=== PATIENT | male | born 1945 | race Caucasian/White ===

== ENCOUNTER 2020-02-05 17:20 | Inpatient (IN) | payer MEDICARE, MEDICAID, SELFPAY ==
[~2020-02-05] VITALS: Ht 185.4 cm; Wt 81.6 kg
[2020-02-05 17:20] VITALS: BP 128/78
--- NOTE | 2020-02-05 17:20 | NUR ---
Patient BIBA BLS, transferred to bed 10. RN evaluating patient at bedside.
--- NOTE | 2020-02-05 17:25 | NUR ---
PT BIBA FROM HOME C/O PROGRESSIVELY GENERALIZED WEAKNESS, SUBJECTIVE FEVER, FATIGUE, AND DIFFICULTY OF AMBULATION FOR 4 DAYS. PT STATES HIS DAUGHTER TESTED TWO DAYS AGO WITH POSITIVE RESULT AND HE WAS TESTED YESTERDAY WITH PENDING RESULT. PT DENIES SOB, CP, COUGH, N/V/D, OR DIZZINESS. PT HAS LEFT SIDED EXTREMITIES WEAKNESS SINCE LAST STROKE IN 2010. PT DOES NOT PRESENT WITH RESPIRATORY DISTRESS OR ACCESSORY MUSCLE USE. 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
--- NOTE | 2020-02-05 17:50 | NUR ---
XRAY IS AT BEDSIDE.
--- NOTE | 2020-02-05 17:50 | NUR ---
REE SWAB COLLECTED AND SENT TO THE LAB.
[2020-02-05 17:52] LABS: BASOPHILS % (AUTO) 0.3 % (0.0-2.0); EOSINOPHILS % (AUTO) 0.1 % (0.0-4.0); HEMATOCRIT 39.4 % (36-52); HEMOGLOBIN 13.5 g/dL (12.0-18.0); LYMPHOCYTES # (AUTO) 1.2 K/uL (2.0-11.5); LYMPHOCYTES % (AUTO) 18.8 % (20.5-51.1); MEAN CORPUSCULAR HEMOGLOBIN 28 pg (27-31); MEAN CORPUSCULAR HGB CONC 34 g/dL (33-37); MEAN CORPUSCULAR VOLUME 82.5 fL (80-94); MONOCYTES # (AUTO) 0.6 K/uL (0.8-1.0); MONOCYTES % (AUTO) 9.3 % (1.7-9.3); NEUTROPHILS # (AUTO) 4.7 K/uL (1.8-7.7); NEUTROPHILS % (AUTO) 71.5 % (42.2-75.2); PLATELET COUNT (AUTO) 102 K/uL (140-450); RED BLOOD CELL COUNT(AUTO) 4.78 MIL/uL (4.20-6.10); RED CELL DISTRIBUTION WIDTH 14.2 % (11.6-13.7); WHITE BLOOD COUNT (AUTO) 6.5 K/uL (4.8-10.8)
[2020-02-05 18:06] LABS: ALBUMIN 3.5 g/dL (3.4-5.0); ANION GAP 15.2 (8-16); ASPARTATE AMINOTRANSFERASE 20 U/L (15-37); CHLORIDE 102 mmol/L (98-107); CREATININE 1.8 mg/dL (0.6-1.3); GLUCOSE 108 mg/dL (74-106); POTASSIUM 3.2 mmol/L (3.5-5.1); SODIUM SERUM 138 mmol/L (136-145); TOTAL BILIRUBIN 0.6 mg/dL (0.0-1.0); UREA NITROGEN, BLOOD 18 mg/dL (7-18)
[2020-02-05] MEDS ORDERED: ERGO500028 PO (18:07)
[2020-02-05] MEDS ORDERED: PROP20TA29 PO (18:09)
[2020-02-05] MEDS ORDERED: PRAV40TA4 PO (18:09)
[2020-02-05] MEDS ORDERED: BENA20TA PO (18:09)
[2020-02-05] MEDS ORDERED: SYN.05 PO (18:14)
[2020-02-05] MEDS ORDERED: FURO-572 PO (18:14)
[2020-02-05] MEDS ORDERED: GABA100C PO (18:14)
[2020-02-05] MEDS ORDERED: AMLO10TA PO (18:14)
[2020-02-05] MEDS ORDERED: POTA10CE85 PO (18:14)
[2020-02-05] MEDS ORDERED: KEP500 PO (18:14)
[2020-02-05] MEDS ORDERED: DUTA0.5S2 PO (18:14)
[2020-02-05] MEDS ORDERED: DEXAMETHASONE 4 MG/ML VIAL IVP ONE (18:25)
--- NOTE | 2020-02-05 18:25 | NUR ---
INVALID REE RESULT CALLED FROM LAB AND LAB STATES MOST LIKELY IT IS POSITIVE. RECOMMENDED TO ORDER PCR. DR. KAHN MADE AWARE.
--- NOTE | 2020-02-05 18:52 | NUR ---
NOVEL SWAB COLLECTED AND SENT TO THE LAB.
--- NOTE | 2020-02-05 19:25 | NUR ---
Pt report given to MINA. Transfer of care at this time.
--- NOTE | 2020-02-05 19:30 | NUR ---
RECEIVED REPORT FROM RAY SILVERMAN FOR CONTINUITY OF CARE. PT LAYING IN BED, IN NO ACUTE DISTRESS NOTED, O2 AT 2 L VIA NC. PT PLACED ON GL ACCOUNTANT AT THIS TIME. PENDING ADMIT AT THIS TIME.
--- NOTE | 2020-02-05 19:51 | NUR ---
PT TAKEN TO CT AT THIS TIME.
--- NOTE | 2020-02-05 20:00 | NUR ---
PT RETRUNED FROM [place] VIA [facility]. PT MASK BEING WORN.
--- NOTE | 2020-02-05 20:10 | NUR ---
PT STATES, "I STILL DONT FEEL LIKE GOING TO THE BATHROOM AT THIS TIME". REMINDED PT OF THE NEED OF URINE SAMPLE AND VERBALIZED UNDERSTANDING.
--- NOTE | 2020-02-05 20:25 | NUR ---
Khadra shelley in ED - 02/05/20 at 2038 by [email or web address] PICTURES OF WOUND TAKEN. PRIMARY NURSE AT BEDSIDE.
[2020-02-05] MEDS ORDERED: guaiFENesin DM 200/20 MG-10 ML 10 ML UDC PO PRN (21:50)
[2020-02-05] MEDS ORDERED: ONDANSETRON 4 MG/2 ML VIAL IM/IVP PRN (21:50)
[2020-02-05] MEDS ORDERED: DOCUSATE SODIUM 100 MG GELCAP PO PRN (21:50)
[2020-02-05] MEDS ORDERED: ZOLPIDEM 5 MG TAB PO PRN (21:50)
[2020-02-05 22:36] LABS: FREE T4 (FREE THYROXINE) 1.47 ng/dL (0.76-1.46); MAGNESIUM 1.8 mg/dL (1.8-2.4); PHOSPHORUS 2.6 mg/dL (2.5-4.9); THYROID STIMULATING HORMONE 0.84 uIU/mL (0.34-3.74)
--- NOTE | 2020-02-05 22:39 | NUR ---
Pt assisted to provide UA via urinal by Primary RN.
[2020-02-05 22:41] LABS: PROTHROMBIN TIME 10.9 secs (10.8-13.4)
[2020-02-05] MEDS: NACL 0.9% 1,000 ML IV SCH (22:44)
--- NOTE | 2020-02-05 22:54 | NUR ---
PT LAYING IN BED, IN NO ACUTE DISTRESS NOTED. BREATHING EVEN AND UNLABORED EVIDENCE BY RISE AND FALL OF CHEST O2 AT 2L VIA NC SATURATION OF 98%. PT STILL CONTINUES ON SHIPPING TECHNICIAN. BED LOCKED AND IN LOWEST POSITION. PROVIDED WARM BLANKET FOR COMFORT.
--- NOTE | 2020-02-05 23:13 | NUR ---
DAUGHTERS CALLED WANTING UPDATE ON PT'S STATUS. TEODORO - & GEMINI .
--- NOTE | 2020-02-05 23:23 | NUR ---
PT GAVE VERBAL CONSENT TO PROVIDE FULL UPDATE TO DAUGHTERS (TEODORO AND GEMINI).
--- NOTE | 2020-02-05 23:36 | NUR ---
Patient will be admitted to care of DR. CONDE. Admited to TELEMETRY. Will go to room 119B. Belongings list completed. Report to JACQUELINE SILVERMAN. PROVIDED ETA OF 15 MINUTES.
[2020-02-05 23:52] LABS: APPEARANCE,URINE CLEAR (CLEAR); BILIRUBIN,URINE NEGATIVE (NEGATIVE); BLOOD, URINE NEGATIVE (NEGATIVE); COLOR,URINE YELLOW (YELLOW); LEUKOCYTE ESTERASE ,URINE NEGATIVE (NEGATIVE); NITRITE, URINE NEGATIVE (NEGATIVE); UGLUCOSE NEGATIVE (NEGATIVE)
[2020-02-06 00:06] LABS: WBC,URINE 0-5 /HPF (0-5)
--- NOTE | 2020-02-06 00:15 | NUR ---
PT TAKEN TO BED 119B AT THIS TIME FOR CONTINUITY OF CARE.
--- NOTE | 2020-02-06 00:15 | NUR ---
ADMITTED PT TO TELE UNIT FROM ED VIA GURNEY. PT IS AAOX4, AMBULATORY WITH ASSIST, SPEAKS AND UNDERSTANDS MAURITANIAN ADEQUATELY. NO ACUTE DISTRESS, NO SOB NOTED. RESPIRATIONS EVEN AND UNLABORED. CHEST RISE AND FALL SYMMETRICAL. ON O2 3LPM VIA NASAL CANNULA. DENIES ANY PAIN OR DISCOMFORT AT THIS TIME. PT HAS ADMITTING DIAGNOSIS OF COVID 19 HYPOXIC RESPIRATORY FAILURE, WITH A CHIEF COMPLAINT OF GENERALIZED WEAKNESS, FATIGUE. NOTED IV LINE ON LAC 18G RUNNING IVF NS 100CC/HR, PATENT AND INTACT. PT ORIENTED TO ROOM AND CALL LIGHT. PLAN OF CARE DISCUSSED, VERBALIZED UNDERSTANDING. DROPLET PRECAUTION ISOLATION OBSERVED WITH PROPER PPE. SAFETY MEASURES IN PLACED. CALL LIGHT IN REACH. WILL CONTINUE TO MONITOR.
[2020-02-06 00:47] LABS: BARBITURATE, URINE NEGATIVE ng/ml (NEG <=200); BENZODIAZEPINE, URINE NEGATIVE ng/mL (NEG <=200); CANNABINOID, URINE POSITIVE ng/mL (NEG <=50); COCAINE, URINE NEGATIVE ng/mL (NEG <=300); OPIATE, URINE NEGATIVE ng/mL (NEG <=2000); PHENCYCLIDINE SCREEN,URINE NEGATIVE ng/mL (NEG <=25)
--- NOTE | 2020-02-06 02:15 | NUR ---
PT ON BED, SLEEPING COMFORTABLY WITH NO APPARENT DISTRESS. NO SOB, NO COUGH NOTED. SAFETY MEASURES IN PLACED. CALL LIGHT IN REACH. WILL CONTINUE TO MONITOR.
--- NOTE | 2020-02-06 03:00 | NUR ---
PT IV LINE GOT DISLODGED. ABLE TO INSERT NEW IV LINE ON RAC G24 X1 ATTEMPT. Addendum: 02/06/20 at 0434 by Bijan Jarrett RN WRONG CHART/PT
[2020-02-06 04:00] VITALS: BP 138/76
--- NOTE | 2020-02-06 04:15 | NUR ---
PT STILL ASLEEP ON BED WITHOUT ANY S/S OF DISTRESS OR PAIN. WILL CONTINUE TO MONITOR.
[2020-02-06] MEDS: LEVOTHYROXINE 0.05 MG TAB PO SCH (05:40)
[2020-02-06] MEDS: POTASSIUM CHLORIDE 10 MEQ TABER PO PRN (05:40)
--- NOTE | 2020-02-06 05:40 | NUR ---
PT POTASSIUM LEVEL ON 02/04 FROM ER IS 3.2, ADMINISTERED [id number] PRN ORDERED. DUE MEDS GIVEN. ABLE TO TOLERATE WELL. WILL CONTINUE TO MONITOR.
[2020-02-06 05:58] LABS: BASOPHILS % (AUTO) 0.1 % (0.0-2.0); EOSINOPHILS % (AUTO) 0.1 % (0.0-4.0); HEMATOCRIT 40.6 % (36-52); LYMPHOCYTES # (AUTO) 0.6 K/uL (2.0-11.5); LYMPHOCYTES % (AUTO) 16.1 % (20.5-51.1); MEAN CORPUSCULAR HEMOGLOBIN 29 pg (27-31); MEAN CORPUSCULAR HGB CONC 34 g/dL (33-37); MEAN CORPUSCULAR VOLUME 83.1 fL (80-94); MONOCYTES # (AUTO) 0.2 K/uL (0.8-1.0); MONOCYTES % (AUTO) 5.7 % (1.7-9.3); NEUTROPHILS # (AUTO) 2.9 K/uL (1.8-7.7); PLATELET COUNT (AUTO) 92 K/uL (140-450); RED BLOOD CELL COUNT(AUTO) 4.89 MIL/uL (4.20-6.10); RED CELL DISTRIBUTION WIDTH 13.9 % (11.6-13.7); WHITE BLOOD COUNT (AUTO) 3.7 K/uL (4.8-10.8)
[2020-02-06 06:18] LABS: ANION GAP 15.1 (8-16); CARBON DIOXIDE 26.5 mmol/L (21-32); CHLORIDE 104 mmol/L (98-107); CREATININE 1.6 mg/dL (0.6-1.3); GLUCOSE 133 mg/dL (74-106); POTASSIUM 3.6 mmol/L (3.5-5.1); SODIUM SERUM 142 mmol/L (136-145); UREA NITROGEN, BLOOD 21 mg/dL (7-18)
--- NOTE | 2020-02-06 07:18 | NUR ---
ENDORSED PT TO AM SHIFT NURSE IN STABLE CONDITION FOR CONTINUITY OF CARE.
--- NOTE | 2020-02-06 07:20 | NUR ---
RECEIVED PATIENT FROM NIGHT NURSE. PATIENT IN BED SLEEPING, CHEST NOTE RISING. RESP EVEN AND UNLABORED ON 3L NC. NO NOTED DISTRESS AT THIS TIME. SEIZURE PRECAUTION IN PLACE D/T HX. DROPLET PRECAUTION OBSERVED. SAFETY MEASURES IN PLACE. CALL LIGHT WITHIN REACH. WILL CONTINUE TO MONITOR.
[2020-02-06] MEDS: NACL 0.9% 1,000 ML IV SCH ×2 (07:50→17:24)
[2020-02-06 08:00] VITALS: BP 143/81
--- NOTE | 2020-02-06 08:48 | NUR ---
PATIENT HAS BEEN SCREENED AND CATEGORIZED MODERATE NUTRITION RISK. PATIENT WILL BE SEEN WITHIN 3-5 DAYS OF ADMISSION. 02/08/20 02/10/[address]
[2020-02-06] MEDS ORDERED: PRAVASTATIN SODIUM 40 MG PO SCH (09:00)
[2020-02-06] MEDS: PROPRANOLOL 20 MG TAB PO SCH ×3 (09:25→16:33)
[2020-02-06] MEDS: PANTOPRAZOLE 40 MG TABEC PO SCH (09:25)
[2020-02-06] MEDS: levETIRAcetam 500 MG TAB PO SCH ×2 (09:25→20:24)
[2020-02-06] MEDS: amLODIPine 5 MG TAB PO SCH (09:28)
[2020-02-06] MEDS: FUROSEMIDE 20 MG TAB PO SCH (09:28)
[2020-02-06] MEDS: BENAZEPRIL 20 MG TAB PO SCH (09:29)
--- NOTE | 2020-02-06 09:35 | NUR ---
MORNING ROUTINE MEDICATIONS GIVEN. PATIENT TOLERATED WELL. PATIENT AWAKE, ALERT AND ORIENTED X4. RESP EVEN AND UNLABORED ON ROOM AIR, O2SAT 97%. LUNGS CLEAR. SKIN IS WARM TO TOUCH AND INTACT. DENIED OF PAIN AT THIS TIME. PT C/O HX OF JOINT PAIN TO BILATERAL KNEES BUT TOLERATING WELL AT THIS TIME. LAC 18G INTACT AND PATENT INFUSING NS 100ML/HR. PATIENT ABLE TO FOLLOW COMMNANDS AND ABLE TO MAKE NEEDS KNOWN. CALL LIGHT WITHIN REACH. PLAN OF CARE DISCUSSED WITH PATIENT. PATIENT VERBALIZED UNDERSTANDING. WILL CONTINUE TO MONITOR.
--- NOTE | 2020-02-06 11:25 | NUR ---
PATIENT IN BED AWAKE AND ALERT WATCHING TV. RESP EVEN AND UNLABORED ON ROOM AIR, O2SAT 95%. DENIED OF PAIN AT THIS TIME. ACCORDING TO PATIENT, GEMINI HIS STEP DAUGHTER IS NOT TO HAVE ANY INFORMATION ABOUT HIM DURING HIS STAY HERE. PATIENT HAS HOME MEDICATIONS WITH HIM AND WILL CONTACT HIS SON SANDY, WHOM HE RESIDES WITH, TO BRING THEM HOME. CALL LIGHT WITHIN REACH. WILL CONTINUE TO MONITOR.
[2020-02-06 12:00] VITALS: BP 115/82
--- NOTE | 2020-02-06 12:27 | NUR ---
DC PLANNIN YRS OLD MALE PATIENT WAS ADMITTED FROM HOME WITH A DX OF COVID 19 HYPOXIC RESP FAILURE. PATIENT HAS A HISTORY OF STROKE, HYPOTHYROIDISM , BPH AND SEIZURE. CXR SHOWED NO ACUTE CARDIOPULMONARY DISEASE. CT HEAD SHOWED NO ACUTE INTRACRANIAL HEMORRHAGE. RAPID AND PCR COVID TEST PENDING. ADMINISTERED IVF, AND CONTINUED HOME MEDS. DC PLAN TO GO HOME WHEN STABLE CM TO FOLLOW. Addendum: 02/07/20 at 1239 by Britni Parra RN DC PLANNING: PCR COVID TEST POSITIVE. PULMO AND ID FOLLOWING STARTED COVID PROTOCOL AND TREATMENT CM TO FOLLOW Addendum: 02/07/20 at 1546 by Ambreen Elliott CM DC SENIOR TALENT MANAGEMENT CONSULTANT: FAXED PATIENT CLINICALS FOR HOME HEALTH TO [facility]. SPOKE TO MADELEINE THEY ARE NOT ABLE TO ACCEPT THIS PATIENT AT THIS TIME. Addendum: 02/07/20 at 1548 by Ambreen Elliott CM JOHN PAUL PAZNER: PATIENTS ORDER FOR FRONT WHEEL WALKER HAS BEEN FAXED TO [facility]. WALKER WILL BE DELIVERED TO BEDSIDE. Addendum: 02/20/20 at 1229 by Marina Rodriguez CM REMAINS INTUBATED TO VENT, FIO2 50%, PEEP 8, O2 SAT 94% AND SEDATED WITH FENTANYL AND PROPOFOL. ON SOLU MEDROL, KEPPRA, METOCLOPRAMIDE. ON HEPARIN DRIP - APTT 44.1. SEEN BY PULMO - STARTED PATIENT ON REGLAN DUE TO HIGH RESIDUAL. Addendum: 02/21/20 at 1344 by Marina Rodriguez ABLE TO HET A HOLD OF PATIENT'S DAUGHTER TEODORO AGUIAR AT [phone]. INFORMED HER THAT ATTENDING DOC IS TRYING TO CONTACT HER TO DISCUSS CODE STATUS. SHE STATED HAVE NOT SPOKEN TO THE ATTENDING YET, EXCEPT FOR THE NEPHRO DOC. SHE REQUESTED TO HAVE ATTENDING DOC CALL HER. DR CONDE MADE AWARE AND PROVIDED OF THE PATIENT'S DAUGHTER TEODORO AGUIAR'S PHONE NUMBER [phone]. PER DR. CONDE, HE WILL CONTACT PATIENT'S DAUGHTER. Addendum: 02/27/20 at 1439 by Marina Rodriguez CM LATE ENTRY; SPOKE TO RJ AND CONFIRMED WITH HIM THAT THEY ARE NOT ABLE TO ACCEPT HOSPITAL PE. PER JOSEFA PRATHER IS ABLE TO ACCEPT HOSPITAL PE NOW HOWEVER HE COULD NOT GUARANTEE THAT PATIENT WILL BE ACCEPTED. HE STATED THAT DEPENDING ON THE PATIENT'S INSURANCE, WITH HOSPITAL PE IT WILL BE IN THE BOTTOM OF THE REFERRAL. HE REQUESTED TO SEND THE REFERRAL FOR THEM TO REVIEW. INFORMED HIM TO CALL US BACK SOON POSSIBLE DUE TO PLAN OF TRACH AND PEG FOR THIS PATIENT. IN ALSO PROVIDED HIM OF THE VENT SETTINGS. WILL FOLLOW UP. DR. CONDE MADE AWARE. CONTACTED PATIENT'S DAUGHTER TEODORO AGUIAR AND IS IN AGREEMENT OF DC PLAN. REFERRAL SENT TO [facility]. WILL FOLLOW UP. Addendum: 02/28/20 at 1053 by Marina Rodriguez CM LATE ENTRY FOR YESTERDAY: SPOKE TO PATIENT'S DAUGHTER TEODORO AGUIAR STATING THAT THE PATIENT HAS AARP, REQUESTED HER TO SEND US A COPY OF THE INSURANCE CARD. MARVIN NICOLE I=MADE AWARE. HE STATED HE WILL CONTACT THE PATIENT'S DAUGHTER. 1739: RECEIVED A CALL FROM RJ, STATING THAT THEY ARE WORKING ON A BED RIGHT NOW. Addendum: 02/28/20 at 1055 by Marina Rodriguez [place] [address]/27/2020: RECEIVED A MESSAGE FROM MARVIN NICOLE WITH PATIENT'S MEDICARE CARD. INFORMED HIM THAT I WILL HAVE ROTARY SOIL STABILIZER VERIFY ELIGIBILITY IN THE MORNING. Addendum: 02/28/20 at 1105 by Marina Rodriguez 0840: [employer] MADE AWARE OF THE PATIENT'S MEDICARE CARD. PATIENT'S NAME ON THE INSURANCE CARD IS RAMILA AND NOT ARELLANOS. PER MARIO SHE WILL RUN THE NUMBER IF IT IS STILL ACTIVE AND WILL UPDATE ME. CONTACTED RJ TO FOLLOW UP. HE STATED THIS PATIENT HAS [employer] [facility]. INFORMED HIM THAT WE HAVE THE CARD AND WE ARE RUNNING ELIGIBILITY OF THE MOMENT. PER AucteliaROTARY SOIL STABILIZER, PATIENT HAS MTailor WITH [employer]. PER MARIO, SHE WILL PROVIDE ME WITH AN UPDATED FACE SHEET ONCE READY. CONTACTED LARS EATON OF [facility] AT [phone] AND INFORMED HIM OF THIS PATIENT. HE ASKED WHY NOW. INFORMED HIM THAT WE JUST GOT THE MEDICARE CARD FROM THE PATIENT'S DAUGHTER. AND THE NAME ON OUR SYSTEM IS DIFFERENT. HE STATED THAT THE ATTENDING NEEDS TO BE CHANGE TO [facility]. INFORMED HIM THAT THIS PATIENT HAVE BEEN HERE 23 DAYS AND IF WE CAN JUST CONTINUE WITH THE ATTENDING THAT CURRENTLY HAVE FOR CONTINUITY OF CARE. PER UMA HE WILL REACH OUT TO HIS SEAM STAY STITCHER REGARDING THIS. INFORMED HIM THAT WE WILL BE SENDING THEM CLINICALS ON THIS PATIENT AND I WILL HAVE TO FOLLOW UP WITH HIM AFTER BED HUDDLE. RECEIVED AN UPDATED FACE SHEET WITH NEW INSURANCE INFORMATION FROM [employer]. DR. CONDE MADE AWARE. Addendum: 02/28/20 at 1119 by Ambreen Elliott JOHN PAUL DELEON: FAXED UPDATED CLINICALS TO JOSE[facility] Addendum: 02/28/20 at 1131 by Marina Rodriguez CONTACTED LARS EATON OF [facility], TO FOLLOW UP IF THEY RECEIVED CLINICALS FOR THIS PATIENT. PER UMA HE ONLY GOT THE FACE SHEET AND NO CLINICALS YET. HE ALSO STATED THAT HE DISCUSSED THIS CASE WITH HIS SEAM STAY STITCHER AND IS REQUESTING TO TRANSFER SERVICES TO [facility]. HE ALSO STATED THAT THEY WILL APPROVE ADMISSION WHICH IS 02/05/2020, BUT UNFORTUNATELY WILL BE DENYING 02/06/2020-02/27/2020 FOR A LATE NOTIFICATION. DR. CONDE MADE AWARE. AucteliaROTARY SOIL STABILIZER MADE AWARE. Addendum: 02/28/20 at 1137 by Marina Rodriguez CM [address] ERICKSON MADE AWARE. HE STATED HE WILL BE HERE AROUND NOON TIME. Addendum: 02/29/20 at 0902 by Marina Rodriguez CM RECEIVED AN ORDER FOR OC TRANSFER STAT DUE TO INTRACRANIAL HEMORRHAGE. CONTACTED THE FOLLOWING HOSPITALS: [facility] TRANSFER CENTER - [phone] - ABLE TO SPEAK TO GERALDINE. PROVIDED HER OF ALL INFORMATION NEEDED. PER GERALDINE, THEY ARE NOT ACCEPTING ANY TRANSFER AT THIS TIME AND CURRENTLY ON INTERNAL DISASTER. SHE ALSO STATED THAT THEY ARE TRANSFERRING SOME OF THEIR PATIENT'S WELL. SHE STATED SHE CAN TAKE THE PATIENT'S INFORMATION HOWEVER, IT WILL NOT GUARANTEE THAT THEY CAN TAKE THE PATIENT. REFERRAL SENT TO [phone]. [facility] TRANSFER [facility] - [phone] - ABLE TO SPEAK TO EMBER. PER EMBER NO ICU BEDS AT THIS TIME HOWEVER REQUESTED TO FAX REFERRAL. REFERRAL SENT. [facility] BED [facility]OL [phone], PER FORREST, THEY ARE ON INTERNAL DISASTER AND NOT ACCEPTING TRANSFERS AT THIS TIME. [facility] TRANSF[facility] [phone], NO ANSWER. LEFT MESSAGE. [facility] - [phone]. PER MICHAEL NO ICU BEDS AT THIS TIME AND HAS 2 ICU PATIENT'S HOLDING IN THEIR ED. Addendum: 02/29/20 at 1152 by Marina Rodriguez CM LARS EATON OF [facility] MADE AWARE. HE STATED TO TRY TO REACH OUT TO [facility]. CONTACTED [facility] AT [phone], ABLE TO SPEAK TO VIANNEY. PROVIDED HER OF ALL THE INFORMATION NEEDED. SHE STATED THEY ARE ONLY ACCEPTING TRAUMA, STROKE AND STEMI PATIENTS AT THIS TIME, BUT WILL THEIR PHYSICIAN REACH OUT TO DR. ROGERS. SHE REQUESTED CLINICALS TO BE SENT TO [phone]. REFERRAL SENT TO PROVIDED NUMBER. PER JULIO C OF [facility] TRANSFER CENTER, THEY HAVE O DECLINE THE CASE DUE TO THEIR ICU IS AT CAPACITY. RECEIVED A CALL BACK FROM VIANNEY OF [facility], STATING THAT THEY ARE ABLE TO ACCEPT THE PATIENT PENDING ICU COVID BED. SHE ALSO PROVIDED ME THE NAME OF THE ACCEPTING DR. HARIKA BAEZ. PER VIANNEY SHE WILL BE FAXING ME TRANSFER BACK AGREEMENT FORM. RECEIVED TRANSFER BACK AGREEMENT SIGNED BY DR. GARRIDO. FAXED BACK TO [facility] AT [phone]. WILL FOLLOW UP. Addendum: 02/29/20 at 1413 by Kolby ANDREWS SHARON CONTACTED [facility] AND SPOKE TO WILMER . SHARON ARRANGED WILL CALL TRANSPORTATION WITH [facility] PENDING ROOM NUMBER TO [facility]. Addendum: 02/29/20 at 1413 by Kolby ANDREWS AUTH: [id number] Addendum: 02/29/20 at 1628 by Marina Rodriguez CM PER VIANNEY OF [facility] AT [phone], NO ICU BEDS AT THIS TIME. PROVIDED HER OF THE UNIT ART GILDER'S NUMBER IN CASE BED WILL BE AVAILABLE AFTER HOURS. LARS EATON OF [facility] MADE AWARE. Addendum: 03/01/20 at 0842 by Marina Rodriguez CM PER MARIALUISA OF [facility] TRANSFER CENTER, STILL NO ICU BEDS AT THIS TIME. HE STATED CHARGE NURSE WILL UPDATE THEM OF BED AVAILABILITY IN 20 MINS. PROVIDED HIM OF MY CONTACT INFO. Addendum: 03/01/20 at 0850 by Marina Rodriguez CM CONTACTED [facility] TO FOLLOW UP ON THE REFERRAL, NO ANSWER. LEFT MESSAGE. WILL FOLLOW UP. Addendum: 03/01/20 at 1129 by Marina Rodriguez CM REACHED OUT TO [facility] AGAIN, NO ANSWER. LEFT MESSAGE. PHONE CALL MADE TO [facility] TO FOLLOW UP BED AVAILABILITY, ANANT FAITH STILL NO ICU BEDS. SHE STATED PATIENT IS ON TOP OF THEIR LIST. WILL FOLLOW UP. Addendum: 03/01/20 at 1257 by Marina Rodriguez CM RECEIVED A CALL FROM GYPSY OF [facility] TO GATHER MORE INFORMATION REGARDING THIS PATIENT. SHE STATED THAT SHE WILL FORWARD THE REFERRAL HOWEVER SHE DOES NOT THINK THAT THEY WILL DO ANYTHING FOR THIS PATIENT DUE TO COVID. PER LEON, SHE WILL REACH OUT TO ME IF THEY NEED MORE INFORMATION. Addendum: 03/01/20 at 1655 by Marina Rodriguez PER VIANNEY [facility], NO ICU BEDS STILL. PER GYPSY OF [facility], DR. BROOKS IS DECLINING THE CASE. LARS EATON OF [facility] MADE AWARE. Addendum: 03/04/20 at 0907 by Marina Rodriguez CM PER GERALDINE [facility], NO ICU BEDS AVAILABLE AT THIS TIME. WILL FOLLOW UP. Addendum: 03/04/20 at 1133 by Marina Rodriguez CM 1045: PER JOHN OF [facility], NO BED AVAILABLE AT THIS TIME. WILL FOLLOW UP. Addendum: 03/05/20 at 0831 by Marina Rodriguez CM PHONE CALL MADE TO [facility] TO FOLLOW WITH THE REFERRAL. PER VIANNEY, ART GILDER MARLEN IS ACTIVELY LOOKING FOR BED AVAILABILITY WE SPEAK. SHE STATED SHE'S HOPING THAT BED WILL BE AVAILABLE TODAY. SHE REQUESTED TO FAX OVER UPDATED CLINICALS TO [phone]. CLINICALS SENT. WILL FOLLOW UP. Addendum: 03/05/20 at 1157 by Marina Rodriguez CM RECEIVED A CALL FROM [facility], INFORMING ME THAT THERE IS NO BED AVAILABLE AT THIS TIME AND THE NEXT UPDATE WILL BE AT 1860. Addendum: 03/05/20 at 1212 by Marina Rodriguez CM LATE ENTRY: PER MICHAEL ALTMAN [facility], THEY ARE ABLE TO TRANSPORT PATIENTS WITH HIGHER FIO2 DEPENDING ON THE DISTANCE. SHE ALSO STATED 70% IS FINE. Addendum: 03/05/20 at 1635 by Marina Rodriguez CM REACHED OUT TO [facility] AGAIN TO FOLLOW UP ON BED AVAILABILITY. PER VIANNEY, SHE WILL REACH OUT TO [facility] TO FIND OUT BED AVAILABILITY AND WILL CALL ME BACK FOR UPDATE. Addendum: 03/05/20 at 1642 by Marina Rodriguez CM RECEIVED A CALL BACK FROM VIANNEY Lake AT [facility] TRANSFER [facility]ENTER, STATING THAT THERE IS STILL NO BED AVAILABLE AT THIS TIME AND NOT ANTICIPATING ANY DC OVERNIGHT. PROVIDED HER WITH THE ART GILDER AND UNIT'S PHONE NUMBER IN CASE BED WILL BE AVAILABLE ANYTIME SOON. Addendum: 03/05/20 at 1643 by Ambreen Elliott CM DC ADRIENNE: SPOKE TO TUCKER AT [facility] [phone] TRANSPORTATION IS STILL ON WILL CALL Addendum: 03/06/20 at 1215 by Marina Rodriguez CM RECEIVED A MESSAGE FROM VIANNEY Connolly OF [facility], REQUESTING FOR A COPY OF THE COVID NEGATIVE RESULT. CONTACTED VIANNEY Connolly, SHE STATED THAT SHE RECEIVED THE COPY AND WHAT SHE NEEDED NOW IS A CLEARANCE FROM PATHOLOGY COLLECTOR OR ID STATING THAT PATIENT IS NEGATIVE AND OFF ISOLATION FOR COVID. PRIMARY HERRERA THOMPSON AWARE. WILL FOLLOW UP. Addendum: 03/06/20 at 1217 by Marina Rodriguez CM LARS VELASQUEZG MADE AWARE. Addendum: 03/06/20 at [address] CM [address] HAJI MADE AWARE OF [facility]'S REQUEST FOR CLEARANCE FOR COVID ISOLATION SINCE PATIENT IS COVID NEGATIVE NOW. PER DR. HAJI, HE IS ON IT RIGHT NOW. WILL FOLLOW UP. Addendum: 03/06/20 at [address] HAJI'S PROGRESS NOTES SENT TO [facility]. VIANNEY Connolly OF [facility] MADE AWARE THAT I FAXED THEM OVER PATHOLOGY COLLECTOR'S NOTES. WILL FOLLOW UP. Addendum: 03/06/20 at 1617 by Marina Rodriguez CM PER VIANNEY Connolly AT [facility], THEY ARE STILL LOOKING FOR A BED. WILL FOLLOW UP. Addendum: 03/06/20 at 1628 by Marina Rodriguez CM CONTACTED FABRIZIO, ABLE TO SPEAK TO AGA. PER AGA, WILL CALL TRANSPORT IS NOT ACTIVE ANYMORE. PROVIDED HER ALL THE INFORMATION NEEDED FOR A WILL CALL TRANSPORT. Addendum: 03/07/20 at 0856 by Marina Rodriguez RECEIVED A MESSAGE FROM VIANNEY Connolly OF [facility] REQUESTING FOR THE PATHOLOGY COLLECTOR PHONE NUMBER FOR A DOC TO DOC CALL. DR. HAJI MADE AWARE, OK TO PROVIDE [facility] OF HIS PHONE NUMBER. PROVIDED VIANNEY Connolly OF DR. HAJI'S CONTACT INFO. RECEIVED ANOTHER CALL FROM VIANNEY Connolly, INFORMING ME THAT THEY ARE UNABLE TO REACH DR. HAJI AND VOICEMAIL IS FULL AND UNABLE TO LEAVE VOICE MESSAGE. PROVIDED HER OF THE OFFICE NUMBER SO THEY CAN HAVE DR. HAJI PAGED. DR HAJI MADE AWARE. Addendum: 03/07/20 at 1345 by Marina Rodriguez CM PER DR. HAJI, HE WAS ABLE TO SPEAK TO DR. ARIAS AT [facility] AND UPON REVIEW, DR. ARIAS STATED THAT PATIENT UNLIKELY TO BE A CANDIDATE FOR SURGERY AT THIS TIME. DR. ARIAS RECOMMENDED TO REPEAT CTA AND AND CT BRAIN AND HE CAN REVIEW, BUT NOT ACCEPTING AT THIS TIME. ORDER IN PLACE. PER DR. HAJI, HE SPOKE WITH PATIENT'S DAUGHTER AND UPDATED HER AND SHE WILL GOALS OF CARE. FOR NOW, THEY WILL PLAN FOR TRACH AND PEG. HE STATED NO HLOC TRANSFER FOR NOW, WILL RE REQUEST IF THINGS CHANGE IN THE FUTURE. CONSIDERING [facility]. LARS EATON OF [facility] MADE AWARE. Addendum: 03/08/20 at 1539 by Marina Rodriguez CM LATE ENTRY: PRIMARY RN REQUESTED TO HAVE THE ORDER FOR HLOC TRANSFER CANCELLED. SHE STATED SHE WILL REACH OUT TO DR. HAJI. FOLLOWED UP WITH PRIMARY RN, SHE STATED SHE WAS ABLE TO SPEAK TO DR HAJI AND WILL CANCEL THE ORDER. VIANNEY Connolly AT [facility] MADE AWARE TO CANCEL REFERRAL. Addendum: 03/11/20 at 1142 by Marina Rodriguez CM REMAINS ORALLY INTUBATED TO VENT, FIO2 28%, PEEP 5, O2 SAT 94%. SURGERY PLANNED TO TRACH AND PEG THIS PM. LARS EATON OF [facility] UPDATED OF THE PATIENT'S CONDITION. Addendum: 03/12/20 at 1205 by Marina Rodriguez CM DC PLAN TO SUB ACUTE DISCUSSED WITH DR. BOOKER. PER DR. BOOKER OK TO PUT ORDER IN. ORDER TRANSCRIBED AD CARRIED OUT. CONTACTED PATIENT'S DAUGHTER TEODORO AGUIAR AT [phone] TO DISCUSS DC PLAN AND IS IN AGREEMENT. LARS EATON OF [facility] MADE AWARE. PER LARS EATON TO FAX REFERRAL TO : [facility] - P - [phone] - [phone] [facility] - [phone] [facility] [phone] [facility] - [phone] [facility] - [phone] [facility] [phone] [facility] - [phone], PER EDGARDO THURMAN DOES NOT HAVE A SUB ACUTE BUT THEIR SISTER FACILITY AT [facility] HAS ONE. MYRIAM CLEMENS - [phone] F [phone] CLINICALS SENT. WILL FOLLOW UP. Addendum: 03/12/20 at 1230 by Marina Rodriguez CM PER BENY ALTMAN [facility], THEY DON'T DO DIALYSIS FOR SUB ACUTE. PER SHERRY OF [facility], THEY DON'T DO DIALYSIS FOR SUB ACUTE. Addendum: 03/12/20 at 1331 by Marina Rodriguez CM PER DI ALVAREZ, THEY ARE NOT ABLE TO TAKE DIALYSIS SUBACUTE PATIENTS. Addendum: 03/12/20 at 1506 by Marina Rodriguez CM [facility] AT [phone], REQUESTED TO TRANSFER TO ADMISSIONS. NO ANSWER. LEFT MESSAGE. WILL FOLLOW UP. PER ASH ADMISSIONS AT [facility], THEY ARE NOT ABLE TO DO DIALYSIS FOR SUB ACUTE PATIENTS. LARS EATON OF [facility] MADE AWARE. HE STATED HE IS IN CONTACT WITH [facility]. INFORMED HIM THAT I LEFT MESSAGES AT [facility], HOWEVER NO ONE HAVE RETURNED MY CALLS YET. HE STATED HE WILL FOLLOW UP. Addendum: 03/12/20 at 1513 by Marina Rodriguez CM PER JOHN CLEMENS, THEY DO NOT HAVE ANY SUB ACUTE BEDS AVAILABLE AT THIS TIME. I ALSO INFORMED HER THAT THE PATIENT IS ON DIALYSIS. SHE STATED WITH SUB ACUTE DIALYSIS PATIENT IS COMPLEX DUE TO THE STATE REQUIREMENTS. INFORMED HER THAT I WILL FOLLOW AGAIN WITH HER FOR BED AVAILABILITY. Addendum: 03/12/20 at 1558 by Marina Rodriguez CM PER SERGEI APONTE [phone], THEY DON'T DO DIALYSIS FOR SUBACUTE PATIENTS PER PATRIZIA [facility] [phone], NO IN HOUSE DIALYSIS FOR SUBACUTE PER [facility]O [facility], NO IN HOUSE DIALYSIS FOR SUBACUTE PER ES [facility] [phone], NO IN HOUSE DIALYSIS PER VALENTIN [facility] [phone], NO IN HOUSE DIALYSIS PER AMARILIS AGAPITO [facility] [phone], NO IN HOUSE DIALYSIS PER ESME DE LA CRUZ [phone], NO IN HOUSE DIALYSIS. PER MARKUS ALTMAN [facility] [phone], THEY ARE NOT ACCEPTING PATIENTS ON VENT. PER AMRITA OF [facility] [phone], THEY ARE NOT OPEN FOR ADMISSIONS YET. HE PROVIDED ME WITH THEIR SISTER FACILITY ESTHER MATHUR (STATE INSPECTOR). CONTACTED THE PROVIDED NUMBER, NO ANSWER. LEFT MESSAGE. WILL FOLLOW UP. LARS EATON OF [facility] MADE AWARE. Addendum: 03/12/20 at 1632 by Marina Rodriguez CM PER LARS EATON OK TO SEND REFERRAL TO [facility]. REFERRAL SENT TO [facility]. WILL FOLLOW UP. Addendum: 03/13/20 at 1640 by Marina Rodriguez CM LATE ENTRY: ANANT PRATHER REQUESTED BED AT [place]. ANANT BRITT [facility] PROVIDED [facility] WITH TRANSPORT AUTH FOR [facility] CCT [id number]. Addendum: 03/13/20 at 1642 by Ambreen Elliott CM JOHN PAUL DELEON: SET UP WILL CALL TRANSPORTATION WITH [facility] [phone]. IF JOSEFA CALLS WITH A BED NUMBER WE WILL HAVE TO PROVIDE [facility] WITH THE BED NUMBER AND ACCEPTING DR. LUIS F RODRIGUEZ AT [facility] WITH AUTH # [id number] Addendum: 03/13/20 at 1713 by Marina Rodriguez CM ENDORSED TO ART GILDER Addendum: 03/14/20 at 1632 by Marina Rodriguez CM PER RJ, WE MIGHT GET A BED AT [facility]. RECEIVED A MESSAGE FROM RJ STATING THAT PATIENT WILL GO TO ROOM [address] CARTER. NUMBER TO CALL FOR REPORT [phone]. PRIMARY HERRERA LEUNG MADE AWARE Addendum: 03/14/20 at 1633 by Ambreen Elliott CM JOHN PAUL DELEON: ACTIVATED WILL CALL TRANSPORTATION WITH [facility] [phone]. 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 HERRERA LEUNG NOTIFIED.
--- NOTE | 2020-02-06 13:16 | NUR ---
PATIENT HOME MEDICATIONS WERE GIVEN TO SANDY TO TAKE HOME. PATIENT MADE AWARE.
--- NOTE | 2020-02-06 15:01 | NUR ---
SOCIAL WORK NOTE: PATIENT DID NOT HAVE PHONE NUMBER FOR EMERGENCY CONTACT SANKET PAIZ. SW CONTACTED ROOM PHONE AND CONTACTED NURSE TO SEE IF OTHER CONTACTS WERE AVAILABLE. RN STATED HE WOULD CONTACT SW IF FAMILY CALLS. SW WILL FOLLOW UP. Addendum: 02/07/20 at 1505 by Kolby Bailey SW TRIED TO FIND EMERGENCY CONTACT FOR PATIENT. SHARON CONTACTED RN. NO CONTACT INFORMATION WAS AVAILABLE. Addendum: 02/08/20 at 1520 by Kolby Bailey Patient's Orientation Unable To Assess Information Provided By GEMINI OCONNOR Comments SW WAS UNABLE TO MEET PATIENT AT BEDSIDE DUE TO MEDICAL CONDITION. SHARON CONTACTED RN WHO PROVIDED PHONE NUMBER [phone] TO WENDY. SINGLETARY STATED THAT PATIENT'S DAUGHTER TEODORO AGUIAR [phone] IS PATIENT'S HEALTHCARE DECISION MAKER. Senior Net C Developer, Realtionship and Phone Number TEODORO AGUIAR DAUGHTER [phone] GEMINI STEPDAUGHTER [phone] Healthcare Power of Translator And Interpreter No Does Patient Have a POLST No Identifying Problems No Social Work Triggers Is A Social Work Consult Needed No Mandate Report Filed No Explanation Of Identifying Problems PATIENT IS A 74-YEAR-OLD MALE ADMITTED FOR COVID 19 AND HYPOXIA. PATIENT HAS PMHX OF CEREBROVASCULAR ACCIDE, HYPERTENSION, AND SEIZURES. PER NADEEN JIMENEZ, PATIENT HAS NO MENTAL HEALTH HISTORY OR SUBSTANCE ABUSE HISTORY. Admitted From Home Pre-Admission Level Of Functioning Status Independent With DME Prior Resources/Services Used In Last 12 Months No Prior Resources Used Prior DME Cane Dialysis Comments N/A Living Situation Lives With Family House Other Living Situation/Comment PATIENT LIVES WITH EXTENDED FAMILY Patient Had Caregiver No Home Support No Caregiver Issues Financial Issues No Known Financial Issue Referral To The Financial Counselor Needed No Factors/Needs No D/C Needs Identified Explanation And Or Other Factors Affecting/Possible DC Needs PATIENT'S FAMILY STATED THEY WOULD ARRANGE FOR PATIENT TO BE PICKED UP [phone]. Pt/Rep Participated In Discharge Plan Yes Patient/Family Agress With Discharge Plan Yes Discharge Plan Comments TENTATIVE DISCHARGE PLAN IS FOR PATIENT TO RETURN HOME. DC Plan Status Initiated Addendum: 02/21/20 at 1349 by Kolby Bailey SHARON CONTACTED PATIENT'S DAUGHTER TEODORO TO FOLLOW UP REGARDING PATIENT. SHARON SPOKE WITH TEODORO AND ASKED IF SHE WAS IN NEED OF ANY RESOURCES OR COUNSELING SERVICES. TEODORO DECLINED AND REQUESTED SHARON'S CONTACT NUMBER IF SHE THINKS OF ANYTHING SHARON CAN ASSIST WITH.
--- NOTE | 2020-02-06 15:06 | NUR ---
PT IN BED RESTING WATCHING TV. NO NOTED ACUTE S/S DISTRESS AT THIS TIME. RESP EVEN AND UNLABORED ON ROOM AIR. CALL LIGHT WITHIN REACH. WILL CONTINUE TO MONITOR.
[2020-02-06 16:00] VITALS: BP 124/82
--- NOTE | 2020-02-06 17:25 | NUR ---
PATIENT IN BED AWAKE AND ALERT. IN GOOD SPIRIT. RESP EVEN AND UNLABORED ON ROOM AIR. DENIED OF PAIN AT THIS TIME. CALL LIGHT WITHIN REACH. CONTINUE TO USE BEDSIDE COMMODE WITHOUT DIFFICULTY OR ASSIST. WILL CONTINUE TO MONITOR.
--- NOTE | 2020-02-06 19:10 | NUR ---
RECEIVED BEDSIDE REPORT FROM DAY SHIFT NURSE FOR CONTINUITY OF CARE. PT IS AWAKE AND ALERT. A&OX4. ON RA WITH BREATHING UNLABORED. EATING AT THE BEDSIDE AND RESPONDING APPROPRIATELY. SR ON TELE MONITORING. SKIN IS WARM, DRY, AND INTACT. COMMODE IS AT THE BEDSIDE. PT IS ON FALL PRECAUTIONS AND IS TO AMBULATE WITH ASSISTANCE. IV IS IN THE LEFT AC 18 GAUGE RUNNING NS AT 100. PLAN OF CARE DISCUSSED. PT RECEIVED FLU SHOT ON THIS ADMISSION. GEMINI, DAUGHTER, IS TO NOT RECEIVE INFORMATION ABOUT PT STATED BY PT PER DAY SHIFT NURSE. BED IS IN THE LOWEST POSITION AND CALL LIGHT IS WITHIN REACH.
--- NOTE | 2020-02-06 19:10 | NUR ---
ENDORSED PATIENT TO NIGHT NURSE. PATIENT IN STABLE CONDITION
[2020-02-06 20:00] VITALS: BP 132/77
[2020-02-06] MEDS: GABAPENTIN 100 MG CAP PO SCH (20:24)
[2020-02-06] MEDS: SIMVASTATIN 20 MG TAB PO SCH (20:24)
--- NOTE | 2020-02-06 21:30 | NUR ---
PT IS AWAKE, SITTING IN HIGH MOYA POSITION IN BED. FALL PRECAUTIONS IN PLACE. A&OX3. ON RA WITH NO RESPIRATORY DISTRESS. PT IS TALKATIVE AND IN GOOD SPIRITS. WILL CONTINUE TO MONITOR.
--- NOTE | 2020-02-06 21:31 | NUR ---
RECEIVED REPORT FROM AM SHIFT. PT SEEN AND ASSESSED. PT IS NO ROOM AIR WITH SPO2 OF 95%. PT IS IN NO APPARENT RESPIRATORY DISTRESS AT THIS TIME. WILL CONTINUE TO MONITOR PT.
--- NOTE | 2020-02-06 23:30 | NUR ---
PT IS SLEEPING. CHEST RISE AND FALL IS SYMMETRICAL. NO RESPIRATORY DISTRESS NOTED. O2 SAT IS 95% ON RA. IV FLUIDS ARE INFUSING. PT IS STABLE.
[2020-02-07] VITALS: BP 141/75
--- NOTE | 2020-02-07 01:30 | NUR ---
ROUNDED ON PT. HE IS ASLEEP IN SUPINE POSITION. BREATHING IS UNLABORED. BEDSIDE TABLE WITHIN REACH. FLUIDS ARE INFUSING VIA IV. PT IS STABLE.
--- NOTE | 2020-02-07 03:30 | NUR ---
PT IS UP TO THE BEDSIDE COMMODE WITH ASSISTANCE. PT VOIDED IN THE COMMODE. YELLOW, CLEAR URINE. PT IS BACK IN BED WITH NO DISTRESS. IV FLUIDS ARE INFUSING AND PATENT. BED IS IN THE LOWEST POSITION.
[2020-02-07 04:00] VITALS: BP 144/89
--- NOTE | 2020-02-07 04:00 | NUR ---
PT'S TEMP WAS 99.8 DEGREES FAHRENHEIT. COOLING MEASURES WERE PLACED ON PT. ICE PACKS UNDERNEATH ARMPITS AND BEHIND NECK. BLANKETS WERE REMOVED. WILL RECHECK TEMP.
[2020-02-07] MEDS: NACL 0.9% 1,000 ML IV SCH ×2 (04:04→13:50)
--- NOTE | 2020-02-07 05:23 | NUR ---
CHECKED PT'S TEMP AGAIN AND IT WAS 100.5 DEGREES FAHRENHEIT. COOLING MEASURES ARE NOW IN PLACE. BLANKET WAS REMOVED AND SHEET ONLY WAS PLACED. PT WILL BE GIVEN TYLENOL PRN FOR FEVER. WILL CONTINUE TO MONITOR TYLENOL.
[2020-02-07] MEDS: ACETAMINOPHEN 325 MG TAB PO PRN (05:29)
[2020-02-07] MEDS: LEVOTHYROXINE 0.05 MG TAB PO SCH (05:30)
[2020-02-07 05:55] LABS: BASOPHILS % (AUTO) 0.1 % (0.0-2.0); HEMATOCRIT 40.3 % (36-52); HEMOGLOBIN 13.7 g/dL (12.0-18.0); LYMPHOCYTES # (AUTO) 0.9 K/uL (2.0-11.5); LYMPHOCYTES % (AUTO) 7.5 % (20.5-51.1); MEAN CORPUSCULAR HEMOGLOBIN 28 pg (27-31); MEAN CORPUSCULAR HGB CONC 34 g/dL (33-37); MEAN CORPUSCULAR VOLUME 83.1 fL (80-94); MONOCYTES # (AUTO) 0.6 K/uL (0.8-1.0); MONOCYTES % (AUTO) 5.4 % (1.7-9.3); NEUTROPHILS # (AUTO) 10.3 K/uL (1.8-7.7); PLATELET COUNT (AUTO) 117 K/uL (140-450); RED BLOOD CELL COUNT(AUTO) 4.84 MIL/uL (4.20-6.10); RED CELL DISTRIBUTION WIDTH 14.4 % (11.6-13.7); WHITE BLOOD COUNT (AUTO) 11.9 K/uL (4.8-10.8)
[2020-02-07 06:45] LABS: ANION GAP 12.1 (8-16); CHLORIDE 107 mmol/L (98-107); CREATININE 1.4 mg/dL (0.6-1.3); GLUCOSE 96 mg/dL (74-106); POTASSIUM 3.1 mmol/L (3.5-5.1); SODIUM SERUM 144 mmol/L (136-145); UREA NITROGEN, BLOOD 24 mg/dL (7-18)
--- NOTE | 2020-02-07 07:10 | NUR ---
ENDORSED PT TO DAY SHIFT NURSE FOR CONTINUITY OF CARE. PT IS ASLEEP AND CHEST RISE AND FALL IS SYMMETRICAL. BREATHING IS UNLABORED. PT IS STABLE AT THIS TIME. PLAN OF CARE DISCUSSED.
[2020-02-07 07:11] LABS: T4 (THYROXINE) 11.3 ug/dL (4.5-12.0)
--- NOTE | 2020-02-07 08:00 | NUR ---
PATIENT IS AOX3, TENDS TO GET CONFUSED AT TIMES. VS ARE STABLE; Addendum: 02/07/20 at 1638 by Agency 06 RN RN PAIN. PATIENT STATES HAVING NO DISCOMFORT JUST WAITING FOR BREAKFAST. NO COMPLAINTS AT THIS TIME. PATIENT WAS ASKED TO USE CALL LIGHT FOR ASSISTANCE AT ALL TIMES.
[2020-02-07] MEDS: levETIRAcetam 500 MG TAB PO SCH (11:08)
[2020-02-07] MEDS: PANTOPRAZOLE 40 MG TABEC PO SCH (11:08)
[2020-02-07] MEDS: FUROSEMIDE 20 MG TAB PO SCH (11:09)
[2020-02-07] MEDS: PROPRANOLOL 20 MG TAB PO SCH ×2 (11:09→14:28)
[2020-02-07] MEDS: amLODIPine 5 MG TAB PO SCH (11:09)
[2020-02-07] MEDS: BENAZEPRIL 20 MG TAB PO SCH (11:12)
[2020-02-07] MEDS ORDERED: POTASSIUM CHLORIDE 10 MEQ TABER PO SCH (12:10)
--- NOTE | 2020-02-07 12:30 | NUR ---
PATIENT IS RESTING IN BED. EYES CLOSED. CHEST RISE AND FALL IS SYMMETRICAL. BREATHING IS UNLABORED.VS FROM 1200 WERE STABLE. WILL CONTINUE TO MONITOR.
--- NOTE | 2020-02-07 13:15 | NUR ---
PATIENT CALLED TO INFORM OF ASSISTED FALL WHILE TRYING TO GET UP ON HIS OWN TO USE THE BEDSIDE COMMODE. INCIDENT REPORT WAS MADE. PATIENT WAS ASSESSED. STATED HAVING NO PAIN. NO BRUISES OR LACERATIONS WERE OBSERVED. VS WERE STABLE. MD WAS NOTIFIED, XRAY WAS ORDERED. WILL FOLLOW UP.
[2020-02-07] MEDS ORDERED: ALBUTEROL HFA MDI 90 MCG/ACTUATION 8 GM INH PRN (14:50)
[2020-02-07 17:45] VITALS: BP 131/86
--- NOTE | 2020-02-08 07:15 | NUR ---
RECEIVED PATIENT AT THIS TIME. PT IS STABLE IN NO DISTRESS. SAFETY MEASURES IN PLACE, NO ENVIRONMENTAL HAZARDS OBSERVED. WILL CONTINUE WITH POC.
[2020-02-08] MEDS: PROPRANOLOL 20 MG TAB PO SCH ×4 (07:54→17:15)
[2020-02-08] MEDS: levETIRAcetam 500 MG TAB PO SCH ×3 (07:54→20:06)
[2020-02-08] MEDS: GABAPENTIN 100 MG CAP PO SCH ×2 (07:54→20:07)
[2020-02-08] MEDS: NACL 0.9% 1,000 ML IV SCH ×3 (07:55→20:23)
[2020-02-08] MEDS: ZINC SULF 220 MG CAP PO SCH ×3 (07:55→20:07)
[2020-02-08] MEDS: SIMVASTATIN 20 MG TAB PO SCH ×2 (07:55→20:06)
[2020-02-08] MEDS: LEVOTHYROXINE 0.05 MG TAB PO SCH (07:55)
[2020-02-08 08:00] VITALS: BP 165/78
[2020-02-08 08:30] LABS: HEMATOCRIT 41.1 % (36-52); HEMOGLOBIN 14.1 g/dL (12.0-18.0); MEAN CORPUSCULAR HEMOGLOBIN 28 pg (27-31); MEAN CORPUSCULAR HGB CONC 34 g/dL (33-37); MEAN CORPUSCULAR VOLUME 82.7 fL (80-94); PLATELET COUNT (AUTO) 116 K/uL (140-450); RED BLOOD CELL COUNT(AUTO) 4.97 MIL/uL (4.20-6.10); RED CELL DISTRIBUTION WIDTH 14.3 % (11.6-13.7); WHITE BLOOD COUNT (AUTO) 9.2 K/uL (4.8-10.8)
[2020-02-08 08:31] LABS: BASOPHILS % (AUTO) 0.1 % (0.0-2.0); LYMPHOCYTES % (AUTO) 9.7 % (20.5-51.1); MONOCYTES % (AUTO) 6.5 % (1.7-9.3); NEUTROPHILS % (AUTO) 83.7 % (42.2-75.2)
[2020-02-08 08:32] LABS: LYMPHOCYTES # (AUTO) 0.9 K/uL (2.0-11.5); MONOCYTES # (AUTO) 0.6 K/uL (0.8-1.0); NEUTROPHILS # (AUTO) 7.7 K/uL (1.8-7.7)
--- NOTE | 2020-02-08 08:50 | NUR ---
PT IS AWAKE AND ALERT ORIENTED X 3/4 NOT SURE ON THE DATE. IN NO DISTRESS. COMMUNICATES APPROPRIATELY. LUNG SOUNDS DIMINISHED, ABD IS FLAT, SOFT AND NONTENDER WITH ACTIVE BS X 4. DENIED ANY DIFFICULTY WITH BM. PT TOLERATED PO MEDICATION WITH NO ISSUES. HAS IV ACCESS TO L AC THAT IS INTACT AND PATENT. V/S: STEP DAUGHTER GEMINI CALLED TO GET UPDATE ON HIM. PT STATED HE DID NOT WANT GEMINI TO GET ANY INFORMATION ABOUT HIS CONDITION. SAFETY MEASURES IN PLACE. WILL CONTINUE WITH POC.
[2020-02-08] MEDS: ENOXAPARIN 40 MG/0.4 ML SYR SUBQ SCH (09:00)
[2020-02-08] MEDS: PANTOPRAZOLE 40 MG TABEC PO SCH (09:10)
[2020-02-08] MEDS: ASCORBIC ACID 500 MG TAB PO SCH (09:10)
[2020-02-08] MEDS: VITAMIN D 400 IU TAB PO SCH (09:10)
[2020-02-08] MEDS: amLODIPine 5 MG TAB PO SCH (09:12)
[2020-02-08] MEDS: BENAZEPRIL 20 MG TAB PO SCH (09:15)
[2020-02-08] MEDS: FUROSEMIDE 20 MG TAB PO SCH (09:15)
[2020-02-08 10:29] LABS: ANION GAP 13.4 (8-16); CHLORIDE 107 mmol/L (98-107); CREATININE 1.4 mg/dL (0.6-1.3); GLUCOSE 113 mg/dL (74-106); POTASSIUM 3.4 mmol/L (3.5-5.1); SODIUM SERUM 143 mmol/L (136-145); UREA NITROGEN, BLOOD 20 mg/dL (7-18)
--- NOTE | 2020-02-08 10:32 | NUR ---
PT RESTING IN BED. GIVEN K DUR DUE TO K 3.4 FOR TODAY.TOLERATED PO MEDICATION WITH NO PROBLEMS.
[2020-02-08] MEDS: POTASSIUM CHLORIDE 10 MEQ TABER PO PRN (10:38)
[2020-02-08 12:00] VITALS: BP 150/78
--- NOTE | 2020-02-08 12:20 | NUR ---
V/S: 98.0, 90, 20, 150/78, 92% ON 2 L NC DENIES PAIN 0/10. TOLERATED PO MEDICATION NO ISSUES
--- NOTE | 2020-02-08 14:30 | NUR ---
PT RESTING IN BED ALL NEEDS MET CALL LIGHT WITHIN REACH. NO FALLS
[2020-02-08 16:00] VITALS: BP 122/63
--- NOTE | 2020-02-08 16:20 | NUR ---
V/S: 98.4, 79, 20, 122/63, 94% 2L NC PAIN 0/10. TOLERATED MEDICATION NEW IV ACCESS STARTED ON RIGHT HAND 22 G DUE TO OTHER SITE LEAKING. IV REMOVED WITH CATH INTACT.
[2020-02-08] MEDS ORDERED: remdesivir COMMUNICATION ORDER 1 EA MISC MC PRN (17:40)
--- NOTE | 2020-02-08 18:20 | NUR ---
PT RESTING ALL NEEDS MET. CALL LIGHT WITHIN REACH
--- NOTE | 2020-02-08 19:21 | NUR ---
PT ENDORSED TO PM RN FOR CONTINUITY OF CARE. PT IS STABLE.
[2020-02-08 20:00] VITALS: BP 134/90
--- NOTE | 2020-02-08 20:00 | NUR ---
RECEIVED PATIENT IN AWAKE AND ALERT IN BED. PT RECEIVING 2L O2 VIA NC. NO COUGH OR SOB AT THIS TIME. O2 SAT 92%. REINFORCED TEACHING ON USING THE CALL LIGHT WHEN IN NEED OF ASSISTANCE OR GETTING OUT OF BED. PT VERBALIZED UNDERSTANDING. PT ON TELE MONITORING. BED LOWERED WITH CALL LIGHT WITHIN REACH. WILL CONTINUE TO MONITOR
--- NOTE | 2020-02-08 20:10 | NUR ---
RECEIVED REPORT FROM AM SHIFT. PT SEEN AND ASSESSED. FOUND PATIENT NO 2L NASAL CANNULA. SPO2 OF 92%. PATIENT DID NOT COMPLAIN OF SOB. PATIENT IS IN NO APPARENT RESPIRATORY DISTRESS AT THIS TIME. PRN TREATMENT NOT INDICATED AT THIS TIME. PATIENT WAS INFORMED TO CALL RN OR TUYERE FITTER FOR PRN TX WHEN EXPERIENCING SHORTNESS OF BREATH. WILL CONTINUE TO MONITOR PT.
--- NOTE | 2020-02-08 20:23 | NUR ---
CONVALESCENT PLASMA ORDER DISCUSSED WITH THE PATIENT. PT INFORMED THAT HIS CONSENT IS REQUIRED TO INITIATE TX. PT STATES, " I DONT NEED IT." EXPLAINED RISKS AND BENEFITS. PATIENT STATES HE WILL THINK ABOUT IT
[2020-02-09] VITALS (7 sets, daily range): BP systolic 130–160; BP diastolic 82–103
--- NOTE | 2020-02-09 00:46 | NUR ---
PT AWAKE IN BED. NO S/S OF DISTRESS NOTED
--- NOTE | 2020-02-09 06:45 | NUR ---
PATIENT O2 SAT 85-86% ON 5L NC. PT SOB AND TACHYPNEIC. PATIENT PLACED ON 10L OXYMIZER, O2 SAT 90%. WILL CONTINUE TO MONITOR
[2020-02-09] MEDS: NACL 0.9% 1,000 ML IV SCH ×2 (06:54→15:29)
[2020-02-09] MEDS: LEVOTHYROXINE 0.05 MG TAB PO SCH (06:55)
--- NOTE | 2020-02-09 07:37 | NUR ---
PATIENT ENDORSED TO AM NURSE
[2020-02-09] MEDS ORDERED: CLINICAL MONITORING MC PRN (08:10)
[2020-02-09] MEDS: ASCORBIC ACID 500 MG TAB PO SCH (08:49)
[2020-02-09] MEDS: ZINC SULF 220 MG CAP PO SCH ×2 (08:50→20:20)
[2020-02-09] MEDS: amLODIPine 5 MG TAB PO SCH (08:50)
[2020-02-09] MEDS: levETIRAcetam 500 MG TAB PO SCH ×2 (08:50→20:20)
[2020-02-09] MEDS: BENAZEPRIL 20 MG TAB PO SCH (08:51)
[2020-02-09] MEDS: HYDROcodone/APAP 7.5/325 MG 1 TAB PO PRN ×2 (08:52→23:57)
[2020-02-09] MEDS: PANTOPRAZOLE 40 MG TABEC PO SCH (08:52)
[2020-02-09] MEDS: ENOXAPARIN 40 MG/0.4 ML SYR SUBQ SCH (08:54)
[2020-02-09] MEDS: FUROSEMIDE 20 MG TAB PO SCH (08:55)
[2020-02-09] MEDS: PROPRANOLOL 20 MG TAB PO SCH ×3 (08:56→17:22)
[2020-02-09] MEDS: VITAMIN D 400 IU TAB PO SCH (08:57)
--- NOTE | 2020-02-09 09:52 | NUR ---
REASSESSED PT AFTER NORCO ADMIN; PT STATES 0/10 PAIN NOW ON THE R MIDAXILLARY SIDE THAT WAS INTERMITTENT AND ACHING. PT IS SITTING COMFORTABLY ON BED.
[2020-02-09] MEDS ORDERED: REMDESIVIR (EUA) 200 MG in NACL 0.9% 100 ML IV SCH (10:00)
--- NOTE | 2020-02-09 10:21 | NUR ---
PT IS COOPERATIVE WITH PT AT BEDSIDE. PT STATES NO PAIN AT THIS TIME.
--- NOTE | 2020-02-09 13:00 | NUR ---
PT WOKE UP FOR MERINGUER AND WENT BACK TO SLEEP. PT C/O NO PAIN/ DISCOMFORT. TOLERATING OXIMIZER AT 10 LPM.
--- NOTE | 2020-02-09 14:58 | NUR ---
02/09/20 RD INITIAL ASSESSMENT COMPLETED PLEASE REFER TO NUTRITION ASSESSMENT UNDER CARE ACTIVITY FOR ESTIMATED NUTRITIONAL NEEDS. 1. CONTINUE CARDIAC MECHANICAL SOFT DIET TOLERATED 2. CONTINUE ENSURE BID STRAWBERRY FLAVOR 3. RD WILL PROVIDE NUTRITION EDUCATION ON COVID-19 4. FNS WILL FOLLOW FOOD PREFERENCES 5. RD TO FOLLOW-UP 3-5 DAYS, MODERATE RISK SYMONE HALL RD
--- NOTE | 2020-02-09 15:22 | NUR ---
PT AWAKE AND WAS ABLE TO HOLD CONVERSATION OF 2-3 SENTENCES WITHOUT SOB. PT STATES NO PAIN/DISCOMFORT AND TOLERATING OXIMIZER AT 10 LPM.
--- NOTE | 2020-02-09 17:38 | NUR ---
PT COMFORTABLE IN BED AND ENDORSES NO PAIN OR DISCOMFORT. PT ABLE TO HOLD CONVERSATION W/O SOB, AND TOLERATING OXIMIZER AT 10 LPM.
--- NOTE | 2020-02-09 18:54 | NUR ---
PT STATES NO PAIN OR DISCOMFORT. TOLERATING OXIMIZER AT 10 LPM, WILL ENDORSE CARE TO PRINT MACHINE OPERATOR RN.
--- NOTE | 2020-02-09 19:10 | NUR ---
RECEIVED BEDSIDE REPORT FROM DAY SHIFT NURSE FOR CONTINUITY OF CARE. PT IS ASLEEP. CHEST RISE AND FALL IS SYMMETRICAL. O2 SAT IS 90% ON 10 L O2 OXIMIZER. SR ON TELE MONITORING. COMMODE AT THE BEDSIDE TO BE USED WITH ASSISTANCE. FALL PRECAUTIONS IN PLACE. SKIN IS WARM, DRY, AND INTACT. IV IS IN THE RIGHT HAND 22 GAUGE RUNNING NS AT 100. PLAN OF CARE DISCUSSED. DROPLET PRECAUTIONS FOR COVID POSITIVE RESULT. SEIZURE PRECAUTIONS IN PLACE. PT IS STABLE.
[2020-02-09] MEDS: GABAPENTIN 100 MG CAP PO SCH (20:21)
[2020-02-09] MEDS: POTASSIUM CHLORIDE 10 MEQ TABER PO PRN (20:21)
[2020-02-09] MEDS: SIMVASTATIN 20 MG TAB PO SCH (20:21)
--- NOTE | 2020-02-09 20:21 | NUR ---
PT WAS GIVEN KDUR FOR POTASSIUM OF 3.4. POTASSIUM CHLORIDE 40 MEQ WAS GIVEN ORDERED PRN FOR LOW POTASSIUM. PT IS STABLE AT THIS TIME. O2 SAT IS 90% ON 10L OXIMIZER. BREATHING IS UNLABORED. NO SOB OR COUGHING.
--- NOTE | 2020-02-09 22:30 | NUR ---
PT WAS MOVED UP TO 15 L O2 OXIMIZER BECAUSE HIS OXYGEN SATURATION WAS 85%. PT IS STILL NOT TOLERATING IT WELL. OXYGEN SATURATION IS FLUCTUATING BETWEEN 82-88%. TENDS TO DESAT WHEN PT IS SLEEPING. WILL CONTINUE TO MONITOR.
--- NOTE | 2020-02-09 23:00 | NUR ---
PT STILL NOT TOLERATING MAX OXYGEN ON OXIMIZER, 15 L O2. RT WAS CALLED AND IS AT THE BEDSIDE. PT WAS CHANGED TO THE NONREBREATHER MASK WITH 15 L O2. PT IS AT 90% O2 SAT. WILL CONTINUE TO MONITOR. BREATHING IS NOW UNLABORED.
[2020-02-10] VITALS: BP 161/95
[2020-02-10] MEDS: NACL 0.9% 1,000 ML IV SCH ×3 (00:30→21:50)
--- NOTE | 2020-02-10 01:00 | NUR ---
PT REPOSITIONS SELF. PT HAD AN ACCIDENT IN THE BED, PT VOIDED IN HIS SLEEP. SUPERVISOR WELDING EQUIPMENT REPAIRER IS NOW AT THE BEDSIDE CHANGING THE LINENS. NO DISTRESS NOTED. O2 SAT IS 91% ON 15L O2 NONREBREATHER. COMMODE IS AT THE BEDSIDE. BED IS IN THE LOWEST POSITION AND BED ALARM IS ON.
--- NOTE | 2020-02-10 03:00 | NUR ---
PT IS ASLEEP. CHEST RISE AND FALL IS SYMMETRICAL. O2 SAT IS 94% ON 15L O2 NONREBREATHER. NO DISTRESS NOTED. BELONGINGS ARE WITHIN REACH. WALKER IS AT THE BEDSIDE ALONG WITH THE COMMODE. URINAL IS WITHIN REACH. PT IS STABLE.
[2020-02-10 04:00] VITALS: BP 148/90
--- NOTE | 2020-02-10 05:00 | NUR ---
ROUNDED ON PT. HE IS AWAKE AND ALERT, SPEAKING APPROPRIATELY. PT IS STABLE. O2 SAT IS 94%. PT IS TOLERATING NONREBREATHER WELL. IV FLUIDS ARE PATENT AND INFUSING. WILL CONTINUE TO MONITOR.
[2020-02-10] MEDS: LEVOTHYROXINE 0.05 MG TAB PO SCH (06:44)
--- NOTE | 2020-02-10 07:15 | NUR ---
ENDORSED PT TO DAY SHIFT NURSE FOR CONTINUITY OF CARE. PT IS AWAKE AND ALERT. O2 SAT IS 93%. NO RESPIRATORY DISTRESS NOTED. PLAN OF CARE DISCUSSED.
[2020-02-10 07:30] LABS: BASOPHILS % (AUTO) 0.1 % (0.0-2.0); HEMATOCRIT 42.1 % (36-52); HEMOGLOBIN 14.2 g/dL (12.0-18.0); LYMPHOCYTES # (AUTO) 0.8 K/uL (2.0-11.5); LYMPHOCYTES % (AUTO) 4.6 % (20.5-51.1); MEAN CORPUSCULAR HEMOGLOBIN 28 pg (27-31); MEAN CORPUSCULAR HGB CONC 34 g/dL (33-37); MEAN CORPUSCULAR VOLUME 82.4 fL (80-94); MONOCYTES # (AUTO) 0.9 K/uL (0.8-1.0); MONOCYTES % (AUTO) 5.2 % (1.7-9.3); NEUTROPHILS # (AUTO) 14.8 K/uL (1.8-7.7); PLATELET COUNT (AUTO) 188 K/uL (140-450); RED BLOOD CELL COUNT(AUTO) 5.11 MIL/uL (4.20-6.10); RED CELL DISTRIBUTION WIDTH 14.2 % (11.6-13.7); WHITE BLOOD COUNT (AUTO) 16.4 K/uL (4.8-10.8)
[2020-02-10 07:52] LABS: MAGNESIUM 2.2 mg/dL (1.8-2.4); PHOSPHORUS 2.6 mg/dL (2.5-4.9)
[2020-02-10 08:14] LABS: ALBUMIN 2.6 g/dL (3.4-5.0); ANION GAP 14.8 (8-16); ASPARTATE AMINOTRANSFERASE 32 U/L (15-37); CHLORIDE 110 mmol/L (98-107); CREATININE 1.2 mg/dL (0.6-1.3); GLUCOSE 120 mg/dL (74-106); POTASSIUM 3.8 mmol/L (3.5-5.1); SODIUM SERUM 143 mmol/L (136-145); TOTAL BILIRUBIN 0.6 mg/dL (0.0-1.0); UREA NITROGEN, BLOOD 27 mg/dL (7-18)
[2020-02-10 08:19] LABS: NEUTROPHILS % (AUTO) 90.1 % (42.2-75.2)
[2020-02-10] MEDS: amLODIPine 5 MG TAB PO SCH (09:57)
[2020-02-10] MEDS: levETIRAcetam 500 MG TAB PO SCH ×2 (09:57→20:55)
[2020-02-10] MEDS: FUROSEMIDE 20 MG TAB PO SCH (09:57)
[2020-02-10] MEDS: VITAMIN D 400 IU TAB PO SCH (09:57)
[2020-02-10] MEDS: ZINC SULF 220 MG CAP PO SCH ×2 (09:58→20:55)
[2020-02-10] MEDS: BENAZEPRIL 20 MG TAB PO SCH (09:58)
[2020-02-10] MEDS: ASCORBIC ACID 500 MG TAB PO SCH (09:58)
[2020-02-10] MEDS: ENOXAPARIN 40 MG/0.4 ML SYR SUBQ SCH (09:59)
[2020-02-10] MEDS: REMDESIVIR (EUA) 100 MG in NACL 0.9% 100 ML IV SCH (10:00)
[2020-02-10] MEDS: PANTOPRAZOLE 40 MG TABEC PO SCH (10:00)
[2020-02-10] MEDS: PROPRANOLOL 20 MG TAB PO SCH ×3 (10:00→18:47)
--- NOTE | 2020-02-10 10:00 | NUR ---
SCHEDULED MEDICATION GIVEN, EDUCATION PROVIDED, NO ACUTE DISTRESS NOTED. O2 SAT 92% WITH 15 L NRB. SAFETY MEASURES IN PLACE, WILL CONTINUE TO MONITOR.
[2020-02-10] MEDS ORDERED: POTASSIUM CHLORIDE 10 MEQ TABER PO SCH (12:30)
--- NOTE | 2020-02-10 14:25 | NUR ---
PATIENT RESTING IN BED WITH 15 L NRB. O2 SAT 93%, HR 71. SAFETY MEASURES IN PLACE, NO ACUTE DISTRESS NOTED, WILL CONTINUE TO MONITOR.
--- NOTE | 2020-02-10 15:55 | NUR ---
ASSISTED PATIENT TO USE THE BEDSIDE COMMODE. PATIENT'S O2 SAT DECREASE TO 86% WHEN HE TAKE OUT OF THE NRB. RECONNECT THE NON REBREATHER. O2 SAT INCREASED TO 91% WITH 15L NRB. WILL CONTINUE TO MONITOR.
[2020-02-10 16:00] VITALS: BP 125/86
--- NOTE | 2020-02-10 16:10 | NUR ---
PLASMA PICKED UP FROM THE LAB. WILL INFUSE SHORTLY.
--- NOTE | 2020-02-10 16:35 | NUR ---
STARTED PLASMA TRANSFUSION, EXPLAINED TO THE PATIENT THE PROCEDURE. VERBALIZED UNDERSTANDING. VITAL SIGNS CHECKED. WILL CONTINUE TO CLOSELY MONITOR.
--- NOTE | 2020-02-10 17:55 | NUR ---
PLASMA TRANSFUSION FINISHED AND PATIENT TOLERATED THE PROCEDURE WELL, WITH NO ADVERSE REACTION NOTED. FLUSHED THE IV LINE WITH 20ML OF NS. RECONNECT THE IVF LINE. SAFETY MEASURES IN PLACE, WILL CONTINUE TO MONITOR.
--- NOTE | 2020-02-10 18:54 | NUR ---
PATIENT USED URINAL, TOOK OF THE NRB. PATIENT'S O2 SAT 85% WITH 15L NRB. CALL RT. WILL COME TO CHECK THE PATIENT. KEEP PATIENT ON THE OXYGEN. ENCOURAGED PATIENT TO TAKE DEEP BREATH. WILL FOLLOW UP.
--- NOTE | 2020-02-10 19:20 | NUR ---
ENDORSED PATIENT TO GANDY DANCER RN FOR CONTINUITY OF CARE. PATIENT IN STABLE CONDITION.
--- NOTE | 2020-02-10 19:23 | NUR ---
RECEIVED PATIENT IN STABLE CONDITION FROM AM SHIFT NURSE FOR CONTINUITY OF CARE. AAOX2-3, ABLE TO MAKE NEEDS KNOWN. RESPIRATIONS EVEN, LABORED UPON EXERTION. CONTINUES ON O2 15L VIA NRB, O2SAT 95%. PATIENT NEEDS FREQUENT REMINDERS TO KEEP O2 MASK ON. RISKS AND BENEFITS EXPLAINED. PATIENT VERBALIZED UNDERSTANDING BUT NEEDS REINFORCEMENT. NO C/O PAIN. NO S/S ACUTE DISTRESS. SKIN WARM, DRY AND INTACT. IV SITE TO RIGHT FOREARM 22G PATENT/INTACT, INFUSING FLUIDS WELL. ABDOMEN SOFT, NONTENDER, NONDISTENDED. BOWEL SOUNDS ACTIVE X4 QUADRANTS. PATIENT IS CONTINENT OF B/B. PATIENT ORIENTED TO ROOM/STAFF AND CALL LIGHT. PLAN OF CARE DISCUSSED. CALL LIGHT WITHIN REACH AT ALL TIMES. SAFETY PRECAUTIONS IN PLACE. ISOLATION PRECAUTIONS OBSERVED BY ALL STAFF.
[2020-02-10] MEDS: GABAPENTIN 100 MG CAP PO SCH (20:55)
[2020-02-10] MEDS: SIMVASTATIN 20 MG TAB PO SCH (20:55)
--- NOTE | 2020-02-10 21:45 | NUR ---
DUE MEDS GIVEN. PATIENT REMINDED TO KEEP MASK ON AT ALL TIMES TO PROMOTE OXYGENATION. PATIENT VERBALIZED UNDERSTANDING BUT NEEDS REINFORCEMENT. CALL LIGHT WITHIN REACH. SAFETY PRECAUTIONS IN PLACE. ISOLATION PRECAUTIONS OBSERVED BY ALL STAFF.
[2020-02-10] MEDS: HYDROcodone/APAP 7.5/325 MG 1 TAB PO PRN (23:08)
--- NOTE | 2020-02-10 23:45 | NUR ---
PATIENT RESTING COMFORTABLY IN BED. NO S/S ACUTE DISTRESS. CALL LIGHT WITHIN REACH.
[2020-02-11] VITALS: BP 141/86
--- NOTE | 2020-02-11 01:10 | NUR ---
MADE ROUNDS. PATIENT IS ASLEEP. NO S/S ACUTE DISTRESS. CALL LIGHT WITHIN REACH.
--- NOTE | 2020-02-11 03:00 | NUR ---
PATIENT CONTINUES TO REMOVE NRB MASK. PROVIDED EDUCATION REGARDING KEEPING MASK ON. RISKS AND BENEFITS EXPLAINED. PATIENT VERBALIZED UNDERSTANDING BUT NEEDS REINFORCEMENT. CALL LIGHT WITHIN REACH. SAFETY PRECAUTIONS IN PLACE. ISOLATION PRECAUTIONS OBSERVED BY ALL STAFF.
[2020-02-11 04:00] VITALS: BP 159/86
--- NOTE | 2020-02-11 05:49 | NUR ---
PATIENT AWAKE IN BED. READJUSTED NRB. CALL LIGHT WITHIN REACH. SAFETY PRECAUTIONS IN PLACE. ISOLATION PRECAUTIONS OBSERVED BY ALL STAFF.
[2020-02-11] MEDS: LEVOTHYROXINE 0.05 MG TAB PO SCH (06:30)
[2020-02-11 07:13] LABS: ALBUMIN 2.7 g/dL (3.4-5.0); ANION GAP 15.1 (8-16); ASPARTATE AMINOTRANSFERASE 27 U/L (15-37); CARBON DIOXIDE 21.8 mmol/L (21-32); CHLORIDE 112 mmol/L (98-107); CREATININE 1.2 mg/dL (0.6-1.3); GLUCOSE 118 mg/dL (74-106); POTASSIUM 3.9 mmol/L (3.5-5.1); SODIUM SERUM 145 mmol/L (136-145); TOTAL BILIRUBIN 0.6 mg/dL (0.0-1.0); UREA NITROGEN, BLOOD 32 mg/dL (7-18)
--- NOTE | 2020-02-11 07:35 | NUR ---
RECEIVED REPORT FROM NIGHT RN. POC REVIEWED. NOTED. TACHYPNEA. 26 B/M. NO SIGNS OF CYANOSIS . PRODUCTIVE COUGH NOTED. O2 SAT 90%. PT IS RESPONSIVE TO VERBAL/TACTILE STIMULI. HOB KEPT ELEVATED. WILL CONTINUE TO MONITOR.
[2020-02-11 08:00] VITALS: BP 136/78
[2020-02-11] MEDS: ASCORBIC ACID 500 MG TAB PO SCH (10:00)
[2020-02-11] MEDS: NACL 0.9% 1,000 ML IV SCH ×2 (10:00→20:13)
[2020-02-11] MEDS: FUROSEMIDE 20 MG TAB PO SCH (10:00)
[2020-02-11] MEDS: ENOXAPARIN 40 MG/0.4 ML SYR SUBQ SCH (10:00)
[2020-02-11] MEDS: VITAMIN D 400 IU TAB PO SCH (10:00)
[2020-02-11] MEDS: PROPRANOLOL 20 MG TAB PO SCH ×3 (10:00→17:42)
[2020-02-11] MEDS: amLODIPine 5 MG TAB PO SCH (10:00)
[2020-02-11] MEDS: ZINC SULF 220 MG CAP PO SCH ×2 (10:00→20:14)
[2020-02-11] MEDS: BENAZEPRIL 20 MG TAB PO SCH (10:00)
[2020-02-11] MEDS: levETIRAcetam 500 MG TAB PO SCH ×2 (10:00→20:14)
[2020-02-11] MEDS: PANTOPRAZOLE 40 MG TABEC PO SCH (10:00)
[2020-02-11] MEDS: REMDESIVIR (EUA) 100 MG in NACL 0.9% 100 ML IV SCH (11:00)
[2020-02-11 12:00] VITALS: BP 151/96
--- NOTE | 2020-02-11 14:28 | NUR ---
NOTIFIED DR SANCHEZ PT'S SATURATION ( 88 - 90% %). pt on 15L NRB . RR 28. AWAITING TO CALL BACK. RT JEWELS NOTIFIED PT'S CONDITION. WILL CONTINUE TO MONITOR.
--- NOTE | 2020-02-11 15:53 | NUR ---
ABG RESULTS READ BACK TO WITH NO CHANGES MADE
[2020-02-11 16:00] VITALS: BP 142/86
[2020-02-11] MEDS: HYDROcodone/APAP 7.5/325 MG 1 TAB PO PRN ×2 (16:20→22:30)
--- NOTE | 2020-02-11 17:43 | NUR ---
PATIENT STATED " NO INFORMATION WILL BE GIVEN TO GEMINI (DAUGHTER). NOTED. NO RESPI DISTRESS AT THIS TIME. O2 SAT 92%.
--- NOTE | 2020-02-11 18:07 | NUR ---
REINFORCED PT NOT TO REMOVE NRB O2 MASK TO AVOID DESATURATION. WILL CONTINUE TO MONITOR. PT DEMONSTRATED UNDERSTANDING.
--- NOTE | 2020-02-11 19:10 | NUR ---
ENDORSED TO NIGHT RN. POS DISCUSSED. PT HAS NO S/S OF DISTRESS. NO CHANGE OF CONDITION.
--- NOTE | 2020-02-11 19:10 | NUR ---
RECEIVED PATIENT FROM AM SHIFT NURSE FOR CONTINUITY OF CARE. PATIENT IS ALERT WITH CONFUSION. PATIENT IS TACHYPNEIC AND SOB. CONTINUES ON O2 15L VIA NRB. SKIN WARM, DRY AND INTACT. IV SITE NOTED TO LEFT FOREARM 22G PATENT/INTACT, INFUSING FLUIDS WELL. ABDOMEN LARGE, ROUND AND SOFT. BOWEL SOUNDS ACTIVE X4 QUADRANTS. PATIENT IS CONTINENT OF B/B. PLAN OF CARE DISCUSSED. CALL LIGHT WITHIN REACH. SAFETY PRECAUTIONS IN PLACE. ISOLATION PRECAUTIONS OBSERVED BY ALL STAFF.
[2020-02-11] MEDS: GABAPENTIN 100 MG CAP PO SCH (20:14)
[2020-02-11] MEDS: SIMVASTATIN 20 MG TAB PO SCH (20:14)
[2020-02-11 21:02] LABS: BASOPHILS % (AUTO) 0.1 % (0.0-2.0); HEMATOCRIT 42.4 % (36-52); HEMOGLOBIN 14.6 g/dL (12.0-18.0); LYMPHOCYTES # (AUTO) 0.6 K/uL (2.0-11.5); LYMPHOCYTES % (AUTO) 4.6 % (20.5-51.1); MEAN CORPUSCULAR HEMOGLOBIN 28 pg (27-31); MEAN CORPUSCULAR HGB CONC 34 g/dL (33-37); MEAN CORPUSCULAR VOLUME 82.6 fL (80-94); MONOCYTES # (AUTO) 0.8 K/uL (0.8-1.0); NEUTROPHILS # (AUTO) 11.7 K/uL (1.8-7.7); NEUTROPHILS % (AUTO) 89.3 % (42.2-75.2); PLATELET COUNT (AUTO) 218 K/uL (140-450); RED BLOOD CELL COUNT(AUTO) 5.13 MIL/uL (4.20-6.10); WHITE BLOOD COUNT (AUTO) 13.2 K/uL (4.8-10.8)
[2020-02-11 21:04] LABS: ANION GAP 16.3 (8-16); CARBON DIOXIDE 22.7 mmol/L (21-32); CHLORIDE 111 mmol/L (98-107); CREATININE 1.3 mg/dL (0.6-1.3); GLUCOSE 133 mg/dL (74-106); SODIUM SERUM 146 mmol/L (136-145); UREA NITROGEN, BLOOD 34 mg/dL (7-18)
--- NOTE | 2020-02-11 21:30 | NUR ---
DUE MEDS GIVEN. PATIENT CONTINUES TO REMOVE NRB. RISKS AND BENEFITS EXPLAINED. PATIENT IS CONFUSED AND CANNOT COMPREHEND. REPLACED NRB, PATIENT'S O2SAT IS 90%. CALL LIGHT WITHIN REACH. SAFETY PRECAUTIONS IN PLACE. ISOLATION PRECAUTIONS OBSERVED BY ALL STAFF.
[2020-02-11 21:34] VITALS: BP 152/59
--- NOTE | 2020-02-11 21:45 | NUR ---
PATIENT CONTINUES TO REMOVE NRB. PATIENT IS TACHYPENIC AND SOB. REORIENTED PATIENT REGARDING OXYGEN THERAPY. PATIENT IS CONFUSED. O2SAT 90%. REPLACED NRB. FREQUENT ROUNDS MADE BY ALL STAFF.
--- NOTE | 2020-02-11 22:30 | NUR ---
PATIENT PULLED OUT IV WITH CANNULA INTACT. MINIMAL BLEEDING NOTED. NEW SITE CHANGED TO RIGHT AC 20G. GOOD BLOOD RETURN NOTED. FREQUENT REORIENTATION GIVEN TO PATIENT. CALL LIGHT WITHIN REACH. FREQUENT ROUNDS MADE BY ALL STAFF.
--- NOTE | 2020-02-11 23:50 | NUR ---
PATIENT IS COMBATIVE AND CONFUSED. RESTRAINT ORDER OBTAINED. BILATERAL SOFT WRIST RESTRAINTS IN PLACE. ADEQUATE CIRCULATION TO BOTH EXTREMITIES. NO INJURY TO PATIENT. FREQUENT ROUNDS BY ALL STAFF.
[2020-02-12] VITALS (28 sets, daily range): BP systolic 96–168; BP diastolic 44–125
[2020-02-12] MEDS ORDERED: ETOMIDATE 20 MG/10 ML VIAL IVP ONE (01:00)
[2020-02-12] MEDS ORDERED: ROCURONIUM 50 MG/5 ML VIAL IV ONE (01:00)
--- NOTE | 2020-02-12 01:00 | NUR ---
PATIENT IS DUSKY. PATIENT CONTINUES TO REMOVE NRB.
[2020-02-12] MEDS ORDERED: LORazepam 2 MG/ML VIAL ONE (01:02)
--- NOTE | 2020-02-12 02:57 | NUR ---
PATIENT TRANSFERRED TO ICU. EMERGENCY CONTACT, TE[place]ORO, MADE AWARE.
--- NOTE | 2020-02-12 03:00 | NUR ---
RECEIVED REPORT FROM PIPE COVERER HELPER, PT ALTERED AND CONFUSED ONLY ALERT TO NAME, PT ABLE TO FOLLOW COMMANDS, BUT REQUIRES CONSTANT REORIENTATION, PT ON RESTRAINTS PUT FIGHTING PULLING AT RESTRAINTS AND WIRES, PULSES PALPABLE, SAFETY PROTOCOLS IN PLACE WILL CONTINUE TO MONITOR PT
--- NOTE | 2020-02-12 03:00 | NUR ---
CRITICAL ABG RESULT REPORTED TO DR SANCHEZ. PER DR SANCHEZ INTUBATE PT DUE TO ABG RESULT.
--- NOTE | 2020-02-12 03:13 | NUR ---
I REPORT TO THE ER DR KEYES ABOUT TELEPHONE ORDER GIVEN BY DR SANCHEZ TO INTUBATE PT. DR KEYES DID NOT AGREE ON THE INTUBATION.
--- NOTE | 2020-02-12 03:20 | NUR ---
DR. KEYES AWARE OF PT CONDITION, PER RT DOES NOT WANT TO INTUBATE AT THIS TIME, WILL CONTINUE TO MONITOR PT
[2020-02-12] MEDS: NACL 0.9% 1,000 ML IV SCH ×2 (03:50→14:36)
--- NOTE | 2020-02-12 05:51 | NUR ---
PT REQUIRES CONTINUOS REORIENTATION, PULLING OUT MEDICAL LINES AND SLIPPING OUT OF RESTRAINTS, PT PULLED OUT IV WILL TRY TO REINSERT A NEW ONE
[2020-02-12] MEDS: LEVOTHYROXINE 0.05 MG TAB PO SCH (06:30)
[2020-02-12 06:45] LABS: ALBUMIN 2.9 g/dL (3.4-5.0); ANION GAP 16.3 (8-16); ASPARTATE AMINOTRANSFERASE 28 U/L (15-37); CARBON DIOXIDE 22.2 mmol/L (21-32); CHLORIDE 112 mmol/L (98-107); CREATININE 1.5 mg/dL (0.6-1.3); GLUCOSE 95 mg/dL (74-106); POTASSIUM 3.5 mmol/L (3.5-5.1); SODIUM SERUM 147 mmol/L (136-145); TOTAL BILIRUBIN 0.9 mg/dL (0.0-1.0); UREA NITROGEN, BLOOD 36 mg/dL (7-18)
[2020-02-12] MEDS: LORazepam 2 MG/ML VIAL IM/IVP PRN ×3 (06:57→16:13)
--- NOTE | 2020-02-12 06:57 | NUR ---
PT BED CLEANED, LEADS REPLACED, NO O2 SENSOR PUT ON, PT IS RESTLESS AND REQUIRES REORIENTATION, , PT HAS USE OF ACCESSORY MUSCLES FOR BREATHING, WILL CONTINUE TO MONITOR PT
--- NOTE | 2020-02-12 07:20 | NUR ---
RECEIVED REPORT COOK ITALIAN STYLE FOOD NURSE. PT IN BED HOB ELEVATED, AOX1, CONFUSED. NO S/S OF PAIN, RESPIRATIONS ARE FAST, DEEP AND, LABORED. ON O2 NRM 15L AND NC 4L O2SAT 86%. WITH IV SITE ON LFA 20G. SKIN IS INTACT. INCONTINENT B/B. ISOLATION PRECAUTION OBSERVED. SAFETY PRECAUTIONS IN PLACE. WILL CONTINUE TO MONITOR
--- NOTE | 2020-02-12 08:45 | NUR ---
PT RESTLESS, CONFUSED, KEEPS TAKING OFF O2 MASK, TOOK OUT IV PER BACKWINDER, RESP VERY LABORED, O2SAT 72%, RT AT BEDSIDE, REQUESTED ED MD DR ZAVALA TO INTUBATE, DR ZAVALA SUGGESTS TRYING HIGH FLOW O2 OR BIPAP FIRST, PT PLACED ON BIPAP, HALDOL ORDERED AND GIVEN FOR AGITATION PER DR SANCHEZ, O2 SAT IMPROVED TO 94%. PT POSITIONED FOR COMFORT, EDUCATED TO KEEP MASK ON.
[2020-02-12] MEDS ORDERED: HALOPERIDOL IM 5 MG/ML VIAL ONE (08:49)
[2020-02-12] MEDS: ASCORBIC ACID 500 MG TAB PO SCH (09:00)
[2020-02-12] MEDS: PANTOPRAZOLE 40 MG TABEC PO SCH (09:00)
[2020-02-12] MEDS: amLODIPine 5 MG TAB PO SCH ×2 (09:00→16:19)
[2020-02-12] MEDS: PROPRANOLOL 20 MG TAB PO SCH ×3 (09:00→16:19)
[2020-02-12] MEDS: BENAZEPRIL 20 MG TAB PO SCH ×2 (09:00→16:19)
[2020-02-12] MEDS: levETIRAcetam 500 MG TAB PO SCH (09:00)
[2020-02-12] MEDS: ENOXAPARIN 40 MG/0.4 ML SYR SUBQ SCH (09:00)
[2020-02-12] MEDS: ZINC SULF 220 MG CAP PO SCH ×2 (09:00→22:24)
[2020-02-12] MEDS: VITAMIN D 400 IU TAB PO SCH (09:00)
[2020-02-12] MEDS: FUROSEMIDE 20 MG TAB PO SCH (09:00)
--- NOTE | 2020-02-12 09:00 | NUR ---
PT PLACED ON BIPAP PER SALLY BALDWIN, WITH THE FOLLOWING SETTINGS IPAP 14 EPAP 6 BUR 12 100% FIO2. SATURATION INCREASED TO 98%, TOLERATING WELL.
--- NOTE | 2020-02-12 09:15 | NUR ---
UNABLE TO GIVE PO MEDS D/T PT'S PHYSICAL CONDITION, PT WITH DIFFICULTY SWALLOWING. DR. SANCHEZ AWARE
[2020-02-12] MEDS ORDERED: HALOPERIDOL IM 5 MG/ML VIAL IM ONE (09:30)
[2020-02-12] MEDS: REMDESIVIR (EUA) 100 MG in NACL 0.9% 100 ML IV SCH (10:00)
--- NOTE | 2020-02-12 10:20 | NUR ---
PT NOW SLEEPING QUIETLY, RESP EVEN UNLABORED, ON BIPAP,VITALS STABLE O2SAT 97%.
[2020-02-12] MEDS ORDERED: OLANZapine 10 MG VIAL IM SCH (12:07)
--- NOTE | 2020-02-12 12:11 | NUR ---
PT RESTLESS, TRYING TO TAKE OFF BIPAP, TRYING TO GET OUT OF BED, ATIVAN GIVEN 30 MIN AGO WITHOUT IMPROVEMTN, DR SANCHEZ NOTIFIED, ORDER FOR ZYPREXA RECEIVED.
--- NOTE | 2020-02-12 12:20 | NUR ---
ZYPREXA IM GIVEN ORDERED
--- NOTE | 2020-02-12 15:21 | NUR ---
PT ASLEEP AT THIS TIME. ON BIPAP 100% FIO2, FLACC 0, RESPIRATIONS ARE EVEN AND UNLABOED
--- NOTE | 2020-02-12 17:00 | NUR ---
RESPIRATIONS SHALLOW, RAPID AND LABORED, O2SAT 98%. MD YEPEZ ORDERED HALDOL PRN FOR RESTLESSNESS
[2020-02-12] MEDS ORDERED: HALOPERIDOL IM 5 MG/ML VIAL IM PRN (17:05)
--- NOTE | 2020-02-12 18:15 | NUR ---
DR AGUERO CAME AND SEEN PT. ORDERED FOR INTUBATION
[2020-02-12] MEDS ORDERED: PROPOFOL 1000 MG/100 ML PREMIX 100 ML IV ONE (18:39)
--- NOTE | 2020-02-12 18:45 | NUR ---
PT INTUBATED. ETT 7.5, 24 CM AT THE LIP, STARTED ON PROPOFOL DRIP ORDERED
--- NOTE | 2020-02-12 19:00 | NUR ---
NGT INSERTED TO LEFT NARES. AWAITING XRAY FOR CONFIRMATION
[2020-02-12] MEDS ORDERED: PROPOFOL 1000 MG/100 ML PREMIX 100 ML IV PRN (19:35)
--- NOTE | 2020-02-12 20:00 | NUR ---
RECEIVED REPORT FROM DAY SHIFT RN. DRY WEIGHT 99.337KG. ETT TO VENT. A/C VC. FIO2: 100%, TV: 500, RATE: 16, PEEP: 8. LUNG SOUNDS: DIMINISHED UPPER AND LOWER BILATERALLY. ST/SR, S1S2 NOTED. RT UA 20g PERIPHERAL IV:PATENT, NO INFILTRATION/PHLEBITIS NOTED, RUNNING: PROPOFOL 9.986 MCG/KG/MIN (5.77 ML/HR) AND NS @ 100 ML/HR. LT FA 20g PERIPHERAL IV: NO INFILTRATION/PHLEBITIS NOTED, SALINE LOCK. BOWEL SOUNDS ACTIVE IN ALL 4 QUADRANTS. NG-TUBE TO LEFT NARE, NO GURGLING UPON AUSCULTATION. LEFT SHOULDER BRUISED (YELLOW COLORED) SKIN OTHERWISE INTACT. SAFETY MEASURES IN PLACE, BED LOW AND LOCKED. SIDE RAILS UP. CALL LIGHT WITHIN REACH. WILL CONTINUE TO MONITOR.
--- NOTE | 2020-02-12 20:35 | NUR ---
NEW OG-TUBE PLACED. PLACEMENT VERIFIED WITH RADHA SILVERMAN. GURGLING SOUND HEARD UPON AUSCULTATION. NO RESIDUAL. AWAITING XRAY PLACEMENT.
[2020-02-12] MEDS: levETIRAcetam 500 MG in NACL 0.9% 100 ML IV SCH (21:11)
--- NOTE | 2020-02-12 21:15 | NUR ---
SPOKE WITH DR AGUERO REGARDING ABG RESULTS, SAID TO MAKE VENT CHANGES VT 550, RR 22, VENT CHANGES MADE WILL CONTINUE TO MONITOR THE PT. ABG AT 800 AM 02/13/2020
--- NOTE | 2020-02-12 21:45 | NUR ---
JOSEPH CATHETER PLACED, URINE FLASHBACK OBSERVED. DRAINING TO GRAVITY.
--- NOTE | 2020-02-12 22:00 | NUR ---
URINE SAMPLE OBTAINED AND SENT TO THE LAB.
[2020-02-12] MEDS: SIMVASTATIN 20 MG TAB PO SCH (22:23)
[2020-02-12] MEDS: GABAPENTIN 100 MG CAP PO SCH (22:24)
[2020-02-12 23:17] LABS: APPEARANCE,URINE CLEAR (CLEAR); BILIRUBIN,URINE NEGATIVE (NEGATIVE); BLOOD, URINE 2+ (NEGATIVE); COLOR,URINE YELLOW (YELLOW); LEUKOCYTE ESTERASE ,URINE NEGATIVE (NEGATIVE); NITRITE, URINE NEGATIVE (NEGATIVE); UGLUCOSE NEGATIVE (NEGATIVE)
[2020-02-13] VITALS (100 sets, daily range): BP systolic 89–140; BP diastolic 38–93
--- NOTE | 2020-02-13 | NUR ---
TURNED AND REPOSITIONED PT. PRESSURE AREAS OFF LOADED. ORAL CARE PROVIDED. WILL CONTINUE TO MONITOR PT.
[2020-02-13 00:01] LABS: WBC,URINE 0-5 /HPF (0-5)
[2020-02-13] MEDS: PROPOFOL 1000 MG/100 ML PREMIX 100 ML IV PRN ×4 (00:38→18:48)
[2020-02-13] MEDS: NACL 0.9% 1,000 ML IV SCH ×2 (00:39→07:44)
--- NOTE | 2020-02-13 02:00 | NUR ---
TURNED AND REPOSITIONED PT, PRESSURE AREAS OFF LOADED. NO DISTRESS NOTED, PT TOLERATED IT WILL. SAFETY MEASURES IN PLACE. WILL CONTINUE TO MONITOR.
--- NOTE | 2020-02-13 04:00 | NUR ---
MORNING CARE PROVIDED, VAP ORAL CARE GIVEN, JOSEPH CARE GIVEN, PERINEAL CARE. TURNED AND REPOSITIONED PATIENT. SAFETY MEASURES IN PLACE, WILL CONTINUE TO MONITOR.
[2020-02-13 06:23] LABS: ALBUMIN 2.3 g/dL (3.4-5.0); ANION GAP 16.2 (8-16); ASPARTATE AMINOTRANSFERASE 22 U/L (15-37); CARBON DIOXIDE 22.9 mmol/L (21-32); CHLORIDE 118 mmol/L (98-107); GLUCOSE 71 mg/dL (74-106); POTASSIUM 4.1 mmol/L (3.5-5.1); SODIUM SERUM 153 mmol/L (136-145); TOTAL BILIRUBIN 0.7 mg/dL (0.0-1.0); UREA NITROGEN, BLOOD 47 mg/dL (7-18)
[2020-02-13] MEDS: LEVOTHYROXINE 0.05 MG TAB PO SCH (06:30)
[2020-02-13] MEDS ORDERED: CRUSHER, PILL MC ONE (06:44)
--- NOTE | 2020-02-13 07:00 | NUR ---
LATEST TEMP 100.8, TYLENOL GIVEN PER MD ORDER. WILL CONTINUE TO MONITOR.
[2020-02-13] MEDS: ACETAMINOPHEN 325 MG TAB PO PRN (07:01)
--- NOTE | 2020-02-13 07:20 | NUR ---
RECEIVED WINDOW-SIDE REPORT FROM DEPUTY DIRECTOR OF PUBLIC WORKS NURSE ASTON FOR CONTINUITY OF CARE. PATIENT IS SEDATED TO RASS -3, DRY WEIGHT 99.3 KG. RESPIRATION EVEN AND UNLABORED ON ETT TO VENT, AC/VC FIO2 100%, RATE 22, PEEP 8, SPO2 AT 99%. FLACC 0. NO SIGNS OF ACUTE DISTRESS NOTED. IV ON JOSE 20G, AND LFA 18G, RUNNING PROPOFOL AT 25 MCG/KG/MIN AND IVF NS AT 100 ML/HR. SKIN CLEAN AND DRY. OGT IN PLACE, NOT RUNNING ON FEEDING AT THIS TIME. JOSEPH IN PLACE, RUNNING YELLOW URINE WITH GRAVITY. ENHANCED DROPLET PRECAUTION AND FALL RISK PROTOCOL IN PLACE. SAFETY MEASURES IN PLACE.
--- NOTE | 2020-02-13 08:10 | NUR ---
RECEIVED ON A [employer]lunSCAPE R860 VENTILATOR PLUGGED INTO RED OUTLET TOLERATING WELL WITHOUT ADVERSE REACTIONS NOTED TO N ENDOTRACHEAL TUBE #7.5 SECURED AT 24cm TEETH/GUM LINE WITH ANCHOR FAST CUFF PRESSURE CHECKED NOTED AMBU BAG AT BEDSIDE RESTING WELL NO DISTRESS NOTED EQUAL CHEST RISE AIRWAY PATENT
[2020-02-13 08:22] LABS: BASOPHILS # (AUTO) 0.1 K/uL (0.00-0.22); BASOPHILS % (AUTO) 0.4 % (0.0-2.0); HEMATOCRIT 39.2 % (36-52); HEMOGLOBIN 12.7 g/dL (12.0-18.0); LYMPHOCYTES # (AUTO) 0.4 K/uL (2.0-11.5); LYMPHOCYTES % (AUTO) 2.3 % (20.5-51.1); MEAN CORPUSCULAR HEMOGLOBIN 27 pg (27-31); MEAN CORPUSCULAR HGB CONC 32 g/dL (33-37); MEAN CORPUSCULAR VOLUME 84.6 fL (80-94); MONOCYTES # (AUTO) 0.6 K/uL (0.8-1.0); MONOCYTES % (AUTO) 2.9 % (1.7-9.3); NEUTROPHILS % (AUTO) 94.4 % (42.2-75.2); PLATELET COUNT (AUTO) 176 K/uL (140-450); RED BLOOD CELL COUNT(AUTO) 4.64 MIL/uL (4.20-6.10)
--- NOTE | 2020-02-13 08:37 | NUR ---
PAGED DR. FIGUEROA AGUERO [phone] TO REVIEW [facility] SAMPLE REPORT CALL BACK NUMBER [phone]
--- NOTE | 2020-02-13 08:38 | NUR ---
CALL BACK FROM DR. FIGUEROA AGUERO REVIEWED [facility] SAMPLE REPORT NEW ORDERS: INCREASE RATE TO 26 BPM [facility] IN AM 02/13 @ 8 AM
--- NOTE | 2020-02-13 08:53 | NUR ---
[facility] CONSULT RECEIVED FOR TUBE FEEDING. PATIENT WILL BE RE-ASSESSED 1-2 DAYS AFTER CONSULT RECEIVED TO [facility]. 02/13/20-02/14/[address]
[2020-02-13] MEDS: PANTOPRAZOLE 40 MG INJ VIAL IVP SCH (08:54)
[2020-02-13] MEDS: VITAMIN D 400 IU TAB PO SCH (08:55)
[2020-02-13] MEDS: FUROSEMIDE 20 MG/2 ML VIAL IVP SCH (08:56)
[2020-02-13] MEDS: ASCORBIC ACID 500 MG TAB PO SCH (08:56)
[2020-02-13] MEDS: ZINC SULF 220 MG CAP PO SCH ×2 (08:56→21:00)
[2020-02-13] MEDS: levETIRAcetam 500 MG in NACL 0.9% 100 ML IV SCH ×2 (08:57→21:00)
[2020-02-13] MEDS: ENOXAPARIN 40 MG/0.4 ML SYR SUBQ SCH (08:58)
[2020-02-13] MEDS: PROPRANOLOL 20 MG TAB PO SCH ×3 (09:00→16:54)
[2020-02-13] MEDS ORDERED: DEXAMETHASONE 10 MG/ML VIAL IVP SCH (09:00)
--- NOTE | 2020-02-13 09:33 | NUR ---
ADMINISTERED SCHEDULED MEDS PER MD ORDER, HOLD PROPRANOLOL DUE LOW BP, FLUSH BEFORE AND AFTER OGT TUBE ADMINISTERING, PROVIDED HYGIENE CARE, ORAL CARE, JOSEPH CARE, WITH ASSIST, CHANGED ALL LINENS, AND REPOSITIONED PATIENT, OFFLOADED PRESSURE WITH PILLOWS, BILATERAL PURPLE HEEL PROTECTOR IN PLACE, PATIENT TOLERATE FAIR, FLACC 0. RESPIRATION EVEN AND UNLABORED ON ETT TO VENT, FIO2 AT 100%, RATE 22, PEEP 8, SPO2 AT 99% AT THIS TIME. NO SIGNS OF ACUTE DISTRESS NOTED. MARINE UNDERWRITER IN PLACE. SAFETY MEASURES IN PLACE. HOB ELEVATED 35 DEGREE, BED IN LOW POSITION AND BED LOCKED.
--- NOTE | 2020-02-13 09:38 | NUR ---
PER [facility] SAMPLE REPORT AND SIA CHAN INCREASED MECHANICAL RATE TO 26 BPM CRISSY/HERRERA NOTIFIED Addendum: 02/13/20 at 0942 by Oracio Sandoval RT SIA CHAN = DR. MARTI
--- NOTE | 2020-02-13 10:00 | NUR ---
TOLERATING VENTILATOR SUPPORT WELL WITHOUT COMPLICATIONS NOTED EQUAL CHEST RISE AIRWAY PATENT
--- NOTE | 2020-02-13 10:00 | NUR ---
SATURATION 98% ON FIO2 OF 100% PEEP 8cmH2O TITRATED FIO2 TO 75% REVIEWED SYSTOLIC PRESSURE 132mmHg INCREASED PEEP TO [id number] (ARDS PROTOCOL) Addendum: 02/13/20 at 1147 by Oracio Sandoval RT CRISSY/HERRERA NOTIFIED AT 100
[2020-02-13] MEDS: REMDESIVIR (EUA) 100 MG in NACL 0.9% 100 ML IV SCH (10:10)
--- NOTE | 2020-02-13 10:10 | NUR ---
ADMINISTERED REMDESIVIR PER MD ORDER VIA IVPB.
--- NOTE | 2020-02-13 10:13 | NUR ---
DR CONDE IS ROUNDING ON PATIENT.
--- NOTE | 2020-02-13 10:28 | NUR ---
OBTAINED TELEPHONE CONSENT FROM PATIENT'S DAUGHTER TEODORO AGUIAR FOR PICC LINE PLACEMENT, TEODORO WAS AWARE AND AGREED FOR PROCEDURE. UPDATED TEODORO WITH PATIENT'S CURRENT CONDITION, AND TEODORO WAS AWARE.
--- NOTE | 2020-02-13 10:33 | NUR ---
DR ERICKSON IS ROUNDING ON PATIENT, ORDER TO CHANGE IVF TO 0.45NS AT 100 ML/HR DUE TO HIGH SODIUM FROM AM LAB. WILL INPUT ORDER ACCORDINGLY.
--- NOTE | 2020-02-13 10:34 | NUR ---
CALLED [facility]ENTER AND NOTIFIED ORDER FOR PICC LINE PLACEMENT, PER SENIOR CLERK, [facility] IS P[facility] RN FOR [facility]. AWAITING FOR [facility] TO CALL.
[2020-02-13 10:39] LABS: PROTHROMBIN TIME 12.9 secs (10.8-13.4)
[2020-02-13] MEDS: NACL 0.45% 1,000 ML IV SCH ×2 (10:45→20:50)
--- NOTE | 2020-02-13 11:29 | NUR ---
STARTED OGT FEEDING RD RECOMMENDED, NEPRO GOAL RATE 50 ML/HR, H2O FLUSH 120 ML/Q4H, STARTED AT 10 ML/HR AT THIS TIME. PROVIDED ORAL CARE, PATIENT TOLERATED FAIR. FLACC 0. NO SIGNS OF ACUTE DISTRESS NOTED. AQUATICS DIRECTOR IN PLACE. SAFETY MEASURES IN PLACE.
--- NOTE | 2020-02-13 12:10 | NUR ---
NO APPARENT DISTRESS NOTED GOOD CHEST RISE AIRWAY PATENT
[2020-02-13] MEDS: methylPREDNISolone SS 40 MG/ML VIAL IVP SCH ×2 (12:56→21:00)
--- NOTE | 2020-02-13 13:00 | NUR ---
ADMINISTERED SCHEDULED MEDS PER MD ORDER, HOLD PROPRANOLOL DUE TO BP 96/71 PULSE 92. CHECKED BLOOD GLUCOSE AND RECEIVED 92. CHECKED OGT RESIDUAL AND RECEIVED < 5 ML, INCREASED FEEDING TO 20 ML/HR. PROVIDED ORAL CARE, WITH ASSIST, REPOSITIONED PATIENT, OFFLOADED PRESSURE WITH PILLOWS, BILATERAL PURPLE HEEL PROTECTOR IN PLACE, PATIENT TOLERATE FAIR, FLACC 0. RESPIRATION EVEN AND UNLABORED ON ETT TO VENT, FIO2 AT 75%, RATE 26, PEEP 12, SPO2 AT 99% AT THIS TIME. NO SIGNS OF ACUTE DISTRESS NOTED. GENERAL LOT ATTENDANT IN PLACE. SAFETY MEASURES IN PLACE. HOB ELEVATED 35 DEGREE, BED IN LOW POSITION AND BED LOCKED.
--- NOTE | 2020-02-13 13:58 | NUR ---
NO DISTRESS NOTED EQUAL CHEST RISE AIRWAY PATENT
--- NOTE | 2020-02-13 14:09 | NUR ---
02/13/20 RD FOLLOW UP COMPLETED PLEASE REFER TO NUTRITION ASSESSMENT UNDER CARE ACTIVITY FOR ESTIMATED NUTRITIONAL NEEDS. 1. RECOMMEND NEPRO 1.8 @ 50 ML/HR X 24 HR -THIS PROVIDES 2160 KCAL AND 97 GM OF PROTEIN. MEETS 100% OF NUTRIENT NEEDS 2. RECOMMEND FREE WATER FLUSH OF 100 ML Q4H 3. IF PATIENT NEEDS PRONE POSITION, CONTACT FNS TO ADJUST TUBE FEEDING RATE 4. RD TO FOLLOW-UP 2-3 DAYS, HIGH RISK SYMONE HALL, BRANDI
--- NOTE | 2020-02-13 14:23 | NUR ---
PICC INSERTED, PER PICC LINE RN IT'S OK TO USE. STARTED A NEW BOTTLE OF PROPOFOL, CHANGED ALL TUBING. WITH ASSIST, REPOSITIONED PATIENT, AND OFFLOADED PRESSURE WITH PILLOWS. FILTER TANK TENDER HELPER IN PLACE. SAFETY MEASURES IN PLACE.
--- NOTE | 2020-02-13 15:55 | NUR ---
SATURATION 99% ON FIO2 OF 75% PEEP [id number] TITRATED FIO2 TO 70% AND PEEP TO [id number] (ARDS PROTOCOL)
--- NOTE | 2020-02-13 15:55 | NUR ---
SEDATED GOOD CHEST RISE ENDOTRACHEAL SUCTION FOR LARGE THICK YELLOW WITH BLOOD TINGE SECRETIONS AIRWAY PATENT
--- NOTE | 2020-02-13 16:06 | NUR ---
PROVIDED ORAL CARE, CHECKED OGT RESIDUAL AND RECEIVED ABOUT 10 ML. INCREASED FEEDING TO 30 ML/HR. WITH ASSIST, REPOSITIONED PATIENT, OFFLOADED PRESSURE WITH PILLOWS, HEEL PROTECTOR ON BILATERALLY. PATIENT TOLERATED FAIR, FLACC 0. RESPIRATION EVEN AND UNLABORED, SPO2 AT 100%. NO SIGNS OF ACUTE DISTRESS NOTED. STORE PROTECTION SPECIALIST IN PLACE. SAFETY MEASURES IN PLACE. HOB ELEVATED 35 DEGREE, BED LOCKED.
--- NOTE | 2020-02-13 16:54 | NUR ---
BP 121/77 PULSE 103, CHECKED OGT RESIDUAL AND RECEIVED ABOUT 15 ML, ADMINISTERED SCHEDULED MED, FLUSH BEFORE AND AFTER MED. FLACC 0, RESPIRATION EVEN AND UNLABORED ON FIO2 AT 70%, SPO2 AT 99%. NO SIGNS OF ACUTE DISTRESS NOTED. GENERATOR WORKER IN PLACE. SAFETY MEASURES IN PLACE
--- NOTE | 2020-02-13 17:54 | NUR ---
SEDATED STABLE GOOD CHEST RISE
[2020-02-13] MEDS ORDERED: HEPARIN PER PHARMACY MC PRN (18:00)
[2020-02-13] MEDS: hePARIN / DEXT 5% PREMIX 250 ML IV SCH (18:00)
--- NOTE | 2020-02-13 18:10 | NUR ---
STARTED HEPARIN DRIP RX PROTOCOL, 5,900 UNIT BOLUS AND RUNNING AT 1,500 UNIT/HR, PTT DRAW ORDERED FOR 02/13 AT 0010.
--- NOTE | 2020-02-13 18:31 | NUR ---
ADMINISTERED SCHEDULED ROCEPHIN.
--- NOTE | 2020-02-13 19:28 | NUR ---
RECEIVED PATIENT FROM AM SHIFT. PATIENT WAS SEEN AND ASSESSED. PATIENT IS INTUBATED WITH ETT SIZE 7.5 AND SECURED WITH ANCHOR-FAST AT 24cm. PATIENT IS ON VENT SETTINGS: AC/PC RR 26, VT 550, PEEP 10, FiO2 70% WITH SPO2 OF 97%. VENT IS PLUGGED IN RED OUTLET. ALARMS SET AND AUDIBLE TO ENVIRONMENT. SUCTIONED SMALL AMOUNT OF YELLOW THICK SECRETIONS FROM ETT. AIRWAY IS PATENT. AUSCULTATION REVEALS BILATERAL RALES BREATH SOUNDS. PATIENT IS IN NO APPARENT RESPIRATORY DISTRESS AT THIS TIME. PRN TX NOT INDICATED AT THIS TIME. WILL CONTINUE TO MONITOR PATIENT.
--- NOTE | 2020-02-13 20:00 | NUR ---
RECEIVED REPORT FROM DAY SHIFT RN. DRY WEIGHT 99.337KG. ETT TO VENT. A/C VC. FIO2: 70%, TV: 550, RATE: 26, PEEP: 10. LUNG SOUNDS: DIMINISHED UPPER AND LOWER BILATERALLY. SR, S1S2 NOTED. RT UA PICC LINE: PATENT, NO INFILTRATION/PHLEBITIS NOTED, RUNNING: PROPOFOL 26.98 MCG/KG/MIN (15.59 ML/HR) AND NS @ 200 ML/HR. RT UA 20g PERIPHERAL IV: PATENT, NO INFILTRATION/PHLEBITIS NOTED, SALINE LOCK. LT FA 20g PERIPHERAL IV: NO INFILTRATION/PHLEBITIS NOTED, RUNNING: HEPARIN 1500 UNITS/HR. BOWEL SOUNDS ACTIVE IN ALL 4 QUADRANTS. OG-TUBE TO FEED, CONFIRMED PLACEMENT WITH AUSCULTATION, RESIDUAL: 15 ML. FEED: NEPRO@50ML WITH FWF: 100 ML Q 4HR. JOSEPH IN PLACE, DRAINING TO GRAVITY. LEFT SHOULDER BRUISED (YELLOW COLORED) SKIN OTHERWISE INTACT. SAFETY MEASURES IN PLACE, BED LOW AND LOCKED. SIDE RAILS UP. CALL LIGHT WITHIN REACH. WILL CONTINUE TO MONITOR.
--- NOTE | 2020-02-13 20:00 | NUR ---
FROM DAY SHIFT RN, PER DR CONDE, HOLD CT SCAN AT THIS TIME.
[2020-02-13] MEDS: SIMVASTATIN 20 MG TAB PO SCH (21:00)
[2020-02-13] MEDS: GABAPENTIN 100 MG CAP PO SCH (21:00)
--- NOTE | 2020-02-13 22:00 | NUR ---
NO DISTRESS NOTED. TURNED AND REPOSITIONED PT, PRESSURE AREAS OFF LOADED. PT TOLERATED IT WILL. SAFETY MEASURES IN PLACE. WILL CONTINUE TO MONITOR.
[2020-02-14] VITALS (81 sets, daily range): BP systolic 83–143; BP diastolic 40–93
--- NOTE | 2020-02-14 | NUR ---
REPOSITIONED PT, PT TOLERATED IT WELL. WILL CONTINUE TO MONITOR
--- NOTE | 2020-02-14 04:00 | NUR ---
PROVIDED MORNING CARE, JOSEPH CARE, DAGO CARE. VAP ORAL CARE.
[2020-02-14] MEDS: methylPREDNISolone SS 40 MG/ML VIAL IVP SCH ×3 (05:33→20:54)
[2020-02-14] MEDS: LEVOTHYROXINE 0.05 MG TAB PO SCH (05:34)
[2020-02-14] MEDS: PROPOFOL 1000 MG/100 ML PREMIX 100 ML IV PRN ×3 (05:44→21:00)
[2020-02-14 06:37] LABS: ALBUMIN 1.9 g/dL (3.4-5.0); ANION GAP 16.9 (8-16); ASPARTATE AMINOTRANSFERASE 23 U/L (15-37); CARBON DIOXIDE 21.2 mmol/L (21-32); CHLORIDE 115 mmol/L (98-107); CREATININE 3.1 mg/dL (0.6-1.3); GLUCOSE 190 mg/dL (74-106); POTASSIUM 4.1 mmol/L (3.5-5.1); SODIUM SERUM 149 mmol/L (136-145); TOTAL BILIRUBIN 0.4 mg/dL (0.0-1.0)
[2020-02-14 06:40] LABS: UREA NITROGEN, BLOOD 75 mg/dL (7-18)
--- NOTE | 2020-02-14 08:00 | NUR ---
Night Nurse has given a report on this patient. Patient is on ventilator (ACVC MODE, FI02 =70% TV -4=550 , RATE =24 , PEEP=10) . pPatient VS are within normal limits. Skin intact and Nepro as a tube feeding at rate 50 ml/h. Neurologically , patient is sedated with propofol @ 20 mcg/kg/minute. He is lethargic and arousable. he is able to move his right hand toward his mouth. Patient is also on heparin sodium drip 44937 units @ 1300 units per hour. PTT LEVEL will be assessed at 12:55 and 18:55 for this shift. The continuity of care will be performed by the day RN.
[2020-02-14] MEDS: NACL 0.45% 1,000 ML IV SCH ×2 (09:03→17:20)
--- NOTE | 2020-02-14 09:29 | NUR ---
PT. CHANGE OF CONDITION WITH LOW BALDEMAR SCALE AT RISK, CONTINUE TO FOLLOW PRESSURE ULCER PREVENTION INTERVENTIONS. -TURN AND REPOSITION PATIENT Q 2H -ASSESS AND MONITOR SKIN CONDITION DURING POSITION CHANGE -OFFLOAD BILATERAL HEELS BY PLACING PILLOWS UNDER CALVES AT ALL TIMES, UNLESS OTHERWISE CONTRAINDICATED -PRESSURE REDISTRIBUTION BY PLACING PILLOWS AND OFFLOADING SACRALCOCCYX -KEEP SKIN CLEAN AND DRY AT ALL TIMES.
[2020-02-14] MEDS: FUROSEMIDE 20 MG/2 ML VIAL IVP SCH (09:34)
[2020-02-14] MEDS: PANTOPRAZOLE 40 MG INJ VIAL IVP SCH (09:35)
[2020-02-14] MEDS: amLODIPine 5 MG TAB PO SCH (09:36)
[2020-02-14] MEDS: ASCORBIC ACID 500 MG TAB PO SCH (09:36)
[2020-02-14] MEDS: BENAZEPRIL 20 MG TAB PO SCH (09:37)
[2020-02-14] MEDS: ZINC SULF 220 MG CAP PO SCH ×2 (09:37→20:53)
[2020-02-14] MEDS: PROPRANOLOL 20 MG TAB PO SCH ×3 (09:38→17:20)
[2020-02-14] MEDS: VITAMIN D 400 IU TAB PO SCH (09:38)
[2020-02-14] MEDS: levETIRAcetam 500 MG in NACL 0.9% 100 ML IV SCH ×2 (09:39→21:00)
[2020-02-14] MEDS: hePARIN / DEXT 5% PREMIX 250 ML IV SCH (12:21)
[2020-02-14] MEDS: ALBUMIN HUMAN 5 % 250 ML IV SCH ×2 (13:07→21:50)
--- NOTE | 2020-02-14 18:00 | NUR ---
THE X-RAY TECH CALL REGARDING CT OF ABDOMEN AND PELWIS THAT OEDERED BUT HAS NOT BEEN DONE, THE CONSENT WAS SIGN . DR. CONDE WAS CALLED HE WILL COME AND EVALUATE THIS MATTER IN THE MORNING AND REORDER IT IN AM.
--- NOTE | 2020-02-14 19:23 | NUR ---
Report was given to the Night Nurse Yola for the continuity of care . Pt is stable and VS are within normal limits under intubation and sedation wuith propofol @ 20 mcg/kg/minute.
--- NOTE | 2020-02-14 19:40 | NUR ---
RECEIVED PT FROM DAYSHIFT RN, PT DRY WEIGHT 96.3, RASS -3 ETT TO VENT AC/VC FIO2 55 VT 550 RR 26 PEEP 10, LUNG SOUNDS DIMINISHED, S1 AND S2 HEART SOUNDS HEARD, PULSES PALPABLE UPPER AND LOWER EXTREMITIES, ON PROPOFOL 10MCG/KG/MIN AT START OF SHIFT, HEPARIN 1300UNITS/HR, OGT TO FEEDING NEPRO 50ML/HR FWF 100ML Q4H, NO SIGNS OF DISTRESS NOTED SAFETY PROTOCOLS IN PLACE WILL CONTINUE TO MONITOR PT
--- NOTE | 2020-02-14 20:00 | NUR ---
PT TRANSFERRED TO [facility] Addendum: 02/14/20 at 6 by Manjeet Bravo RN WRONG PT
[2020-02-14] MEDS ORDERED: CRUSHER, PILL MC ONE (20:40)
[2020-02-14] MEDS: SIMVASTATIN 20 MG TAB PO SCH (20:53)
[2020-02-14] MEDS: GABAPENTIN 100 MG CAP PO SCH (20:54)
[2020-02-15] VITALS (84 sets, daily range): BP systolic 100–175; BP diastolic 58–95
--- NOTE | 2020-02-15 00:35 | NUR ---
ORAL CARE PROVIDED PT REPOSITIONED IN BED, NO SIGNS OF DISTRESS NOTED WILL CONTINUE TO MONITOR PT
[2020-02-15] MEDS: PROPOFOL 1000 MG/100 ML PREMIX 100 ML IV PRN ×3 (02:11→19:00)
[2020-02-15] MEDS: NACL 0.45% 1,000 ML IV SCH ×3 (03:33→22:40)
[2020-02-15] MEDS: ALBUMIN HUMAN 5 % 250 ML IV SCH ×2 (04:26→13:00)
[2020-02-15] MEDS: methylPREDNISolone SS 40 MG/ML VIAL IVP SCH ×3 (04:26→20:29)
--- NOTE | 2020-02-15 05:51 | NUR ---
ORAL CARE AND JOSEPH CARE PROVIDED, PT REPOSITIONED IN BED, NO SIGNS OF DISTRESS NOTED WILL CONTINUE TO MONITOR PT
[2020-02-15 06:27] LABS: BASOPHILS # (AUTO) 0.1 K/uL (0.00-0.22); BASOPHILS % (AUTO) 0.4 % (0.0-2.0); HEMATOCRIT 33.5 % (36-52); LYMPHOCYTES # (AUTO) 0.3 K/uL (2.0-11.5); LYMPHOCYTES % (AUTO) 2.3 % (20.5-51.1); MEAN CORPUSCULAR HEMOGLOBIN 28 pg (27-31); MEAN CORPUSCULAR HGB CONC 33 g/dL (33-37); MEAN CORPUSCULAR VOLUME 83.9 fL (80-94); MONOCYTES # (AUTO) 0.3 K/uL (0.8-1.0); MONOCYTES % (AUTO) 2.1 % (1.7-9.3); NEUTROPHILS # (AUTO) 14.1 K/uL (1.8-7.7); NEUTROPHILS % (AUTO) 95.2 % (42.2-75.2); PLATELET COUNT (AUTO) 181 K/uL (140-450); RED CELL DISTRIBUTION WIDTH 15.3 % (11.6-13.7); WHITE BLOOD COUNT (AUTO) 14.8 K/uL (4.8-10.8)
[2020-02-15] MEDS: LEVOTHYROXINE 0.05 MG TAB PO SCH (06:50)
[2020-02-15 07:04] LABS: ANION GAP 15.6 (8-16); CARBON DIOXIDE 21.3 mmol/L (21-32); CHLORIDE 112 mmol/L (98-107); CREATININE 3.4 mg/dL (0.6-1.3); GLUCOSE 195 mg/dL (74-106); POTASSIUM 3.9 mmol/L (3.5-5.1); SODIUM SERUM 145 mmol/L (136-145)
--- NOTE | 2020-02-15 07:23 | NUR ---
Report from night Nurse indicated that the pat has remained stable and unchanged condition. He still intubated and sedated with propofol @ 20mcg/kg/min and Heparin sodium @ 1300 units per hour with PTT =69.2. This 3r consecutive PTT value is therapeutic based on the heparin protocol. Vent Setting remains unchanged with FI02 = 55%, PEEP=10, TV =550. RATE =26. Pt remains lethargic under sedation. unable to open eyes and respond to command. Continuity of care will performed during our shift
[2020-02-15 07:44] LABS: UREA NITROGEN, BLOOD 92 mg/dL (7-18)
[2020-02-15] MEDS: ASCORBIC ACID 500 MG TAB PO SCH (08:54)
[2020-02-15] MEDS: ZINC SULF 220 MG CAP PO SCH ×2 (08:55→20:30)
[2020-02-15] MEDS: BENAZEPRIL 20 MG TAB PO SCH (08:56)
[2020-02-15] MEDS: PROPRANOLOL 20 MG TAB PO SCH (08:56)
[2020-02-15] MEDS: amLODIPine 5 MG TAB PO SCH (08:56)
[2020-02-15] MEDS: PANTOPRAZOLE 40 MG INJ VIAL IVP SCH (08:57)
[2020-02-15] MEDS: VITAMIN D 400 IU TAB PO SCH (08:57)
[2020-02-15] MEDS: FUROSEMIDE 20 MG/2 ML VIAL IVP SCH (08:57)
[2020-02-15] MEDS: levETIRAcetam 500 MG in NACL 0.9% 100 ML IV SCH ×2 (08:58→20:29)
[2020-02-15] MEDS: hePARIN / DEXT 5% PREMIX 250 ML IV SCH (09:26)
--- NOTE | 2020-02-15 09:28 | NUR ---
RECEIVED ON A XipinAPE R860 VENTILATOR PLUGGED INTO RED OUTLET TOLERATING WELL WITHOUT ADVERSE REACTIONS NOTED TO AN ENDOTRACHEAL TUBE #7.5 SECURED AT 24cm TEETH/GUM LINE WITH ANCHOR FAST CUFF PRESSURE CHECKED NOTED AMBU BAG AT BEDSIDE LOC SEDATED RESTING COMFORTABLY GOOD CHEST RISE AND AERATION THROUGHOUT BILATERAL LUNG ROJO AIRWAY PATENT SATURATION 100% ON FIO2 OF 55% AND A PEEP OF [id number] TITRATED FIO2 TO 50% RN NOTIFIED
--- NOTE | 2020-02-15 11:20 | NUR ---
Dr. Morejon, the field marketing manager visited the patient and recommended a sedation vacation tomorrow in order to evaluation his neurological system. Order will be transmitted to the night nurse and tomorrow morning nurse. Fi02 changed from 55% to 50 % but peep still constant. MD encouraged to continuously monitor the patient .
--- NOTE | 2020-02-15 11:58 | NUR ---
RESTING WELL NO DISTRESS NOTED GOOD CHEST RISE AIRWAY PATENT
--- NOTE | 2020-02-15 14:02 | NUR ---
STABLE GOOD CHEST RISE
--- NOTE | 2020-02-15 15:53 | NUR ---
NO DISTRESS NOTED GOOD CHEST RISE AIRWAY PATENT SATURATION 99% ON FIO2 OF 50% PEEP [id number] TITRATED FIO2 TO 45% Addendum: 02/15/20 at 1620 by Oracio Sandoval RT RN NOTIFIED OF FIO2 CHANGE
--- NOTE | 2020-02-15 16:20 | NUR ---
ALBUMIN (HUMAN ) GROUP HOME 5% ON 250 ML WAS DISCONTINUED AFTER CHARGE NURSE SPOKEN TO PHARMACIST AND DR. CONDE. THREE DOSES WALTERS SCHEDULED ACCORDING TO AMAYA CHAN ON THE SATEMENT OF THE CHARGE NURSE. THEREFORE THE "13:00" DOSE WAS NOT GIVEN.
--- NOTE | 2020-02-15 17:21 | NUR ---
SEDATED NO APPARENT DISTRESS NOTED GOOD CHEST RISE ENDOTRACHEAL SUCTION FOR SEMI THICK DARK BROWN SECRETIONS AIRWAY PATENT SATURATION 99% ON FIO2 OF 45% PEEP [id number] TITRATED FIO2 TO 40% REVIEWED SYSTOLIC PRESSURE 133mmHg DECREASED PEEP [id number] RN NOTIFIED
--- NOTE | 2020-02-15 19:17 | NUR ---
RECEIVED PATIENT FROM AM SHIFT. PATIENT WAS SEEN AND ASSESSED. PATIENT IS INTUBATED WITH ETT SIZE 7.5 AND SECURED WITH ANCHOR-FAST AT 24cm. PATIENT IS ON VENT SETTINGS: AC/PC RR 26, VT 550, PEEP 8, FiO2 40% WITH SPO2 OF 94%. VENT IS PLUGGED IN RED OUTLET. ALARMS SET AND AUDIBLE TO ENVIRONMENT. SUCTIONED SMALL AMOUNT OF YELLOW THICK SECRETIONS FROM ETT. AIRWAY IS PATENT. AUSCULTATION REVEALS BILATERAL RALES BREATH SOUNDS. PATIENT IS IN NO APPARENT RESPIRATORY DISTRESS AT THIS TIME. PRN TX NOT INDICATED AT THIS TIME. WILL CONTINUE TO MONITOR PATIENT.
--- NOTE | 2020-02-15 19:30 | NUR ---
RECEIVED PT FROM BRYANT RN DRY WEIGHT 96.3KG, ON PROPOFOL, ETT TO VENT AC/VC FIO2 40% VT 550 RR 26 PEEP 8, PULSES PALPABLE BOWEL SOUNDS ACTIVE OGT TO FEEDING NEPRO, SAFETY PROTOCOLS IN PLACE NO SIGNS OF DISTRESS NOTED WILL CONTINUE TO MONITOR PT
[2020-02-15] MEDS: SIMVASTATIN 20 MG TAB PO SCH (20:30)
[2020-02-15] MEDS: GABAPENTIN 100 MG CAP PO SCH (20:30)
--- NOTE | 2020-02-15 20:30 | NUR ---
ALL PT MEDS GIVEN, PT REPOSITIONED, ORAL CARE PROVIDED NO SIGNS OF DISTRESS NOTED WILL CONTINUE TO MONITOR PT
[2020-02-15 23:19] LABS: APPEARANCE,URINE CLEAR (CLEAR); BILIRUBIN,URINE NEGATIVE (NEGATIVE); BLOOD, URINE NEGATIVE (NEGATIVE); COLOR,URINE YELLOW (YELLOW); LEUKOCYTE ESTERASE ,URINE NEGATIVE (NEGATIVE); NITRITE, URINE NEGATIVE (NEGATIVE); PH,URINE 5.5 (5.0-9.0); UGLUCOSE NEGATIVE (NEGATIVE)
[2020-02-15] MEDS: ACETAMINOPHEN 325 MG TAB PO PRN (23:30)
--- NOTE | 2020-02-15 23:50 | NUR ---
PT SUCTIONED ORALLY AND ORAL CARE PROVIDED, PT HAS A MODERATE AMOUNT OF SECRETIONS, P REPOSITIONED IN BED NO SIGNS OF DISTRESS NOTED WILL CONTINUE TO MONITOR PT
[2020-02-16] VITALS (104 sets, daily range): BP systolic 109–183; BP diastolic 49–108
[2020-02-16] MEDS: PROPOFOL 1000 MG/100 ML PREMIX 100 ML IV PRN ×4 (01:21→23:07)
--- NOTE | 2020-02-16 04:50 | NUR ---
PT CLEANED, JOSEPH CARE PROVIDED, ORAL CARE PROVIDED, NO SIGNS OF DISTRESS NOTED AT THIS TIME, WILL CONTINUE TO MONITOR PT
[2020-02-16] MEDS: methylPREDNISolone SS 40 MG/ML VIAL IVP SCH ×3 (05:51→20:17)
[2020-02-16] MEDS: LEVOTHYROXINE 0.05 MG TAB PO SCH (05:52)
[2020-02-16 06:17] LABS: BASOPHILS % (AUTO) 0.4 % (0.0-2.0); HEMATOCRIT 32.9 % (36-52); HEMOGLOBIN 11.1 g/dL (12.0-18.0); LYMPHOCYTES # (AUTO) 0.3 K/uL (2.0-11.5); LYMPHOCYTES % (AUTO) 2.4 % (20.5-51.1); MEAN CORPUSCULAR HEMOGLOBIN 28 pg (27-31); MEAN CORPUSCULAR HGB CONC 34 g/dL (33-37); MONOCYTES # (AUTO) 0.4 K/uL (0.8-1.0); MONOCYTES % (AUTO) 3.2 % (1.7-9.3); NEUTROPHILS # (AUTO) 11.3 K/uL (1.8-7.7); PLATELET COUNT (AUTO) 173 K/uL (140-450); RED BLOOD CELL COUNT(AUTO) 3.96 MIL/uL (4.20-6.10); RED CELL DISTRIBUTION WIDTH 15.3 % (11.6-13.7)
--- NOTE | 2020-02-16 06:35 | NUR ---
TUBE FEEDING STARTED AT 10ML/HR NO SIGNS OF DISTRESS NOTED AT THIS TIME WILL CONTINUE TO MONITOR PT Addendum: 02/16/20 at 0700 by Manjeet Bravo RN WRONG PT
[2020-02-16 06:59] LABS: ANION GAP 15.5 (8-16); CARBON DIOXIDE 21.3 mmol/L (21-32); CHLORIDE 113 mmol/L (98-107); CREATININE 2.7 mg/dL (0.6-1.3); GLUCOSE 181 mg/dL (74-106); POTASSIUM 3.8 mmol/L (3.5-5.1); SODIUM SERUM 146 mmol/L (136-145)
[2020-02-16] MEDS: hePARIN / DEXT 5% PREMIX 250 ML IV SCH (07:04)
[2020-02-16 07:18] LABS: UREA NITROGEN, BLOOD 93 mg/dL (7-18)
--- NOTE | 2020-02-16 07:53 | NUR ---
Report from the night nurse indicated that there was not a major change in patient condition. He is more awake when sedation is on vacation for 10 minutes. He alsa attempted to touch his ETT, therefore restraints was initiated to prevent self-extubation. Night nurse also observed a small bleeding from the LFA line and he reported to the MD. MD ordered to continuously assessing it. His sedation was increased from 15 mcg/kg /minute to 25 mcg/kg/minute. Patient's vital sign is stable during thr exchanged shift
--- NOTE | 2020-02-16 08:09 | NUR ---
RT HAS CHANGED THE VENT SETTING, SPECIALLY F102 FROM 40% TO 35%. PEEP=8 REMAINS UNCHANGED
--- NOTE | 2020-02-16 09:04 | NUR ---
02/16/20 RD FOLLOW UP COMPLETED PLEASE REFER TO NUTRITION ASSESSMENT UNDER CARE ACTIVITY FOR ESTIMATED NUTRITIONAL NEEDS. 1.CONTINUE NEPRO 1.8 @ 50 ML/HR X 24 HR -THIS PROVIDES 2160 KCAL AND 97 GM OF PROTEIN. MEETS 100% OF NUTRIENT NEEDS 2. CONTINUE FREE WATER FLUSH OF 100 ML Q4H 3. IF PATIENT NEEDS PRONE POSITION, CONTACT FNS TO ADJUST TUBE FEEDING RATE 4. RD TO FOLLOW-UP 2-3 DAYS, HIGH RISK FERNANDO MULLIGAN RD
[2020-02-16] MEDS: amLODIPine 5 MG TAB PO SCH (09:26)
[2020-02-16] MEDS: ASCORBIC ACID 500 MG TAB PO SCH (09:27)
[2020-02-16] MEDS: PANTOPRAZOLE 40 MG INJ VIAL IVP SCH (09:27)
[2020-02-16] MEDS: FUROSEMIDE 20 MG/2 ML VIAL IVP SCH (09:27)
[2020-02-16] MEDS: ZINC SULF 220 MG CAP PO SCH ×2 (09:27→20:17)
[2020-02-16] MEDS: VITAMIN D 400 IU TAB PO SCH (09:28)
[2020-02-16] MEDS: BENAZEPRIL 20 MG TAB PO SCH (09:28)
[2020-02-16] MEDS: levETIRAcetam 500 MG in NACL 0.9% 100 ML IV SCH ×2 (09:28→20:00)
[2020-02-16 11:12] LABS: CREATININE,URINE RANDOM 46 mg/dL (30-125)
[2020-02-16 11:13] LABS: URINE SODIUM, RANDOM 15 mmol/l (40-220)
[2020-02-16] MEDS: NACL 0.45% 1,000 ML IV SCH (13:24)
--- NOTE | 2020-02-16 17:35 | NUR ---
FIO2 TITRATED TO 28% CHARGE NURSE AWARE. ETT IS SECURE WITH A PATENT AIRWAY. PT NOT IN ANY DISTRESS AT THIS TIME. VENT ALARMS ON AND FUNCTIONING.
--- NOTE | 2020-02-16 19:30 | NUR ---
RECEIVED ENDORSEMENT FROM BRYANT RN, PT RESTING AND SEDATED RASS -3, ETT TO VENT AC/VC FIO2 28% RATE 26 PEEP 8, PULSES PALPABLE BOWEL SOUNDS ACTIVE OGT TO FEEDING NEPRO, FC IN PLACE DRAINING BY GRAVITY, LFA 20 G RUNNING HEPARIN @ 1300 UNITS/HR, JOSE PICC RUNNING PROPOFOL FP07GHP/KG/MIN AND NS @ 100MLS/HR, PT AFEBRILE, PT SHOWING NO SIGNS OF ACUTE DISTRESS, SAFETY PROTOCOLS IN PLACE, WILL CONTINUE TO MONITOR PT
--- NOTE | 2020-02-16 19:53 | NUR ---
RECEIVED PATIENT FROM DAY SHIFT ON AC 26,550, PEEP 8,28% FIO2. VENT PLUGGED INTO RED OUTLET. BMV AT BEDSIDE. ETT SECURED. ALARMS SET. NO RESPIRATORY DISTRESS NOTED. WILL CONTINUE TO MONITOR FOR CHANGED IN RESPIRATORY STATUS
[2020-02-16] MEDS: SIMVASTATIN 20 MG TAB PO SCH (20:17)
[2020-02-16] MEDS: GABAPENTIN 100 MG CAP PO SCH (20:17)
--- NOTE | 2020-02-16 21:45 | NUR ---
ADMINISTERED 2100H MEDICATIONS PER ORDERED, ORAL CARE AND SUCTIONING PERFORMED
--- NOTE | 2020-02-16 23:10 | NUR ---
HUNG NEW BOTTLE OF PROPOFOL AT 25MCG/KG/MIN
[2020-02-17] VITALS (105 sets, daily range): BP systolic 115–178; BP diastolic 69–100
[2020-02-17] MEDS: NACL 0.45% 1,000 ML IV SCH ×4 (00:03→22:17)
--- NOTE | 2020-02-17 02:15 | NUR ---
REPOSITIONED PT, ORAL CARE AND SUCTIONING PERFORMED, PT SHOWING NO SIGNS OF ACUTE DISTRESS, SAFETY MEASURES IN PLACE, WILL CONTINUE TO MONITOR
[2020-02-17] MEDS: hePARIN / DEXT 5% PREMIX 250 ML IV SCH ×2 (02:57→22:26)
[2020-02-17] MEDS: methylPREDNISolone SS 40 MG/ML VIAL IVP SCH ×3 (04:38→20:03)
[2020-02-17 05:08] LABS: HEMATOCRIT 38.9 % (36-52); HEMOGLOBIN 12.6 g/dL (12.0-18.0); MEAN CORPUSCULAR HEMOGLOBIN 27 pg (27-31); MEAN CORPUSCULAR HGB CONC 32 g/dL (33-37); MEAN CORPUSCULAR VOLUME 84.6 fL (80-94); PLATELET COUNT (AUTO) 204 K/uL (140-450); RED BLOOD CELL COUNT(AUTO) 4.59 MIL/uL (4.20-6.10); RED CELL DISTRIBUTION WIDTH 15.5 % (11.6-13.7); WHITE BLOOD COUNT (AUTO) 21.6 K/uL (4.8-10.8)
[2020-02-17] MEDS: LEVOTHYROXINE 0.05 MG TAB PO SCH (05:33)
--- NOTE | 2020-02-17 05:50 | NUR ---
REPOSITIONED PT, ORAL CARE AND SUCTIONING PERFORMED, MORNING CARE PERFORMED, PT SHOWING NO SIGNS OF ACUTE DISTRESS, SAFETY MEASURES IN PLACE
[2020-02-17 06:05] LABS: ANION GAP 17.2 (8-16); CARBON DIOXIDE 21.7 mmol/L (21-32); CHLORIDE 113 mmol/L (98-107); CREATININE 2.4 mg/dL (0.6-1.3); GLUCOSE 170 mg/dL (74-106); POTASSIUM 3.9 mmol/L (3.5-5.1); SODIUM SERUM 148 mmol/L (136-145)
[2020-02-17 06:20] LABS: UREA NITROGEN, BLOOD 91 mg/dL (7-18)
--- NOTE | 2020-02-17 07:16 | NUR ---
ENDORSED TO DAY SHIFT RN FOR CONTINUITY OF CARE, PT IN STABLE CONDITION
[2020-02-17 07:48] LABS: LYMPHOCYTES % (MANUAL) 2 % (20-46); MONOCYTES % (MANUAL) 3 % (5-12)
--- NOTE | 2020-02-17 07:50 | NUR ---
Patient was stable in terms of vital signs except the ELEVATED BLOOD PRESSURE. MD has to be paged about this elevated BP. Vent setting remains unchanged (FI02=28%, PEEP =8, DV=690 AND RATE +26). Continuity of care will be performed during the day shift.
[2020-02-17] MEDS: ASCORBIC ACID 500 MG TAB PO SCH (08:36)
[2020-02-17] MEDS: ZINC SULF 220 MG CAP PO SCH ×2 (08:36→20:03)
[2020-02-17] MEDS: amLODIPine 5 MG TAB PO SCH (08:36)
[2020-02-17] MEDS: FUROSEMIDE 20 MG/2 ML VIAL IVP SCH (08:37)
[2020-02-17] MEDS: BENAZEPRIL 20 MG TAB PO SCH (08:37)
[2020-02-17] MEDS: VITAMIN D 400 IU TAB PO SCH (08:37)
[2020-02-17] MEDS: PANTOPRAZOLE 40 MG INJ VIAL IVP SCH (08:37)
[2020-02-17] MEDS: levETIRAcetam 500 MG in NACL 0.9% 100 ML IV SCH ×2 (08:38→20:04)
[2020-02-17] MEDS: PROPOFOL 1000 MG/100 ML PREMIX 100 ML IV PRN ×2 (10:33→17:36)
[2020-02-17] MEDS ORDERED: LABETALOL 100 MG TAB PO SCH (11:30)
[2020-02-17] MEDS: LABETALOL 100 MG TAB PO SCH (12:06)
--- NOTE | 2020-02-17 15:37 | NUR ---
DR DAN AT BEDSIDE, NOTIFIED OF INCREASED WBC, DOCTOR WILL REVIEW MEDICATIONS.
[2020-02-17] MEDS ORDERED: fentaNYL citrate 1 MG in NACL 0.9% 80 ML IV PRN (16:35)
[2020-02-17] MEDS ORDERED: fentaNYL citrate 0.05 MG/ML VIAL ONE (17:37)
--- NOTE | 2020-02-17 18:13 | NUR ---
PTT 55.9, NO CHANGES TO HEPARIN DRIP.
--- NOTE | 2020-02-17 19:30 | NUR ---
RECEIVED ENDORSEMENT FROM BRYANT RN, PT RESTING AND SEDATED RASS -3, ETT TO VENT AC/VC FIO2 40% RATE 20 PEEP 8, PULSES PALPABLE BILATERAL, BOWEL SOUNDS ACTIVE, OGT TO FEEDING NEPRO, FC IN PLACE DRAINING BY GRAVITY, LFA 20 G RUNNING HEPARIN AT 1500 UNITS/HR, JOSE PICC RUNNING PROPOFOL AT 25MCG/KG/MIN, FENTANYL AT 0.5MCG/KG/MIN AND NS AT 100MLS/HR, DRY WEIGHT 96.3KG, PT AFEBRILE, PT SHOWING NO SIGNS OF ACUTE DISTRESS, SAFETY PROTOCOLS IN PLACE, WILL CONTINUE TO MONITOR PT
--- NOTE | 2020-02-17 19:58 | NUR ---
RECEIVED PATIENT FROM DAY SHIFT ON AC 26,550, PEEP 8,40% FIO2. VENT PLUGGED INTO RED OUTLET. BMV AT BEDSIDE. ETT SECURED. ALARMS SET. SX SMALL AMOUNT THICK YELLOW SECRETION.NO RESPIRATORY DISTRESS NOTED. WILL CONTINUE TO MONITOR FOR CHANGED IN RESPIRATORY STATUS
[2020-02-17] MEDS: SIMVASTATIN 20 MG TAB PO SCH (20:03)
[2020-02-17] MEDS: GABAPENTIN 100 MG CAP PO SCH (20:04)
--- NOTE | 2020-02-17 21:59 | NUR ---
ADMINISTERD 2100H MEDICATIONS PER ORDERED
--- NOTE | 2020-02-17 22:40 | NUR ---
HUNG NEW BAG OF HEPARIN
[2020-02-18] VITALS (82 sets, daily range): BP systolic 94–144; BP diastolic 51–89
[2020-02-18] MEDS: PROPOFOL 1000 MG/100 ML PREMIX 100 ML IV PRN ×2 (00:28→21:16)
--- NOTE | 2020-02-18 00:28 | NUR ---
HUNG NEW BOTTLE OF PROPOFOL, PT SHOWING NO SIGNS OF ACUTE DISTRESS, SAFETY MEASURES IN PLACE
--- NOTE | 2020-02-18 02:45 | NUR ---
REPOSITIONED PT, ORAL CARE AND SUCTIONING PERFORMED, PT SHOWING NO SIGNS OF ACUTE DISTRESS, SAFETY MEASURES IN PLACE, WILL CONTINUE TO MONITOR
[2020-02-18] MEDS: methylPREDNISolone SS 40 MG/ML VIAL IVP SCH ×3 (04:03→21:04)
--- NOTE | 2020-02-18 04:45 | NUR ---
ADMINISTERED 0500H MEDICATIONS PER ORDERED
[2020-02-18] MEDS: LEVOTHYROXINE 0.05 MG TAB PO SCH (05:34)
[2020-02-18 06:14] LABS: BASOPHILS % (AUTO) 0.1 % (0.0-2.0); HEMATOCRIT 35.4 % (36-52); HEMOGLOBIN 11.5 g/dL (12.0-18.0); LYMPHOCYTES # (AUTO) 0.3 K/uL (2.0-11.5); MEAN CORPUSCULAR HEMOGLOBIN 28 pg (27-31); MEAN CORPUSCULAR HGB CONC 33 g/dL (33-37); MEAN CORPUSCULAR VOLUME 85.5 fL (80-94); MONOCYTES # (AUTO) 0.5 K/uL (0.8-1.0); MONOCYTES % (AUTO) 3.1 % (1.7-9.3); NEUTROPHILS # (AUTO) 14.5 K/uL (1.8-7.7); NEUTROPHILS % (AUTO) 94.8 % (42.2-75.2); PLATELET COUNT (AUTO) 125 K/uL (140-450); RED BLOOD CELL COUNT(AUTO) 4.14 MIL/uL (4.20-6.10); RED CELL DISTRIBUTION WIDTH 15.7 % (11.6-13.7); WHITE BLOOD COUNT (AUTO) 15.3 K/uL (4.8-10.8)
[2020-02-18 06:27] LABS: ANION GAP 14.1 (8-16); CARBON DIOXIDE 25.4 mmol/L (21-32); CHLORIDE 114 mmol/L (98-107); CREATININE 2.1 mg/dL (0.6-1.3); GLUCOSE 166 mg/dL (74-106); POTASSIUM 4.5 mmol/L (3.5-5.1); SODIUM SERUM 149 mmol/L (136-145)
[2020-02-18 06:32] LABS: UREA NITROGEN, BLOOD 90 mg/dL (7-18)
--- NOTE | 2020-02-18 06:53 | NUR ---
REPOSITIONED PT, ORAL CARE AND SUCTIONING PERFORMED, MORNING CARE GIVEN, PT SHOWING NO SIGNS OF ACUTE DISTRESS, SAFETY MEASURES IN PLACE, WILL CONTINUE TO MONITOR
[2020-02-18 07:00] LABS: MAGNESIUM 2.9 mg/dL (1.8-2.4); PHOSPHORUS 6.2 mg/dL (2.5-4.9)
--- NOTE | 2020-02-18 07:15 | NUR ---
ENDORSED TO DAY SHIFT RN FOR CONTINUITY OF CARE, PT IN STABLE CONDITION
[2020-02-18] MEDS: NACL 0.45% 1,000 ML IV SCH ×2 (07:49→18:22)
--- NOTE | 2020-02-18 07:53 | NUR ---
Patient remains intubated and sedated with Propofol @ 25 mcg/kk/minute and fentanyl @0.5 mcg/kg/h. Vent setting also remains unchanged @ fi02=40% and peep =8 . wc=213 and rate =24. . Pt vital signs are fluctuating. urine output was 1350 ml for the night 12 hours shift. labs results showed WBC=15.3 (H) ; CRE=2.1 , PHOSPHORUS 6.2 (H) & MAGNESIUM=2.9 (H). WE CONTINUE the care for the day shift.
[2020-02-18] MEDS: fentaNYL citrate - 50mL vial 2.5 MG in NACL 0.9% 200 ML IV PRN (09:05)
[2020-02-18] MEDS: PANTOPRAZOLE 40 MG INJ VIAL IVP SCH (09:20)
[2020-02-18] MEDS: DOCUSATE 100 MG/10 ML UDC GT SCH (09:20)
[2020-02-18] MEDS: BENAZEPRIL 20 MG TAB PO SCH (09:21)
[2020-02-18] MEDS: ZINC SULF 220 MG CAP PO SCH ×2 (09:21→21:05)
[2020-02-18] MEDS: LABETALOL 100 MG TAB PO SCH ×2 (09:21→21:05)
[2020-02-18] MEDS: FUROSEMIDE 20 MG/2 ML VIAL IVP SCH (09:21)
[2020-02-18] MEDS: ASCORBIC ACID 500 MG TAB PO SCH (09:22)
[2020-02-18] MEDS: amLODIPine 5 MG TAB PO SCH (09:24)
[2020-02-18] MEDS: VITAMIN D 400 IU TAB PO SCH (09:26)
[2020-02-18] MEDS: levETIRAcetam 500 MG in NACL 0.9% 100 ML IV SCH ×2 (09:27→21:04)
--- NOTE | 2020-02-18 09:31 | NUR ---
FIO2 INCREASED DUE TO SPO2 86%. FIO2 NOW 45% NURSE MADE AWARE OF CHANGE. WILL CONTINUE TO MONITOR.
[2020-02-18] MEDS: SENNA 8.6 MG TAB PO SCH (09:44)
--- NOTE | 2020-02-18 11:25 | NUR ---
(02/18/20) RD FOLLOW UP COMPLETED PLEASE REFER TO NUTRITION PROGRESS NOTE UNDER CARE ACTIVITY FOR ESTIMATED NUTRITION NEEDS. RD RECOMMENDATIONS: 1.CONTINUE NEPRO 1.8 @ 50 ML/HR X 24 HR -THIS PROVIDES 2160 KCAL AND 97 GM OF PROTEIN. MEETS 100% OF NUTRIENT NEEDS 2. CONTINUE FREE WATER FLUSH OF 100 ML Q4H 3. IF PATIENT NEEDS PRONE POSITION, CONTACT FNS TO ADJUST TUBE FEEDING RATE 4. RD TO FOLLOW-UP 2-3 DAYS, HIGH RISK PRAFUL EDDY MS, RDN
[2020-02-18] MEDS: hePARIN / DEXT 5% PREMIX 250 ML IV SCH (15:17)
--- NOTE | 2020-02-18 16:19 | NUR ---
BEDSIDE AND MADE VENT CHANGES NEW SETTINGS A/C VC 14, VT550, PEEP 8 AND FIO2 50%. WILL CONTINUE TO MONITOR.
--- NOTE | 2020-02-18 17:41 | NUR ---
PT REMAINS ON DOCUMENTED VENT SETTINGS NO CHANGES AT THIS TIME. PT SEDATED NOT IN ANY DISTRESS. ETT IS SECURE WITH A PATENT AIRWAY. VENT ALARMS ON AND FUNCTIONING.
--- NOTE | 2020-02-18 20:00 | NUR ---
RECEIVED REPORT FROM DAY SHIFT RN. DRY WEIGHT 99.337KG. ETT TO VENT. A/C VC. FIO2: 50%, TV: 550, RATE: 14, PEEP: 8. LUNG SOUNDS: DIMINISHED UPPER AND LOWER BILATERALLY. SR, S1S2 NOTED. RT UA PICC LINE PATENT, NO INFILTRATION/PHLEBITIS NOTED, RUNNING: PROPOFOL 24.99 MCG/KG/MIN (14.44 ML/HR) AND FENTANYL 0.499 MCG/KG/MIN (4.81 ML/HR). RT UA 20g PERIPHERAL IV:PATENT, NO INFILTRATION/PHLEBITIS NOTED, RUNNING: NS @ 100 ML/HR. LT FA 20g PERIPHERAL IV: NO INFILTRATION/PHLEBITIS NOTED, RUNNING: HEPARIN 1500 UNIT/HR (15ML/HR). BOWEL SOUNDS ACTIVE IN ALL 4 QUADRANTS. OG-TUBE TO FEED. RESIDUAL: 180ML AND BROWN. FEEDING: NEPRO @ 50ML/HR, FWF: 200ML Q 4HR. JOSEPH IN PLACE, DRAINING TO GRAVITY. SKIN INTACT. NON-PITTING EDEMA TO HANDS AND FEET. HEEL PROTECTORS IN PLACE. SAFETY MEASURES IN PLACE, BED LOW AND LOCKED. SIDE RAILS UP. CALL LIGHT WITHIN REACH. WILL CONTINUE TO MONITOR.
[2020-02-18] MEDS: SIMVASTATIN 20 MG TAB PO SCH (21:05)
[2020-02-18] MEDS: GABAPENTIN 100 MG CAP PO SCH (21:05)
--- NOTE | 2020-02-18 22:00 | NUR ---
RASS -3. NO APPARENT S/S OF DISTRESS NOTED. TURNED AND REPOSITIONED PT, OFF LOADED PRESSURE AREAS, HEEL PROTECTORS ON. SAFETY MEASURES IN PLACE, WILL CONTINUE TO MONITOR.
[2020-02-19] VITALS (103 sets, daily range): BP systolic 89–163; BP diastolic 47–93
--- NOTE | 2020-02-19 | NUR ---
VAP ORAL CARE GIVEN, PT TOLERATED WELL. TURNED AND REPOSITIONED PT, SAFETY PRECAUTIONS IN PLACE, BED LOW AND LOCKED, SIDE RAILS UP, PILLOWS AND HEEL PROTECTORS FOR OFF LOADING PRESSURE. WILL CONTINUE TO MONITOR.
--- NOTE | 2020-02-19 02:00 | NUR ---
TURNED AND REPOSITIONED PT, OFF LOADED PRESSURE AREAS, HEEL PROTECTORS ON. SUCTIONED PATIENT. NO APPARENT S/S OF DISTRESS NOTED. SAFETY MEASURES IN PLACE, BED LOW LOCKED, SIDE RAILS UP, CALL LIGHT WITHIN REACH. WILL CONTINUE TO MONITOR.
--- NOTE | 2020-02-19 04:00 | NUR ---
MORNING CARE PROVIDED. VAP ORAL CARE, JOSEPH CARE, TURNED AND REPOSITIONED. SAFETY MEASURES IN PLACE, WILL CONT. TO MONITOR.
[2020-02-19 04:45] LABS: BASOPHILS % (AUTO) 0.2 % (0.0-2.0); HEMATOCRIT 32.2 % (36-52); HEMOGLOBIN 10.4 g/dL (12.0-18.0); LYMPHOCYTES # (AUTO) 0.2 K/uL (2.0-11.5); LYMPHOCYTES % (AUTO) 2.1 % (20.5-51.1); MEAN CORPUSCULAR HEMOGLOBIN 28 pg (27-31); MEAN CORPUSCULAR HGB CONC 32 g/dL (33-37); MEAN CORPUSCULAR VOLUME 85.6 fL (80-94); MONOCYTES # (AUTO) 0.3 K/uL (0.8-1.0); MONOCYTES % (AUTO) 3.5 % (1.7-9.3); NEUTROPHILS # (AUTO) 9.3 K/uL (1.8-7.7); NEUTROPHILS % (AUTO) 94.2 % (42.2-75.2); PLATELET COUNT (AUTO) 115 K/uL (140-450); RED BLOOD CELL COUNT(AUTO) 3.76 MIL/uL (4.20-6.10); RED CELL DISTRIBUTION WIDTH 15.7 % (11.6-13.7); WHITE BLOOD COUNT (AUTO) 9.8 K/uL (4.8-10.8)
[2020-02-19] MEDS: NACL 0.45% 1,000 ML IV SCH ×2 (05:00→17:01)
[2020-02-19] MEDS: methylPREDNISolone SS 40 MG/ML VIAL IVP SCH ×3 (05:10→20:22)
[2020-02-19 05:26] LABS: ANION GAP 17.3 (8-16); CARBON DIOXIDE 22.3 mmol/L (21-32); CHLORIDE 113 mmol/L (98-107); CREATININE 2.4 mg/dL (0.6-1.3); GLUCOSE 180 mg/dL (74-106); POTASSIUM 4.6 mmol/L (3.5-5.1); SODIUM SERUM 148 mmol/L (136-145)
[2020-02-19 05:35] LABS: UREA NITROGEN, BLOOD 105 mg/dL (7-18)
[2020-02-19 05:38] LABS: MAGNESIUM 2.9 mg/dL (1.8-2.4); PHOSPHORUS 5.9 mg/dL (2.5-4.9)
[2020-02-19] MEDS: PROPOFOL 1000 MG/100 ML PREMIX 100 ML IV PRN ×3 (06:00→18:15)
[2020-02-19] MEDS: LEVOTHYROXINE 0.05 MG TAB PO SCH (06:30)
--- NOTE | 2020-02-19 07:10 | NUR ---
RECEIVED REPORT FORM [employer] PROFESSIONAL NURSE FOR CONTINUITY OF CARE. PT IN BED. RASS-3, FLACC 0, NO SOB, NO APPARENT DISTRESS. ETT TO VENT: AC/VC FIO2 50% TV 550 R 14 PEEP 8. ABD SOFT, NON-DISTENDED, NON-TENDER. OGT INTACT AND PATENT RUNNING TUBE FEEDING NEPRO 50CC/HR WITH FWF 200CC Q4H. WITH IV SITE ON LAC AND LEFT FA, RUNNING FENTANYL AT 0.5MCG, PROPOFOL 25MCG, AND 1/2NS AT 100CC/HR. JOSEPH INTACT AND PATENT DRAINING CLEAR YELLOW URINE. SAFETY PRECAUTIONS IN PLACE. ISOLATION PRECAUTION OBSERVED. WILL CONT TO MONITOR.
[2020-02-19] MEDS ORDERED: HEPARIN PER PHARMACY MC PRN (08:05)
--- NOTE | 2020-02-19 08:50 | NUR ---
GT INTACT, NO RESIDUALS NOTED. DUE MORNING MEDS GIVEN. ORAL CARE, JOSEPH CARE DONE. REPOSITIONED PT
[2020-02-19] MEDS: LABETALOL 100 MG TAB PO SCH ×2 (09:00→20:23)
[2020-02-19] MEDS: BENAZEPRIL 20 MG TAB PO SCH (09:00)
[2020-02-19] MEDS: amLODIPine 5 MG TAB PO SCH (09:00)
[2020-02-19] MEDS: hePARIN / DEXT 5% PREMIX 250 ML IV SCH (09:00)
[2020-02-19] MEDS: SENNA 8.6 MG TAB PO SCH (09:09)
[2020-02-19] MEDS: levETIRAcetam 500 MG in NACL 0.9% 100 ML IV SCH ×2 (09:09→20:22)
[2020-02-19] MEDS: VITAMIN D 400 IU TAB PO SCH (09:09)
[2020-02-19] MEDS: DOCUSATE 100 MG/10 ML UDC GT SCH (09:09)
[2020-02-19] MEDS: PANTOPRAZOLE 40 MG INJ VIAL IVP SCH (09:09)
[2020-02-19] MEDS: FUROSEMIDE 20 MG/2 ML VIAL IVP SCH (09:09)
[2020-02-19] MEDS: ASCORBIC ACID 500 MG TAB PO SCH (09:29)
[2020-02-19] MEDS: ZINC SULF 220 MG CAP PO SCH ×2 (09:29→20:23)
--- NOTE | 2020-02-19 11:30 | NUR ---
RASS-3, FLACC 0, NO APPARENT DISTRESS
--- NOTE | 2020-02-19 13:50 | NUR ---
NO S/S OF DISTRESS, NO SOB ,FLACC 0, REPOSITIONED PT, ORAL AND ETT SUCTION DONE
--- NOTE | 2020-02-19 17:00 | NUR ---
REPOSITIONED PT, PERICARE AND ORAL CARE DONE. NO APPARENT DISTRESS
--- NOTE | 2020-02-19 19:30 | NUR ---
RECEIVED REPORT FROM DAY SHIFT RN, PT SEDATED RASS-3, PROPOFOL DRIP RUNNING @ 25 MCG/KG/MIN WT: 96.3 KG. FENTANYL @ 0.5 MCG/KG/HR ETT TO VENT VC, ON 50% FIO2 R 14, DIMINISHED BREATH SOUNDS. SR ON MONITOR 70-80S, +1-2 GENERALIZED EDEMA, PALPABLE PULSES. ABD SOFT NON DISTENDED, OGT IN PLACE, + PLACEMENT, LBM: 02/18. JOSEPH CATH IN PLACE DRAINING, CLEAR YELLOW URINE.JOSE PICC LINE PATENT INTACT. FLACC0. HOB> 30 DEGREES, BED LOCKED IN LOWEST POSITION. SAFETY PRECAUTIONS IN PLACE.
[2020-02-19] MEDS: GABAPENTIN 100 MG CAP PO SCH (20:22)
[2020-02-19] MEDS: SIMVASTATIN 20 MG TAB PO SCH (20:23)
[2020-02-20] VITALS (107 sets, daily range): BP systolic 102–145; BP diastolic 63–89
--- NOTE | 2020-02-20 00:30 | NUR ---
VAP ORAL CARE DONE, PT TURNED REPOSITIONED, FLACC 0
[2020-02-20] MEDS: hePARIN / DEXT 5% PREMIX 250 ML IV SCH ×3 (02:58→19:33)
--- NOTE | 2020-02-20 04:30 | NUR ---
PT VOMIT SMALL AMOUNT LIGHT SCHREIBER FEEDING, PT BATHED, LINEN CHANGED. FLACC 0. WILL CONTINUE TO OBSERVE.
[2020-02-20] MEDS: NACL 0.45% 1,000 ML IV SCH ×2 (05:30→18:29)
[2020-02-20] MEDS: methylPREDNISolone SS 40 MG/ML VIAL IVP SCH ×3 (05:53→21:02)
[2020-02-20] MEDS: LEVOTHYROXINE 0.05 MG TAB PO SCH (05:56)
[2020-02-20 06:01] LABS: BASOPHILS % (AUTO) 0.3 % (0.0-2.0); HEMATOCRIT 31.7 % (36-52); HEMOGLOBIN 10.3 g/dL (12.0-18.0); LYMPHOCYTES # (AUTO) 0.3 K/uL (2.0-11.5); LYMPHOCYTES % (AUTO) 2.4 % (20.5-51.1); MEAN CORPUSCULAR HEMOGLOBIN 28 pg (27-31); MEAN CORPUSCULAR HGB CONC 33 g/dL (33-37); MEAN CORPUSCULAR VOLUME 85.2 fL (80-94); MONOCYTES # (AUTO) 0.4 K/uL (0.8-1.0); MONOCYTES % (AUTO) 3.6 % (1.7-9.3); NEUTROPHILS # (AUTO) 10.5 K/uL (1.8-7.7); NEUTROPHILS % (AUTO) 93.7 % (42.2-75.2); PLATELET COUNT (AUTO) 129 K/uL (140-450); RED BLOOD CELL COUNT(AUTO) 3.72 MIL/uL (4.20-6.10); RED CELL DISTRIBUTION WIDTH 15.6 % (11.6-13.7); WHITE BLOOD COUNT (AUTO) 11.2 K/uL (4.8-10.8)
[2020-02-20 06:17] LABS: MAGNESIUM 2.8 mg/dL (1.8-2.4); PHOSPHORUS 5.8 mg/dL (2.5-4.9)
[2020-02-20 06:38] LABS: ALBUMIN 1.4 g/dL (3.4-5.0); ANION GAP 14.4 (8-16); ASPARTATE AMINOTRANSFERASE 27 U/L (15-37); CARBON DIOXIDE 21.2 mmol/L (21-32); CHLORIDE 109 mmol/L (98-107); CREATININE 2.4 mg/dL (0.6-1.3); GLUCOSE 155 mg/dL (74-106); POTASSIUM 4.6 mmol/L (3.5-5.1); SODIUM SERUM 140 mmol/L (136-145); TOTAL BILIRUBIN 0.4 mg/dL (0.0-1.0)
[2020-02-20 06:49] LABS: UREA NITROGEN, BLOOD 117 mg/dL (7-18)
--- NOTE | 2020-02-20 07:05 | NUR ---
REPORT GIVEN TO DAY SHIFT FOR CONTINUITY OF CARE.
--- NOTE | 2020-02-20 07:10 | NUR ---
RECEIVED REPORT FORM FINAL BLOCK PRESS OPERATOR NURSE FOR CONTINUITY OF CARE. PT IN BED. RASS-3, FLACC 0, NO SOB, NO APPARENT DISTRESS. ETT TO VENT: AC/VC FIO2 50% TV 550 R 14 PEEP 8. ABD SOFT, NON-DISTENDED, NON-TENDER. OGT INTACT AND PATENT RUNNING TUBE FEEDING NEPRO 50CC/HR WITH FWF 200CC Q4H. WITH IV SITE ON LAC AND LEFT FA, RUNNING FENTANYL AT 0.5MCG, PROPOFOL 25MCG, HEPARIN 1500U/HR AND 1/2NS AT 100CC/HR. JOSEPH INTACT AND PATENT DRAINING CLEAR YELLOW URINE. SAFETY PRECAUTIONS IN PLACE. ISOLATION PRECAUTION OBSERVED. WILL CONT TO MONITOR.
[2020-02-20] MEDS: PROPOFOL 1000 MG/100 ML PREMIX 100 ML IV PRN ×2 (08:59→19:38)
[2020-02-20] MEDS: DOCUSATE 100 MG/10 ML UDC GT SCH (08:59)
[2020-02-20] MEDS: SENNA 8.6 MG TAB PO SCH (09:00)
[2020-02-20] MEDS: VITAMIN D 400 IU TAB PO SCH (09:00)
[2020-02-20] MEDS: PANTOPRAZOLE 40 MG INJ VIAL IVP SCH (09:00)
[2020-02-20] MEDS: FUROSEMIDE 20 MG/2 ML VIAL IVP SCH (09:00)
[2020-02-20] MEDS: levETIRAcetam 500 MG in NACL 0.9% 100 ML IV SCH ×2 (09:00→21:09)
[2020-02-20] MEDS: amLODIPine 5 MG TAB PO SCH (09:00)
[2020-02-20] MEDS: LABETALOL 100 MG TAB PO SCH ×2 (09:00→21:02)
[2020-02-20] MEDS: ASCORBIC ACID 500 MG TAB PO SCH (09:01)
[2020-02-20] MEDS: ZINC SULF 220 MG CAP PO SCH ×2 (09:02→21:03)
--- NOTE | 2020-02-20 09:15 | NUR ---
DUE MORNING MEDS GIVEN. 400CC RESIDUALS NOTED, HELD FEEDING. WILL NOTIFY
--- NOTE | 2020-02-20 10:00 | NUR ---
DR AGRAWAL CAME AND SEEN PT. ORDERED TO DECREASE IVF TO 1/2NS TO 50CC/HR, DECREASE TUBE FEEDING TO NEPRO 10CC/HR, AND START REGLAN 10MG IVP Q8H
--- NOTE | 2020-02-20 10:05 | NUR ---
GAVE VERBAL READ BACK OF ABG RESULTS TO DR. AGRAWAL. STATES TO INCREASE RATE TO 22 AND REPEAT ABG IN THE MORNING.
--- NOTE | 2020-02-20 12:30 | NUR ---
GAVE REPORT TO MICA SILVERMAN AND CRISSY RN FOR CONTINUITY OF CARE
--- NOTE | 2020-02-20 13:02 | NUR ---
BESIDE REPORT RECEIVED FROM HERRERA STEWART. PT IN BED, AROUSABLE TO LIGHT PAIN, RASS -3. ETT TO VENT: ACVC 50% FIO2, 22RR, 8 PEEP. BREATHING EVEN AND UNLABORED, FLACC 0, NO SIGNS OF ACUTE DISTRESS NOTED. OG TUBE IN PLACE, FEEDING NEPRO, ON HOLD DUE TO RESIDUAL, 400ML. JOSEPH CATHETER DRAINING TO GRAVITY, CLEAR YELLOW URINE. GENERALIZED EDEMA. LFA 20 G, RFA 18G, CLEAN DRY INTACT. JOSE PICC LINE INFUSING PROPOFOL 25 MCG/KG/MIN, FENTANYL 0.5 MCG/KG//HR, 0.45% NS 50 ML/HR, HEPARIN 1700 UNIT/HR. MARGARITA HEEL PROTECTORS IN PLACE. SAFETY MEASURES IN PLACE. ONLINE PUBLISHER IN PLACE.
[2020-02-20] MEDS: METOCLOPRAMIDE 10 MG/2 ML INJ VIAL IVP SCH ×2 (13:29→21:02)
--- NOTE | 2020-02-20 13:30 | NUR ---
ADMINISTERED MEDS PER MD ORDER. MED EDUCATION PROVIDED TO PT, REINFORCEMENT NEEDED. NO SIGNS OF ACUTE DISTRESS NOTED, HOB 30, BED IN LOW POSITION. CARDICA MONITOR IN PLACE. SAFETY MEASURES IN PLACE.
--- NOTE | 2020-02-20 15:10 | NUR ---
HYGIENE PROVIDED, AND CHANGED ALL DIRTY LINEN. ORAL HYGIENE, HCG BATH, CATHETER CARE PROVIDED. PT REPOSITIONED AND OFFLOADED PRESSURE WITH PILLOWS. OG TUBE, 200 ML RESIDUAL, WILL CONTINUE FEEDING HOLD. NO SIGNS OF ACUTE DISTRESS NOTED. BED IN LOW POSITION, HOB 30 DEGREES. MARGARITA HEEL PROTECTORS IN PLACE. KILNMAN IN PLACE. SAFETY MEASURES IN PLACE.
[2020-02-20] MEDS: fentaNYL citrate - 50mL vial 2.5 MG in NACL 0.9% 200 ML IV PRN (15:30)
--- NOTE | 2020-02-20 16:52 | NUR ---
PTT 44.7, PER RX PROTOCOL, BOLUS 3400 UNITS AND INCREASE DRIP WITH 200 UNIT/HR. ORDER PTT DRAW AT 2255.
--- NOTE | 2020-02-20 19:19 | NUR ---
PT ENDORSED TO PULLER MACHINE NURSE FOR CONTINUITY OF CARE. PT IN STABLE CONDITION AT THIS TIME
--- NOTE | 2020-02-20 19:42 | NUR ---
RECEIVED PATIENT FROM AM SHIFT. PATIENT WAS SEEN AND ASSESSED. PATIENT IS INTUBATED WITH ETT SIZE 7.5 AND SECURED WITH ANCHOR-FAST AT 24cm. PATIENT IS ON VENT SETTINGS: AC/VC RR 22, VT 550, PEEP 8, FiO2 50% WITH SPO2 OF 98%. VENT IS PLUGGED IN RED OUTLET. ALARMS SET AND AUDIBLE TO ENVIRONMENT. SUCTIONED SMALL AMOUNT OF YELLOW THICK SECRETIONS FROM ETT. AIRWAY IS PATENT. AUSCULTATION REVEALS BILATERAL RALES BREATH SOUNDS. PATIENT IS IN NO APPARENT RESPIRATORY DISTRESS AT THIS TIME. PRN TX NOT INDICATED AT THIS TIME. WILL CONTINUE TO MONITOR PATIENT.
--- NOTE | 2020-02-20 19:43 | NUR ---
RECEIVED REPORT FROM DAY NURSE, PT SEDATED RASS-3 96.3 KG. PROPOFOL DRIP @ 25 MCG/KG/MIN, FENTANYL @ 0.5 MCG/KG/HR. ETT TO VENT 50% FIO2 TV 550 R 22 PEEP 8. THICK SCHREIBER SECRETIONS NOTED. LUNGS DIMINISHED, OGT IN PLACE. FEEDING ON HOLD DUE TO > RESIDUALS. ACTIVE BOWEL SOUNDS, JOSEPH CATH IN PLACE, YELLOW URINE NOTED. SKIN INTACT, BLANCHABLE REDNESS TO BUTTOCKS AREA. SAFETY PRECAUTIONS IN PLACE, BED LOCKED IN LOWEST POSITION. HOB < 30 DEGREES. WILL CONTINUE TO OBSERVE.
[2020-02-20] MEDS: GABAPENTIN 100 MG CAP PO SCH (21:02)
[2020-02-20] MEDS: SIMVASTATIN 20 MG TAB PO SCH (21:03)
[2020-02-21] VITALS (104 sets, daily range): BP systolic 100–140; BP diastolic 46–85
--- NOTE | 2020-02-21 00:08 | NUR ---
PT TURNED AND REPOSITIONED; FLACC 0. RASS -3. VAP ORAL CARE DONE. WILL CONTINUE TO OBSERVE
--- NOTE | 2020-02-21 04:15 | NUR ---
AM CARE DONE, LINEN CHANGED. DARK BROWN DRAINAGE COMING OUT OF OGT. 400 ML DARK FLUID SUCTIONED OUT.FEEDING ON HOLD.
[2020-02-21] MEDS: PROPOFOL 1000 MG/100 ML PREMIX 100 ML IV PRN ×3 (04:28→21:01)
[2020-02-21] MEDS: METOCLOPRAMIDE 10 MG/2 ML INJ VIAL IVP SCH ×3 (05:21→20:42)
[2020-02-21] MEDS: LEVOTHYROXINE 0.05 MG TAB PO SCH (05:22)
[2020-02-21] MEDS: methylPREDNISolone SS 40 MG/ML VIAL IVP SCH ×3 (05:22→20:42)
[2020-02-21 06:20] LABS: HEMATOCRIT 28.7 % (36-52); HEMOGLOBIN 9.5 g/dL (12.0-18.0); MEAN CORPUSCULAR HEMOGLOBIN 28 pg (27-31); MEAN CORPUSCULAR HGB CONC 33 g/dL (33-37); MEAN CORPUSCULAR VOLUME 84.7 fL (80-94); PLATELET COUNT (AUTO) 146 K/uL (140-450); RED BLOOD CELL COUNT(AUTO) 3.39 MIL/uL (4.20-6.10); RED CELL DISTRIBUTION WIDTH 15.3 % (11.6-13.7); WHITE BLOOD COUNT (AUTO) 13.9 K/uL (4.8-10.8)
[2020-02-21 06:43] LABS: ALBUMIN 1.4 g/dL (3.4-5.0); ANION GAP 17.6 (8-16); ASPARTATE AMINOTRANSFERASE 36 U/L (15-37); CARBON DIOXIDE 21.6 mmol/L (21-32); CHLORIDE 109 mmol/L (98-107); CREATININE 2.5 mg/dL (0.6-1.3); GLUCOSE 146 mg/dL (74-106); LACTATE DEHYDROGENASE 189 U/L (85-227); PHOSPHORUS 6.1 mg/dL (2.5-4.9); POTASSIUM 5.2 mmol/L (3.5-5.1); SODIUM SERUM 143 mmol/L (136-145); TOTAL BILIRUBIN 0.5 mg/dL (0.0-1.0)
--- NOTE | 2020-02-21 07:15 | NUR ---
RECEIVED REPORT FORM [employer] SALES REPRESENTATIVE NURSE FOR CONTINUITY OF CARE. PT IN BED. RASS-3, FLACC 0, NO SOB, NO APPARENT DISTRESS. ETT TO VENT: AC/VC FIO2 45%% TV 550 R 14 PEEP 8. ABD SOFT, NON-DISTENDED, NON-TENDER. OGT INTACT AND PATENT RUNNING TUBE FEEDING NEPRO 10CC/HR WITH FWF 200CC Q4H. WITH IV SITE ON LAC AND LEFT FA, RUNNING FENTANYL AT 0.5MCG, PROPOFOL 25MCG, HEPARIN 1650U/HR AND 1/2NS AT 50CC/HR. JOSEPH INTACT AND PATENT DRAINING CLEAR YELLOW URINE. SAFETY PRECAUTIONS IN PLACE. ISOLATION PRECAUTION OBSERVED. WILL CONT TO MONITOR.
[2020-02-21 07:21] LABS: LYMPHOCYTES % (MANUAL) 3 % (20-46); MONOCYTES % (MANUAL) 3 % (5-12)
--- NOTE | 2020-02-21 07:30 | NUR ---
REPORT GIVEN TO DAY SHIFT FOR CONTINUITY OF CARE
[2020-02-21 08:07] LABS: UREA NITROGEN, BLOOD 141 mg/dL (7-18)
[2020-02-21] MEDS: NACL 0.45% 1,000 ML IV SCH (08:54)
[2020-02-21] MEDS: PANTOPRAZOLE 40 MG INJ VIAL IVP SCH (09:00)
[2020-02-21] MEDS: LABETALOL 100 MG TAB PO SCH ×2 (09:00→20:42)
[2020-02-21] MEDS: FUROSEMIDE 20 MG/2 ML VIAL IVP SCH (09:00)
[2020-02-21] MEDS: ASCORBIC ACID 500 MG TAB PO SCH (09:00)
[2020-02-21] MEDS: amLODIPine 5 MG TAB PO SCH (09:00)
[2020-02-21] MEDS: levETIRAcetam 500 MG in NACL 0.9% 100 ML IV SCH ×2 (09:00→20:42)
[2020-02-21] MEDS: SENNA 8.6 MG TAB PO SCH (09:00)
[2020-02-21] MEDS: DOCUSATE 100 MG/10 ML UDC GT SCH (09:00)
[2020-02-21] MEDS: ZINC SULF 220 MG CAP PO SCH ×2 (09:00→20:42)
[2020-02-21] MEDS: VITAMIN D 400 IU TAB PO SCH (09:00)
--- NOTE | 2020-02-21 10:00 | NUR ---
REPOSITIONED PT, PERICARE AND ORAL CARE DONE. NO APPARENT DISTRESS
--- NOTE | 2020-02-21 12:30 | NUR ---
SEEN BY DR. AGRAWAL, ORDERED TO TITRATE PEEP TO 5. RT INFORMED
[2020-02-21] MEDS: hePARIN / DEXT 5% PREMIX 250 ML IV SCH (14:04)
--- NOTE | 2020-02-21 15:01 | NUR ---
02/21/20 RD FOLLOW UP COMPLETED PLEASE REFER TO NUTRITION ASSESSMENT UNDER CARE ACTIVITY FOR ESTIMATED NUTRITIONAL NEEDS. 1. IF/WHEN GI SYMPTOMS IMPROVE, RECOMMEND NEPRO 1.8 @ 50 ML/HR X 24 HR -THIS PROVIDES 2160 KCAL AND 97 GM OF PROTEIN. MEETS 100% OF NUTRIENT NEEDS 2. RECOMMEND FREE WATER FLUSH OF 100 ML Q4H 3. IF PATIENT NEEDS PRONE POSITION, CONTACT FNS TO ADJUST TUBE FEEDING RATE 4. RD TO FOLLOW-UP 2-3 DAYS, HIGH RISK SYMONE HALL RD
--- NOTE | 2020-02-21 16:08 | NUR ---
REC'D PT IN PRONE POSITION WITH ETT SECURE AND INTACT, PT ON CURRENT VENT SEETING, ALARMS AUDIBLE, VENT PLUGGED INTO RED OUTLET, PT CURRENT SUPINE WITH ETT SECURE AND INTACT, TITRATING FIO2 INDICATED,WILL CONTINUE TO MONITOR. Addendum: 02/21/20 at 1613 by Becca Billings RT REC'D PT WITH ETT SECURE AND INTACT, PT ON CURRENT VENT SETTING, ALARMS AUDIBLE, VENT PLUGGED INTO RED OUTLET, TITRATING FIO2 INDICATED,WILL CONTINUE TO MONITOR.
--- NOTE | 2020-02-21 16:09 | NUR ---
DUE MORNING MEDS GIVEN. 180CC RESIDUALS NOTED Addendum: 02/21/20 at 1615 by Beau Lundy RN CHANGE TIME: 919
--- NOTE | 2020-02-21 16:15 | NUR ---
RASS-3. NO APPARENT DISTRESS, FLACC 0
--- NOTE | 2020-02-21 18:00 | NUR ---
REPOSITIONED PT, PERICARE AND ORAL CARE DONE. NO APPARENT DISTRESS
--- NOTE | 2020-02-21 19:20 | NUR ---
ENDORSED TO DAY NIGHT RN FOR CONTINUITY OF CARE
--- NOTE | 2020-02-21 19:34 | NUR ---
RECEIVED REPORT FROM DAY NURSE, PT SEDATED RASS-3 96.3 KG. PROPOFOL DRIP @ 15 MCG/KG/MIN, FENTANYL @ 0.5 MCG/KG/HR. ETT TO VENT 50% FIO2 TV 550 R 22 PEEP 8. THICK SCHREIBER SECRETIONS NOTED. LUNGS DIMINISHED, OGT IN PLACE. FEEDINGS NEPRO @ 10 ML/HR. ACTIVE BOWEL SOUNDS, JOSEPH CATH IN PLACE, YELLOW URINE NOTED. SKIN INTACT, BLANCHABLE REDNESS TO BUTTOCKS AREA. JOSE PICC LINE HEPARIN DRIP RUNNING @ 1850 UNITS/HR. SAFETY PRECAUTIONS IN PLACE, BED LOCKED IN LOWEST POSITION. HOB < 30 DEGREES. WILL CONTINUE TO OBSERVE.
--- NOTE | 2020-02-21 20:05 | NUR ---
RECEIVED PATIENT FROM AM SHIFT. PATIENT WAS SEEN AND ASSESSED. PATIENT IS INTUBATED WITH ETT SIZE 7.5 AND SECURED WITH ANCHOR-FAST AT 24cm. PATIENT IS ON VENT SETTINGS: AC/VC RR 22, VT 550, PEEP 8, FiO2 45% WITH SPO2 OF 98%. TITRATED FiO2 TO 40%. VENT IS PLUGGED IN RED OUTLET. ALARMS SET AND AUDIBLE TO ENVIRONMENT. SUCTIONED SMALL AMOUNT OF SCHREIBER THICK SECRETIONS FROM ETT. AIRWAY IS PATENT. AUSCULTATION REVEALS BILATERAL RALES BREATH SOUNDS. PATIENT IS IN NO APPARENT RESPIRATORY DISTRESS AT THIS TIME. PRN TX NOT INDICATED AT THIS TIME. WILL CONTINUE TO MONITOR PATIENT.
[2020-02-21] MEDS: SIMVASTATIN 20 MG TAB PO SCH (20:42)
[2020-02-21] MEDS: GABAPENTIN 100 MG CAP PO SCH (20:42)
[2020-02-21 22:28] LABS: ALBUMIN 1.4 g/dL (3.4-5.0); BILIRUBIN,DIRECT 0.3 mg/dL (0.0-0.3); TOTAL BILIRUBIN 0.5 mg/dL (0.0-1.0)
--- NOTE | 2020-02-21 23:30 | NUR ---
HD NURSE @ BEDSIDE SETTING UP FOR TREATMENT
[2020-02-22] VITALS (101 sets, daily range): BP systolic 92–147; BP diastolic 48–85
--- NOTE | 2020-02-22 01:27 | NUR ---
VAP ORAL CARE DONE, PT TURNED AND REPOSITIONED
[2020-02-22] MEDS: hePARIN / DEXT 5% PREMIX 250 ML IV SCH (03:15)
[2020-02-22] MEDS: methylPREDNISolone SS 40 MG/ML VIAL IVP SCH ×3 (04:29→21:00)
[2020-02-22] MEDS: METOCLOPRAMIDE 10 MG/2 ML INJ VIAL IVP SCH ×3 (04:29→21:00)
[2020-02-22] MEDS: LEVOTHYROXINE 0.05 MG TAB PO SCH (04:29)
[2020-02-22] MEDS: NACL 0.45% 1,000 ML IV SCH (04:36)
[2020-02-22 04:59] LABS: BASOPHILS % (AUTO) 0.1 % (0.0-2.0); HEMATOCRIT 27.6 % (36-52); HEMOGLOBIN 9.1 g/dL (12.0-18.0); LYMPHOCYTES # (AUTO) 0.5 K/uL (2.0-11.5); LYMPHOCYTES % (AUTO) 3.1 % (20.5-51.1); MEAN CORPUSCULAR HEMOGLOBIN 28 pg (27-31); MEAN CORPUSCULAR HGB CONC 33 g/dL (33-37); MEAN CORPUSCULAR VOLUME 84.2 fL (80-94); MONOCYTES # (AUTO) 0.5 K/uL (0.8-1.0); MONOCYTES % (AUTO) 3.2 % (1.7-9.3); NEUTROPHILS # (AUTO) 13.7 K/uL (1.8-7.7); NEUTROPHILS % (AUTO) 93.6 % (42.2-75.2); PLATELET COUNT (AUTO) 142 K/uL (140-450); RED BLOOD CELL COUNT(AUTO) 3.28 MIL/uL (4.20-6.10); RED CELL DISTRIBUTION WIDTH 15.3 % (11.6-13.7); WHITE BLOOD COUNT (AUTO) 14.7 K/uL (4.8-10.8)
--- NOTE | 2020-02-22 05:07 | NUR ---
TITRATED PEEP FROM 8 cmH20 TO 6 cmH20. SPO2 95%. PT IS IN NO RESPIRATORY DISTRESS. RN WAS NOTIFIED. WILL CONTINUE TO MONITOR PT.
[2020-02-22 06:08] LABS: ALBUMIN 1.5 g/dL (3.4-5.0); ANION GAP 12.8 (8-16); ASPARTATE AMINOTRANSFERASE 27 U/L (15-37); CARBON DIOXIDE 24.8 mmol/L (21-32); CHLORIDE 108 mmol/L (98-107); CREATININE 1.8 mg/dL (0.6-1.3); GLUCOSE 149 mg/dL (74-106); MAGNESIUM 2.5 mg/dL (1.8-2.4); PHOSPHORUS 6.5 mg/dL (2.5-4.9); POTASSIUM 4.6 mmol/L (3.5-5.1); SODIUM SERUM 141 mmol/L (136-145); TOTAL BILIRUBIN 0.5 mg/dL (0.0-1.0)
[2020-02-22 06:27] LABS: LACTATE DEHYDROGENASE 220 U/L (85-227)
[2020-02-22 06:31] LABS: UREA NITROGEN, BLOOD 107 mg/dL (7-18)
--- NOTE | 2020-02-22 07:15 | NUR ---
RECEIVED REPORT FROM NIGHT RN. POC DISCUSSED. PT IS SEDATED RASS 3. ON PROPOFOL DRIP @15 MCH/KG/MIN. ON FENTANYL DRIP @ 0.5 MCG/KG/HR. PT ON ETT TO VENT 40% FIO2, TGV 550, R 22, PEEP 5. JOSE PICC WITH HEP DRIP HELD TO RESUME @ 1400 UNITS/HR. @ 0820. OGT IN PLACE NEPRO @ 10 MLS/HR GOAL IS 50. PT TOLERATED WELL WITH NO RESIDUAL. BLANCHABLE REDNESS NOTED TO BUTTOCKS. PT TURNED TO SIDE. PLUS 3 PITTING EDEMA ON UPPER EXTREMITIES, KEPT ELEVATED WITH PILLOW. FC IN PLACE DRAINING CLEAR YELLOW URINE IN BAG.WILL CONTINUE TO MONITOR.
--- NOTE | 2020-02-22 07:45 | NUR ---
SEEN BY RT. VENT SETTING CHANGED. PLACED FIO2 @ 35% AND PEEP OF 5. OBTAINED 96% O2 SAT. RIGHT IJ DANIA CATH IN PLACE. SITE IS CLEAN AND DRY.
--- NOTE | 2020-02-22 08:20 | NUR ---
HEPARIN DRIP RESUMED @ 0820 @ 1400 UNITS /HR.
[2020-02-22] MEDS: levETIRAcetam 500 MG in NACL 0.9% 100 ML IV SCH ×2 (08:42→21:00)
[2020-02-22] MEDS: DOCUSATE 100 MG/10 ML UDC GT SCH (08:42)
[2020-02-22] MEDS: VITAMIN D 400 IU TAB PO SCH (08:43)
[2020-02-22] MEDS: FUROSEMIDE 20 MG/2 ML VIAL IVP SCH (08:43)
[2020-02-22] MEDS: PANTOPRAZOLE 40 MG INJ VIAL IVP SCH (08:43)
[2020-02-22] MEDS: amLODIPine 5 MG TAB PO SCH (08:44)
[2020-02-22] MEDS: SENNA 8.6 MG TAB PO SCH (08:44)
[2020-02-22] MEDS: LABETALOL 100 MG TAB PO SCH ×2 (08:45→21:00)
[2020-02-22] MEDS: ASCORBIC ACID 500 MG TAB PO SCH (08:45)
[2020-02-22] MEDS: ZINC SULF 220 MG CAP PO SCH ×2 (08:47→21:00)
--- NOTE | 2020-02-22 12:04 | NUR ---
SEEN AND EXAMINED BY DR. AGRAWAL. PT'S O2 SAT 85%. ORDERED TO INCREASE FIO2 TO 45%. ADVISED TO HAVE PT SED VAC AND PLACED TO CPAP ASTOL AFTER HD. RT NOTIFIED. MD ORDERED TO DC IV FLUIDS AND KEEP TUBE FEEDING INCREASE 10 MLS Q4H NEEDED IF NO RESIDUAL NOTED TO REACH THE GOAL RATE OF 50 ML/HR.
--- NOTE | 2020-02-22 13:25 | NUR ---
HD DONE. O OUTPUT. REPORT RECEIVED FROM HD NURSE. NO CHANGE OF CONDITION.
--- NOTE | 2020-02-22 14:10 | NUR ---
PROPOFOL TITRATED FOR SED VAC. WILL CONTINUE TO MONITOR. PROVIDED ETT AND ORAL SUCTIONING, OBTAINED THICK MONTES SECRETION. NO S/S OF RESPI DISTRESS AFTER PROCEDURE.
--- NOTE | 2020-02-22 15:43 | NUR ---
DUE TO PT SATURATION. CPAP TRIAL NOT DONE POST HD. INCREASED FI02 TO 100% PEEP +8. SAT STABLE. DR. AGRAWAL NOTIFIED. WILL CONTINUE TO MONITOR.
[2020-02-22] MEDS: fentaNYL citrate - 50mL vial 2.5 MG in NACL 0.9% 200 ML IV PRN (16:03)
--- NOTE | 2020-02-22 19:15 | NUR ---
PT ENDORSED TO NIGHT RN. POC REVIEWED AND DISCUSSED. NO CHANGE OF CONDITION.
--- NOTE | 2020-02-22 19:32 | NUR ---
RECEIVED PATIENT FROM AM SHIFT. PATIENT WAS SEEN AND ASSESSED. PATIENT IS INTUBATED WITH ETT SIZE 7.5 AND SECURED WITH ANCHOR-FAST AT 24cm. PATIENT IS ON VENT SETTINGS: AC/VC RR 22, VT 550, PEEP 8, FiO2 100% WITH SPO2 OF 98%. VENT IS PLUGGED IN RED OUTLET. ALARMS SET AND AUDIBLE TO ENVIRONMENT. SUCTIONED SMALL AMOUNT OF SCHREIBER THICK SECRETIONS FROM ETT. AIRWAY IS PATENT. AUSCULTATION REVEALS BILATERAL RALES BREATH SOUNDS. PATIENT IS IN NO APPARENT RESPIRATORY DISTRESS AT THIS TIME. PRN TX NOT INDICATED AT THIS TIME. WILL CONTINUE TO MONITOR PATIENT.
--- NOTE | 2020-02-22 20:00 | NUR ---
RECEIVED REPORT FROM DAY SHIFT RN. DRY WEIGHT 84KG. RASS -3. ETT TO VENT. A/C VC. FIO2: 100%, TV: 550, RATE: 22, PEEP: 8. LUNG SOUNDS: CLEAR/DIMINISHED UPPER AND LOWER BILATERALLY. SR, S1S2 NOTED. RT IJ DANIA CATH IN PLACE. RT PICC LINE: PATENT, NO INFILTRATION/PHLEBITIS NOTED, RUNNING: PROPOFOL 7.061 MCG/KG/MIN (4.08 ML/HR) AND FENTANYL 0.4999 MCG/KG/HR (4.81ML/HR). RT UA 20g PERIPHERAL IV:PATENT, NO INFILTRATION/PHLEBITIS NOTED, RUNNING: HEPARIN 1150 UNIT/HR (11.5ML/HR). LT FA 20g PERIPHERAL IV: NO INFILTRATION/PHLEBITIS NOTED, SALINE LOCK. BOWEL SOUNDS ACTIVE IN ALL 4 QUADRANTS. OG-TUBE TO FEED. RESIDUAL: 0. FEEDING: NEPRO. FWF: 200ML Q 4HR. JOSEPH IN PLACE, DRAINING TO GRAVITY. SCATTERED BRUISING ON BILATERAL ARMS. NON PITTING EDEMA TO BILATERAL HANDS AND FEET. SKIN OTHERWISE INTACT. SAFETY MEASURES IN PLACE, BED LOW AND LOCKED. SIDE RAILS UP. CALL LIGHT WITHIN REACH. WILL CONTINUE TO MONITOR. Addendum: 02/23/20 at 0208 by Nessa Garcia RN RN NON-PITTING EDEMA TO HANDS AND +1 PITTING EDEMA TO BILATERAL FEET
[2020-02-22] MEDS: SIMVASTATIN 20 MG TAB PO SCH (21:00)
[2020-02-22] MEDS: GABAPENTIN 100 MG CAP PO SCH (21:00)
--- NOTE | 2020-02-22 21:00 | NUR ---
LABETALOL NOT GIVEN DUE TO LOW BLOOD PRESSURE. B/P 92/58
--- NOTE | 2020-02-22 22:00 | NUR ---
PT IS SLEEPING, NO S/S OF DISTRESS NOTED. SAFETY MEASURES IN PLACE. WILL CONTINUE TO MONITOR
--- NOTE | 2020-02-22 22:45 | NUR ---
TITRATED FiO2 FROM 80% TO 75% WITH SPO2 OF 95%. SUCTIONED YELLOW THICK SECRETIONS FROM ETT. AIRWAY IS PATENT. PT IS IN NO RESPIRATORY DISTRESS AT THIS TIME. RN NOTIFIED ABOUT CHANGES. WILL CONTINUE TO MONITOR PT.
[2020-02-23] VITALS (99 sets, daily range): BP systolic 86–151; BP diastolic 49–97
--- NOTE | 2020-02-23 | NUR ---
VAP ORAL CARE GIVEN, REPOSITIONED PATIENT. PT TOLERATED IT WELL. NO S/S OF DISTRESS NOTED. WILL CONTINUE TO MONITOR.
[2020-02-23] MEDS: hePARIN / DEXT 5% PREMIX 250 ML IV SCH (01:02)
[2020-02-23] MEDS: PROPOFOL 1000 MG/100 ML PREMIX 100 ML IV PRN ×2 (01:05→15:40)
--- NOTE | 2020-02-23 02:00 | NUR ---
TURNED AND REPOSITIONED PATIENT. NO S/S OF DISTRESS NOTED. WILL CONTINUE TO MONITOR.
--- NOTE | 2020-02-23 02:00 | NUR ---
REINSERTED OG-TUBE. AWAITING XRAY Addendum: 02/24/20 at 0633 by Nessa Garcia RN RN WRONG DATE AND TIME.
--- NOTE | 2020-02-23 04:00 | NUR ---
MORNING ROUTINE, SUCTIONED AND VAP ORAL CARE, JOSEPH CARE, CHG BATH. CLEAN LINENS. NO S/S OF DISTRESS NOTED. SAFETY MEASURES IN PLACE. WILL CONT. TO MONITOR.
[2020-02-23] MEDS: METOCLOPRAMIDE 10 MG/2 ML INJ VIAL IVP SCH ×3 (05:00→21:00)
[2020-02-23] MEDS: methylPREDNISolone SS 40 MG/ML VIAL IVP SCH ×3 (05:00→21:00)
[2020-02-23 05:27] LABS: BASOPHILS # (AUTO) 0.1 K/uL (0.00-0.22); BASOPHILS % (AUTO) 0.5 % (0.0-2.0); HEMATOCRIT 29.8 % (36-52); HEMOGLOBIN 10.1 g/dL (12.0-18.0); LYMPHOCYTES # (AUTO) 0.6 K/uL (2.0-11.5); LYMPHOCYTES % (AUTO) 2.5 % (20.5-51.1); MEAN CORPUSCULAR HEMOGLOBIN 28 pg (27-31); MEAN CORPUSCULAR HGB CONC 34 g/dL (33-37); MEAN CORPUSCULAR VOLUME 84.1 fL (80-94); MONOCYTES # (AUTO) 0.3 K/uL (0.8-1.0); MONOCYTES % (AUTO) 1.4 % (1.7-9.3); NEUTROPHILS # (AUTO) 21.3 K/uL (1.8-7.7); NEUTROPHILS % (AUTO) 95.6 % (42.2-75.2); PLATELET COUNT (AUTO) 151 K/uL (140-450); RED BLOOD CELL COUNT(AUTO) 3.54 MIL/uL (4.20-6.10); RED CELL DISTRIBUTION WIDTH 15.1 % (11.6-13.7); WHITE BLOOD COUNT (AUTO) 22.3 K/uL (4.8-10.8)
[2020-02-23] MEDS: ACETAMINOPHEN 325 MG TAB PO PRN (05:32)
--- NOTE | 2020-02-23 05:32 | NUR ---
PTS TEMP WAS 101.0 F. REMOVED BLANKETS AND TYLENOL GIVEN. WILL CONTINUE TO MONITOR.
--- NOTE | 2020-02-23 06:15 | NUR ---
PATIENT'S TEMP WAS 98.8F. NO S/S OF DISTRESS NOTED. WILL CONTINUE TO MONITOR
[2020-02-23 06:18] LABS: ANION GAP 11.6 (8-16); ASPARTATE AMINOTRANSFERASE 52 U/L (15-37); CARBON DIOXIDE 27.3 mmol/L (21-32); CHLORIDE 105 mmol/L (98-107); CREATININE 1.9 mg/dL (0.6-1.3); GLUCOSE 117 mg/dL (74-106); MAGNESIUM 2.5 mg/dL (1.8-2.4); PHOSPHORUS 6.7 mg/dL (2.5-4.9); POTASSIUM 4.9 mmol/L (3.5-5.1); SODIUM SERUM 139 mmol/L (136-145); TOTAL BILIRUBIN 0.8 mg/dL (0.0-1.0)
[2020-02-23] MEDS: LEVOTHYROXINE 0.05 MG TAB PO SCH (06:47)
--- NOTE | 2020-02-23 07:00 | NUR ---
RECEIVED HANDOFF FROM MOBILE SALES ASSISTANT RN. PT IS SEDATED RASS -3. PT IS ON ETT TO VENT, ACVC WITH FIO2 90%, PEEP 8, R 22, VT 550. PT IS SR ON THE MONITOR. FOR ACCESS, PT HAS R IJ DANIA CATH WITH PIGTAIL, JOSE 20 G, LFA 20 G, AND JOSE PICC. PROPOFOL IS RUNNING AT 15 MCG/KG/HR, HEPARIN AT 1150 UN/HR, AND FENTANYL AT 0.5 MCG/KG/HR. DOSING WEIGHT IS 96.3 KG. PT HAS OG TUBE WITH NEPRO RUNNING AT 10 ML/HR WITH FWF 200 ML Q4HR. JOSEPH CATHETER IS IN PLACE. WILL CONTINUE TO MONITOR.
[2020-02-23 07:08] LABS: ALBUMIN 1.4 g/dL (3.4-5.0); LACTATE DEHYDROGENASE 241 U/L (85-227)
--- NOTE | 2020-02-23 07:45 | NUR ---
RECEIVED ON A [employer] groupAPE R860 VENTILATOR PLUGGED INTO RED OUTLET TOLERATING WELL WITHOUT ADVERSE REACTIONS NOTED TO AN ENDOTRACHEAL TUBE #7.5 SECURED AT 24cm TEETH/GUM LINE WITH AN ANCHOR FAST CUFF PRESSURE CHECKED NOTED AMBU BAG AT BEDSIDE RESTING WELL GOOD CHEST RISE AND AERATION THROUGHOUT BILATERAL LUNG ROJO AIRWAY PATENT SATURATION 93%-94% TITRATED FIO2 TO 85% COURTNEY/RN NOTIFIED
[2020-02-23 08:09] LABS: HEPATITIS A ANTIBODY IGM Negative (Negative); HEPATITIS B CORE AB TOTAL Negative (Negative); HEPATITIS B SURFACE ANTIBODY Reactive (.); HEPATITIS B SURFACE ANTIGEN Negative (Negative)
[2020-02-23 08:43] LABS: UREA NITROGEN, BLOOD 92 mg/dL (7-18)
[2020-02-23] MEDS: LABETALOL 100 MG TAB PO SCH ×2 (08:57→21:50)
[2020-02-23] MEDS: amLODIPine 5 MG TAB PO SCH (08:58)
--- NOTE | 2020-02-23 09:13 | NUR ---
SEDATED RESTING WELL EQUAL CHEST RISE AND AERATION THROUGHOUT BILATERAL LUNG ROJO AIRWAY PATENT
[2020-02-23] MEDS: ZINC SULF 220 MG CAP PO SCH ×2 (09:18→21:50)
[2020-02-23] MEDS: DOCUSATE 100 MG/10 ML UDC GT SCH (09:18)
[2020-02-23] MEDS: PANTOPRAZOLE 40 MG INJ VIAL IVP SCH (09:18)
[2020-02-23] MEDS: SENNA 8.6 MG TAB PO SCH (09:19)
[2020-02-23] MEDS: FUROSEMIDE 20 MG/2 ML VIAL IVP SCH (09:19)
[2020-02-23] MEDS: ASCORBIC ACID 500 MG TAB PO SCH (09:20)
[2020-02-23] MEDS: levETIRAcetam 500 MG in NACL 0.9% 100 ML IV SCH ×2 (09:20→21:00)
[2020-02-23] MEDS: VITAMIN D 400 IU TAB PO SCH (09:21)
--- NOTE | 2020-02-23 10:00 | NUR ---
MEDICATIONS ADMINISTERED PER ORDER. VAP ORAL CARE, CHG BATH, JOSEPH CARE PROVIDED. HEPARIN BOLUS OF 3400 UNITS ADMINISTERED AND DRIP INCREASED TO 1350 UN/HR PER PROTOCOL. TEMPERATURE 97.6. WILL CONTINUE TO MONITOR.
--- NOTE | 2020-02-23 11:28 | NUR ---
STABLE NO DISTRESS NOTED GOOD CHEST RISE
--- NOTE | 2020-02-23 11:30 | NUR ---
DINING SERVICES DIRECTOR AT BEDSIDE.
--- NOTE | 2020-02-23 14:00 | NUR ---
MEDICATIONS ADMINISTERED PER ORDER. PT TOLERATED WELL. VAP ORAL CARE PROVIDED. PT REPOSITIONED. TEMPERATURE 98.4 AXILLARY. WILL CONTINUE TO MONITOR.
--- NOTE | 2020-02-23 15:20 | NUR ---
(LATE ENTRY) STABLE GOOD CHEST RISE ENDOTRACHEAL SUCTION FOR LARGE SEMI THICK YELLOW SECRETONS AIRWAY PATENT
--- NOTE | 2020-02-23 16:00 | NUR ---
VAP ORAL CARE PROVIDED. PT REPOSITIONED.
--- NOTE | 2020-02-23 16:37 | NUR ---
VENT CHECK COMPLETED.PT REMAINS ON DOCUMENTED VENT SETTINGS. PT SUCTIONED OBTAINED MODERATE AMOUNT OF PALE YELLOW SECRETIONS, AIRWAY IS PATENT AND ETT IS SECURE. PT NOT IN ANY DISTRESS AT THIS TIME. VENT ALARMS ON AND FUNCTIONING.
--- NOTE | 2020-02-23 18:00 | NUR ---
PT RESTING COMFORTABLY. NO SIGNS OF RESPIRATORY DISTRESS AT THIS TIME. VSS. 550 ML URINE EMPTIED FROM JOSEPH.
--- NOTE | 2020-02-23 19:00 | NUR ---
HANDOFF GIVEN TO CORPORATE COMPLIANCE OFFICER RN FOR CONTINUITY OF CARE
--- NOTE | 2020-02-23 19:54 | NUR ---
RECEIVED PATIENT FROM AM SHIFT. PATIENT WAS SEEN AND ASSESSED. PATIENT IS INTUBATED WITH ETT SIZE 7.5 AND SECURED WITH ANCHOR-FAST AT 24cm. PATIENT IS ON VENT SETTINGS: AC/VC RR 22, VT 550, PEEP 8, FiO2 80% WITH SPO2 OF 96%. VENT IS PLUGGED IN RED OUTLET. ALARMS SET AND AUDIBLE TO ENVIRONMENT. SUCTIONED SMALL AMOUNT OF YELLOW THICK SECRETIONS FROM ETT. AIRWAY IS PATENT. AUSCULTATION REVEALS BILATERAL RALES BREATH SOUNDS. PATIENT IS IN NO APPARENT RESPIRATORY DISTRESS AT THIS TIME. PRN TX NOT INDICATED AT THIS TIME. WILL CONTINUE TO MONITOR PATIENT.
--- NOTE | 2020-02-23 20:00 | NUR ---
RECEIVED REPORT FROM DAY SHIFT RN. DRY WEIGHT 84KG. RASS -3. ETT TO VENT. A/C VC. FIO2: 80%, TV: 550, RATE: 22, PEEP: 8. LUNG SOUNDS: COARSE/DIMINISHED UPPER AND LOWER BILATERALLY. SR, S1S2 NOTED. RT IJ DANIA CATH IN PLACE. RT PICC LINE: PATENT, NO INFILTRATION/PHLEBITIS NOTED, RUNNING: PROPOFOL 14.98 MCG/KG/MIN (8.66 ML/HR) AND FENTANYL 0.4999 MCG/KG/HR (4.81ML/HR). RT UA 20g PERIPHERAL IV:PATENT, NO INFILTRATION/PHLEBITIS NOTED, RUNNING: HEPARIN 1100 UNIT/HR (11ML/HR). BOWEL SOUNDS ACTIVE IN ALL 4 QUADRANTS. OG-TUBE, NO GURGLING NOTED UPON AUSCULTATION. JOSEPH IN PLACE, DRAINING TO GRAVITY. SCATTERED BRUISING ON BILATERAL ARMS. SACRAL WOUND WITH OPTIFOAM DRESSING IN PLACE. DRY AND INTACT. +1 PITTING EDEMA TO BILATERAL HANDS AND FEET. SKIN OTHERWISE INTACT. SAFETY MEASURES IN PLACE, BED LOW AND LOCKED. SIDE RAILS UP. CALL LIGHT WITHIN REACH. WILL CONTINUE TO MONITOR.
--- NOTE | 2020-02-23 20:20 | NUR ---
DR DAN ON THE UNIT. UPDATED ABOUT PATIENT'S CONDITION. PER MD ORDER: ZOSYN Q12H.
[2020-02-23] MEDS: SIMVASTATIN 20 MG TAB PO SCH (21:50)
[2020-02-23] MEDS: POLYETHYLENE GLYCOL 17 GM/PKT PO SCH (21:50)
[2020-02-23] MEDS: GABAPENTIN 100 MG CAP PO SCH (21:50)
--- NOTE | 2020-02-23 22:00 | NUR ---
SUCTIONED AND REPOSITIONED PATIENT. NO S/S OF DISTRESS NOTED. WILL CONT. TO MONITOR.
--- NOTE | 2020-02-23 22:46 | NUR ---
TITRATED FiO2 FROM 80% TO 75% WITH SPO2 OF 96%. SUCTIONED YELLOW THICK SECRETIONS FROM ETT. AIRWAY IS PATENT. PT IS IN NO RESPIRATORY DISTRESS AT THIS TIME. RN NOTIFIED ABOUT CHANGES. WILL CONTINUE TO MONITOR PT.
[2020-02-23] MEDS ORDERED: PIPERACILLIN/TAZOBACTAM 3.375 GM VIAL IV ONE (23:14)
[2020-02-23] MEDS ORDERED: PIPERACILLIN/TAZOBACTAM 3.375 GM in DEXTROSE 5% 50 ML IV SCH (23:30)
[2020-02-24] VITALS (106 sets, daily range): BP systolic 91–190; BP diastolic 44–91
--- NOTE | 2020-02-24 | NUR ---
VAP ORAL CARE GIVEN, REPOSITIONED PATIENT. PT TOLERATED IT WELL. NO S/S OF DISTRESS NOTED. SAFETY MEASURES IN PLACE. WILL CONTINUE TO MONITOR.
[2020-02-24] MEDS: hePARIN / DEXT 5% PREMIX 250 ML IV SCH (01:03)
--- NOTE | 2020-02-24 02:00 | NUR ---
REINSERTED NEW OG-TUBE, AWAITNG XRAY.
--- NOTE | 2020-02-24 03:35 | NUR ---
TITRATED FiO2 FROM 75% TO 65% WITH SPO2 OF 97%. SUCTIONED YELLOW THICK SECRETIONS FROM ETT. AIRWAY IS PATENT. PT IS IN NO RESPIRATORY DISTRESS AT THIS TIME. RN NOTIFIED ABOUT CHANGES. WILL CONTINUE TO MONITOR PT.
--- NOTE | 2020-02-24 04:00 | NUR ---
MORNING ROUTINE, SUCTIONED AND VAP ORAL CARE, JOSEPH CARE, CHG BATH. CLEAN LINENS. NO S/S OF DISTRESS NOTED. SAFETY MEASURES IN PLACE. WILL CONT. TO MONITOR.
[2020-02-24] MEDS: methylPREDNISolone SS 40 MG/ML VIAL IVP SCH ×3 (05:00→20:25)
[2020-02-24] MEDS: METOCLOPRAMIDE 10 MG/2 ML INJ VIAL IVP SCH ×3 (05:00→20:25)
--- NOTE | 2020-02-24 06:00 | NUR ---
NO S/S OF DISTRESS NOTED. SAFETY MEASURES IN PLACE. BED LOW AND LOCKED, SIDE RAILS UP, HOB AT 30 DEGREES. CALL LIGHT WITHIN REACH. WILL CONTINUE TO MONITOR
[2020-02-24 06:09] LABS: BASOPHILS % (AUTO) 0.3 % (0.0-2.0); HEMOGLOBIN 8.2 g/dL (12.0-18.0); LYMPHOCYTES # (AUTO) 0.3 K/uL (2.0-11.5); LYMPHOCYTES % (AUTO) 2.6 % (20.5-51.1); MEAN CORPUSCULAR HEMOGLOBIN 28 pg (27-31); MEAN CORPUSCULAR HGB CONC 33 g/dL (33-37); MEAN CORPUSCULAR VOLUME 84.9 fL (80-94); MONOCYTES # (AUTO) 0.2 K/uL (0.8-1.0); MONOCYTES % (AUTO) 1.5 % (1.7-9.3); NEUTROPHILS # (AUTO) 9.8 K/uL (1.8-7.7); NEUTROPHILS % (AUTO) 95.6 % (42.2-75.2); PLATELET COUNT (AUTO) 96 K/uL (140-450); RED BLOOD CELL COUNT(AUTO) 2.94 MIL/uL (4.20-6.10); RED CELL DISTRIBUTION WIDTH 15.2 % (11.6-13.7); WHITE BLOOD COUNT (AUTO) 10.2 K/uL (4.8-10.8)
[2020-02-24] MEDS: PROPOFOL 1000 MG/100 ML PREMIX 100 ML IV PRN ×2 (06:25→19:00)
[2020-02-24] MEDS: LEVOTHYROXINE 0.05 MG TAB PO SCH (06:29)
[2020-02-24 06:52] LABS: ALBUMIN 1.3 g/dL (3.4-5.0); ANION GAP 9.6 (8-16); ASPARTATE AMINOTRANSFERASE 41 U/L (15-37); CARBON DIOXIDE 28.2 mmol/L (21-32); CHLORIDE 104 mmol/L (98-107); GLUCOSE 130 mg/dL (74-106); LACTATE DEHYDROGENASE 204 U/L (85-227); MAGNESIUM 2.3 mg/dL (1.8-2.4); PHOSPHORUS 7.5 mg/dL (2.5-4.9); POTASSIUM 4.8 mmol/L (3.5-5.1); SODIUM SERUM 137 mmol/L (136-145); TOTAL BILIRUBIN 0.7 mg/dL (0.0-1.0)
[2020-02-24 06:57] LABS: UREA NITROGEN, BLOOD 81 mg/dL (7-18)
--- NOTE | 2020-02-24 07:20 | NUR ---
RECEIVED PT FROM NIGHTSHIFT RN. CONTINUES ON SEDATION TO RASS -3. RT IJ DANIA FOR HD IN PLACE. RT UA PICC PATENT. JOSE SALINE LOCKED PERIPHERAL PATENT. CONTINUES ON HEPARIN DRIP, NO SIGNS OF ACTIVE BLEEDING. SAFETY PRECAUTIONS IN PLACE WITH BED LOW AND LOCKED. HOB >30 DEGREES.
--- NOTE | 2020-02-24 07:32 | NUR ---
RECEIVED ON A [employer] CCCAPE R860 VENTILATOR PLUGGED INTO RED OUTLET TOLERATING WELL WITHOUT ADVERSE REACTIONS NOTED TO AN ENDOTRACHEAL TUBE #7.5 SECURED AT 24cm TEETH/GUM LINE WITH AN ANCHOR FAST CUFF PRESSURE CHECKED NOTED AMBU BAG AT BEDSIDE SUPINE POSITION LOC SEDATED RESTING WELL EQUAL CHEST RISE GOOD AERATION THROUGHOUT BILATERAL LUNG ROJO AIRWAY PATENT SATURATION 97% ON FIO2 OF 65% PEEP 8cmH2O TITRATED FIO2 TO 60% MIST7Y/RN NOTIFIED
--- NOTE | 2020-02-24 07:50 | NUR ---
DR FLORY SHAFFER IN TO SEE PT. UPDATED ON PT STATUS.
[2020-02-24] MEDS: VITAMIN D 400 IU TAB PO SCH (09:00)
[2020-02-24] MEDS: LABETALOL 100 MG TAB PO SCH ×2 (09:00→20:32)
[2020-02-24] MEDS: ZINC SULF 220 MG CAP PO SCH ×2 (09:00→20:32)
[2020-02-24] MEDS: DOCUSATE 100 MG/10 ML UDC GT SCH (09:00)
[2020-02-24] MEDS: POLYETHYLENE GLYCOL 17 GM/PKT PO SCH ×2 (09:00→20:31)
[2020-02-24] MEDS: SENNA 8.6 MG TAB PO SCH (09:00)
[2020-02-24] MEDS: FUROSEMIDE 20 MG/2 ML VIAL IVP SCH (09:00)
[2020-02-24] MEDS: PIPERACILLIN/TAZOBACTAM 3.375 GM in DEXTROSE 5% 50 ML IV SCH ×2 (09:00→20:25)
[2020-02-24] MEDS: levETIRAcetam 500 MG in NACL 0.9% 100 ML IV SCH ×2 (09:00→21:00)
[2020-02-24] MEDS: ASCORBIC ACID 500 MG TAB PO SCH (09:00)
[2020-02-24] MEDS: PANTOPRAZOLE 40 MG INJ VIAL IVP SCH (09:00)
--- NOTE | 2020-02-24 09:45 | NUR ---
SPOKE WITH DR CONDE R/T PLATELETS 96. INSTRUCTED TO HOLD HEPARIN DRIP AND HE WILL BE IN TO SEE PT TODAY. ORDERS IMPLEMENTED AT THIS TIME. NO S/S OF ACTIVE BLEEDING NOTED. WILL CONT TO MONITOR.
--- NOTE | 2020-02-24 09:59 | NUR ---
XRAY AT BEDSIDE
--- NOTE | 2020-02-24 10:03 | NUR ---
NO DISTRESS NOTED GOOD CHEST RISE ENDOTRACHEAL SUCTION FOR MODERATE THIN YELLOW SECRETIONS SATURATION 98% ON FIO2 OF 60% PEEP 8cmH2O TITRATED FIO2 TO 50% DECREASED PEEP TO 6cmH2O TEODORO/RN NOTIFIED
--- NOTE | 2020-02-24 11:35 | NUR ---
DR AGRAWAL AT BEDSIDE. UPDATED ON PT STATUS.
--- NOTE | 2020-02-24 11:36 | NUR ---
multiple attempts to place ogt unsuccessful. dr saenz and dr kirby aware. blood noted to post throat. heparin drip currently on hold. medications will be changed to iv, per letty and we will follow up tomorrow.
--- NOTE | 2020-02-24 12:14 | NUR ---
OFF SEDATION AT THIS TIME STABLE NO DISTRESS NOTED EQUAL CHEST RISE ENDOTRACHEAL SUCTION FOR LARGE THIN YELLOW WITH BLOOD TINGE SECRETIONS AIRWAY PATENT ENGINEER REMOTE CONTROL DIESEL TO ATTEMPT CPAP/SBT TRIALS AT A LATER TIME DEPENDENT ON PATIENT LOC Addendum: 02/24/20 at 1253 by Oracio Sandoval RT SATURATION 95%-96% ON FIO2 OF 50% PEEP 6cmH2O TITRATED FIO2 TO 45% TEODORO/HERRERA NOTIFIED
--- NOTE | 2020-02-24 12:20 | NUR ---
PLACED PT ON SEDATION VACATION TO ATTEMPT CPAP TRIALS
--- NOTE | 2020-02-24 12:25 | NUR ---
UNRESPONSIVE TO EGG PRODUCER VERBAL COMMANDS SLIGHTLY RESPONSIVE TO STERNAL RUB EQUAL CHEST RISE GOOD AERATION THROUGHOUT BILATERAL LUNG ROJO AIRWAY PATENT PLACED ON CPAP/SBT TRIALS PEEP 5cmH2O PRESSURE SUPPORT [id number] SpVt +800ml SATURATION 95%-96%PATIENT UNABLE TO MAINTAIN Sp respirations EQUAL/GREATER THAN 10 BPM EGG PRODUCER TO ATTEMPT AT A LATER TIME
--- NOTE | 2020-02-24 15:42 | NUR ---
SEDATION OFF EQUAL CHEST RISE ENDOTRACHEAL SUCTION FOR LARGE THIN YELLOW WITH BLOOD TINGE SECRETIONS AIRWAY PATENT
--- NOTE | 2020-02-24 15:50 | NUR ---
REMAINS OFF SEDATION RESTING WELL NON RESPONSIVE TO FOOD PROCESSING PLANT MANAGER VERBAL COMMANDS SLIGHT RESPONSIVENESS TO STERNAL RUB PLACED ON CPAP/SBT TRIALS X 2 HOURS PEEP 6cmH2O PRESSURE SUPPORT [id number] ALARMS AND BACK-UP SETTINGS REVIEWED GOOD CHEST RISE AND AERATION THROUGHOUT BILATERAL LUNG ROJO AIRWAY PATENT TEODORO/RN NOTIFIED
--- NOTE | 2020-02-24 17:44 | NUR ---
OFF SEDATION STABLE NO SOB NOTED TOLERATING CPAP/SBT TRIAL WELL WITHOUT INCIDENT EQUAL CHEST RISE GOOD AERATION THROUGHOUT BILATERAL LUNG ROJO AIRWAY PATENT
[2020-02-24] MEDS ORDERED: Z-GUARD PASTE TP ONE (18:22)
--- NOTE | 2020-02-24 19:25 | NUR ---
RECEIVED PATIENT FROM DAY SHIFT ETT TO VENT ON AC 550,RR22, PEEP 6, 45% FIO2. VENTILATOR PLUGGED INTO RED OUTLET. BMV AT BEDSIDE. ETT SECURED AT DOCUMENTED SETTINGS. ALARMS SET AND FUNCTIONAL. SX MODERATE AMOUNT OF THICK CREAMY YELLOW SECRETION. WILL CONTINUE TO MONITOR.
--- NOTE | 2020-02-24 20:00 | NUR ---
RECEIVED REPORT FROM DAY SHIFT RN. PT ETT TO VENT FIO2-45%, TV-550, RATE-22, PEEP-6. RESPIRATION EVEN AND UNLABORED. SYMMETRICAL CHEST EXPANSION. ORAL MUCOSA PINK AND MOIST. SKIN WARM AND DRY. RT IJ DANIA CATH WITH PIGTAIL, RIGHT UPPER ARM PICC LINE, RIGHT UPPER ARM 20g. ASYMPTOMATIC, PATENT AND INTACT. PT ON PROPOFOL 14.98 MCG/KG/MIN (8.66 ML/HR). HEPARIN HELD D/T TO BLEEDING. NO OGT IN PLACE/TUBE FEEDING AND MD AWARE. JOSEPH CATHETER IN PLACE, DRAINING TO GRAVITY. SKIN WARM AND DRY. SEE WOUND DOCUMENTATION FOR SKIN TEAR/BLISTER ON THE BUTTOCK. SAFETY MEASURES IN PLACE, BED LOW AND LOCKED. SIDE RAILS UP. CALL LIGHT WITHIN REACH. WILL CONTINUE TO MONITOR.
[2020-02-24] MEDS: SIMVASTATIN 20 MG TAB PO SCH (20:32)
[2020-02-24] MEDS: GABAPENTIN 100 MG CAP PO SCH (20:32)
[2020-02-24] MEDS: LABETALOL 100 MG/20 ML VIAL IV SCH (21:00)
--- NOTE | 2020-02-24 21:00 | NUR ---
NO OGT IN PLACE. MEDICATIONS VIA OGT NOT GIVEN.
[2020-02-25] VITALS (104 sets, daily range): BP systolic 80–216; BP diastolic 43–107
--- NOTE | 2020-02-25 | NUR ---
PRESSURE AREAS OFF LOADED. ORAL CARE PROVIDED. TURNED AND REPOSITIONED. WILL MONITOR PT.
[2020-02-25] MEDS: fentaNYL citrate 1 MG in NACL 0.9% 80 ML IV PRN ×2 (01:35→17:59)
[2020-02-25] MEDS: PROPOFOL 1000 MG/100 ML PREMIX 100 ML IV PRN ×2 (03:26→15:00)
[2020-02-25] MEDS: methylPREDNISolone SS 40 MG/ML VIAL IVP SCH ×4 (05:00→20:59)
[2020-02-25] MEDS: METOCLOPRAMIDE 10 MG/2 ML INJ VIAL IVP SCH ×3 (05:00→21:01)
--- NOTE | 2020-02-25 06:00 | NUR ---
MORNING CARE PROVIDED. JOSEPH CARE, DAGO CARE, ORAL CARE DONE. TURNED AND REPOSITIONED PT. NO DISTRESS OBSERVED.
[2020-02-25 06:14] LABS: BASOPHILS # (AUTO) 0.1 K/uL (0.00-0.22); EOSINOPHILS % (AUTO) 0.1 % (0.0-4.0); HEMATOCRIT 31.4 % (36-52); HEMOGLOBIN 10.2 g/dL (12.0-18.0); LYMPHOCYTES # (AUTO) 0.3 K/uL (2.0-11.5); MEAN CORPUSCULAR HEMOGLOBIN 28 pg (27-31); MEAN CORPUSCULAR HGB CONC 33 g/dL (33-37); MEAN CORPUSCULAR VOLUME 84.9 fL (80-94); MONOCYTES # (AUTO) 0.2 K/uL (0.8-1.0); NEUTROPHILS # (AUTO) 11.6 K/uL (1.8-7.7); PLATELET COUNT (AUTO) 108 K/uL (140-450); WHITE BLOOD COUNT (AUTO) 12.2 K/uL (4.8-10.8)
[2020-02-25] MEDS: LEVOTHYROXINE 0.05 MG TAB PO SCH (06:30)
[2020-02-25 07:09] LABS: MAGNESIUM 2.7 mg/dL (1.8-2.4); PHOSPHORUS 8.6 mg/dL (2.5-4.9)
--- NOTE | 2020-02-25 07:10 | NUR ---
RECEIVED REPORT FORM BUILDING SUPERINTENDENT NURSE FOR CONTINUITY OF CARE. PT IN BED. RASS-3, FLACC 0, NO SOB, NO APPARENT DISTRESS. ETT TO VENT: AC/VC FIO2 45%% TV 550 R 14 PEEP 6. ABD SOFT, NON-DISTENDED, NON-TENDER. WITH JOSE PICC, RUNNING FENTANYL AT 0.5MCG, PROPOFOL 15MCG. JOSEPH INTACT AND PATENT DRAINING CLEAR YELLOW URINE. SAFETY PRECAUTIONS IN PLACE. ISOLATION PRECAUTION OBSERVED. WILL CONT TO MONITOR.
[2020-02-25 07:14] LABS: ALBUMIN 1.4 g/dL (3.4-5.0); ANION GAP 15.1 (8-16); ASPARTATE AMINOTRANSFERASE 42 U/L (15-37); CARBON DIOXIDE 24.9 mmol/L (21-32); CHLORIDE 104 mmol/L (98-107); CREATININE 2.4 mg/dL (0.6-1.3); GLUCOSE 127 mg/dL (74-106); SODIUM SERUM 139 mmol/L (136-145); TOTAL BILIRUBIN 0.8 mg/dL (0.0-1.0)
[2020-02-25 07:20] LABS: LYMPHOCYTES % (AUTO) 2.4 % (20.5-51.1); MONOCYTES % (AUTO) 1.3 % (1.7-9.3); NEUTROPHILS % (AUTO) 95.2 % (42.2-75.2)
[2020-02-25 07:25] LABS: UREA NITROGEN, BLOOD 112 mg/dL (7-18)
--- NOTE | 2020-02-25 08:45 | NUR ---
SEVERAL ATTEMPTS TO INSERT OGT/NGT UNSUCCESSFUL. DR AGRAWAL AT BEDSIDE ALSO ATTEMPTED BUT WAS UNSUCCESSFUL. DR. NI NOTIFIED
[2020-02-25] MEDS: SENNA 8.6 MG TAB PO SCH (09:00)
[2020-02-25] MEDS: ASCORBIC ACID 500 MG TAB PO SCH (09:00)
[2020-02-25] MEDS: POLYETHYLENE GLYCOL 17 GM/PKT PO SCH ×2 (09:00→21:00)
[2020-02-25] MEDS: ZINC SULF 220 MG CAP PO SCH ×2 (09:00→21:00)
[2020-02-25] MEDS: VITAMIN D 400 IU TAB PO SCH (09:00)
[2020-02-25] MEDS: DOCUSATE 100 MG/10 ML UDC GT SCH (09:00)
[2020-02-25] MEDS: LABETALOL 100 MG TAB PO SCH (09:00)
--- NOTE | 2020-02-25 09:00 | NUR ---
IV MEDS GIVEN. NO OGT IN PLACE. MEDICATIONS VIA OGT NOT GIVEN.
[2020-02-25] MEDS: levETIRAcetam 500 MG in NACL 0.9% 100 ML IV SCH ×2 (09:29→20:57)
[2020-02-25] MEDS: LABETALOL 100 MG/20 ML VIAL IV SCH ×2 (09:29→20:58)
[2020-02-25] MEDS: PIPERACILLIN/TAZOBACTAM 3.375 GM in DEXTROSE 5% 50 ML IV SCH ×2 (09:29→20:38)
[2020-02-25] MEDS: FUROSEMIDE 20 MG/2 ML VIAL IVP SCH (09:30)
[2020-02-25] MEDS: PANTOPRAZOLE 40 MG INJ VIAL IVP SCH (09:30)
--- NOTE | 2020-02-25 10:12 | NUR ---
PT VENT ALARMING. HITTING PEAK PRESSURES GREATER THAN 45. CHANGED MODES TO PRVC 550, RATE 22, +6, 60%. PEAK PRESSURE IMPROVED. DR. AGRAWAL NOTIFIED. WILL CONTINUE TO MONITOR.
--- NOTE | 2020-02-25 14:47 | NUR ---
HEMODIALYSIS DONE. NO ADVERSE REACTIONS NOTED. VSS
--- NOTE | 2020-02-25 17:15 | NUR ---
RASS -3, FLACC 0, NO APPARENT DISTRESS, RESPIRATIONS ARE EVEN AND UNLABORED. PERICARE DONE. REPOSITIONED PT
--- NOTE | 2020-02-25 19:30 | NUR ---
RECEIVED BEDSIDE REPORT FROM HERRERA STEWART, PT SEDATED RASS -3. ON ETT TO VENT ACPVRC FIO2 50%, PEEP 6, RATE 22 SATURATION 89%, NO SOB NOTED. PICC LINE TO R UPPER ARM, PATENT INTACT, INFUSING PROPOFOL @ 10MCG/KG/HR, AND FENTANYL @ 0.5MCG/KG/HR, INFUSING WELL. IV TO R UA 20G PATENT INTACT, SL. PER DAY SHIFT NURSE UNABLE TO INSERT NGT/OGT. JOSEPH CATH IN PLACE, DRAINING TO GRAVITY, INITIAL ASSESSMENT DONE, ALL SAFETY PRECAUTION MET, CALL LIGHT WITHIN REACH, WILL CONTINUE TO MONITOR. Addendum: 02/25/20 at 2201 by Conchis Garza RN DRY WEIGHT 99.34KG Addendum: 02/25/20 at 2202 by Conchis Garza RN HEMODILYSIS CATH TO RIJ, DRESSING CLEAN DRY AND INTACT.
[2020-02-25] MEDS: GABAPENTIN 100 MG CAP PO SCH (21:00)
[2020-02-25] MEDS: SIMVASTATIN 20 MG TAB PO SCH (21:00)
--- NOTE | 2020-02-25 21:00 | NUR ---
NOTIFIED RT PT HAS BEEN SATURATING LOW, RT AT BEDSIDE, WILL CONTINUE TO MONITOR.
--- NOTE | 2020-02-25 21:03 | NUR ---
DUE MEDICATIONS ADMINISTERED, PT TOLERATED WELL, PO MEDICATION UNABLE TO GIVE DUE TO PT BEING INTUBATED AND UNABLE TO INSERT NGT/OGT. MD AWARE. WILL CONTINUE TO MONITOR.
--- NOTE | 2020-02-25 23:10 | NUR ---
ENDORSED PT TO HERRERA RAMSEY FOR CONTINUOUS OF CARE
--- NOTE | 2020-02-25 23:27 | NUR ---
received bedside endorsement from Mabel SILVERMAN, assumed pt care at this time. pt is sedated RASS -3 on Propofol 10mcg and Fentanyl 0.5mcg/kg/hr. ETT to vent set to AC PVRC mode 50% FI02, 6 PEEP, 21 Rate. Report of no LBM in day shift. patient is Sinus Rhythm, Sinus Reginaldo. access of Right Upper arm 20g. R PICC 2 lumen, and R IJ for HD. Indwelling urinary catheter noted with output of 100cc since 190.
[2020-02-26] VITALS (52 sets, daily range): BP systolic 121–188; BP diastolic 60–105
--- NOTE | 2020-02-26 02:06 | NUR ---
attempted placement of OG tube. successful placement on auscultation. waiting on XR for confirmation.
[2020-02-26] MEDS: PROPOFOL 1000 MG/100 ML PREMIX 100 ML IV PRN (04:09)
[2020-02-26 06:08] LABS: BASOPHILS # (AUTO) 0.1 K/uL (0.00-0.22); BASOPHILS % (AUTO) 0.3 % (0.0-2.0); HEMATOCRIT 27.6 % (36-52); HEMOGLOBIN 9.1 g/dL (12.0-18.0); LYMPHOCYTES # (AUTO) 0.3 K/uL (2.0-11.5); LYMPHOCYTES % (AUTO) 1.7 % (20.5-51.1); MEAN CORPUSCULAR HEMOGLOBIN 28 pg (27-31); MEAN CORPUSCULAR HGB CONC 33 g/dL (33-37); MEAN CORPUSCULAR VOLUME 84.3 fL (80-94); MONOCYTES # (AUTO) 0.3 K/uL (0.8-1.0); MONOCYTES % (AUTO) 1.7 % (1.7-9.3); NEUTROPHILS # (AUTO) 16.9 K/uL (1.8-7.7); NEUTROPHILS % (AUTO) 96.3 % (42.2-75.2); PLATELET COUNT (AUTO) 139 K/uL (140-450); RED BLOOD CELL COUNT(AUTO) 3.28 MIL/uL (4.20-6.10); WHITE BLOOD COUNT (AUTO) 17.6 K/uL (4.8-10.8)
[2020-02-26 06:28] LABS: MAGNESIUM 2.6 mg/dL (1.8-2.4); PHOSPHORUS 7.7 mg/dL (2.5-4.9)
[2020-02-26] MEDS: LEVOTHYROXINE 0.05 MG TAB PO SCH (06:30)
[2020-02-26 06:36] LABS: ANION GAP 10.7 (8-16); CARBON DIOXIDE 25.2 mmol/L (21-32); CHLORIDE 108 mmol/L (98-107); CREATININE 2.2 mg/dL (0.6-1.3); GLUCOSE 114 mg/dL (74-106); POTASSIUM 4.9 mmol/L (3.5-5.1); SODIUM SERUM 139 mmol/L (136-145)
[2020-02-26 06:55] LABS: UREA NITROGEN, BLOOD 100 mg/dL (7-18)
[2020-02-26] MEDS: METOCLOPRAMIDE 10 MG/2 ML INJ VIAL IVP SCH ×3 (07:00→20:40)
--- NOTE | 2020-02-26 07:15 | NUR ---
RECEIVED REPORT FORM RD SCIENTIST NURSE FOR CONTINUITY OF CARE. PT IN BED. RASS-3, FLACC 0, NO SOB, NO APPARENT DISTRESS. ETT TO VENT: AC/VC FIO2 50%% TV 550 R 14 PEEP 6. ABD SOFT, NON-DISTENDED, NON-TENDER. WITH JOSE PICC, RUNNING FENTANYL AT 0.5MCG, PROPOFOL 10MCG. JOSEPH INTACT AND PATENT DRAINING CLEAR YELLOW URINE. SAFETY PRECAUTIONS IN PLACE. ISOLATION PRECAUTION OBSERVED. WILL CONT TO MONITOR.
--- NOTE | 2020-02-26 08:45 | NUR ---
RECEIVED ON A [employer]APE R860 VENTILATOR PLUGGED INTO RED OUTLET TOLERATING WELL WITHOUT ADVERSE REACTIONS NOTED TO AN ENDOTRACHEAL TUBE #7.5 SECURED AT 24cm TEETH/GUM LINE WITH AN ANCHOR FAST CUFF PRESSURE CHECKED NOTED LOC SEDATED RESTING COMFORTABLY NO DISTRESS NOTED ENDOTRACHEAL SUCTION FOR LARGE THIN PALE YELLOW TO HAZY SECRETIONS AIRWAY PATENT
[2020-02-26] MEDS: levETIRAcetam 500 MG in NACL 0.9% 100 ML IV SCH ×2 (09:00→20:45)
[2020-02-26] MEDS: SENNA 8.6 MG TAB PO SCH (09:00)
[2020-02-26] MEDS: methylPREDNISolone SS 40 MG/ML VIAL IVP SCH ×2 (09:00→20:40)
[2020-02-26] MEDS: DOCUSATE 100 MG/10 ML UDC GT SCH (09:00)
[2020-02-26] MEDS: FUROSEMIDE 20 MG/2 ML VIAL IVP SCH (09:00)
[2020-02-26] MEDS: PIPERACILLIN/TAZOBACTAM 3.375 GM in DEXTROSE 5% 50 ML IV SCH ×2 (09:00→20:49)
[2020-02-26] MEDS: LABETALOL 100 MG/20 ML VIAL IV SCH ×2 (09:00→20:39)
[2020-02-26] MEDS: PANTOPRAZOLE 40 MG INJ VIAL IVP SCH (09:00)
[2020-02-26] MEDS: POLYETHYLENE GLYCOL 17 GM/PKT PO SCH ×2 (09:00→21:00)
[2020-02-26] MEDS: ASCORBIC ACID 500 MG TAB PO SCH (09:00)
[2020-02-26] MEDS: VITAMIN D 400 IU TAB PO SCH (09:00)
[2020-02-26] MEDS: ZINC SULF 220 MG CAP PO SCH ×2 (09:00→21:00)
--- NOTE | 2020-02-26 11:38 | NUR ---
SEDATION/VACATION PROPOFOL AND FENTANYL SEDATION OFF AT THIS TIME BY TERRY/RN STABLE NO DISTRESS NOTED GOOD CHEST RISE ENDOTRACHEAL SUCTION FOR COPIOUS THIN YELLOW TO HAZY SECRETIONS AIRWAY PATENT IF APPROPRIATE MOSAICIST TO ATTEMPT CPAP/SBT WEANING TRIALS AT A LATER TIME
--- NOTE | 2020-02-26 12:00 | NUR ---
SEEN BY DR MULTANI AND ATTEMPTED TO INSERT DOBHOFF FR 12. PER XRAY, TUBE WAS IN THE RIGHT BRONCHUS. REMOVED NGT AND NOTIFIED
[2020-02-26] MEDS ORDERED: DEXMEDETOMIDINE HCL 200 MCG in NACL 0.9% 48 ML IV PRN (12:55)
--- NOTE | 2020-02-26 14:07 | NUR ---
02/26/20 RD FOLLOW UP COMPLETED PLEASE REFER TO NUTRITION ASSESSMENT UNDER CARE ACTIVITY FOR ESTIMATED NUTRITIONAL NEEDS. 1. WHEN FEEDING ROUTE IS ESTABLISHED CONSIDER NEPRO 1.8 @ 50 ML/HR X 24 HR. START AT 10 ML/HR AND INCREASE BY 10 ML/HR Q6H -THIS PROVIDES 2160 KCAL AND 97 GM OF PROTEIN. MEETS 100% OF NUTRIENT NEEDS 2. RECOMMEND FREE WATER FLUSH OF 100 ML Q4H 3. IF UNABLE TO INSERT FEEDING ROUTE, CONSIDER PARENTERAL NUTRITION 4. RD TO FOLLOW-UP 2-3 DAYS, HIGH RISK SYMONE HALL, BRANDI
--- NOTE | 2020-02-26 14:27 | NUR ---
STABLE SEDATED EQUAL CHEST RISE ENDOTRACHEAL SUCTION FOR LARGE THIN SCHREIBER SECRETIONS AIRWAY PATENT
--- NOTE | 2020-02-26 15:20 | NUR ---
WOUND CARE EVALUATION NOTE: PT. CHANGE OF SKIN CONDITION, PT. WITH GENERAL EDEMA TO ARMS AND LEGS,FINGERS AND DORSAL FOOT ARE COLD TO TOUCH. 1. LEFT ANTECUBITAL OPEN BLISTERING SKIN TEARS 1X1 CM SUPERFICIAL DEPTH, MOIST, DAGO WOUND SKIN ECCHYMOSIS, WEEPING SKIN 2. RIGHT WRIST 0.5X0.5 BLISTERING, SKIN INTACT, DAGO WOUND SKIN DRY 3. LEFT AND RIGHT INNER BUTTOCKS BLISTERING WITH ONE OPEN BLISTERING SKIN TEARS 2X1 CM SUPERFICIAL DEPTH, AREA IS DRY, DAGO WOUND SKIN RED AND PURPLE DISCOLORATION 7X4 CM MOIST SKIN POSSIBLE COVID RELATED SKIN FAILURE HYPOXIA OR/AND MICRO VASCULAR CLOTTING 4. RIGHT AND LEFT HEELS MUSHY, SKIN INTACT, AREAS OFFLOADING RECOMMENDATIONS: -APPLY VERSATEL DRESSING TO LEFT ANTECUBITAL AND RIGHT WRIST CHANGE DRESSING Q5 DAYS AND PRN IF SOILING -CLEANSE BUTTOCKS WOUND WITH NS, PAT DRY APPLY FOAM DRESSING QD AND PRN IF SOILING -HEEL RAISERS TO BOTH HEELS AND OFFLOADING -TURN AND REPOSITION PATIENT Q 2H -ASSESS AND MONITOR SKIN CONDITION DURING POSITION CHANGE -OFFLOAD BILATERAL HEELS BY PLACING PILLOWS UNDER CALVES AT ALL TIMES, UNLESS OTHERWISE CONTRAINDICATED -PRESSURE REDISTRIBUTION BY PLACING PILLOWS AND OFFLOADING SACRALCOCCYX -KEEP SKIN CLEAN AND DRY AT ALL TIMES.
[2020-02-26] MEDS ORDERED: DEXMEDETOMIDINE HCL 400 MCG in NACL 0.9% 96 ML IV PRN (16:55)
--- NOTE | 2020-02-26 18:30 | NUR ---
RASS -3, FLACC 0, NO APPARENT DISTRESS, RESPIRATIONS ARE EVEN AND UNLABORED. PERICARE DONE. REPOSITIONED PT
--- NOTE | 2020-02-26 19:00 | NUR ---
received report from TERRY SILVERMAN. assumed pt care at this time. pt sedated RASS -3. ETT to vent on AC PRVC 50 FIO2, 550 VT, 22 R , 6 PEEP.
[2020-02-26] MEDS: SIMVASTATIN 20 MG TAB PO SCH (21:00)
[2020-02-26] MEDS: GABAPENTIN 100 MG CAP PO SCH (21:00)
[2020-02-26] MEDS ORDERED: CRUSHER, PILL MC ONE (21:21)
[2020-02-26] MEDS: DEXMEDETOMIDINE HCL 400 MCG in NACL 0.9% 96 ML IV PRN (23:08)
[2020-02-27] VITALS (62 sets, daily range): BP systolic 88–188; BP diastolic 50–104
[2020-02-27] MEDS: METOCLOPRAMIDE 10 MG/2 ML INJ VIAL IVP SCH ×3 (05:00→19:44)
[2020-02-27 06:46] LABS: BASOPHILS # (AUTO) 0.1 K/uL (0.00-0.22); BASOPHILS % (AUTO) 0.9 % (0.0-2.0); EOSINOPHILS % (AUTO) 0.1 % (0.0-4.0); HEMATOCRIT 30.1 % (36-52); HEMOGLOBIN 9.8 g/dL (12.0-18.0); LYMPHOCYTES # (AUTO) 0.4 K/uL (2.0-11.5); LYMPHOCYTES % (AUTO) 2.5 % (20.5-51.1); MEAN CORPUSCULAR HEMOGLOBIN 28 pg (27-31); MEAN CORPUSCULAR HGB CONC 33 g/dL (33-37); MEAN CORPUSCULAR VOLUME 84.5 fL (80-94); MONOCYTES # (AUTO) 0.2 K/uL (0.8-1.0); MONOCYTES % (AUTO) 1.4 % (1.7-9.3); NEUTROPHILS # (AUTO) 15.1 K/uL (1.8-7.7); NEUTROPHILS % (AUTO) 95.1 % (42.2-75.2); PLATELET COUNT (AUTO) 129 K/uL (140-450); RED BLOOD CELL COUNT(AUTO) 3.56 MIL/uL (4.20-6.10); RED CELL DISTRIBUTION WIDTH 15.5 % (11.6-13.7); WHITE BLOOD COUNT (AUTO) 15.9 K/uL (4.8-10.8)
[2020-02-27 07:39] LABS: ANION GAP 15.7 (8-16); CARBON DIOXIDE 23.4 mmol/L (21-32); CHLORIDE 110 mmol/L (98-107); CREATININE 2.1 mg/dL (0.6-1.3); GLUCOSE 104 mg/dL (74-106); POTASSIUM 5.1 mmol/L (3.5-5.1); SODIUM SERUM 144 mmol/L (136-145)
--- NOTE | 2020-02-27 07:41 | NUR ---
Report from the Night Nurse indicated that patient was admitted with acute resp failure , COVID-19 PNA. under history of HTN, CVA, Left sided weakness. he is intubated with ETT;7.5 AND ll=23 . Vent setting: ACPRVC; 50% FI02; QQ=780. RATE=22AND PEEP=6. Pt heparin drip was held and PTT==19. pROPOFOL WAS HELD & Precedex drip @ 0.3 mcg/kg/h.
--- NOTE | 2020-02-27 07:58 | NUR ---
RECEIVED ON A [employer] R860 VENTILATOR PLUGGED INTO RED OUTLET TOLERATING WELL WITHOUT ADVERSE REACTIONS NOTED TO AN ENDOTRACHEAL TUBE #7.5 SECURED AT 24cm TEETH/GUM LINE WITH AN ANCHOR FAST CUFF PRESSURE CHECKED NOTED AMBU BAG AT BEDSIDE LOC OFF SEDATION STABLE GOOD CHEST RISE ENDOTRACHEAL TUBE SUCTION FOR LARGE THICK YELLOW/GREEN SECRETIONS AIRWAY PATENT
[2020-02-27] MEDS: ASCORBIC ACID 500 MG TAB PO SCH (08:12)
[2020-02-27] MEDS: PANTOPRAZOLE 40 MG INJ VIAL IVP SCH (08:12)
[2020-02-27] MEDS: LABETALOL 100 MG/20 ML VIAL IV SCH ×2 (08:14→19:42)
[2020-02-27] MEDS: DOCUSATE 100 MG/10 ML UDC GT SCH (08:15)
[2020-02-27] MEDS: methylPREDNISolone SS 40 MG/ML VIAL IVP SCH ×2 (08:16→19:44)
[2020-02-27] MEDS: ZINC SULF 220 MG CAP PO SCH ×2 (08:16→19:46)
[2020-02-27] MEDS: VITAMIN D 400 IU TAB PO SCH (08:16)
[2020-02-27] MEDS: POLYETHYLENE GLYCOL 17 GM/PKT PO SCH ×2 (08:17→19:44)
[2020-02-27] MEDS: SENNA 8.6 MG TAB PO SCH (08:17)
[2020-02-27] MEDS: LEVOTHYROXINE 0.05 MG TAB PO SCH (08:21)
[2020-02-27 09:13] LABS: UREA NITROGEN, BLOOD 109 mg/dL (7-18)
[2020-02-27] MEDS: PIPERACILLIN/TAZOBACTAM 3.375 GM in DEXTROSE 5% 50 ML IV SCH ×2 (09:37→20:05)
[2020-02-27] MEDS: levETIRAcetam 500 MG in NACL 0.9% 100 ML IV SCH ×2 (09:38→19:38)
--- NOTE | 2020-02-27 10:05 | NUR ---
STABLE EQUAL CHEST RISE AIRWAY PATENT
--- NOTE | 2020-02-27 13:47 | NUR ---
STABLE RESTING COMFORTABLY GOOD CHEST RISE ENDOTRACHEAL SUCTION FOR MODERATE THIN PALE YELLOW SECRETIONS AIRWAY PATENT SATURATION 95% ON FIO2 OF 50% PEEP 6cmH2O TITRATED FIO2 TO 45% REVIEWED SYSTOLIC PRESSURE 163mmHg INCREASED PEEP TO 8cmH2O (ARDS PROTOCOL)
--- NOTE | 2020-02-27 15:43 | NUR ---
HEMODIALYSIS IN PROGRESS GOOD CHEST RISE
--- NOTE | 2020-02-27 16:16 | NUR ---
Patient;s hemodialysis output is 2 liters today. VS were within normal limits except the saturation which fluctuating at 77% to 89%
[2020-02-27] MEDS: DEXMEDETOMIDINE HCL 400 MCG in NACL 0.9% 96 ML IV PRN (17:49)
--- NOTE | 2020-02-27 19:18 | NUR ---
received pt endorsement from Miki SILVERMAN, assumed pt care at this time. pt sedated to RASS -2. pt ETT to vent with AC PRVC mode. 45 FI02, 550 VT, 22 rate, 8 PEEP. pt has 3 access. Right IJ for HD, R PICC 2 lumen, R AC 20g. VS holding. sedation meds running same rate.
--- NOTE | 2020-02-27 19:33 | NUR ---
RECEIVED PATIENT FROM AM SHIFT. PATIENT WAS SEEN AND ASSESSED. PATIENT IS INTUBATED WITH ETT SIZE 7.5 AND SECURED WITH ANCHOR-FAST AT 24cm. PATIENT IS ON VENT SETTINGS: AC/PRVC RR 22, VT 550, PEEP 8, FiO2 45% WITH SPO2 OF 93%. VENT IS PLUGGED IN RED OUTLET. ALARMS SET AND AUDIBLE TO ENVIRONMENT. SUCTIONED SMALL AMOUNT OF YELLOW THICK SECRETIONS FROM ETT. AIRWAY IS PATENT. AUSCULTATION REVEALS BILATERAL COARSE BREATH SOUNDS. PATIENT IS IN NO APPARENT RESPIRATORY DISTRESS AT THIS TIME. PRN TX NOT INDICATED AT THIS TIME. WILL CONTINUE TO MONITOR PATIENT.
[2020-02-27] MEDS: GABAPENTIN 100 MG CAP PO SCH (19:45)
[2020-02-27] MEDS: SIMVASTATIN 20 MG TAB PO SCH (19:46)
[2020-02-28] VITALS (70 sets, daily range): BP systolic 111–163; BP diastolic 54–93
[2020-02-28] MEDS: METOCLOPRAMIDE 10 MG/2 ML INJ VIAL IVP SCH ×3 (05:00→21:46)
[2020-02-28 06:06] LABS: BASOPHILS # (AUTO) 0.1 K/uL (0.00-0.22); BASOPHILS % (AUTO) 0.3 % (0.0-2.0); HEMATOCRIT 29.8 % (36-52); HEMOGLOBIN 9.8 g/dL (12.0-18.0); LYMPHOCYTES # (AUTO) 0.4 K/uL (2.0-11.5); LYMPHOCYTES % (AUTO) 2.2 % (20.5-51.1); MEAN CORPUSCULAR HEMOGLOBIN 28 pg (27-31); MEAN CORPUSCULAR HGB CONC 33 g/dL (33-37); MONOCYTES # (AUTO) 0.4 K/uL (0.8-1.0); NEUTROPHILS # (AUTO) 17.3 K/uL (1.8-7.7); NEUTROPHILS % (AUTO) 95.5 % (42.2-75.2); PLATELET COUNT (AUTO) 118 K/uL (140-450); RED BLOOD CELL COUNT(AUTO) 3.51 MIL/uL (4.20-6.10); RED CELL DISTRIBUTION WIDTH 15.8 % (11.6-13.7); WHITE BLOOD COUNT (AUTO) 18.1 K/uL (4.8-10.8)
[2020-02-28 06:28] LABS: CARBON DIOXIDE 23.4 mmol/L (21-32); CHLORIDE 107 mmol/L (98-107); CREATININE 2.2 mg/dL (0.6-1.3); GLUCOSE 97 mg/dL (74-106); POTASSIUM 5.4 mmol/L (3.5-5.1); SODIUM SERUM 142 mmol/L (136-145)
[2020-02-28] MEDS: LEVOTHYROXINE 0.05 MG TAB PO SCH (06:30)
[2020-02-28 06:59] LABS: UREA NITROGEN, BLOOD 101 mg/dL (7-18)
[2020-02-28] MEDS: DEXMEDETOMIDINE HCL 400 MCG in NACL 0.9% 96 ML IV PRN (07:37)
--- NOTE | 2020-02-28 08:11 | NUR ---
Report from the night Nurse indicated that patient's condition did not change, neither improved. PEG tube and tracheostomy still on planning. Pt is on NPO. Vent setting remains unchanged. we will continue to provide care.
[2020-02-28] MEDS: PANTOPRAZOLE 40 MG INJ VIAL IVP SCH (08:40)
[2020-02-28] MEDS: methylPREDNISolone SS 40 MG/ML VIAL IVP SCH ×2 (08:41→21:46)
[2020-02-28] MEDS: LABETALOL 100 MG/20 ML VIAL IV SCH ×2 (08:44→21:00)
[2020-02-28] MEDS: DOCUSATE 100 MG/10 ML UDC GT SCH (08:44)
[2020-02-28] MEDS: VITAMIN D 400 IU TAB PO SCH (08:46)
[2020-02-28] MEDS: SENNA 8.6 MG TAB PO SCH (08:46)
[2020-02-28] MEDS: POLYETHYLENE GLYCOL 17 GM/PKT PO SCH ×2 (08:46→21:46)
[2020-02-28] MEDS: ZINC SULF 220 MG CAP PO SCH ×3 (08:47→21:46)
[2020-02-28] MEDS: ASCORBIC ACID 500 MG TAB PO SCH (08:47)
[2020-02-28] MEDS: levETIRAcetam 500 MG in NACL 0.9% 100 ML IV SCH ×2 (08:49→21:45)
[2020-02-28] MEDS: PIPERACILLIN/TAZOBACTAM 3.375 GM in DEXTROSE 5% 50 ML IV SCH ×2 (08:50→21:45)
[2020-02-28] MEDS ORDERED: diphenhydrAMINE 50 MG/ML VIAL ONE (12:16)
[2020-02-28] MEDS ORDERED: MIDAZOLAM 5 MG/5 ML VIAL ONE (12:16)
[2020-02-28] MEDS ORDERED: fentaNYL citrate 0.05 MG/ML VIAL ONE (12:16)
--- NOTE | 2020-02-28 12:51 | NUR ---
Dr. Patel has scheduled the PEG tube with EGD including Tracheostomy for tomorrow.
--- NOTE | 2020-02-28 14:03 | NUR ---
02/28/20 RD FOLLOW UP COMPLETED PLEASE REFER TO NUTRITION ASSESSMENT UNDER CARE ACTIVITY FOR ESTIMATED NUTRITIONAL NEEDS. 1. IF/WHEN GI SYMPTOMS IMPROVE, RECOMMEND NEPRO 1.8 @ 50 ML/HR X 24 HR -THIS PROVIDES 2160 KCAL AND 97 GM OF PROTEIN. MEETS 100% OF NUTRIENT NEEDS 2. RECOMMEND FREE WATER FLUSH OF 100 ML Q4H 3. IF UNABLE TO INSERT FEEDING ROUTE, CONSIDER PARENTERAL NUTRITION 4. RD TO FOLLOW-UP 2-3 DAYS, HIGH RISK SYMONE HALL RD
--- NOTE | 2020-02-28 18:48 | NUR ---
Patient was brought for CT of head. Results showed hemorrhages of the right temporal area. Dr ROGERS has immediately paged and he was to contact the other team for the immediate transfer of the patient to the high level of care. He also contacted the family to inform them about the situation. supervisor delivery department has called the nurse to inform him about the transfer. Case management will be in charge of the management to the higher level. we will continue to provide.
--- NOTE | 2020-02-28 19:00 | NUR ---
Dr. Kofi Hayes called for the procedures of tracheostomy. but there is a change of condition of the patient. CT of head showed a temporal bleeding which immediate requires a transfer to the higher level of care. Dr. Kirby canceled the procedure for tomorrow.
--- NOTE | 2020-02-28 20:02 | NUR ---
RECEIVED PATIENT FROM AM SHIFT. PATIENT WAS SEEN AND ASSESSED. PATIENT IS INTUBATED WITH ETT SIZE 7.5 AND SECURED WITH ANCHOR-FAST AT 24cm. PATIENT IS ON VENT SETTINGS: AC/PRVC RR 22, VT 550, PEEP 8, FiO2 45% WITH SPO2 OF 96%. VENT IS PLUGGED IN RED OUTLET. ALARMS SET AND AUDIBLE TO ENVIRONMENT. SUCTIONED SMALL AMOUNT OF YELLOW THICK SECRETIONS FROM ETT. AIRWAY IS PATENT. AUSCULTATION REVEALS BILATERAL COARSE BREATH SOUNDS. PATIENT IS IN NO APPARENT RESPIRATORY DISTRESS AT THIS TIME. PRN TX NOT INDICATED AT THIS TIME. WILL CONTINUE TO MONITOR PATIENT.
--- NOTE | 2020-02-28 20:46 | NUR ---
PHONE CALLED MADE TO PATIENTS RELATIVE, NO ANSWER, UNABLE TO LEAVE VOICE MESSAGE, MAIL BOX TOO FULL. CALLED PATIENTS HOUSE PHONE WITH SEVERAL ATTEMPTS, NO ANSWER, UNABLE TO LEAVE VOICEMAIL. WILL ENDORSE TO FAMILY ABOUT PT's ORDER FOR TRANSFER TO HIGHER LEVEL OF CARE.
[2020-02-28] MEDS: SIMVASTATIN 20 MG TAB PO SCH (21:47)
--- NOTE | 2020-02-28 22:39 | NUR ---
CALLED TO BEDSIDE DUE TO P DESATURATING. AT BEDSIDE PT IS RECEIVING DIALYSIS. SPO2 HIGH 70s. FiO2 TITRATED FROM 45% TO 80% WITH SPO2 OF 93%. RN NOTIFIED. WILL CONTINUE TO MONITOR.
--- NOTE | 2020-02-28 23:40 | NUR ---
DIALYSIS COMPLETE, 2L OUT, PER DIALYSIS NURSE, CATHETER IS NOT PROPERLY FUNCTIONING, ABLE TO REMOVE FLUIDS BUT NO "CLEARANCE". PER DIALYSIS NURSE RUSSO, DR. DAS ALREADY AWARE.
[2020-02-29] VITALS (68 sets, daily range): BP systolic 74–167; BP diastolic 43–89
[2020-02-29] MEDS: DEXMEDETOMIDINE HCL 400 MCG in NACL 0.9% 96 ML IV PRN ×2 (00:51→16:49)
--- NOTE | 2020-02-29 02:10 | NUR ---
WOUND CARE PERFORMED, PT TOLERATED FAIRLY. SKIN TEAR AT SACRUM/BUTTOCK IS OPEN AND BLEEDING A SMALL AMOUNT. OPTIFOAM DRESSING IN PLACE, TURNED AND REPOSITIONED, DRESSINGS AT ARMS ARE DRY AND INTACT. FLACC 0. SAFETY MEASURES IN PLACE.
--- NOTE | 2020-02-29 03:50 | NUR ---
PER EDUCATION PROGRAM ASSOCIATE, 7 HOSPITALS WERE CALLED FOR HIGHER LEVEL OF CARE, 6 HOSPITALS DENIED PATIENT, NO ROOM AVAILABLE ALL HOSPITALS ARE AT MAX CAPACITY. PER EDUCATION PROGRAM ASSOCIATE, MADY FERNANDEZ CONFIRMS OK TO FAX OVER PATIENT CHART AND WILL REVIEW IT BUT MOST LIKELY WILL NOT BE ABLE TO ACCEPT. WILL ENDORSE TO DAYSHIFT NURSE.
[2020-02-29] MEDS: METOCLOPRAMIDE 10 MG/2 ML INJ VIAL IVP SCH ×3 (05:39→21:00)
--- NOTE | 2020-02-29 05:45 | NUR ---
RECEIVED CD FROM RADIOLOGY, IN CHART.
--- NOTE | 2020-02-29 06:16 | NUR ---
SPONGE BATH, JOSEPH CARE, AND ORAL CARE PERFORMED. PT TOLERATED FAIRLY NO BOWEL MOVEMENT NOTED. FLACC 0.HOB 30 DEGREES, PT RASS -3. RIJ INTACT, JOSE PICC INFUSING PRECEDEX 0.2MCG/KG/HR AND IVF, TKO. RIGHT FA SALINE LOCKED. JOSEPH EMPTIED, DRAINING BY GRAVITY. ALL VITALS WITHIN RANGE, WILL ENDORSE TO DAYSHIFT NURSE.
[2020-02-29] MEDS: LEVOTHYROXINE 0.05 MG TAB PO SCH (06:30)
[2020-02-29 07:13] LABS: BASOPHILS # (AUTO) 0.1 K/uL (0.00-0.22); BASOPHILS % (AUTO) 0.4 % (0.0-2.0); EOSINOPHILS % (AUTO) 0.1 % (0.0-4.0); HEMATOCRIT 30.8 % (36-52); HEMOGLOBIN 9.9 g/dL (12.0-18.0); LYMPHOCYTES # (AUTO) 0.4 K/uL (2.0-11.5); LYMPHOCYTES % (AUTO) 2.3 % (20.5-51.1); MEAN CORPUSCULAR HEMOGLOBIN 28 pg (27-31); MEAN CORPUSCULAR HGB CONC 32 g/dL (33-37); MEAN CORPUSCULAR VOLUME 85.6 fL (80-94); MONOCYTES # (AUTO) 0.3 K/uL (0.8-1.0); MONOCYTES % (AUTO) 1.4 % (1.7-9.3); NEUTROPHILS # (AUTO) 17.7 K/uL (1.8-7.7); NEUTROPHILS % (AUTO) 95.8 % (42.2-75.2); PLATELET COUNT (AUTO) 131 K/uL (140-450); RED CELL DISTRIBUTION WIDTH 15.3 % (11.6-13.7); WHITE BLOOD COUNT (AUTO) 18.5 K/uL (4.8-10.8)
[2020-02-29 08:04] LABS: MAGNESIUM 2.6 mg/dL (1.8-2.4)
[2020-02-29 08:14] LABS: ANION GAP 13.7 (8-16); CARBON DIOXIDE 24.2 mmol/L (21-32); CHLORIDE 105 mmol/L (98-107); CREATININE 2.2 mg/dL (0.6-1.3); GLUCOSE 87 mg/dL (74-106); POTASSIUM 4.9 mmol/L (3.5-5.1); SODIUM SERUM 138 mmol/L (136-145)
[2020-02-29 09:19] LABS: UREA NITROGEN, BLOOD 86 mg/dL (7-18)
[2020-02-29] MEDS: methylPREDNISolone SS 40 MG/ML VIAL IVP SCH ×2 (09:48→21:00)
[2020-02-29] MEDS: PANTOPRAZOLE 40 MG INJ VIAL IVP SCH (09:48)
[2020-02-29] MEDS: PIPERACILLIN/TAZOBACTAM 3.375 GM in DEXTROSE 5% 50 ML IV SCH ×2 (09:49→21:30)
[2020-02-29] MEDS: levETIRAcetam 500 MG in NACL 0.9% 100 ML IV SCH ×2 (09:50→21:05)
[2020-02-29] MEDS: DOCUSATE 100 MG/10 ML UDC GT SCH (09:50)
[2020-02-29] MEDS: LABETALOL 100 MG/20 ML VIAL IV SCH (09:52)
[2020-02-29] MEDS: VITAMIN D 400 IU TAB PO SCH (09:53)
[2020-02-29] MEDS: POLYETHYLENE GLYCOL 17 GM/PKT PO SCH (09:53)
[2020-02-29] MEDS: SENNA 8.6 MG TAB PO SCH (09:54)
[2020-02-29] MEDS: ASCORBIC ACID 500 MG TAB PO SCH (09:54)
[2020-02-29] MEDS: ZINC SULF 220 MG CAP PO SCH (09:54)
[2020-02-29] MEDS ORDERED: LABETALOL 100 MG/20 ML VIAL IVP PRN (11:20)
[2020-02-29] MEDS ORDERED: PROPOFOL 1000 MG/100 ML PREMIX 100 ML IV PRN (11:20)
[2020-02-29] MEDS ORDERED: DEXTROSE 10% 500 ML IV SCH (11:30)
[2020-02-29] MEDS: PROPOFOL 1000 MG/100 ML PREMIX 100 ML IV PRN ×2 (11:40→21:00)
[2020-02-29] MEDS: DEXTROSE 10% 1,000 ML IV SCH (11:53)
[2020-02-29] MEDS: LEVOTHYROXINE SODIUM 100 MCG VIAL IV SCH (12:08)
--- NOTE | 2020-02-29 19:46 | NUR ---
RECEIVED PATIENT FROM AM SHIFT. PATIENT WAS SEEN AND ASSESSED. PATIENT IS INTUBATED WITH ETT SIZE 7.5 AND SECURED WITH ANCHOR-FAST AT 24cm. PATIENT IS ON VENT SETTINGS: AC/PRVC RR 22, VT 550, PEEP 8, FiO2 60% WITH SPO2 OF 97%. VENT IS PLUGGED IN RED OUTLET. ALARMS SET AND AUDIBLE TO ENVIRONMENT. SUCTIONED SMALL AMOUNT OF YELLOW THICK SECRETIONS FROM ETT. AIRWAY IS PATENT. AUSCULTATION REVEALS BILATERAL COARSE BREATH SOUNDS. PATIENT IS IN NO APPARENT RESPIRATORY DISTRESS AT THIS TIME. PRN TX NOT INDICATED AT THIS TIME. WILL CONTINUE TO MONITOR PATIENT.
--- NOTE | 2020-02-29 20:00 | NUR ---
RECEIVED REPORT FROM DAY SHIFT RN. DRY WEIGHT 111.13 KG. RASS -3. ETT TO VENT. A/C PRVC. FIO2: 60%, TV: 550, RATE: 22, PEEP: 8. LUNG SOUNDS: COARSE UPPER AND LOWER BILATERALLY. SR, S1S2 NOTED. RT IJ DANIA CATH IN PLACE. RT PICC LINE: PATENT, NO INFILTRATION/PHLEBITIS NOTED, RUNNING: PROPOFOL 10 MCG/KG/MIN (6.6 ML/HR) AND PRECEDEX 0.2 MCG/KG/HR. RT UA 20g PERIPHERAL IV:PATENT, NO INFILTRATION/PHLEBITIS NOTED, RUNNING: D 10% @ 20ML/HR. BOWEL SOUNDS ACTIVE IN ALL [address] JOSEPH [address] PL[address], DRAINING TO GRAVITY. SCATTERED BRUISING ON BILATERAL ARMS. NON-PITTING EDEMA TO HANDS AND +1 PITTING EDEMA TO BILATERAL FEET. SKIN TEAR TO RT BUTTOCKS WITH FOAM DRESSING IN PLACE. SAFETY MEASURES IN PLACE, BED LOW AND LOCKED. SIDE RAILS UP. CALL LIGHT WITHIN REACH. WILL CONTINUE TO MONITOR.
--- NOTE | 2020-02-29 20:26 | NUR ---
JOHNATHON THE INSTRUMENT AND CONTROL SERVICE PERSON FROM [facility] AFTER HOURS CALLED AND EXPLAINED THAT THE TRANSFER CENTER SAID THERE IS NO BED AVAILABLE YET AT [facility]. [facility] ON ROLL CALL.
[2020-02-29] MEDS: fentaNYL citrate 1 MG in NACL 0.9% 80 ML IV PRN (21:00)
[2020-02-29] MEDS: NOREPINEPHRINE 4 MG in DEXTROSE 5% 250 ML IV PRN (21:45)
[2020-02-29] MEDS ORDERED: NOREPINEPHRINE 4 MG/4 ML VIAL IV ONE (21:46)
--- NOTE | 2020-02-29 22:00 | NUR ---
SUCTIONED AND REPOSITIONED PATIENT. NO S/S OF DISTRESS NOTED. WILL CONTINUE TO MONITOR.
[2020-03-01] VITALS (61 sets, daily range): BP systolic 97–148; BP diastolic 45–82
--- NOTE | 2020-03-01 | NUR ---
VAP ORAL CARE GIVEN, REPOSITIONED PATIENT. PT TOLERATED IT WELL. NO S/S OF DISTRESS NOTED. SAFETY MEASURES IN PLACE. WILL CONTINUE TO MONITOR.
--- NOTE | 2020-03-01 02:00 | NUR ---
PATIENT REMAINS UNCHANGED. NO S/S OF DISTRESS NOTED
--- NOTE | 2020-03-01 04:00 | NUR ---
MORNING ROUTINE, SUCTIONED AND VAP ORAL CARE, JOSEPH CARE, CHG BATH. NO S/S OF DISTRESS NOTED. SAFETY MEASURES IN PLACE. WILL CONT. TO MONITOR.
[2020-03-01] MEDS: METOCLOPRAMIDE 10 MG/2 ML INJ VIAL IVP SCH ×3 (05:00→21:00)
--- NOTE | 2020-03-01 05:12 | NUR ---
SPO2 100%. TITRATED FiO2 TO 50% WITH SPO2 97%. PT IS TOLERATING WELL. RN NOTIFIED. WILL CONTINUE TO MONITOR PT.
--- NOTE | 2020-03-01 05:45 | NUR ---
PT IS STILL ON VENTILATOR SUPPORT. VENT PLUGGED IN RED OUTLET AND ALARMS SET AND FUNCTIONING. AIRWAY IS PATENT AND ETT IS SECURED WITH ANCHOR-FAST. PT IS IN NO RESPIRATORY DISTRESS AT THIS TIME. WILL CONTINUE TO MONITOR PT.
--- NOTE | 2020-03-01 06:00 | NUR ---
SUCTIONED PATIENT, VAP ORAL CARE GIVEN. REPOSITIONED PATIENT. SAFETY MEASURES IN PLACE: BED LOW AND LOCKED, SIDE RAILS UP. CALL LIGHT WITHIN REACH, WILL CONTINUE TO MONITOR.
[2020-03-01 06:44] LABS: MAGNESIUM 2.4 mg/dL (1.8-2.4)
[2020-03-01 06:45] LABS: BASOPHILS % (AUTO) 0.2 % (0.0-2.0); EOSINOPHILS % (AUTO) 0.1 % (0.0-4.0); HEMATOCRIT 31.2 % (36-52); LYMPHOCYTES # (AUTO) 0.5 K/uL (2.0-11.5); LYMPHOCYTES % (AUTO) 2.7 % (20.5-51.1); MEAN CORPUSCULAR HEMOGLOBIN 27 pg (27-31); MEAN CORPUSCULAR HGB CONC 32 g/dL (33-37); MEAN CORPUSCULAR VOLUME 85.6 fL (80-94); MONOCYTES # (AUTO) 0.5 K/uL (0.8-1.0); MONOCYTES % (AUTO) 2.4 % (1.7-9.3); NEUTROPHILS # (AUTO) 18.7 K/uL (1.8-7.7); NEUTROPHILS % (AUTO) 94.6 % (42.2-75.2); PLATELET COUNT (AUTO) 172 K/uL (140-450); RED BLOOD CELL COUNT(AUTO) 3.64 MIL/uL (4.20-6.10); RED CELL DISTRIBUTION WIDTH 15.9 % (11.6-13.7); WHITE BLOOD COUNT (AUTO) 19.8 K/uL (4.8-10.8)
[2020-03-01 06:49] LABS: ANION GAP 16.8 (8-16); CARBON DIOXIDE 23.8 mmol/L (21-32); CHLORIDE 103 mmol/L (98-107); CREATININE 2.7 mg/dL (0.6-1.3); GLUCOSE 116 mg/dL (74-106); POTASSIUM 5.6 mmol/L (3.5-5.1); SODIUM SERUM 138 mmol/L (136-145)
--- NOTE | 2020-03-01 08:23 | NUR ---
Report from the night nurse indicated that the patient condition did not changed, the skin on sacral area remains a medium pressure and was dressed with foam. RN nichole noted that the BP was dropping all night. Levophed was initiated at 4 mcg/kg/minutye to sustain the SBP above 90 mmHg. Patient's transfer to [facility] still pending at this time due the lack of bed. Missy Case Management follows up the transfer process. In the other hand, we will continue to perform the care.
[2020-03-01] MEDS: methylPREDNISolone SS 40 MG/ML VIAL IVP SCH ×2 (08:38→21:00)
[2020-03-01] MEDS: LEVOTHYROXINE SODIUM 100 MCG VIAL IV SCH (08:38)
[2020-03-01] MEDS: PANTOPRAZOLE 40 MG INJ VIAL IVP SCH (08:38)
[2020-03-01] MEDS: PIPERACILLIN/TAZOBACTAM 3.375 GM in DEXTROSE 5% 50 ML IV SCH ×2 (08:39→21:00)
[2020-03-01] MEDS: levETIRAcetam 500 MG in NACL 0.9% 100 ML IV SCH ×2 (08:39→21:30)
[2020-03-01] MEDS: ASCORBIC ACID 500 MG TAB PO SCH (09:02)
[2020-03-01] MEDS: DOCUSATE 100 MG/10 ML UDC GT SCH (09:02)
[2020-03-01 09:30] LABS: UREA NITROGEN, BLOOD 85 mg/dL (7-18)
[2020-03-01] MEDS: PROPOFOL 1000 MG/100 ML PREMIX 100 ML IV PRN (13:06)
[2020-03-01] MEDS: DEXTROSE 10% 1,000 ML IV SCH (13:08)
--- NOTE | 2020-03-01 16:02 | NUR ---
03/01/20 RD FOLLOW UP COMPLETED PLEASE REFER TO NUTRITION ASSESSMENT UNDER CARE ACTIVITY FOR ESTIMATED NUTRITIONAL NEEDS. 1. CONSIDER TPN/PPN D/T NO ENTERAL NUTRITION FEEDING ROUTE ESTABLISHED 2. IF/WHEN PT RECEIVES NGT/OGT/PEG PLACEMENT CONTINUE ENTERAL NUTRITION WITH NEPRO 1.8 @ 50 ML/HR.START AT 10 ML/HR AND INCREASE BY 10 ML/HR Q4H 3. CONTACT RD PRN FOR CHANGES 4. RD TO FOLLOW-UP 2-3 DAYS, HIGH RISK SYMONE HALL RD
[2020-03-01] MEDS: NOREPINEPHRINE 4 MG in DEXTROSE 5% 250 ML IV PRN (17:54)
[2020-03-01] MEDS ORDERED: PIPERACILLIN/TAZOBACTAM 3.375 GM VIAL IV ONE (19:59)
[2020-03-01] MEDS ORDERED: levETIRAcetam 100 MG/ML VIAL IV ONE (19:59)
--- NOTE | 2020-03-01 20:00 | NUR ---
RECEIVED REPORT FROM DAY SHIFT RN. DRY WEIGHT 111.13 KG. RASS -3. ETT TO VENT. A/C PRVC. FIO2: 35%, TV: 550, RATE: 22, PEEP: 5. LUNG SOUNDS: COARSE UPPER AND LOWER BILATERALLY. SR, S1S2 NOTED. RT IJ DANIA CATH IN PLACE. RT PICC LINE: PATENT, NO INFILTRATION/PHLEBITIS NOTED, RUNNING: PROPOFOL 10 MCG/KG/MIN (6.6 ML/HR) AND FENTANYL 0.5 MCG/KG/HR (13.75 ML/HR) AND LEVOPHED 2MCG/MIN (7.5ML/HR). RT UA 20g PERIPHERAL IV:PATENT, NO INFILTRATION/PHLEBITIS NOTED, RUNNING: D 10% @ 20ML/HR. BOWEL SOUNDS HYPOACTIVE IN ALL [address], DRAINING TO GRAVITY. SCATTERED BRUISING ON BILATERAL ARMS. NON-PITTING EDEMA TO HANDS AND +1 PITTING EDEMA TO BILATERAL FEET. SKIN TEAR TO RT BUTTOCKS WITH FOAM DRESSING IN PLACE. SAFETY MEASURES IN PLACE, BED LOW AND LOCKED. SIDE RAILS UP. CALL LIGHT WITHIN REACH. WILL CONTINUE TO MONITOR.
[2020-03-01] MEDS: fentaNYL citrate 1 MG in NACL 0.9% 80 ML IV PRN (21:51)
--- NOTE | 2020-03-01 22:00 | NUR ---
SUCTIONED AND REPOSITIONED PATIENT. NO S/S OF DISTRESS NOTED. SAFETY MEASURES IN PLACE. WILL CONTINUE TO MONITOR.
[2020-03-02] VITALS (59 sets, daily range): BP systolic 102–143; BP diastolic 59–87
--- NOTE | 2020-03-02 | NUR ---
REPOSITIONED PATIENT. VAP ORAL CARE GIVEN. PT TOLERATED IT WELL. NO S/S OF DISTRESS NOTED. SAFETY MEASURES IN PLACE. WILL CONTINUE TO MONITOR.
[2020-03-02] MEDS: PROPOFOL 1000 MG/100 ML PREMIX 100 ML IV PRN ×2 (04:00→13:54)
--- NOTE | 2020-03-02 04:00 | NUR ---
PATIENT REMAINS UNCHANGED. AFEBRILE, NO S/S OF DISTRESS NOTED. SAFETY PRECAUTIONS IN PLACE. BED LOW AND LOCKED, ROOM IS FREE OF CLUTTER. WILL CONTINUE TO MONITOR.
[2020-03-02] MEDS: METOCLOPRAMIDE 10 MG/2 ML INJ VIAL IVP SCH ×3 (05:00→21:00)
[2020-03-02] MEDS: fentaNYL citrate 1 MG in NACL 0.9% 80 ML IV PRN ×2 (05:00→12:30)
[2020-03-02 07:05] LABS: BASOPHILS % (AUTO) 0.2 % (0.0-2.0); CARBON DIOXIDE 23.7 mmol/L (21-32); CHLORIDE 99 mmol/L (98-107); CREATININE 3.1 mg/dL (0.6-1.3); EOSINOPHILS % (AUTO) 0.1 % (0.0-4.0); GLUCOSE 131 mg/dL (74-106); HEMATOCRIT 28.9 % (36-52); HEMOGLOBIN 9.5 g/dL (12.0-18.0); LYMPHOCYTES # (AUTO) 0.4 K/uL (2.0-11.5); LYMPHOCYTES % (AUTO) 2.6 % (20.5-51.1); MEAN CORPUSCULAR HEMOGLOBIN 28 pg (27-31); MEAN CORPUSCULAR HGB CONC 33 g/dL (33-37); MEAN CORPUSCULAR VOLUME 84.9 fL (80-94); MONOCYTES # (AUTO) 0.4 K/uL (0.8-1.0); MONOCYTES % (AUTO) 2.7 % (1.7-9.3); NEUTROPHILS # (AUTO) 13.8 K/uL (1.8-7.7); NEUTROPHILS % (AUTO) 94.4 % (42.2-75.2); PLATELET COUNT (AUTO) 115 K/uL (140-450); POTASSIUM 4.7 mmol/L (3.5-5.1); RED CELL DISTRIBUTION WIDTH 15.9 % (11.6-13.7); SODIUM SERUM 135 mmol/L (136-145); WHITE BLOOD COUNT (AUTO) 14.6 K/uL (4.8-10.8)
[2020-03-02 07:26] LABS: UREA NITROGEN, BLOOD 81 mg/dL (7-18)
--- NOTE | 2020-03-02 07:35 | NUR ---
Night nurse report indicated patient's vital signs were stable except the fluctuation of Blood pressure went up to above 140 mmHg. Nurse have to adjust the Levophed dose in order to keep SBP less than 140 mmHg. If the patient is going to be transferred today. we suggest that TPN feeding to maintin him hemodynamically stable. since he is not able to be fed by ogtube or ngtube. We will continue to follow up the transfer process.
[2020-03-02] MEDS: PIPERACILLIN/TAZOBACTAM 3.375 GM in DEXTROSE 5% 50 ML IV SCH ×2 (09:19→21:30)
[2020-03-02] MEDS: PANTOPRAZOLE 40 MG INJ VIAL IVP SCH (09:19)
[2020-03-02] MEDS: levETIRAcetam 500 MG in NACL 0.9% 100 ML IV SCH ×2 (09:20→21:00)
[2020-03-02] MEDS: LEVOTHYROXINE SODIUM 100 MCG VIAL IV SCH (09:36)
[2020-03-02] MEDS: DOCUSATE 100 MG/10 ML UDC GT SCH (09:37)
[2020-03-02] MEDS: ASCORBIC ACID 500 MG TAB PO SCH (09:37)
[2020-03-02] MEDS: methylPREDNISolone SS 40 MG/ML VIAL IVP SCH ×2 (09:39→21:00)
[2020-03-02 11:50] LABS: MAGNESIUM 2.3 mg/dL (1.8-2.4); PHOSPHORUS 7.1 mg/dL (2.5-4.9)
[2020-03-02] MEDS: DEXTROSE 10% 1,000 ML IV SCH (12:24)
[2020-03-02] MEDS ORDERED: TPN PER PHARMACY MC PRN (13:45)
--- NOTE | 2020-03-02 16:16 | NUR ---
Pharmacy has noted charge nurse that the TPN will not be available this evening. The probability to have it is tomorrow. There is no other alternative solution right now.
--- NOTE | 2020-03-02 19:00 | NUR ---
PATIENT IS CURRENTLY RECEIVING DIALYSIS
--- NOTE | 2020-03-02 19:45 | NUR ---
PATIENT COMPLETED DIALYSIS, OUTPUT: 2L. NO S/S OF DISTRESS NOTED, CONTINUE TO MONITOR CLOSELY.
--- NOTE | 2020-03-02 20:00 | NUR ---
RECEIVED REPORT FROM DAY SHIFT RN. DRY WEIGHT 111.13 KG. RASS -3. ETT TO VENT. A/C PRVC. FIO2: 35%, TV: 550, RATE: 22, PEEP: 5. LUNG SOUNDS: COARSE UPPER AND LOWER BILATERALLY. SR, S1S2 NOTED. RT IJ DANIA CATH IN PLACE. RT PICC LINE: PATENT, NO INFILTRATION/PHLEBITIS NOTED, RUNNING: PROPOFOL 10 MCG/KG/MIN (6.6 ML/HR) AND FENTANYL 0.5 MCG/KG/HR (13.75). RT UA 20g PERIPHERAL IV:PATENT, NO INFILTRATION/PHLEBITIS NOTED, RUNNING: D 10% @ 20ML/HR AND LEVOPHED 2 MCG/MIN (7.5 ML/HR). BOWEL SOUNDS HYPOACTIVE IN ALL [address], DRAINING TO GRAVITY. SCATTERED BRUISING ON BILATERAL ARMS. +1 PITTING EDEMA TO BILATERAL HANDS. SKIN TEAR TO RT BUTTOCKS WITH FOAM DRESSING IN PLACE. SAFETY MEASURES IN PLACE, BED LOW AND LOCKED. SIDE RAILS UP. CALL LIGHT WITHIN REACH. WILL CONTINUE TO MONITOR.
[2020-03-02] MEDS ORDERED: levETIRAcetam 100 MG/ML VIAL IV ONE (20:36)
[2020-03-02] MEDS ORDERED: PIPERACILLIN/TAZOBACTAM 3.375 GM VIAL IV ONE (20:37)
--- NOTE | 2020-03-02 22:00 | NUR ---
NO S/S OF DISTRESS NOTED. SUCTIONED AND REPOSITIONED PATIENT. PT IS AFEBRILE. SAFETY MEASURES IN PLACE. WILL CONTINUE TO MONITOR.
[2020-03-03] VITALS (80 sets, daily range): BP systolic 100–164; BP diastolic 55–94
--- NOTE | 2020-03-03 | NUR ---
VAP ORAL CARE GIVEN. REPOSITIONED PATIENT. PT TOLERATED IT WELL. SAFETY MEASURES IN PLACE. WILL CONTINUE TO MONITOR.
--- NOTE | 2020-03-03 02:00 | NUR ---
PATIENT REMAINS UNCHANGED. AFEBRILE, NO S/S OF DISTRESS NOTED. SAFETY PRECAUTIONS IN PLACE. BED LOW AND LOCKED, ROOM IS FREE OF CLUTTER. WILL CONTINUE TO MONITOR.
--- NOTE | 2020-03-03 04:00 | NUR ---
MORNING ROUTINE, SUCTIONED AND VAP ORAL CARE, JOSEPH CARE, CHG BATH. NO S/S OF DISTRESS NOTED. SAFETY MEASURES IN PLACE. WILL CONT. TO MONITOR.
[2020-03-03] MEDS: METOCLOPRAMIDE 10 MG/2 ML INJ VIAL IVP SCH ×3 (05:00→21:00)
--- NOTE | 2020-03-03 06:00 | NUR ---
AFEBRILE, NO S/S OF DISTRESS NOTED. SAFETY PRECAUTIONS IN PLACE. BED LOW AND LOCKED, ROOM IS FREE OF CLUTTER. WILL CONTINUE TO MONITOR.
[2020-03-03 06:17] LABS: BASOPHILS # (AUTO) 0.1 K/uL (0.00-0.22); BASOPHILS % (AUTO) 0.5 % (0.0-2.0); HEMATOCRIT 27.1 % (36-52); HEMOGLOBIN 8.9 g/dL (12.0-18.0); LYMPHOCYTES # (AUTO) 0.4 K/uL (2.0-11.5); LYMPHOCYTES % (AUTO) 2.7 % (20.5-51.1); MEAN CORPUSCULAR HEMOGLOBIN 28 pg (27-31); MEAN CORPUSCULAR HGB CONC 33 g/dL (33-37); MEAN CORPUSCULAR VOLUME 85.2 fL (80-94); MONOCYTES # (AUTO) 0.4 K/uL (0.8-1.0); MONOCYTES % (AUTO) 2.6 % (1.7-9.3); NEUTROPHILS # (AUTO) 15.9 K/uL (1.8-7.7); NEUTROPHILS % (AUTO) 94.2 % (42.2-75.2); PLATELET COUNT (AUTO) 125 K/uL (140-450); RED BLOOD CELL COUNT(AUTO) 3.18 MIL/uL (4.20-6.10); RED CELL DISTRIBUTION WIDTH 15.8 % (11.6-13.7); WHITE BLOOD COUNT (AUTO) 16.8 K/uL (4.8-10.8)
[2020-03-03 06:32] LABS: MAGNESIUM 2.1 mg/dL (1.8-2.4); PHOSPHORUS 6.3 mg/dL (2.5-4.9)
[2020-03-03 06:34] LABS: ALBUMIN 1.8 g/dL (3.4-5.0); ANION GAP 12.6 (8-16); ASPARTATE AMINOTRANSFERASE 51 U/L (15-37); CARBON DIOXIDE 26.7 mmol/L (21-32); CHLORIDE 99 mmol/L (98-107); GLUCOSE 123 mg/dL (74-106); POTASSIUM 4.3 mmol/L (3.5-5.1); SODIUM SERUM 134 mmol/L (136-145); TOTAL BILIRUBIN 1.8 mg/dL (0.0-1.0)
[2020-03-03 06:59] LABS: CHOL/HDL RATIO 7.2 (1-4.5)
[2020-03-03 07:08] LABS: UREA NITROGEN, BLOOD 62 mg/dL (7-18)
[2020-03-03] MEDS: PROPOFOL 1000 MG/100 ML PREMIX 100 ML IV PRN (07:19)
--- NOTE | 2020-03-03 07:30 | NUR ---
Received patient on bed. Ett to vent with fio2=35 percent.Pt with right upper Picc line with fentanyl drip .Per dr Villagran wanted Rass-3 not -1.Propofol drip at -3 Rass.Fong to gravity.Changed the fentanyl drip weight to 97.5 kg as recorded in his chart.Programmed in the machine with charge nurse Soni.propofol drip with weight used in the machine as 97.5.Fong to gravity.nsr in the monitor.All extremities flaccid.Pt with bilateral heel protectors.
[2020-03-03] MEDS: fentaNYL citrate 1 MG in NACL 0.9% 80 ML IV PRN (08:07)
[2020-03-03] MEDS: LEVOTHYROXINE SODIUM 100 MCG VIAL IV SCH (08:28)
[2020-03-03] MEDS: methylPREDNISolone SS 40 MG/ML VIAL IVP SCH ×2 (08:29→21:00)
[2020-03-03] MEDS: ASCORBIC ACID 500 MG TAB PO SCH (08:29)
[2020-03-03] MEDS: PANTOPRAZOLE 40 MG INJ VIAL IVP SCH (08:29)
[2020-03-03] MEDS: DOCUSATE 100 MG/10 ML UDC GT SCH (08:30)
--- NOTE | 2020-03-03 09:43 | NUR ---
CALLED TO PT ROOM DUE TO PT 02 DESAT AROUND 0800. SXN MODERATE AMOUNT OF THICK/YELLOW SECRETIONS. INCREASED FIO2 TO 100% AND PEEP TO +10. SAT INCREASED TO 94%. NOTIFIED RN AND DR. HAJI. DR. HAJI GAVE ORDERS FOR CHEST XRAY AND ABG. READ BACK ABG RESULTS TO DR. HAJI. NO FURTHER CHANGES TO THE VENT MADE AT THIS TIME.
[2020-03-03] MEDS: PIPERACILLIN/TAZOBACTAM 3.375 GM in DEXTROSE 5% 50 ML IV SCH ×2 (09:50→21:30)
[2020-03-03] MEDS: levETIRAcetam 500 MG in NACL 0.9% 100 ML IV SCH ×2 (09:50→21:00)
--- NOTE | 2020-03-03 10:56 | NUR ---
DR HAJI MADE AWARE PT IS DESATURATING TO 83 PERCENT.[facility] THE RESPIRATORY THERAPIST IS AWARE.DR HAJI UPDATED ABOUT PTS CONDITION ESPECIALLY PT DESATURATING.
--- NOTE | 2020-03-03 11:00 | NUR ---
PER JOHN FORM ARROW[facility].BED IS NOT AVAILABLE.
--- NOTE | 2020-03-03 11:02 | NUR ---
PT IS 92 PERCENT SATURATION. Radha rt IS AT THE BEDSIDE
[2020-03-03] MEDS: DEXTROSE 10% 1,000 ML IV SCH (11:09)
--- NOTE | 2020-03-03 11:10 | NUR ---
STILL WAITING FOR BED AVAILABILITY FOR HIGHER LEVEL OF CARE.
[2020-03-03] MEDS: LABETALOL 100 MG/20 ML VIAL IVP PRN (13:02)
--- NOTE | 2020-03-03 14:15 | NUR ---
DR Morrison UPDATED ABOUT PTS CONDITION ESPECIALLY bun =62,cA=7.1,cREATININE=3
[2020-03-03] MEDS: BLOOD GLUCOSE MONITORING 1 DEV DEV MC SCH (18:04)
--- NOTE | 2020-03-03 19:30 | NUR ---
REPORT GIVEN TO Jimmie FOR CONTINUTY OF CARE.hD NURSE-RUSSO AWARE PT WILL HAVE hd TOMORROW.
--- NOTE | 2020-03-03 19:55 | NUR ---
RECEIVED PATIENT FROM AM SHIFT. PATIENT WAS SEEN AND ASSESSED. PATIENT IS INTUBATED WITH ETT SIZE 7.5 AND SECURED WITH ANCHOR-FAST AT 24cm. PATIENT IS ON VENT SETTINGS: AC/PRVC RR 22, VT 550, PEEP 10, FiO2 100% WITH SPO2 OF 93%. VENT IS PLUGGED IN RED OUTLET. ALARMS SET AND AUDIBLE TO ENVIRONMENT. SUCTIONED SMALL AMOUNT OF YELLOW THICK SECRETIONS FROM ETT. AIRWAY IS PATENT. AUSCULTATION REVEALS BILATERAL COARSE BREATH SOUNDS. PATIENT IS IN NO APPARENT RESPIRATORY DISTRESS AT THIS TIME. PRN TX NOT INDICATED AT THIS TIME. WILL CONTINUE TO MONITOR PATIENT.
--- NOTE | 2020-03-03 20:00 | NUR ---
RECEIVED REPORT FROM DAY SHIFT RN. DRY WEIGHT 111.13 KG. RASS -3. ETT TO VENT. A/C PRVC. FIO2: 100%, TV: 550, RATE: 22, PEEP: 10. LUNG SOUNDS: COARSE UPPER AND LOWER BILATERALLY. SR, S1S2 NOTED. RT IJ DANIA CATH IN PLACE. RT PICC LINE: PATENT, NO INFILTRATION/PHLEBITIS NOTED, RUNNING: PROPOFOL 10 MCG/KG/MIN (6.6 ML/HR) AND FENTANYL 0.5 MCG/KG/HR (13.75). RT UA 20g PERIPHERAL IV:PATENT, NO INFILTRATION/PHLEBITIS NOTED, RUNNING: D 10% @ 20ML/HR. BOWEL SOUNDS HYPOACTIVE IN ALL [address] PL[address], DRAINING TO GRAVITY. SCATTERED BRUISING ON BILATERAL ARMS. NON-PITTING EDEMA TO BILATERAL HANDS. OPEN WOUND TO RT BUTTOCKS WITH FOAM DRESSING IN PLACE. SAFETY MEASURES IN PLACE, BED LOW AND LOCKED. SIDE RAILS UP. CALL LIGHT WITHIN REACH. WILL CONTINUE TO MONITOR.
--- NOTE | 2020-03-03 20:05 | NUR ---
STARTED PT ON TPN. ESPERANZA CONT. TO ASSESS.
[2020-03-03] MEDS: DEXTROSE IV SCH ×4 (20:41)
[2020-03-03] MEDS: MULTIVITAMIN IV SCH ×4 (20:41)
[2020-03-03] MEDS: AMINO ACIDS IV SCH ×4 (20:41)
[2020-03-03] MEDS: [UNRECOGNIZED DRUG - OTHER] IV SCH ×4 (20:41)
--- NOTE | 2020-03-03 22:00 | NUR ---
NO S/S OF DISTRESS NOTED. SUCTIONED AND REPOSITIONED PATIENT. SAFETY MEASURES IN PLACE. WILL CONTINUE TO MONITOR.
[2020-03-04] VITALS (50 sets, daily range): BP systolic 84–144; BP diastolic 55–78
--- NOTE | 2020-03-04 | NUR ---
VAP ORAL CARE GIVEN. REPOSITIONED PATIENT. PT TOLERATED IT WELL. SAFETY MEASURES IN PLACE. WILL CONTINUE TO MONITOR.
[2020-03-04] MEDS: PROPOFOL 1000 MG/100 ML PREMIX 100 ML IV PRN ×2 (01:00→19:05)
--- NOTE | 2020-03-04 02:00 | NUR ---
PATIENT REMAINS UNCHANGED. AFEBRILE, SATURATION IS 100%. NO S/S OF DISTRESS NOTED. SAFETY PRECAUTIONS IN PLACE. BED LOW AND LOCKED, ROOM IS FREE OF CLUTTER. WILL CONTINUE TO MONITOR.
[2020-03-04] MEDS: METOCLOPRAMIDE 10 MG/2 ML INJ VIAL IVP SCH ×3 (05:00→21:43)
--- NOTE | 2020-03-04 06:00 | NUR ---
PATIENT REMAINS UNCHANGED. AFEBRILE, NO S/S OF DISTRESS NOTED. SAFETY PRECAUTIONS IN PLACE. BED LOW AND LOCKED, ROOM IS FREE OF CLUTTER. WILL CONTINUE TO MONITOR.
[2020-03-04] MEDS: BLOOD GLUCOSE MONITORING 1 DEV DEV MC SCH ×4 (06:53→18:36)
[2020-03-04 06:57] LABS: BASOPHILS # (AUTO) 0.1 K/uL (0.00-0.22); BASOPHILS % (AUTO) 0.4 % (0.0-2.0); EOSINOPHILS % (AUTO) 0.1 % (0.0-4.0); HEMATOCRIT 30.3 % (36-52); HEMOGLOBIN 9.9 g/dL (12.0-18.0); LYMPHOCYTES # (AUTO) 0.3 K/uL (2.0-11.5); MEAN CORPUSCULAR HEMOGLOBIN 28 pg (27-31); MEAN CORPUSCULAR HGB CONC 33 g/dL (33-37); MONOCYTES # (AUTO) 0.3 K/uL (0.8-1.0); NEUTROPHILS % (AUTO) 95.5 % (42.2-75.2); PLATELET COUNT (AUTO) 87 K/uL (140-450); RED BLOOD CELL COUNT(AUTO) 3.52 MIL/uL (4.20-6.10); RED CELL DISTRIBUTION WIDTH 16.4 % (11.6-13.7); WHITE BLOOD COUNT (AUTO) 14.7 K/uL (4.8-10.8)
--- NOTE | 2020-03-04 07:00 | NUR ---
HANDOFF RECEIVED FROM ELECTRICAL DEVELOPMENT ENGINEER RN. PT IS SEDATED RASS -3. PT IS ETT TO VENT, ACPRVC FIO2 100%, R 22, PEEP 10. PT HAS RIJ DANIA CATH FOR DIALYSIS, RAC 20 G, AND JOSE PICC. PROPOFOL IS RUNNING AT 10 MCG/KG/MIN, FENTANYL IS RUNNING AT 0.5 MCG/KG/HR. PT TPN RUNNING AT 50 ML/HR. PT IS SR ON THE MONITOR. JOSEPH CATHETER IS IN PLACE. WILL CONTINUE TO MONITOR. HOB 30 DEG, BED IN LOW LOCKED POSITION.
[2020-03-04 07:20] LABS: ALBUMIN 1.8 g/dL (3.4-5.0); ANION GAP 18.3 (8-16); ASPARTATE AMINOTRANSFERASE 40 U/L (15-37); CARBON DIOXIDE 22.5 mmol/L (21-32); CHLORIDE 97 mmol/L (98-107); GLUCOSE 149 mg/dL (74-106); MAGNESIUM 2.3 mg/dL (1.8-2.4); PHOSPHORUS 8.9 mg/dL (2.5-4.9); POTASSIUM 4.8 mmol/L (3.5-5.1); SODIUM SERUM 133 mmol/L (136-145); TOTAL BILIRUBIN 1.5 mg/dL (0.0-1.0)
[2020-03-04 07:32] LABS: CREATININE 4.2 mg/dL (0.6-1.3); UREA NITROGEN, BLOOD 81 mg/dL (7-18)
[2020-03-04] MEDS: PANTOPRAZOLE 40 MG INJ VIAL IVP SCH (08:33)
[2020-03-04] MEDS: methylPREDNISolone SS 40 MG/ML VIAL IVP SCH ×2 (08:33→21:44)
[2020-03-04] MEDS: DOCUSATE 100 MG/10 ML UDC GT SCH ×2 (08:33→09:00)
[2020-03-04] MEDS: ASCORBIC ACID 500 MG TAB PO SCH ×2 (08:33→09:00)
[2020-03-04] MEDS: LEVOTHYROXINE SODIUM 100 MCG VIAL IV SCH (08:34)
--- NOTE | 2020-03-04 09:15 | NUR ---
MEDICATIONS ADMINISTERED PER ORDER. PT TOLERATED WELL. VAP ORAL CARE, CHG BATH, AND JOSEPH CARE PROVIDED. TEMPERATURE 96.0 AXILLARY.
[2020-03-04] MEDS: levETIRAcetam 500 MG in NACL 0.9% 100 ML IV SCH ×2 (09:27→21:44)
[2020-03-04] MEDS: PIPERACILLIN/TAZOBACTAM 3.375 GM in DEXTROSE 5% 50 ML IV SCH ×2 (09:59→21:43)
--- NOTE | 2020-03-04 12:00 | NUR ---
MEDICATION ADMINISTERED PER ORDER. BS 121, NO INSULIN NEEDED. TEMP 96.1 AXILLARY
--- NOTE | 2020-03-04 16:00 | NUR ---
VAP ORAL CARE PROVIDED. VSS. NO SIGNS OF RESPIRATORY DISTRESS
--- NOTE | 2020-03-04 16:32 | NUR ---
03/04/20 RD FOLLOW UP COMPLETED PLEASE REFER TO NUTRITION ASSESSMENT UNDER CARE ACTIVITY FOR ESTIMATED NUTRITIONAL NEEDS. 1. CONTINUE TPN AND CONSIDER INCREASING KCAL AND PROTEIN PROVIDED TO MEET 75% OF ESTIMATED NEEDS CALCULATED. -CURRENT TPN D15%, AA 3.25%, LIPIDS 10% 160 ML @ 50 ML/HR. THIS PROVIDES 928 KCAL AND 39 GM OF PROTEIN. 2. IF/WHEN PT RECEIVES NG/OG/PEG PLACEMENT CONTINUE ENTERAL NUTRITION WITH NEPRO 1.8 @ 50 ML/HR.START AT 10 ML/HR AND INCREASE BY 10 ML/HR Q4H 3. CONTACT RD PRN FOR CHANGES 4. RD TO FOLLOW-UP 2-3 DAYS, HIGH RISK SYMONE HALL RD
--- NOTE | 2020-03-04 18:00 | NUR ---
BS 160, 2 UNITS INSULIN ADMINISTERED. 0 ML OUTPUT FROM JOSEPH. 300 ML OUTPUT FROM DIALYSIS.
[2020-03-04] MEDS: INSULIN LISPRO SLIDING SCALE 100 UNITS/ML VIAL SUBQ PRN (18:48)
[2020-03-04] MEDS ORDERED: fentaNYL citrate - 50mL vial 2.5 MG in NACL 0.9% 200 ML IV PRN (18:50)
--- NOTE | 2020-03-04 19:15 | NUR ---
HANDOFF GIVEN TO STAFF NURSE ICU RESOURCE TEAM RN FOR CONTINUITY OF CARE
[2020-03-04] MEDS ORDERED: DEXTROSE 50% IV SCH ×3 (20:00)
[2020-03-04] MEDS ORDERED: FAT EMULSION 20% IV SCH ×3 (20:00)
[2020-03-04] MEDS: DEXTROSE 50% IV SCH ×3 (20:00)
[2020-03-04] MEDS: MULTIVITAMIN IV SCH ×4 (20:00)
[2020-03-04] MEDS ORDERED: AMINO ACIDS 8.5% IV SCH ×3 (20:00)
[2020-03-04] MEDS: FAT EMULSION 20% IV SCH ×3 (20:00)
[2020-03-04] MEDS: AMINO ACIDS 8.5% IV SCH ×3 (20:00)
[2020-03-04] MEDS: [UNRECOGNIZED DRUG - OTHER] IV SCH ×4 (20:00)
[2020-03-04] MEDS: AMINO ACIDS IV SCH ×4 (20:00)
[2020-03-04] MEDS: DEXTROSE IV SCH ×4 (20:00)
--- NOTE | 2020-03-04 20:10 | NUR ---
RECEIVED REPORT FROM [facility] NURSE. PT ETT TO VENT, AC PRVC FI02 90%, TV 550 RATE 22 PEEP 10. RI DANIA CATH FOR DIALYSIS IN PLACE, DRY AND INTACT. PT JUST COMPLETED DIALYSIS, ONLY ABLE TO DRAW 300ML OUTPUT. JOSE PICC IN PLACE, INTACT, INFUSING PROPOFOL 10MCG/KG/MIN, AND FENTANYL 0.5MCG/KG/HR RASS -3, DRY WEIGHT 97 KG. RAC 20G, DRY AND INTACT, ASYMPTOMATIC. JOSEPH IN PLACE. FLACC 0. HOB 30 DEGREES, SIDE RAILS UP, BED LOCKED AND IN LOWEST POSITION. DROPLET PRECAUTIONS IN PLACE, WILL CONTINUE TO MONITOR.
[2020-03-04] MEDS ORDERED: levETIRAcetam 100 MG/ML VIAL IV ONE (21:42)
--- NOTE | 2020-03-04 22:50 | NUR ---
RT DECREASED FI02 TO 80%. PT TOLERATING WELL. SP02 97%. WILL CONTINUE TO MONITOR.
[2020-03-05] VITALS (76 sets, daily range): BP systolic 84–161; BP diastolic 44–96
--- NOTE | 2020-03-05 00:10 | NUR ---
TURNED AND REPOSITIONED PT. PROVIDED ORAL CARE, PT WITH SLIGHT MOVEMENT WITH DEEP SUCTIONING AND CLEANING. PT SEDATED RASS -3. OFFLOADED PRESSURE AREAS. WILL CONTINUE TO MONITOR.
[2020-03-05] MEDS: BLOOD GLUCOSE MONITORING 1 DEV DEV MC SCH ×4 (00:50→18:34)
--- NOTE | 2020-03-05 02:40 | NUR ---
NO SIGNS OF DISTRESS. ALL VITALS WITHIN RANGE. HOB 30 DEGREES, SIDE RAILS UP, BED LOCKED AND IN LOWEST POSITION. FLACC 0. WILL CONTINUE TO MONITOR.
[2020-03-05] MEDS: METOCLOPRAMIDE 10 MG/2 ML INJ VIAL IVP SCH ×3 (04:55→20:32)
[2020-03-05 05:49] LABS: BASOPHILS % (AUTO) 0.1 % (0.0-2.0); EOSINOPHILS % (AUTO) 0.1 % (0.0-4.0); HEMATOCRIT 29.9 % (36-52); HEMOGLOBIN 9.6 g/dL (12.0-18.0); LYMPHOCYTES # (AUTO) 0.2 K/uL (2.0-11.5); LYMPHOCYTES % (AUTO) 1.7 % (20.5-51.1); MEAN CORPUSCULAR HEMOGLOBIN 28 pg (27-31); MEAN CORPUSCULAR HGB CONC 32 g/dL (33-37); MEAN CORPUSCULAR VOLUME 86.7 fL (80-94); MONOCYTES # (AUTO) 0.3 K/uL (0.8-1.0); MONOCYTES % (AUTO) 1.8 % (1.7-9.3); NEUTROPHILS # (AUTO) 13.3 K/uL (1.8-7.7); NEUTROPHILS % (AUTO) 96.3 % (42.2-75.2); PLATELET COUNT (AUTO) 80 K/uL (140-450); RED BLOOD CELL COUNT(AUTO) 3.45 MIL/uL (4.20-6.10); RED CELL DISTRIBUTION WIDTH 16.8 % (11.6-13.7); WHITE BLOOD COUNT (AUTO) 13.8 K/uL (4.8-10.8)
[2020-03-05 06:16] LABS: ALBUMIN 1.7 g/dL (3.4-5.0); ANION GAP 16.2 (8-16); ASPARTATE AMINOTRANSFERASE 34 U/L (15-37); CARBON DIOXIDE 24.4 mmol/L (21-32); CHLORIDE 97 mmol/L (98-107); CREATININE 3.6 mg/dL (0.6-1.3); GLUCOSE 127 mg/dL (74-106); POTASSIUM 4.6 mmol/L (3.5-5.1); SODIUM SERUM 133 mmol/L (136-145); TOTAL BILIRUBIN 1.4 mg/dL (0.0-1.0)
[2020-03-05 06:17] LABS: PHOSPHORUS 6.4 mg/dL (2.5-4.9)
[2020-03-05 06:53] LABS: UREA NITROGEN, BLOOD 66 mg/dL (7-18)
--- NOTE | 2020-03-05 07:15 | NUR ---
HANDOFF GIVEN TO COMPUTER OPERATIONS ANALYST RN FOR CONTINUITY OF CARE Addendum: 03/05/20 at 1930 by Doretha Mckeon RN RN SUPPOSED TO BE 1914
--- NOTE | 2020-03-05 08:01 | NUR ---
HANDOFF RECEIVED FROM HEALTH UNIT CLERK RN. PT IS SEDATED RASS -3. PT IS ETT TO VENT, ACPRVC FIO2 70%, VT, 550, R 22, PEEP 10. PT HAS RI DANIA CATH FOR DIALYSIS, RAC 20 G, AND JOSE PICC. PROPOFOL IS RUNNING AT 10 MCG/KG/MIN, FENTANYL IS RUNNING AT 0.5 MCG/KG/HR. PT TPN RUNNING AT 50 ML/HR. PT IS SR ON THE MONITOR. JOSEPH CATHETER IS IN PLACE. WILL CONTINUE TO MONITOR. HOB 30 DEG, BED IN LOW LOCKED POSITION.
[2020-03-05] MEDS: PROPOFOL 1000 MG/100 ML PREMIX 100 ML IV PRN ×2 (08:11→23:54)
--- NOTE | 2020-03-05 08:35 | NUR ---
SATURATION 97% ON FIO2 OF 70% PEEP [id number] TITRATED FIO2 TO 65% COURTNEY/RN NOTIFIED
--- NOTE | 2020-03-05 08:35 | NUR ---
RECEIVED ON A [employer] R860 VENTILATOR PLUGGED INTO RED OUTLET TOLERATING WELL WITHOUT ADVERSE REACTIONS NOTED TO AN ENDOTRACHEAL TUBE #7.5 SECURED AT 24cm TEETH/GUM LINE WITH AN ANCHOR FAST CUFF PRESSURE CHECKED NOTED AMBU BAG AT BEDSIDE RESTING COMFORTABLY EQUAL CHEST RISE ENDOTRACHEAL SUCTION FOR LARGE THICK YELLOW WITH BLOOD TINGE SECRETONS AIRWAY PATENT
[2020-03-05] MEDS: DOCUSATE 100 MG/10 ML UDC GT SCH (09:00)
[2020-03-05] MEDS: ASCORBIC ACID 500 MG TAB PO SCH (09:00)
[2020-03-05] MEDS: LEVOTHYROXINE SODIUM 100 MCG VIAL IV SCH (09:41)
[2020-03-05] MEDS: PANTOPRAZOLE 40 MG INJ VIAL IVP SCH (09:41)
[2020-03-05] MEDS: methylPREDNISolone SS 40 MG/ML VIAL IVP SCH ×2 (09:41→20:33)
[2020-03-05] MEDS: PIPERACILLIN/TAZOBACTAM 3.375 GM in DEXTROSE 5% 50 ML IV SCH ×2 (09:42→20:31)
[2020-03-05] MEDS: levETIRAcetam 500 MG in NACL 0.9% 100 ML IV SCH ×2 (09:42→20:30)
--- NOTE | 2020-03-05 10:15 | NUR ---
MEDICATIONS ADMINISTERED PER ORDER. PT TOLERATED WELL. VAP ORAL CARE, CHG BATH, AND JOSEPH CARE PROVIDED. TEMPERATURE 96.6 AXILLARY.
--- NOTE | 2020-03-05 10:37 | NUR ---
DR. MCKEON AT BEDSIDE TO SEE PT
--- NOTE | 2020-03-05 11:27 | NUR ---
DR. HAJI AT BEDSIDE TO SEE PT
--- NOTE | 2020-03-05 12:05 | NUR ---
MEDICATIONS ADMINISTERED PER ORDER. PT TOLERATED WELL. TEMPERATURE 96.8 AXILLARY. BS 126, NO INSULIN COVERAGE NEEDED.
--- NOTE | 2020-03-05 13:13 | NUR ---
RESTING WELL NO EVIDENCE OF SOB NOTED GOOD CHEST RISE AND AERATION THROUGHOUT BILATERAL LUNGS AIRWAY PATENT
--- NOTE | 2020-03-05 13:13 | NUR ---
SATURATION 99% ON FIO2 OF 65% PEEP [id number] TITRATED FIO2 TO 55% COURTNEY/RN NOTIFIED
--- NOTE | 2020-03-05 13:16 | NUR ---
PER RT ROSALIND, FIO2 NOW AT 55%. PT SAT IS 99% AT THIS TIME
--- NOTE | 2020-03-05 17:00 | NUR ---
SEDATED RESTING WELL EQUAL CHEST RISE ENDOTRACHEAL SUCTION FOR LARGE SEMI THICK YELLOW SECRETINS AIRWAY PATENT SATURATION 99% ON FIO2 OF 55% PEEP [id number] TITRATED FIO2 TO 50% DECREASED PEEP TO 8cmH2O SANA/RN NOTIFIED
--- NOTE | 2020-03-05 18:30 | NUR ---
BG 125, NO INSULIN COVERAGE NEEDED. TEMPERATURE 97.4 AXILLARY. PT REPOSITIONED. BROADBAND ENGINEER AT BEDSIDE AT THIS TIME.
--- NOTE | 2020-03-05 19:15 | NUR ---
HANDOFF GIVEN TO TOBACCO CURER RN FOR CONTINUITY OF CARE
--- NOTE | 2020-03-05 19:45 | NUR ---
DIALYSIS NURSE MADE AWARE PT HAS A BRAIN BLEED. PER DIALYSIS NURSE, HEPARIN IS ONLY FLUSHED IN THE CATHETER AND WILL NOT AFFECT ANY BLEEDING ISSUES. PT NOT IN DISTRESS, DIALYSIS COMPLETE 2L OUT.
--- NOTE | 2020-03-05 20:10 | NUR ---
REPORT RECEIVED FROM DAYSTNFT NURSE, PT ETT TO VENT, AC PRVC FI02 50%, TV 550 RATE 22 PEEP 8. RIJ DANIA CATH IN PLACE, DRESSING DRY AND INTACT. JOSE PICC INFUSING PROPOFOL 10MCG/KG/MIN AND FENTANYL 0.5MCG/KG/HR, RASS -3, DRY WEIGHT 97 KG. RIGHT AC 20G, SALINE LOCKED. JOSEPH CATHETER IN PLACE, DRAINING BY GRAVITY. FLACC 0. J
[2020-03-05] MEDS: DEXTROSE 50% IV SCH ×3 (20:28)
[2020-03-05] MEDS: AMINO ACIDS 8.5% IV SCH ×3 (20:28)
[2020-03-05] MEDS: FAT EMULSION 20% IV SCH ×3 (20:28)
--- NOTE | 2020-03-05 20:30 | NUR ---
RECEIVED PT SUPINE ON PRVC 550 +8, f22, 50% C/ 7.5 ETT SECURED AT 24CM AMBU AT BEDSIDE & VENT PLUGGED INTO RED OUTLET
--- NOTE | 2020-03-05 22:00 | NUR ---
PATIENT CONTINUOUSLY MONITORED, AIRWAY MAINTAINED, ORAL AND ET TUBE SUCTIONED, ORAL CARE PROVIDED. JOSEPH CATH PATENT AND IN PLACE. PICC LINE RIGHT UPPER ARM INTACT, PATENT AND DRY. IV DRIPS RUNNING INCLUDE PROPOFOL, FENTANYL, TPN. PATIENT TURNED Q2. FREQUENT ROUNDING PROVIDED.
[2020-03-06] VITALS (66 sets, daily range): BP systolic 80–141; BP diastolic 46–92
--- NOTE | 2020-03-06 | NUR ---
ORAL CARE AND AIRWAY MAINTAINED AND SUCTIONED, PATIENT TOLERATING ET TUBE WELL. TURNED Q2, OFFLOADING PRESSURE. JOSEPH CATH PATENT. PICC LINE INTACT AND DRY. IV DRIPS RUNNING PROPOFOL, FENTANYL, TPN. TEMPERATURE TAKEN, AFEBRILE WNL. .
[2020-03-06] MEDS: BLOOD GLUCOSE MONITORING 1 DEV DEV MC SCH ×5 (00:31→23:30)
--- NOTE | 2020-03-06 04:00 | NUR ---
ORAL CARE PROVIDED, AIRWAY MAINTAINED AND PATENT WITH SUCTION. TURNED Q2, OFFLOADING PRESSURE POINTS, JOSEPH CATH PATENT. PICC LINE PATENT AND DRY.
[2020-03-06] MEDS: METOCLOPRAMIDE 10 MG/2 ML INJ VIAL IVP SCH ×3 (04:50→20:36)
[2020-03-06 05:59] LABS: BASOPHILS % (AUTO) 0.1 % (0.0-2.0); EOSINOPHILS % (AUTO) 0.2 % (0.0-4.0); HEMATOCRIT 28.3 % (36-52); HEMOGLOBIN 9.4 g/dL (12.0-18.0); LYMPHOCYTES # (AUTO) 0.2 K/uL (2.0-11.5); LYMPHOCYTES % (AUTO) 2.3 % (20.5-51.1); MEAN CORPUSCULAR HEMOGLOBIN 29 pg (27-31); MEAN CORPUSCULAR HGB CONC 33 g/dL (33-37); MONOCYTES # (AUTO) 0.3 K/uL (0.8-1.0); MONOCYTES % (AUTO) 2.6 % (1.7-9.3); NEUTROPHILS # (AUTO) 9.7 K/uL (1.8-7.7); NEUTROPHILS % (AUTO) 94.8 % (42.2-75.2); PLATELET COUNT (AUTO) 67 K/uL (140-450); RED BLOOD CELL COUNT(AUTO) 3.29 MIL/uL (4.20-6.10); RED CELL DISTRIBUTION WIDTH 16.7 % (11.6-13.7); WHITE BLOOD COUNT (AUTO) 10.2 K/uL (4.8-10.8)
--- NOTE | 2020-03-06 06:00 | NUR ---
WOUND CARE GIVEN. RIGHT BUTTOCKS OBSERVED BEEFY RED, APPLIED Z GUARD PASTE TO AFFECTED AREA. APPLIED PROTECTIVE BARRIER, OPTI FOAM. PATIENT TURNED Q2, OFFLOADED FROM PRESSURE POINTS. AIRWAY MAINTAINED, ORAL AND ET TUBE SUCTIONED, PATENT. LINENS AND GOWN CHANGED, PICC LINE DRESSING DRY AND INTACT. JOSEPH CATH IN PLACE AND PATENT. PATIENT HEAD OF BED AT 30 DEGREES, BED LOCKED AND LOWERED. FREQUENT ROUNDING AND CONSTANT MONITORING.
[2020-03-06 06:42] LABS: ALBUMIN 1.6 g/dL (3.4-5.0); ANION GAP 18.6 (8-16); ASPARTATE AMINOTRANSFERASE 29 U/L (15-37); CARBON DIOXIDE 21.4 mmol/L (21-32); CHLORIDE 96 mmol/L (98-107); GLUCOSE 137 mg/dL (74-106); SODIUM SERUM 131 mmol/L (136-145); TOTAL BILIRUBIN 1.3 mg/dL (0.0-1.0)
[2020-03-06 06:45] LABS: MAGNESIUM 2.1 mg/dL (1.8-2.4); PHOSPHORUS 6.8 mg/dL (2.5-4.9)
--- NOTE | 2020-03-06 06:48 | NUR ---
CRITICAL LAB VALUE REPORTED FROM LAB VIA PHONE AT 0648, BUN 83 AND CREATININE 4.5. PROTOCOL IN PLACE, PATIENT TO RECEIVE DIALYSIS.
[2020-03-06 06:50] LABS: UREA NITROGEN, BLOOD 83 mg/dL (7-18)
[2020-03-06 06:51] LABS: CREATININE 4.5 mg/dL (0.6-1.3)
--- NOTE | 2020-03-06 07:15 | NUR ---
SBAR HANDOFF REPORT GIVEN TO ONCOMING DAYSHIFT NURSE.
--- NOTE | 2020-03-06 07:30 | NUR ---
RECEIVED REPORT FORM NETWORK CONTROLLER NURSE FOR CONTINUITY OF CARE. PT IN BED. RASS-3, FLACC 0, NO SOB, NO APPARENT DISTRESS. ETT TO VENT: AC/VC FIO2 40%% TV 550 R 14 PEEP 8. ABD SOFT, NON-DISTENDED, NON-TENDER. WITH JOSE PICC, RUNNING FENTANYL AT 1MCG, PROPOFOL 15MCG, TPN 50CC/HR. JOSEPH INTACT AND PATENT DRAINING CLEAR YELLOW URINE. SAFETY PRECAUTIONS IN PLACE. ISOLATION PRECAUTION OBSERVED. WILL CONT TO MONITOR.
--- NOTE | 2020-03-06 08:13 | NUR ---
RECEIVED ON A [employer]a21APE R860 VENTILATOR PLUGGED INTO RED OUTLET TOLERATING WELL WITHOUT ADVERSE REACTIONS NOTED TO SOUMYA ENDOTRACHEAL TUBE #7.5 SECURED AT 24cm TEETH/GUM LINE WITH ANCHOR FAST CUFF PRESSURE CHECKED NOTED ABU AT BEDSIDE SEDATION/VACATION AT THIS TIME STABLE RESTING WELL WITHOUT EVIDENCE OF RESPIRATORY DISTRESS NOTED EQUAL CHEST RISE ENDOTRACHEAL SUCTION FOR LARGE THICK YELLOW WITH BLOOD TINGE SECRETIONS AIRWAY PATENT DECREASED I/TIME TO 0.80 TO MAINTAIN EXPIRATORY RATIO GREATER THAN 2.0 SATURATION 98% ON FIO2 OF 40% PEEP 8cmH2O TITRATED FIO2 TO 35% DECREASED PEEP TO 5cmH2O TERRY/RN NOTIFIED OF CHANGE
[2020-03-06] MEDS: DOCUSATE 100 MG/10 ML UDC GT SCH (09:00)
[2020-03-06] MEDS: ASCORBIC ACID 500 MG TAB PO SCH (09:00)
[2020-03-06] MEDS: PANTOPRAZOLE 40 MG INJ VIAL IVP SCH (09:00)
[2020-03-06] MEDS: methylPREDNISolone SS 40 MG/ML VIAL IVP SCH ×2 (09:00→20:36)
[2020-03-06] MEDS: LEVOTHYROXINE SODIUM 100 MCG VIAL IV SCH (09:00)
[2020-03-06] MEDS: PIPERACILLIN/TAZOBACTAM 3.375 GM in DEXTROSE 5% 50 ML IV SCH ×2 (09:00→20:33)
[2020-03-06] MEDS: levETIRAcetam 500 MG in NACL 0.9% 100 ML IV SCH ×2 (09:00→20:34)
--- NOTE | 2020-03-06 09:30 | NUR ---
DUE MORNING MEDS GIVEN ORDERED. ORAL CARE, JOSEPH CARE DONE. REPOSITIONED PT
--- NOTE | 2020-03-06 11:00 | NUR ---
WITH EPISODES OF DESATURATION AND HYPOTENSION. SEDATION AND O2 TITRATED NEEDED
--- NOTE | 2020-03-06 11:13 | NUR ---
HEMODIALYSIS IN PROGRESS DECLINING SATURATION TO 85% INCREASED FIO2 TO 100% DURING PROCEDURE SEDATION PLACED BACK ON BY TERRY /RN STABLE GOOD CHEST RISE
[2020-03-06] MEDS: INSULIN LISPRO SLIDING SCALE 100 UNITS/ML VIAL SUBQ PRN (11:59)
[2020-03-06] MEDS ORDERED: SODIUM PHOSPHATE 118 ML ENEM RC PRN (12:20)
--- NOTE | 2020-03-06 12:30 | NUR ---
HEMODIALYSIS DONE. NO ADVERSE REACTIONS NOTED, VSS
[2020-03-06] MEDS: PROPOFOL 1000 MG/100 ML PREMIX 100 ML IV PRN (13:30)
--- NOTE | 2020-03-06 13:57 | NUR ---
WOUND CARE EVALUATION NOTE: CHANGE OF CONDITION TO RIGHT INNER BUTTOCKS PREVIOUSLY ASSESSED OPEN BLISTERING SKIN TEARS SUPERFICIAL DEPTH, AREA IS DRY, 7X6.5CM MOIST SKIN . WILL CHANGE TREATMENT TO CLEANSE AREA WITH NS, PAT DRY APPLY HYDROGEL AND COVER WITH DRY DRESSING QD AND PRN IF SOILING. POC DISCUSSED WITH PRIMARY RN
--- NOTE | 2020-03-06 14:50 | NUR ---
DIALYSIS COMPLETED SEDATION OFF AT THIS TIME GOOD CHEST RISE ENDOTRACHEAL SUCTION FOR COPIOUS THIN YELLOW WITH BLOOD TINGE SECRETIONS AIRWAY PATENT SATURATION 98% ON FIO2 OF 100% PEEP 5cmH2O TITRATED FIO2 TO 75% Addendum: 03/06/20 at 1529 by Oracio Sandoval RT JASON NOTIFIED OF OXYGEN TITRATION
--- NOTE | 2020-03-06 15:00 | NUR ---
FLEET ENEMA GIVEN FOR CONSTIPATION ORDERED
--- NOTE | 2020-03-06 16:02 | NUR ---
03/06/20 RD FOLLOW UP COMPLETED PLEASE REFER TO NUTRITION ASSESSMENT UNDER CARE ACTIVITY FOR ESTIMATED NUTRITIONAL NEEDS. 1. CONTINUE TPN AND CONSIDER INCREASING KCAL AND PROTEIN PROVIDED TO MEET 75% OF ESTIMATED NEEDS CALCULATED. -CURRENT TPN D18%, AA 3.25%, LIPIDS 10% 160 ML @ 50 ML/HR. - PROVIDING 1050 KCAL AND 39 GM OF PROTEIN WHICH MEETS 50% OF KCAL NEEDS AND 39% OF PROTEIN NEEDS. 2. IF/WHEN PT RECEIVES NG/OG/PEG PLACEMENT CONTINUE ENTERAL NUTRITION WITH NEPRO 1.8 @ 50 ML/HR.START AT 10 ML/HR AND INCREASE BY 10 ML/HR Q4H 3. CONTACT RD PRN FOR CHANGES 4. RD TO FOLLOW-UP 2-3 DAYS, HIGH RISK SYMONE HALL RD
--- NOTE | 2020-03-06 17:00 | NUR ---
PERICARE DONE. WITH MODERATE STOOL
--- NOTE | 2020-03-06 19:15 | NUR ---
SBAR HANDOFF REPORT RECEIVED FROM DAY SHIFT NURSE. VENT SETTINGS FIO2 70%,TV 550, PEEP OF 5, AND RR 22. ET TUBE 25 AT THE LIP, PATENT AND MAINTAINABLE. ORAL SUCTION PROVIDED. PATIENT HAS RIGHT UPPER ARM DOUBLE LUMEN PICC, DRESSING DRY, PATENT. IV DRIPS RUNNING TPN, PROPOFOL, AND FENTANYL. PATIENT CONNECTED TO THE CHIP LOFT WORKER, CONTINUOUS MONITORING AND FREQUENT ROUNDING. JOSEPH CATH SECURED AND IN PLACE, PATENT. OFFLOADING FROM PRESSURE POINTS WITH USE OF PILLOWS. BED LOCKED AND LOWERED, HEAD OF BED MAINTAINED AT 30 DEGREES.
[2020-03-06] MEDS: FAT EMULSION 20% IV SCH ×6 (20:00→20:30)
[2020-03-06] MEDS: AMINO ACIDS 8.5% IV SCH ×6 (20:00→20:30)
[2020-03-06] MEDS: DEXTROSE 50% IV SCH ×6 (20:00→20:30)
--- NOTE | 2020-03-06 22:00 | NUR ---
AIRWAY MAINTAINED, CLEAR, PATENT AND MAINTAINABLE. CONTINUOUSLY CARDIAC MONITORED, NORMAL SINUS ON THE MONITOR. RIGHT UPPER DOUBLE LUMEN PICC LINE DRESSING DRY AND INTACT. JOSEPH CATH IN PLACE, PATENT. BED LOWERED AND LOCKED, HEAD OF BED KEPT AT 30 DEGREES, PATIENT TOLERATING WELL. CONTINUOUS IV MEDICATIONS MONITORED AND MAINTAINED. PATIENT RASS -3.
[2020-03-07] VITALS (64 sets, daily range): BP systolic 81–159; BP diastolic 57–98
--- NOTE | 2020-03-07 | NUR ---
BLOOD GLUCOSE CHECKED, 126, Q6, TPN CONTINUOUS DRIP RUNNING PER ORDER.
[2020-03-07] MEDS: fentaNYL citrate 1 MG in NACL 0.9% 80 ML IV PRN ×2 (01:12→12:15)
--- NOTE | 2020-03-07 01:56 | NUR ---
FREQUENT ROUNDING AND CONTINUOUS MONITORING. PATIENT TURNED Q2, OFFLOADING OF PRESSURE POINTS. ORAL CARE AND ET TUBE/ORAL SUCTIONING PROVIDED. IV DRIPS CONTINUALLY MONITORED, PROPOFOL, FENTANYL AND TPN.
--- NOTE | 2020-03-07 04:37 | NUR ---
PER RT, FIO2 TITRATED TO 40%.
[2020-03-07] MEDS: METOCLOPRAMIDE 10 MG/2 ML INJ VIAL IVP SCH ×3 (04:57→21:30)
--- NOTE | 2020-03-07 05:30 | NUR ---
BLOOD GLUCOSE 144, Q6 CHECKS PER PROTOCOL, TPN RUNNING.
[2020-03-07] MEDS: BLOOD GLUCOSE MONITORING 1 DEV DEV MC SCH ×3 (05:31→18:19)
[2020-03-07 05:55] LABS: BASOPHILS % (AUTO) 0.1 % (0.0-2.0); EOSINOPHILS % (AUTO) 0.3 % (0.0-4.0); HEMATOCRIT 27.2 % (36-52); HEMOGLOBIN 9.1 g/dL (12.0-18.0); LYMPHOCYTES # (AUTO) 0.2 K/uL (2.0-11.5); LYMPHOCYTES % (AUTO) 2.8 % (20.5-51.1); MEAN CORPUSCULAR HEMOGLOBIN 29 pg (27-31); MEAN CORPUSCULAR HGB CONC 33 g/dL (33-37); MEAN CORPUSCULAR VOLUME 85.3 fL (80-94); MONOCYTES # (AUTO) 0.2 K/uL (0.8-1.0); NEUTROPHILS # (AUTO) 7.2 K/uL (1.8-7.7); NEUTROPHILS % (AUTO) 93.8 % (42.2-75.2); PLATELET COUNT (AUTO) 58 K/uL (140-450); RED BLOOD CELL COUNT(AUTO) 3.19 MIL/uL (4.20-6.10); RED CELL DISTRIBUTION WIDTH 16.9 % (11.6-13.7); WHITE BLOOD COUNT (AUTO) 7.7 K/uL (4.8-10.8)
--- NOTE | 2020-03-07 06:09 | NUR ---
CHEST XRAY TAKEN AT BEDSIDE
[2020-03-07 06:22] LABS: ALBUMIN 1.5 g/dL (3.4-5.0); ANION GAP 15.9 (8-16); ASPARTATE AMINOTRANSFERASE 32 U/L (15-37); CARBON DIOXIDE 23.1 mmol/L (21-32); CHLORIDE 98 mmol/L (98-107); CREATININE 3.8 mg/dL (0.6-1.3); GLUCOSE 138 mg/dL (74-106); SODIUM SERUM 133 mmol/L (136-145); TOTAL BILIRUBIN 1.3 mg/dL (0.0-1.0)
[2020-03-07 06:31] LABS: UREA NITROGEN, BLOOD 65 mg/dL (7-18)
--- NOTE | 2020-03-07 06:36 | NUR ---
CRITICAL LAB VALUES REPORTED AT 0627. BUN 65, CALCIUM 7.2, AND CREATININE 3.80.
[2020-03-07] MEDS: PROPOFOL 1000 MG/100 ML PREMIX 100 ML IV PRN ×2 (06:48→21:27)
--- NOTE | 2020-03-07 07:17 | NUR ---
SBAR HANDOFF REPORT GIVEN TO DAYSHIFT NURSE.
--- NOTE | 2020-03-07 07:37 | NUR ---
RECEIVED REPORT FORM HARVEST FIELD TICKETER NURSE FOR CONTINUITY OF CARE. PT IN BED. RASS-3, FLACC 0, NO SOB, NO APPARENT DISTRESS. ETT TO VENT: AC/VC FIO2 40%% TV 550 R 14 PEEP 5. ABD SOFT, NON-DISTENDED, NON-TENDER. WITH JOSE PICC, RUNNING FENTANYL AT 1MCG, PROPOFOL 10MCG, TPN 50CC/HR. JOSEPH INTACT AND PATENT DRAINING CLEAR YELLOW URINE. SAFETY PRECAUTIONS IN PLACE. ISOLATION PRECAUTION OBSERVED. WILL CONT TO MONITOR.
[2020-03-07] MEDS: levETIRAcetam 500 MG in NACL 0.9% 100 ML IV SCH ×2 (08:53→21:30)
[2020-03-07] MEDS: DOCUSATE 100 MG/10 ML UDC GT SCH (08:53)
[2020-03-07] MEDS: PIPERACILLIN/TAZOBACTAM 3.375 GM in DEXTROSE 5% 50 ML IV SCH (08:53)
[2020-03-07] MEDS: LEVOTHYROXINE SODIUM 100 MCG VIAL IV SCH (08:53)
[2020-03-07] MEDS: ASCORBIC ACID 500 MG TAB PO SCH (08:54)
[2020-03-07] MEDS: methylPREDNISolone SS 40 MG/ML VIAL IVP SCH (08:54)
[2020-03-07] MEDS: PANTOPRAZOLE 40 MG INJ VIAL IVP SCH (08:54)
--- NOTE | 2020-03-07 09:30 | NUR ---
DUE MORNING MEDS GIVEN ORDERED. ORAL CARE, JOSEPH CARE DONE. REPOSITIONED PT
--- NOTE | 2020-03-07 11:30 | NUR ---
JOSEPH CARE ORAL, CARE DONE
[2020-03-07] MEDS: SKINTEGRITY HYDROGEL TP SCH (13:05)
--- NOTE | 2020-03-07 17:30 | NUR ---
RASS -3, FLACC 0, NO APPARENT DISTRESS, RESPIRATIONS ARE EVEN AND UNLABORED. PERICARE DONE. REPOSITIONED PT
--- NOTE | 2020-03-07 19:47 | NUR ---
[facility] PT ETT TO VENT, AC PRVC FI02 35%, TV 550, PEEP 5. RIJ DANIA CATH IN PLACE, DRY AND INTACT. JOSE PICC IN PLACE, INFUSING FENTANYL 1MCG/KG/HR, AND PROPOFOL 15 MCG/KG/MIN, AND TPN 50ML/HR. RASS -3, DRY WEIGHT 97 KG. PT OPENS EYES TO DEEP PAIN. RIGHT AC 20G, FLUSHED AND PATENT, SL. SKIN WARM AND DRY, NOT INTACT, OPEN SKIN TEAR TO RIGHT BUTTOCK, OPTIFOAM DRESSING IN PLACE. HOB 30 DEGREES, SIDE RAILS UP, BED LOCKED AND IN LOWEST POSITION. DROPLET PRECAUTIONS IN PLACE, NO SIGNS OF DISTRESS, FLACC 0. WILL CONTINUE TO MONITOR.
[2020-03-07] MEDS: DEXTROSE 50% IV SCH ×3 (20:00)
[2020-03-07] MEDS: AMINO ACIDS IV SCH ×4 (20:00)
[2020-03-07] MEDS: DEXTROSE IV SCH ×4 (20:00)
[2020-03-07] MEDS: FAT EMULSION 20% IV SCH ×3 (20:00)
[2020-03-07] MEDS: MULTIVITAMIN IV SCH ×4 (20:00)
[2020-03-07] MEDS: [UNRECOGNIZED DRUG - OTHER] IV SCH ×4 (20:00)
[2020-03-07] MEDS: AMINO ACIDS 8.5% IV SCH ×3 (20:00)
--- NOTE | 2020-03-07 20:28 | NUR ---
RECEIVED PATIENT FROM AM SHIFT. PATIENT WAS SEEN AND ASSESSED. PATIENT IS INTUBATED WITH ETT SIZE 7.5 AND SECURED WITH ANCHOR-FAST AT 24cm. PATIENT IS ON VENT SETTINGS: AC/PRVC RR 22, VT 550, PEEP 5, FiO2 35% WITH SPO2 OF 96%. VENT IS PLUGGED IN RED OUTLET. ALARMS SET AND AUDIBLE TO ENVIRONMENT. SUCTIONED SMALL AMOUNT OF WHITE/YELLOW THICK SECRETIONS FROM ETT. AIRWAY IS PATENT. AUSCULTATION REVEALS BILATERAL COARSE BREATH SOUNDS. PATIENT IS IN NO APPARENT RESPIRATORY DISTRESS AT THIS TIME. PRN TX NOT INDICATED AT THIS TIME. WILL CONTINUE TO MONITOR PATIENT.
[2020-03-08] VITALS (35 sets, daily range): BP systolic 86–169; BP diastolic 52–91
--- NOTE | 2020-03-08 01:30 | NUR ---
PT TAKEN TO CT SCAN WITH RN AND RT. NO INCIDENT NOTED, ALL SAFETY PRECAUTIONS MET THROUGHOUT TRANSPORT AND PROCEDURE. PT BACK TO ROOM AND CONNECTED TO MONITOR AND VENTILATOR. ETT INTACT, JOSE PICC INFUSING ALL MEDS. FLACC 0. BED LOCKED AND IN LOWEST POSITION. SIDE RAILS UP. VSS.
[2020-03-08] MEDS: fentaNYL citrate 1 MG in NACL 0.9% 80 ML IV PRN ×2 (04:35→15:05)
[2020-03-08 05:09] LABS: BASOPHILS % (AUTO) 0.3 % (0.0-2.0); EOSINOPHILS # (AUTO) 0.2 K/uL (0-0.4); EOSINOPHILS % (AUTO) 1.6 % (0.0-4.0); HEMATOCRIT 29.8 % (36-52); HEMOGLOBIN 9.9 g/dL (12.0-18.0); LYMPHOCYTES # (AUTO) 0.4 K/uL (2.0-11.5); LYMPHOCYTES % (AUTO) 3.9 % (20.5-51.1); MEAN CORPUSCULAR HEMOGLOBIN 28 pg (27-31); MEAN CORPUSCULAR HGB CONC 33 g/dL (33-37); MEAN CORPUSCULAR VOLUME 85.2 fL (80-94); MONOCYTES # (AUTO) 0.5 K/uL (0.8-1.0); MONOCYTES % (AUTO) 5.4 % (1.7-9.3); NEUTROPHILS # (AUTO) 8.8 K/uL (1.8-7.7); NEUTROPHILS % (AUTO) 88.8 % (42.2-75.2); PLATELET COUNT (AUTO) 86 K/uL (140-450); RED CELL DISTRIBUTION WIDTH 16.9 % (11.6-13.7); WHITE BLOOD COUNT (AUTO) 9.8 K/uL (4.8-10.8)
[2020-03-08] MEDS: METOCLOPRAMIDE 10 MG/2 ML INJ VIAL IVP SCH ×3 (05:19→21:12)
[2020-03-08] MEDS: BLOOD GLUCOSE MONITORING 1 DEV DEV MC SCH ×4 (05:21→18:57)
[2020-03-08 06:06] LABS: ALBUMIN 1.7 g/dL (3.4-5.0); ANION GAP 19.7 (8-16); ASPARTATE AMINOTRANSFERASE 29 U/L (15-37); CARBON DIOXIDE 21.2 mmol/L (21-32); CHLORIDE 95 mmol/L (98-107); GLUCOSE 68 mg/dL (74-106); POTASSIUM 3.9 mmol/L (3.5-5.1); SODIUM SERUM 132 mmol/L (136-145); TOTAL BILIRUBIN 1.6 mg/dL (0.0-1.0)
[2020-03-08 06:08] LABS: MAGNESIUM 1.9 mg/dL (1.8-2.4); PHOSPHORUS 6.4 mg/dL (2.5-4.9)
[2020-03-08 06:30] LABS: CREATININE 4.2 mg/dL (0.6-1.3); UREA NITROGEN, BLOOD 82 mg/dL (7-18)
--- NOTE | 2020-03-08 07:15 | NUR ---
HANDOFF RECEIVED FROM FORGING DIE SINKER RN. PT IS SEDATED RASS -3. PT IS ETT TO VENT, ACPRVC FIO2 35%, VT, 550, R 22, PEEP 5. PT HAS RI DANIA CATH FOR DIALYSIS, RAC 20 G, AND JOSE PICC. PROPOFOL IS RUNNING AT 10 MCG/KG/MIN, FENTANYL IS RUNNING AT 1 MCG/KG/HR, TPN RUNNING AT 50 ML/HR. PT IS ST ON THE MONITOR. JOSEPH CATHETER IS IN PLACE. WILL CONTINUE TO MONITOR. HOB 30 DEG, BED IN LOW LOCKED POSITION.
[2020-03-08] MEDS: DOCUSATE 100 MG/10 ML UDC GT SCH (09:00)
[2020-03-08] MEDS: ASCORBIC ACID 500 MG TAB PO SCH (09:00)
--- NOTE | 2020-03-08 09:00 | NUR ---
MEDICATIONS ADMINISTERED PER ORDER. PT TOLERATED WELL. TEMPERATURE 97.5 AXILLARY, VAP ORAL CARE, CHG BATH, JOSEPH CARE PROVIDED.
[2020-03-08] MEDS: methylPREDNISolone SS 40 MG/ML VIAL IVP SCH (09:27)
[2020-03-08] MEDS: PANTOPRAZOLE 40 MG INJ VIAL IVP SCH (09:27)
[2020-03-08] MEDS: levETIRAcetam 500 MG in NACL 0.9% 100 ML IV SCH ×2 (09:29→21:10)
[2020-03-08] MEDS: LEVOTHYROXINE SODIUM 100 MCG VIAL IV SCH (09:30)
[2020-03-08] MEDS ORDERED: NOREPINEPHRINE 4 MG in DEXTROSE 5% 250 ML IV PRN (11:20)
[2020-03-08] MEDS: PROPOFOL 1000 MG/100 ML PREMIX 100 ML IV PRN (12:45)
--- NOTE | 2020-03-08 12:45 | NUR ---
MEDICATIONS ADMINISTERED PER ORDER. TEMPERATURE 98.9. VAP ORAL CARE DONE.
[2020-03-08] MEDS: SKINTEGRITY HYDROGEL TP SCH (13:00)
--- NOTE | 2020-03-08 16:15 | NUR ---
VAP ORAL CARE, TEMPERATURE 96.4. OPTIFOAM ON SACRUM CHANGED. REPOSITIONED.
[2020-03-08] MEDS: INSULIN LISPRO SLIDING SCALE 100 UNITS/ML VIAL SUBQ PRN (18:57)
--- NOTE | 2020-03-08 19:15 | NUR ---
HANDOFF GIVEN TO NIGHTSHIFT RN FOR CONTINUITY OF CARE
--- NOTE | 2020-03-08 19:43 | NUR ---
RECEIVED REPORT FROM [facility] NURSE, PT ETT TO VENT, AC PRVC FI02 28%, TV 550, PEEP 5. RIJ DANIA CATH IN PLACE, DRY AND INTACT. JOSE PICC IN PLACE, INFUSING FENTANYL 1MCG/KG/HR, AND PROPOFOL 10 MCG/KG/MIN, AND TPN 50ML/HR AND LEVOPHED 2MCG/MIN. RASS -3, DRY WEIGHT 97 KG. PT OPENS EYES TO DEEP PAIN. RIGHT AC 20G, FLUSHED AND PATENT, SL. SKIN WARM AND DRY, NOT INTACT, OPEN SKIN TEAR TO RIGHT BUTTOCK, OPTIFOAM DRESSING IN PLACE. VERSATEL DRESSING OVER SMALL SKIN TEAR RIGHT FA. JOSEPH CATHETER IN PLACE. HOB 30 DEGREES, SIDE RAILS UP, BED LOCKED AND IN LOWEST POSITION. DROPLET PRECAUTIONS IN PLACE, NO SIGNS OF DISTRESS, FLACC 0. WILL CONTINUE TO MONITOR.
[2020-03-08] MEDS: [UNRECOGNIZED DRUG - OTHER] IV SCH ×4 (20:00)
[2020-03-08] MEDS: DEXTROSE IV SCH ×4 (20:00)
[2020-03-08] MEDS: MULTIVITAMIN IV SCH ×4 (20:00)
[2020-03-08] MEDS: AMINO ACIDS IV SCH ×4 (20:00)
[2020-03-08] MEDS: AMINO ACIDS 8.5% IV SCH ×3 (20:45)
[2020-03-08] MEDS: FAT EMULSION 20% IV SCH ×3 (20:45)
[2020-03-08] MEDS: DEXTROSE 50% IV SCH ×3 (20:45)
[2020-03-09] VITALS (36 sets, daily range): BP systolic 98–170; BP diastolic 64–87
[2020-03-09] MEDS: BLOOD GLUCOSE MONITORING 1 DEV DEV MC SCH ×4 (00:01→18:37)
[2020-03-09] MEDS: METOCLOPRAMIDE 10 MG/2 ML INJ VIAL IVP SCH ×3 (05:04→22:25)
[2020-03-09] MEDS: LABETALOL 100 MG/20 ML VIAL IVP PRN (05:11)
[2020-03-09 07:11] LABS: BASOPHILS % (AUTO) 0.4 % (0.0-2.0); EOSINOPHILS # (AUTO) 0.1 K/uL (0-0.4); EOSINOPHILS % (AUTO) 1.2 % (0.0-4.0); HEMOGLOBIN 8.9 g/dL (12.0-18.0); LYMPHOCYTES # (AUTO) 0.3 K/uL (2.0-11.5); MEAN CORPUSCULAR HEMOGLOBIN 28 pg (27-31); MEAN CORPUSCULAR HGB CONC 33 g/dL (33-37); MEAN CORPUSCULAR VOLUME 85.2 fL (80-94); MONOCYTES # (AUTO) 0.3 K/uL (0.8-1.0); MONOCYTES % (AUTO) 5.6 % (1.7-9.3); NEUTROPHILS # (AUTO) 5.3 K/uL (1.8-7.7); NEUTROPHILS % (AUTO) 87.8 % (42.2-75.2); PLATELET COUNT (AUTO) 73 K/uL (140-450); RED BLOOD CELL COUNT(AUTO) 3.17 MIL/uL (4.20-6.10); RED CELL DISTRIBUTION WIDTH 17.4 % (11.6-13.7); WHITE BLOOD COUNT (AUTO) 6.1 K/uL (4.8-10.8)
[2020-03-09 07:24] LABS: MAGNESIUM 1.9 mg/dL (1.8-2.4)
[2020-03-09 07:37] LABS: ALBUMIN 1.5 g/dL (3.4-5.0); ANION GAP 16.6 (8-16); ASPARTATE AMINOTRANSFERASE 27 U/L (15-37); CARBON DIOXIDE 23.2 mmol/L (21-32); CHLORIDE 101 mmol/L (98-107); CREATININE 3.3 mg/dL (0.6-1.3); GLUCOSE 104 mg/dL (74-106); POTASSIUM 3.8 mmol/L (3.5-5.1); SODIUM SERUM 137 mmol/L (136-145); TOTAL BILIRUBIN 1.1 mg/dL (0.0-1.0)
[2020-03-09 07:43] LABS: UREA NITROGEN, BLOOD 61 mg/dL (7-18)
[2020-03-09] MEDS: fentaNYL citrate 2.5 MG in NACL 0.9% 200 ML IV PRN (08:08)
[2020-03-09] MEDS: DOCUSATE 100 MG/10 ML UDC GT SCH (09:00)
[2020-03-09] MEDS: ASCORBIC ACID 500 MG TAB PO SCH (09:00)
[2020-03-09] MEDS: levETIRAcetam 500 MG in NACL 0.9% 100 ML IV SCH ×2 (09:01→22:24)
[2020-03-09] MEDS: LEVOTHYROXINE SODIUM 100 MCG VIAL IV SCH (09:01)
[2020-03-09] MEDS: PANTOPRAZOLE 40 MG INJ VIAL IVP SCH (09:02)
[2020-03-09] MEDS: methylPREDNISolone SS 40 MG/ML VIAL IVP SCH (09:02)
--- NOTE | 2020-03-09 10:15 | NUR ---
MEDICATIONS ADMINISTERED PER ORDER. PT TOLERATED WELL. TEMPERATURE 97.5 AXILLARY, VAP ORAL CARE, CHG BATH, JOSEPH CARE PROVIDED. PT REPOSITIONED.
--- NOTE | 2020-03-09 10:45 | NUR ---
SOME DARK BLOODY SECRETIONS FROM LIPS AND INNER MOUTH WHEN SUCTIONING NOTED. DR. DELATORRE MADE AWARE WHILE HE WAS AT BEDSIDE. WILL CONTINUE TO MONITOR.
--- NOTE | 2020-03-09 10:45 | NUR ---
DR. DELATORRE AT BEDSIDE TO SEE PT
[2020-03-09] MEDS: SKINTEGRITY HYDROGEL TP SCH (12:04)
--- NOTE | 2020-03-09 12:29 | NUR ---
MEDS ADMINISTERED PER ORDER. BS 114, NO INSULIN COVERAGE NEEDED. TEMPERATURE 97.4 AXILLARY. VAP ORAL CARE PROVIDED
--- NOTE | 2020-03-09 14:50 | NUR ---
DR. MUSA ASSESSING PT
--- NOTE | 2020-03-09 16:00 | NUR ---
TEMPERATURE 98.4. VAP ORAL CARE PROVIDED. PT REPOSITIONED.
--- NOTE | 2020-03-09 18:00 | NUR ---
275 OUTPUT FROM JOSEPH CATH. YELLOW, SEDIMENT. BS 140 NO INSULIN NEEDED
--- NOTE | 2020-03-09 19:25 | NUR ---
HAND OFF GIVEN TO LEAD PRODUCER RN FOR CONTINUITY OF CARE
[2020-03-09] MEDS ORDERED: DEXTROSE IV SCH ×4 (20:00)
[2020-03-09] MEDS ORDERED: MULTIVITAMIN IV SCH ×4 (20:00)
[2020-03-09] MEDS ORDERED: [UNRECOGNIZED DRUG - OTHER] IV SCH ×4 (20:00)
[2020-03-09] MEDS ORDERED: AMINO ACIDS IV SCH ×4 (20:00)
--- NOTE | 2020-03-09 20:00 | NUR ---
PATIENT WAS ACCEPTED AND ASSESS DONE PATIENT WAS VERY SEDATED ON DIPRIVAN AND FENTANYL DRIP ALSO ON TPN NO TUBE FEEDING NGT IS OUT MANY TRY, AND UNABLE TO INSERT AN NGT STABLE WILL RESPOND TO DEEP PAIN , TRIED TO OPEN EYES ,ORAL CAVITY BLOODY ,NEED MANY ORAL CARE AND SUCTION COLOR FAIR SKIN WARM AND DRY HAS AN JOSEPH DARK ROLDAN SMALL AMOUNT NO SEIZURE ACTIVITY WAS NOTICE ON VENT, TOLERATE WELL .TABLE
[2020-03-09] MEDS: AMINO ACIDS 8.5% IV SCH ×3 (22:00)
[2020-03-09] MEDS: DEXTROSE 50% IV SCH ×3 (22:00)
[2020-03-09] MEDS: FAT EMULSION 20% IV SCH ×3 (22:00)
--- NOTE | 2020-03-09 22:00 | NUR ---
NO CHANGES , TPN INFUSION AND PATENT BLOOD GLUCOSE DUE AT [place] ORAL CARE GIVEN SUCTION OF BLOODY SECRETION NO TEMP WAS NOTICE , LOW STABLE
[2020-03-10] VITALS (40 sets, daily range): BP systolic 100–163; BP diastolic 68–98
[2020-03-10] MEDS: BLOOD GLUCOSE MONITORING 1 DEV DEV MC SCH ×4 (02:00→18:00)
--- NOTE | 2020-03-10 02:00 | NUR ---
NO CHANGES , STABLE ORAL CARE POSITION NO NEW SKIN BREAKDOWN STABLE WILL CONTINUED WITH PLAN OF CARE, STABLE
--- NOTE | 2020-03-10 06:00 | NUR ---
AM CARE WAS GIVEN,ORAL CARE WAS ABLE TO TURN THE PATIENT .STABLE NO CHANGE BLOOD GLUCOSE 95 NO COVERAGE STABLE WILL CONTINUED WITH PLAN OF CARE
[2020-03-10 06:56] LABS: BASOPHILS % (AUTO) 0.6 % (0.0-2.0); EOSINOPHILS # (AUTO) 0.1 K/uL (0-0.4); EOSINOPHILS % (AUTO) 1.1 % (0.0-4.0); HEMATOCRIT 27.7 % (36-52); HEMOGLOBIN 9.2 g/dL (12.0-18.0); LYMPHOCYTES # (AUTO) 0.3 K/uL (2.0-11.5); MEAN CORPUSCULAR HEMOGLOBIN 28 pg (27-31); MEAN CORPUSCULAR HGB CONC 33 g/dL (33-37); MEAN CORPUSCULAR VOLUME 84.8 fL (80-94); MONOCYTES # (AUTO) 0.3 K/uL (0.8-1.0); MONOCYTES % (AUTO) 4.6 % (1.7-9.3); NEUTROPHILS # (AUTO) 5.7 K/uL (1.8-7.7); PLATELET COUNT (AUTO) 81 K/uL (140-450); RED BLOOD CELL COUNT(AUTO) 3.26 MIL/uL (4.20-6.10); RED CELL DISTRIBUTION WIDTH 17.1 % (11.6-13.7); WHITE BLOOD COUNT (AUTO) 6.4 K/uL (4.8-10.8)
[2020-03-10 07:16] LABS: PHOSPHORUS 5.2 mg/dL (2.5-4.9)
[2020-03-10 07:44] LABS: NEUTROPHILS % (AUTO) 88.7 % (42.2-75.2)
--- NOTE | 2020-03-10 08:00 | NUR ---
RECEIVED REPORT FROM VETERINARY MEDICAL OFFICER RN. POC DISCUSSED. RECEIVED PT EYES CLOSED. N SUPIN ENON RESPONSIVE TO VERBAL COMMAND. WITHDRAWS TO PAIN STIMULI. ETT TO VENT. AC/PRVC 550, FIO2 28%, PEEP 5. 22 RESPIRATION. ORAL AND ETT SUCTIONING DONE. OBTAINED MOD THICK YELLOW SECRETIONS. JOSE PICC AND RIGH ARM AC PIV INTACT AND PATENT. ON CONTINUOUS FENTANYL, PROPOFOL DRIPS. PT IS ON TPN RUNNING @ 50 ML/HR. KEPT PT ON SUPINE POSITION WITH HOB ELEVATED. HEEL PROTECTOR IN PLACE. MARGARITA UPPER/LOWER EXTREMITIES KEPT ELEVATED WITH PILLOW. AFEBRILE. F/C CATH IN PLACE AND PATENT. WILL CONTINUE TO MONITOR.
[2020-03-10] MEDS: PANTOPRAZOLE 40 MG INJ VIAL IVP SCH (09:41)
[2020-03-10] MEDS: LEVOTHYROXINE SODIUM 100 MCG VIAL IV SCH (09:41)
[2020-03-10] MEDS: DOCUSATE 100 MG/10 ML UDC GT SCH (09:41)
[2020-03-10] MEDS: methylPREDNISolone SS 40 MG/ML VIAL IVP SCH (09:41)
[2020-03-10] MEDS: levETIRAcetam 500 MG in NACL 0.9% 100 ML IV SCH ×2 (09:42→20:57)
--- NOTE | 2020-03-10 11:30 | NUR ---
SEEN AND EXAMINED BY DR. Karma LEE. ORDERED TO SECURE CONSENT FOR PEG PLACEMENT AND TRACHEOSTOMY TO BE DONE TOMORROW (03/11) NOTED. OBTAINED TELEPHONE CONSENT FROM TEODORO AGUIAR (DAUGHTER).
[2020-03-10] MEDS: PROPOFOL 1000 MG/100 ML PREMIX 100 ML IV PRN (12:45)
[2020-03-10] MEDS: SKINTEGRITY HYDROGEL TP SCH (13:00)
[2020-03-10] MEDS ORDERED: ROCURONIUM 50 MG/5 ML VIAL IV ONE (13:00)
[2020-03-10] MEDS: METOCLOPRAMIDE 10 MG/2 ML INJ VIAL IVP SCH ×2 (13:00→21:01)
--- NOTE | 2020-03-10 16:00 | NUR ---
OBTAINED 100 ML ROLDAN COLORED URINE FROM FC. PT IS AFEBRILE. NO CHANGE OF CONDITION.
--- NOTE | 2020-03-10 19:30 | NUR ---
ENDORSED TO REACHER RN. POC DISCUSSED. NO CHANGE OF CONDITION.
[2020-03-10] MEDS: DEXTROSE 50% IV SCH ×3 (20:00)
[2020-03-10] MEDS: AMINO ACIDS 8.5% IV SCH ×3 (20:00)
[2020-03-10] MEDS: FAT EMULSION 20% IV SCH ×3 (20:00)
--- NOTE | 2020-03-10 20:00 | NUR ---
DR KEARNS CALLED ABOUT THE DISCREPANCY OF THE AVAILABLE TPN ON HAND AGAINST TO THE ONE IN EMAR DR HUNTER ORDERED TO HUNG THE AVAILABLE TPN.
[2020-03-10 21:08] LABS: ALBUMIN 1.6 g/dL (3.4-5.0); ANION GAP 24.7 (8-16); ASPARTATE AMINOTRANSFERASE 43 U/L (15-37); CARBON DIOXIDE 16.4 mmol/L (21-32); CHLORIDE 98 mmol/L (98-107); CREATININE 3.8 mg/dL (0.6-1.3); GLUCOSE 95 mg/dL (74-106); POTASSIUM 4.1 mmol/L (3.5-5.1); SODIUM SERUM 135 mmol/L (136-145)
[2020-03-10 21:10] LABS: UREA NITROGEN, BLOOD 76 mg/dL (7-18)
[2020-03-11] VITALS (44 sets, daily range): BP systolic 88–181; BP diastolic 58–103
[2020-03-11] MEDS: METOCLOPRAMIDE 10 MG/2 ML INJ VIAL IVP SCH ×3 (05:00→20:28)
[2020-03-11] MEDS: BLOOD GLUCOSE MONITORING 1 DEV DEV MC SCH ×5 (06:00→23:41)
[2020-03-11 06:41] LABS: BASOPHILS # (AUTO) 0.1 K/uL (0.00-0.22); BASOPHILS % (AUTO) 0.7 % (0.0-2.0); EOSINOPHILS # (AUTO) 0.1 K/uL (0-0.4); EOSINOPHILS % (AUTO) 1.1 % (0.0-4.0); HEMATOCRIT 26.3 % (36-52); HEMOGLOBIN 8.8 g/dL (12.0-18.0); LYMPHOCYTES # (AUTO) 0.3 K/uL (2.0-11.5); LYMPHOCYTES % (AUTO) 3.8 % (20.5-51.1); MEAN CORPUSCULAR HEMOGLOBIN 28 pg (27-31); MEAN CORPUSCULAR HGB CONC 34 g/dL (33-37); MEAN CORPUSCULAR VOLUME 84.3 fL (80-94); MONOCYTES # (AUTO) 0.4 K/uL (0.8-1.0); MONOCYTES % (AUTO) 4.8 % (1.7-9.3); NEUTROPHILS # (AUTO) 6.7 K/uL (1.8-7.7); NEUTROPHILS % (AUTO) 89.6 % (42.2-75.2); PLATELET COUNT (AUTO) 91 K/uL (140-450); RED BLOOD CELL COUNT(AUTO) 3.12 MIL/uL (4.20-6.10); RED CELL DISTRIBUTION WIDTH 17.2 % (11.6-13.7); WHITE BLOOD COUNT (AUTO) 7.5 K/uL (4.8-10.8)
[2020-03-11] MEDS: fentaNYL citrate 2.5 MG in NACL 0.9% 200 ML IV PRN ×2 (06:52→09:38)
[2020-03-11 06:54] LABS: ALBUMIN 1.4 g/dL (3.4-5.0); ANION GAP 12.9 (8-16); ASPARTATE AMINOTRANSFERASE 40 U/L (15-37); CARBON DIOXIDE 23.6 mmol/L (21-32); CHLORIDE 100 mmol/L (98-107); CREATININE 3.6 mg/dL (0.6-1.3); GLUCOSE 107 mg/dL (74-106); POTASSIUM 3.5 mmol/L (3.5-5.1); SODIUM SERUM 133 mmol/L (136-145); TOTAL BILIRUBIN 1.5 mg/dL (0.0-1.0)
[2020-03-11 07:19] LABS: UREA NITROGEN, BLOOD 76 mg/dL (7-18)
--- NOTE | 2020-03-11 07:30 | NUR ---
HANDOFF RECEIVED FROM RN ENDOSCOPY RN. PT IS SEDATED RASS -3. PT IS ETT TO VENT, ACPRVC FIO2 28%, VT, 550, R 22, PEEP 5. PT HAS RI DANIA CATH FOR DIALYSIS, RAC 20 G, AND JOSE PICC. PROPOFOL IS RUNNING AT 10 MCG/KG/MIN, FENTANYL IS RUNNING AT 0.5 MCG/KG/HR, TPN RUNNING AT 50 ML/HR. PT IS ST ON THE MONITOR. JOSEPH CATHETER IS IN PLACE. WILL CONTINUE TO MONITOR. HOB 30 DEG, BED IN LOW LOCKED POSITION.
[2020-03-11] MEDS: methylPREDNISolone SS 40 MG/ML VIAL IVP SCH (08:05)
[2020-03-11] MEDS: PANTOPRAZOLE 40 MG INJ VIAL IVP SCH (08:05)
--- NOTE | 2020-03-11 08:25 | NUR ---
MEDICATIONS ADMINISTERED PER ORDER. PT TOLERATED WELL. TEMPERATURE 96.8 TEMPORALLY. VAP ORAL CARE PROVIDED. JOSEPH CARE AND CHG BATH PROVIDED.
[2020-03-11] MEDS: DOCUSATE 100 MG/10 ML UDC GT SCH (08:42)
[2020-03-11] MEDS: levETIRAcetam 500 MG in NACL 0.9% 100 ML IV SCH ×2 (08:44→20:28)
[2020-03-11] MEDS: LEVOTHYROXINE SODIUM 100 MCG VIAL IV SCH (08:44)
[2020-03-11] MEDS: PROPOFOL 1000 MG/100 ML PREMIX 100 ML IV PRN (08:50)
[2020-03-11] MEDS: SKINTEGRITY HYDROGEL TP SCH (13:00)
--- NOTE | 2020-03-11 13:00 | NUR ---
MEDICATIONS ADMINISTERED PER ORDER. BS 165, NO INSULIN COVERAGE NEEDED.
[2020-03-11] MEDS: INSULIN LISPRO SLIDING SCALE 100 UNITS/ML VIAL SUBQ PRN (13:14)
--- NOTE | 2020-03-11 13:25 | NUR ---
PT TAKEN TO OR VIA BED BY OR NURSES.
[2020-03-11] MEDS ORDERED: BUPIVACAINE-MPF/EPI 0.25% 10 ML VIAL INJ ONE (13:37)
[2020-03-11] MEDS ORDERED: LIDOCAINE 1% 500 MG/50 ML VIAL ONE (13:37)
--- NOTE | 2020-03-11 14:22 | NUR ---
PT RETURNED TO UNIT POST TRACH AND PEG TUBE PLACEMENT. VSS.
--- NOTE | 2020-03-11 17:25 | NUR ---
SEDATION HELD, WILL CONTINUE TO MONITOR
--- NOTE | 2020-03-11 18:00 | NUR ---
PT LETHARGIC, SEDATION REMAINS OFF. PT CHANGED, REPOSITIONED. BS 123. NO INSULIN NEEDED.
--- NOTE | 2020-03-11 19:30 | NUR ---
HANDOFF GIVEN TO YOUTH COURT JUDGE RN FOR CONTINUITY OF CARE
[2020-03-11] MEDS: FAT EMULSION 20% IV SCH ×3 (20:00)
[2020-03-11] MEDS: AMINO ACIDS 8.5% IV SCH ×3 (20:00)
[2020-03-11] MEDS: DEXTROSE 50% IV SCH ×3 (20:00)
--- NOTE | 2020-03-11 20:00 | NUR ---
RECEIVED REPORT FROM DAY SHIFT RN. PT TRACH TO VENT FIO2- 28%, RATE-22, PEEP-5. RESPIRATION EVEN AND UNLABORED. SYMMETRICAL CHEST EXPANSION. ORAL MUCOSA PINK AND MOIST. SKIN WARM AND DRY. RT IJ DANIA CATH WITH PIGTAIL, RIGHT UPPER ARM PICC LINE, RIGHT UPPER ARM 20g. ASYMPTOMATIC, PATENT AND INTACT. ON TPN @ 50ML/HR . PT OFF SEDATION AT THIS TIME. PT S/P TRACH AND PEG PLACEMENT. JOSEPH CATHETER IN PLACE, DRAINING TO GRAVITY. SKIN WARM AND DRY. SAFETY MEASURES IN PLACE, BED LOW IN POSITION AND LOCKED. SIDE RAILS UP. CALL LIGHT WITHIN REACH. WILL CONTINUE TO MONITOR.
[2020-03-11] MEDS: hydrALAZINE 20 MG/ML VIAL IVP PRN (20:27)
[2020-03-12] VITALS (25 sets, daily range): BP systolic 115–169; BP diastolic 68–93
--- NOTE | 2020-03-12 | NUR ---
TURNED AND REPOSITIONED PT. PT NOT IN APPARENT DISTRESS. PRESSURE AREA OFFLOADED. WILL CONTINUE TO MONITOR.
--- NOTE | 2020-03-12 04:00 | NUR ---
PT CONDITION REMAIN UNCHANGED. WILL CONTINUE TO MONITOR.
[2020-03-12] MEDS: METOCLOPRAMIDE 10 MG/2 ML INJ VIAL IVP SCH ×3 (05:00→21:53)
--- NOTE | 2020-03-12 06:40 | NUR ---
DR. DELATORRE AT BEDSIDE.
[2020-03-12] MEDS: BLOOD GLUCOSE MONITORING 1 DEV DEV MC SCH ×3 (06:41→18:00)
--- NOTE | 2020-03-12 06:46 | NUR ---
FNS CONSULT ORDERED PER MD.
[2020-03-12 06:52] LABS: BASOPHILS % (AUTO) 0.4 % (0.0-2.0); EOSINOPHILS % (AUTO) 0.2 % (0.0-4.0); HEMATOCRIT 27.7 % (36-52); HEMOGLOBIN 9.3 g/dL (12.0-18.0); LYMPHOCYTES # (AUTO) 0.3 K/uL (2.0-11.5); MEAN CORPUSCULAR HEMOGLOBIN 28 pg (27-31); MEAN CORPUSCULAR HGB CONC 34 g/dL (33-37); MEAN CORPUSCULAR VOLUME 84.5 fL (80-94); MONOCYTES # (AUTO) 0.5 K/uL (0.8-1.0); MONOCYTES % (AUTO) 5.2 % (1.7-9.3); NEUTROPHILS # (AUTO) 9.7 K/uL (1.8-7.7); NEUTROPHILS % (AUTO) 91.2 % (42.2-75.2); PLATELET COUNT (AUTO) 115 K/uL (140-450); RED BLOOD CELL COUNT(AUTO) 3.28 MIL/uL (4.20-6.10); WHITE BLOOD COUNT (AUTO) 10.6 K/uL (4.8-10.8)
[2020-03-12 07:09] LABS: ALBUMIN 1.6 g/dL (3.4-5.0); ANION GAP 17.3 (8-16); ASPARTATE AMINOTRANSFERASE 38 U/L (15-37); CARBON DIOXIDE 23.9 mmol/L (21-32); CHLORIDE 98 mmol/L (98-107); GLUCOSE 107 mg/dL (74-106); POTASSIUM 3.2 mmol/L (3.5-5.1); SODIUM SERUM 136 mmol/L (136-145); TOTAL BILIRUBIN 1.6 mg/dL (0.0-1.0)
[2020-03-12 07:34] LABS: MAGNESIUM 2.3 mg/dL (1.8-2.4)
--- NOTE | 2020-03-12 08:00 | NUR ---
RECEIVED REPORT FROM REHABILITATION CONSULTANT RN. PT TRACH TO VENT FIO2- 28%, RATE-22, PEEP-5. RESPIRATION EVEN AND UNLABORED. SYMMETRICAL CHEST EXPANSION. ORAL MUCOSA PINK AND MOIST. RT IJ DANIA CATH IN PLACE, DRESSING INTACT. RIGHT UPPER ARM PICC LINE, RUNNING FENTANYL 0.5 MCG/KG/HR AND TPN @ 50ML/HR, ASYMPTOMATIC, PATENT AND INTACT. RIGHT UPPER ARM 20g SALINE LOCK, ASYMPTOMATIC, PATENT AND INTACT. PEG TUBE IN PLACE, DRESSING IS CLEAN DRY AND INTACT. JOSEPH CATHETER IN PLACE, DRAINING TO GRAVITY. SKIN WARM AND DRY. SAFETY MEASURES IN PLACE, BED LOW IN POSITION AND LOCKED. SIDE RAILS UP. CALL LIGHT WITHIN REACH. WILL CONTINUE TO MONITOR.
[2020-03-12 08:53] LABS: UREA NITROGEN, BLOOD 70 mg/dL (7-18)
[2020-03-12] MEDS: DOCUSATE 100 MG/10 ML UDC GT SCH ×2 (09:00→13:58)
[2020-03-12] MEDS: levETIRAcetam 500 MG in NACL 0.9% 100 ML IV SCH ×2 (09:17→21:52)
[2020-03-12] MEDS: methylPREDNISolone SS 40 MG/ML VIAL IVP SCH (09:26)
[2020-03-12] MEDS: LEVOTHYROXINE SODIUM 100 MCG VIAL IV SCH (09:27)
[2020-03-12] MEDS: PANTOPRAZOLE 40 MG INJ VIAL IVP SCH (09:27)
[2020-03-12] MEDS: KCL 20 MEQ/WATER INJ PREMIX 100 ML IV SCH ×2 (09:28→13:13)
--- NOTE | 2020-03-12 10:30 | NUR ---
PT RESTING COMFORTABLY, TRACH TO VENT, DC'D FENTANYL DRIP AT THIS TIME, WILL GIVE PRN MEDS IF NEEDED
--- NOTE | 2020-03-12 11:10 | NUR ---
DR LEE PAGED AND CALLED BACK, OK TO USE PEG TUBE
--- NOTE | 2020-03-12 11:14 | NUR ---
PER MD ORDER, STOPPED FENTANYL DRIP, WILL CONT TO MONITOR CLOSELY
[2020-03-12] MEDS: MIDAZOLAM 2 MG/2 ML VIAL IV PRN ×2 (11:58→16:50)
--- NOTE | 2020-03-12 11:58 | NUR ---
PT BECAME AGITATED AND SBP IN 160s, ADMINISTERED VERSED PER MD ORDER.
--- NOTE | 2020-03-12 12:30 | NUR ---
PTS SBP IS NOW IN THE 130s, PT IS RESTING, NO S/S OF DISTRESS NOTED.
[2020-03-12] MEDS: SKINTEGRITY HYDROGEL TP SCH (13:00)
--- NOTE | 2020-03-12 13:43 | NUR ---
FNS CONSULT FOR TUBE FEEDING RECEIVED. GAVE RECOMMENDATIONS TO HERRERA AMBROCIO FOR NEPRO 1.8 @ 50 ML/HR. START AT 10 ML/HR, INCREASE BY 10 Q4H. FLUSH 80 ML Q6H.
[2020-03-12] MEDS: fentaNYL citrate 0.05 MG/ML VIAL IVP PRN (14:09)
--- NOTE | 2020-03-12 14:09 | NUR ---
PT BECAME AGITATED AGAIN, WITH FACIAL GRIMACING. ADMINISTERED FENTANYL IVP PER MD ORDER. WILL CONT. TO ASSESS.
[2020-03-12] MEDS: LABETALOL 100 MG/20 ML VIAL IVP PRN (14:55)
--- NOTE | 2020-03-12 14:55 | NUR ---
PTS SBP IN THE 150s, ADMINISTERED LABETALOL PER MD ORDER. WILL CONT. TO ASSESS
--- NOTE | 2020-03-12 15:25 | NUR ---
PTS BP IS 118/65 AND HR 92. PT IS RESTING, NO S/S OF DISTRESS NOTED AT THIS TIME, WILL CONT. TO MONITOR CLOSELY.
--- NOTE | 2020-03-12 18:00 | NUR ---
NO S/S OF DISTRESS NOTED. BED LOW AND LOCKED, SAFETY MEASURES IN PLACE. WILL CONTINUE TO MONITOR.
[2020-03-12] MEDS: AMINO ACIDS 8.5% IV SCH ×3 (20:00)
[2020-03-12] MEDS: FAT EMULSION 20% IV SCH ×3 (20:00)
[2020-03-12] MEDS: DEXTROSE 50% IV SCH ×3 (20:00)
--- NOTE | 2020-03-12 20:00 | NUR ---
RECEIVED REPORT FROM DAY SHIFT RN. PT TRACH TO VENT FIO2- 28%, RATE-22, PEEP-5. RESPIRATION EVEN AND UNLABORED. SYMMETRICAL CHEST EXPANSION. ORAL MUCOSA PINK AND MOIST. SKIN WARM AND DRY. RT IJ DANIA CATH WITH PIGTAIL, RIGHT UPPER ARM PICC LINE ASYMPTOMATIC, PATENT AND INTACT. ON TPN @ 50ML/HR . PT OFF SEDATION AT THIS TIME. PEG TUBE IN PLACE. JOSEPH CATHETER IN PLACE, DRAINING TO GRAVITY. SKIN WARM AND DRY. SAFETY MEASURES IN PLACE, BED LOW IN POSITION AND LOCKED. SIDE RAILS UP. CALL LIGHT WITHIN REACH. WILL CONTINUE TO MONITOR.
--- NOTE | 2020-03-12 23:00 | NUR ---
DIALYSIS COMPLETED WITH 2L OUTPUT PER HD NURSE RUSSO.
--- NOTE | 2020-03-12 23:30 | NUR ---
GRAVITY TUBE FEEDING HUNG WITH A RATE OF 10MLS/HR /2-3 DROPS PER MINUTE. WILL MONITOR FOR SIGNS OF INTOLERANCE.
[2020-03-13] VITALS (14 sets, daily range): BP systolic 110–157; BP diastolic 66–88
--- NOTE | 2020-03-13 | NUR ---
TURNED AND REPOSITIONED PT. PRESSURE AREAS OFF LOADED. WILL CONTINUE TO MONITOR.
--- NOTE | 2020-03-13 04:00 | NUR ---
INCREASED GRAVITY TUBE FEEDING @ 5 GTTS/MIN OR 20ML/HR. PT TOLERATING WELL. WILL CONTINUE TO MONITOR.
[2020-03-13] MEDS: METOCLOPRAMIDE 10 MG/2 ML INJ VIAL IVP SCH ×3 (05:45→21:25)
[2020-03-13] MEDS: BLOOD GLUCOSE MONITORING 1 DEV DEV MC SCH ×4 (05:46→18:42)
[2020-03-13 06:58] LABS: ALBUMIN 1.7 g/dL (3.4-5.0); ASPARTATE AMINOTRANSFERASE 37 U/L (15-37); CARBON DIOXIDE 25.4 mmol/L (21-32); CHLORIDE 100 mmol/L (98-107); CREATININE 2.4 mg/dL (0.6-1.3); GLUCOSE 108 mg/dL (74-106); POTASSIUM 3.4 mmol/L (3.5-5.1); SODIUM SERUM 137 mmol/L (136-145); TOTAL BILIRUBIN 1.8 mg/dL (0.0-1.0)
[2020-03-13 07:13] LABS: UREA NITROGEN, BLOOD 54 mg/dL (7-18)
--- NOTE | 2020-03-13 07:49 | NUR ---
RECEIVED REPORT FORM BAR PILOT NURSE FOR CONTINUITY OF CARE. PT IN BED. RASS 0, FLACC 0, NO SOB, NO APPARENT DISTRESS. TRACH TO VENT: AC/PRVC FIO2 24% TV 550 R 22 PEEP 5. ABD SOFT, NON-DISTENDED, NON-TENDER. WITH JOSE PICC, RUNNING TPN 50CC/HR. PEG TUBE INTACT RUNNING TUBE FEEDING. JOSEPH INTACT AND PATENT DRAINING DARK YELLOW URINE. SAFETY PRECAUTIONS IN PLACE. ISOLATION PRECAUTION OBSERVED. WILL CONT TO MONITOR.
[2020-03-13 08:16] LABS: MAGNESIUM 2.1 mg/dL (1.8-2.4); PHOSPHORUS 2.9 mg/dL (2.5-4.9)
[2020-03-13] MEDS: DOCUSATE 100 MG/10 ML UDC GT SCH (08:51)
[2020-03-13] MEDS: fentaNYL citrate 0.05 MG/ML VIAL IVP PRN (08:51)
[2020-03-13] MEDS: methylPREDNISolone SS 40 MG/ML VIAL IVP SCH (08:51)
[2020-03-13] MEDS: LEVOTHYROXINE SODIUM 100 MCG VIAL IV SCH (08:51)
[2020-03-13] MEDS: PANTOPRAZOLE 40 MG INJ VIAL IVP SCH (08:51)
[2020-03-13] MEDS: levETIRAcetam 500 MG in NACL 0.9% 100 ML IV SCH ×2 (08:51→22:32)
--- NOTE | 2020-03-13 09:20 | NUR ---
INCREASED RESPIRATIONS AND HEART RATE NOTED. FENTANYL IVP GIVEN ORDERED. DUE MORNING MEDS GIVEN
--- NOTE | 2020-03-13 10:30 | NUR ---
ORAL CARE, TRACH CARE, JOSEPH CARE DONE. TURNED AND REPOSITIONED PT
[2020-03-13] MEDS: MIDAZOLAM 2 MG/2 ML VIAL IV PRN (11:00)
--- NOTE | 2020-03-13 11:00 | NUR ---
STILL WITH ELEVATED RR AND HR. VERSED GIVEN ORDERED
[2020-03-13] MEDS: SKINTEGRITY HYDROGEL TP SCH (13:02)
--- NOTE | 2020-03-13 13:56 | NUR ---
RASS 0, FLACC 0, RESPIRATIONS ARE EVEN AND UNLABORED. WILL CONTINUE TO MONITOR
--- NOTE | 2020-03-13 18:05 | NUR ---
PT TRANSFERRED TO [facility] FLOOR ROOM 123B. STABLE UPON TRANSFER
--- NOTE | 2020-03-13 18:06 | NUR ---
RECEIVED PATIENT FROM ICU, AAOX0, RESPIRATIONS SUPPORTED BY TRACH-VENTILATOR SUPPORT. G-TUBE PATENT, NO RESIDUAL OBSERVED. SKIN IS CLEAN, WARM AND DRY TO TOUCH. IV ACCESS IS PATENT, DRY AND INTACT. BED IS LOCKED IN LOWEST POSITION, CALL LIGHT IN REACH. NURSE WILL MONITOR FOR CHANGES IN STATUS.
--- NOTE | 2020-03-13 18:59 | NUR ---
Patient resting comfortably, no c/o pain or discomfort. Respirations are non-labored. Skin is clean, warm and dry to touch. IV access is patent, dry and intact. Fong is patent, draining yellow urine by way of gravity. Bed is locked in lowest position, call light in reach. Patient endorsed to maintenance mechanic 2nd shift nurse for continue care.
--- NOTE | 2020-03-13 19:20 | NUR ---
RECEIVED REPORT FROM HEATHER YOUSIF RN. PT AOX0, TRACH TO VENT. NO S/S RESPIRATORY DISTRESS. FLACC 0. G TUBE IN PLACE INFUSING NEPRO FEEDING AT 50 ML/HR. HAS RIMike AND JOSE PICC LINE PATENT INTACT, S.L. HAS JOSEPH CATH IN PLACE. SAFETY MEASURES IN PLACE. CALL LIGHT WITHIN REACH. WILL CONTINUE TO MONITOR.
[2020-03-13] MEDS: FAT EMULSION 20% IV SCH ×3 (20:00)
[2020-03-13] MEDS: DEXTROSE 50% IV SCH ×3 (20:00)
[2020-03-13] MEDS: AMINO ACIDS 8.5% IV SCH ×3 (20:00)
--- NOTE | 2020-03-13 20:20 | NUR ---
RECEIVED PATIENT FROM AM SHIFT. PATIENT WAS SEEN AND ASSESSED. PATIENT IS TRACH WITH PORTEX SIZE 8 AND SECURED WITH TRACH TIE. PATIENT IS ON VENT SETTINGS: AC/PRVC RR 22, VT 550, PEEP 5, FiO2 40% WITH SPO2 OF 94%. VENT IS PLUGGED IN RED OUTLET. ALARMS SET AND AUDIBLE TO ENVIRONMENT. SUCTIONED SMALL AMOUNT OF YELLOW THICK SECRETIONS FROM TUBE. AIRWAY IS PATENT. AUSCULTATION REVEALS BILATERAL COARSE BREATH SOUNDS. PATIENT IS IN NO APPARENT RESPIRATORY DISTRESS AT THIS TIME. PRN TX NOT INDICATED AT THIS TIME. WILL CONTINUE TO MONITOR PATIENT.
--- NOTE | 2020-03-13 20:35 | NUR ---
SWITCHED PATIENT TO AC/VC MODE. SETTINGS: AC/VC RR 22, VT 550, PEEP 5, FiO2 40% WITH SPO2 OF 94%. PT TOLERATING WELL. WILL CONTINUE TO MONITOR PT.
--- NOTE | 2020-03-13 21:25 | NUR ---
NO RESIDUAL ON G TUBE. ADMINISTERED SCHEDULED MEDS. NO DISTRESS NOTED. WILL CONTINUE TO MONITOR
[2020-03-13] MEDS ORDERED: levETIRAcetam 100 MG/ML VIAL IV ONE (22:13)
--- NOTE | 2020-03-13 22:54 | NUR ---
NOTIFIED DR. ALMA BOOKER PT HAS GTUBE FEEDING AND TPN. PT TOLERATING G TUBE FEEDING. NO RESIDUAL. OK TO DISCONTINUE TPN PER DR. BOOEKR
[2020-03-14] VITALS: BP 155/90
--- NOTE | 2020-03-14 01:15 | NUR ---
PT IN BED RESTING COMFORTABLY. RR 22, UNLABORED. FLACC 0. NO DISTRESS NOTED WILL CONTINUE TO MONITOR
[2020-03-14 04:00] VITALS: BP 173/93
[2020-03-14] MEDS: METOCLOPRAMIDE 10 MG/2 ML INJ VIAL IVP SCH ×3 (04:20→20:33)
[2020-03-14] MEDS: BLOOD GLUCOSE MONITORING 1 DEV DEV MC SCH ×4 (05:44→18:04)
[2020-03-14] MEDS: hydrALAZINE 20 MG/ML VIAL IVP PRN ×2 (06:20→18:32)
--- NOTE | 2020-03-14 06:25 | NUR ---
BP 173/93 HR 106, GAVE PRN APRESOLINE. TOLERATED WELL. WILL CONTINUE TO MONITOR
--- NOTE | 2020-03-14 06:45 | NUR ---
CLEANED CHANGED REPOSITIONED PT, TOLERATED WELL. NO DISTRESS NOTED. WILL CONTINUE TO MONITOR
--- NOTE | 2020-03-14 07:10 | NUR ---
ENDORSED PT TO DAY RN FOR CONTINUITY OF CARE. PT IS IN STABLE CONDITION
[2020-03-14 07:20] LABS: MAGNESIUM 2.2 mg/dL (1.8-2.4); PHOSPHORUS 3.7 mg/dL (2.5-4.9)
[2020-03-14 08:00] VITALS: BP 127/68
--- NOTE | 2020-03-14 09:00 | NUR ---
RECEIVED ON A CARESCAPE R860 VENTILATOR PLUGGED INTO RED OUTLET TOLERATING WELL WITHOUT ADVERSE REACTIONS NOTED TO A PORTEX DCT #8 SECURED WITH A COLLINS TRACH TIE CUFF PRESSURE CHECKED NOTED RESTING WELL NO DISTRESS NOTED GOOD CHEST RISE AIRWAY PATENT
[2020-03-14] MEDS: DOCUSATE 100 MG/10 ML UDC GT SCH (09:23)
[2020-03-14] MEDS: LEVOTHYROXINE SODIUM 100 MCG VIAL IV SCH (09:23)
[2020-03-14] MEDS: PANTOPRAZOLE 40 MG INJ VIAL IVP SCH (09:23)
--- NOTE | 2020-03-14 09:24 | NUR ---
ADMINISTERED PRESCRIBED MEDS PER MD ORDER. PATIENT TOLERATED WELL. SAFETY MEASURES IN PLACE. WILL CONT TO MONITOR.
[2020-03-14 12:00] VITALS: BP 100/55
[2020-03-14] MEDS: SKINTEGRITY HYDROGEL TP SCH (13:00)
[2020-03-14 13:31] LABS: ALBUMIN 1.6 g/dL (3.4-5.0); ANION GAP 16.4 (8-16); ASPARTATE AMINOTRANSFERASE 42 U/L (15-37); CARBON DIOXIDE 24.9 mmol/L (21-32); CHLORIDE 100 mmol/L (98-107); CREATININE 2.7 mg/dL (0.6-1.3); GLUCOSE 82 mg/dL (74-106); POTASSIUM 3.3 mmol/L (3.5-5.1); SODIUM SERUM 138 mmol/L (136-145); TOTAL BILIRUBIN 1.6 mg/dL (0.0-1.0)
[2020-03-14 13:32] LABS: UREA NITROGEN, BLOOD 63 mg/dL (7-18)
--- NOTE | 2020-03-14 15:10 | NUR ---
03/14/20 RD FOLLOW UP COMPLETED PLEASE REFER TO NUTRITION ASSESSMENT UNDER CARE ACTIVITY FOR ESTIMATED NUTRITIONAL NEEDS. 1. CONTINUE NEPRO 1.8 @ 50 ML/HR. WHEN USING GRAVITY FEEDING THIS WILL PROVIDE 1200 ML OF VOLUME TOTAL, 2160 KCAL, 97 GM OF PROTEIN, MEETING >90% OF NUTRIENT NEEDS 2. CONTINUE FLUSH OF [address] PRN FOR CHANGES 4. RD TO FOLLOW-UP 2-3 DAYS, HIGH RISK SYMONE HALL RD
[2020-03-14 16:00] VITALS: BP 115/65
--- NOTE | 2020-03-14 16:33 | NUR ---
ADMINISTERED PRESCRIBED MEDS PER MD ORDER. PATIENT TOLERATED WELL. EDUCATION REINFORCEMENT NEEDED. SAFETY MEASURES IN PLACE. WILL CONT TO MONITOR.
--- NOTE | 2020-03-14 19:40 | NUR ---
RECEIVED REPORT FROM XOCHITL YOUSIF RN. PT AOX0, TRACH TO VENT. NO S/S RESPIRATORY DISTRESS. FLACC 0. G TUBE IN PLACE INFUSING NEPRO FEEDING AT 50 ML/HR. HAS RIMike AND JOSE PICC LINE PATENT INTACT, S.L. SAFETY MEASURES IN PLACE. CALL LIGHT WITHIN REACH. WILL CONTINUE TO MONITOR.
[2020-03-14 20:00] VITALS: BP 118/76
[2020-03-14] MEDS: DEXTROSE 50% IV SCH ×3 (20:00)
[2020-03-14] MEDS: AMINO ACIDS 8.5% IV SCH ×3 (20:00)
[2020-03-14] MEDS: FAT EMULSION 20% IV SCH ×3 (20:00)
--- NOTE | 2020-03-14 20:35 | NUR ---
ADMINISTERED SCHEDULED MEDICATION. TOLERATED WELL. WILL CONTINUE TO MONITOR
--- NOTE | 2020-03-14 23:41 | NUR ---
PT RESTING COMFORTABLY IN BED. FLACC 0. RESPIRATIONS EVEN AND UNLABORED. NO DISTRESS NOTED. WILL CONTINUE TO MONITOR
[2020-03-15] VITALS: BP 113/71
[2020-03-15] MEDS: BLOOD GLUCOSE MONITORING 1 DEV DEV MC SCH ×4 (00:44→18:00)
--- NOTE | 2020-03-15 01:30 | NUR ---
PT WAS SCHEDULED TO BE TRANSFERRED TO [facility] ON 03/14 8PM. PER DAY HERRERA LEUNG, PT COULD NOT BE TRANSFERRED WITHOUT A RESPIRATORY THERAPIST WITH TRANSPORTATION TEAM. NO DISCHARGE ORDER PER MD. DOCTOR'S DISCHARGE PROCESS NOT COMPLETE. NOTIFIED [facility]. NOTIFIED DR. SAUNDERS, WILL FOLLOW UP WITH DR. DELATORRE IN THE MORNING.
[2020-03-15 03:55] VITALS: BP 151/67
[2020-03-15 04:00] VITALS: BP 114/70
[2020-03-15] MEDS: METOCLOPRAMIDE 10 MG/2 ML INJ VIAL IVP SCH ×2 (04:11→13:00)
--- NOTE | 2020-03-15 04:34 | NUR ---
CLEANED CHANGED REPOSITIONED PT, TOLERATED WELL. NO DISTRESS NOTED. WILL CONTINUE TO MONITOR
--- NOTE | 2020-03-15 07:15 | NUR ---
ENDORSED PT TO DAY RN FOR CONTINUITY OF CARE. PT IS IN STABLE CONDITION
--- NOTE | 2020-03-15 07:20 | NUR ---
REC'D BEDSIDE ENDORSEMENT FROM NIGHTSHIFT NURSE. WILL PROCEED W/ CONTINUITY OF CARE.
[2020-03-15 07:37] LABS: ALBUMIN 1.5 g/dL (3.4-5.0); ASPARTATE AMINOTRANSFERASE 46 U/L (15-37); CARBON DIOXIDE 27.5 mmol/L (21-32); CHLORIDE 102 mmol/L (98-107); CREATININE 2.3 mg/dL (0.6-1.3); GLUCOSE 87 mg/dL (74-106); SODIUM SERUM 139 mmol/L (136-145); TOTAL BILIRUBIN 1.4 mg/dL (0.0-1.0); UREA NITROGEN, BLOOD 48 mg/dL (7-18)
[2020-03-15 07:41] LABS: MAGNESIUM 2.1 mg/dL (1.8-2.4); PHOSPHORUS 3.5 mg/dL (2.5-4.9)
[2020-03-15 08:00] VITALS: BP 154/78
[2020-03-15 08:26] LABS: ANION GAP 12.5 (8-16)
--- NOTE | 2020-03-15 09:00 | NUR ---
REC'D CALL FROM LINETTE AT [facility]. GAVE STATUS OF PATIENT PENDING D/C FROM . ADVISED NURSE WILL CALL W/ REPORT ONCE DISCHARGE ORDER IS PLACED. MD IS PENDING CHEST XRAY REVIEW.
[2020-03-15 09:10] LABS: BASOPHILS # (AUTO) 0.1 K/uL (0.00-0.22); BASOPHILS % (AUTO) 0.8 % (0.0-2.0); EOSINOPHILS % (AUTO) 0.4 % (0.0-4.0); HEMATOCRIT 23.7 % (36-52); HEMOGLOBIN 7.9 g/dL (12.0-18.0); LYMPHOCYTES # (AUTO) 0.4 K/uL (2.0-11.5); LYMPHOCYTES % (AUTO) 4.9 % (20.5-51.1); MEAN CORPUSCULAR HEMOGLOBIN 28 pg (27-31); MEAN CORPUSCULAR HGB CONC 33 g/dL (33-37); MEAN CORPUSCULAR VOLUME 84.6 fL (80-94); MONOCYTES # (AUTO) 0.3 K/uL (0.8-1.0); MONOCYTES % (AUTO) 3.7 % (1.7-9.3); NEUTROPHILS # (AUTO) 6.8 K/uL (1.8-7.7); NEUTROPHILS % (AUTO) 90.2 % (42.2-75.2); PLATELET COUNT (AUTO) 83 K/uL (140-450); RED CELL DISTRIBUTION WIDTH 17.3 % (11.6-13.7); WHITE BLOOD COUNT (AUTO) 7.6 K/uL (4.8-10.8)
[2020-03-15] MEDS: DOCUSATE 100 MG/10 ML UDC GT SCH (09:59)
[2020-03-15] MEDS: LEVOTHYROXINE SODIUM 100 MCG VIAL IV SCH (10:04)
--- NOTE | 2020-03-15 10:14 | NUR ---
ADMINISTERED PRESCRIBED MEDS PER MD ORDER. PATIENT TOLERATED WELL. MEDICATION EDUCATION REINFORCEMENT NEEDED. SAFETY MEASURES IN PLACE. WILL CONT TO MONITOR.
[2020-03-15] MEDS ORDERED: POTASSIUM CHL 40 MEQ/ D5-1/2NS 1,000 ML IV ONE (10:20)
--- NOTE | 2020-03-15 10:44 | NUR ---
RECEIVED ON A CARESCAPE R860 VENTILATOR PLUGGED INTO RED OUTLET TOLERATING WELL WITHOUT ADVERSE REACTIONS NOTED TO A PORTEX DCT #8 AIRWAY SECURED WITH A COLLINS TRACH TIE CUFF PRESSURE CHECKED NOTED AMBU BAG AT BEDSIDE LOC VERBALLY NON RESPONSIVE GOOD CHEST RISE AND AERATION THROUGHOUT BILATERAL LUNG ROJO AIRWAY PATENT
--- NOTE | 2020-03-15 11:18 | NUR ---
REC'D DISCHARGE ORDER FROM . WILL PROCEED W/ DISCHARGE TO [facility]
[2020-03-15 12:00] VITALS: BP 146/86
--- NOTE | 2020-03-15 12:54 | NUR ---
CALLED [facility] , GAVE REPORT TO ERICK SILVERMAN. PATIENT V/S: T 97.8, RR 21, PULSE 89, SPO2 100%, BP 154/78. PATIENT IS STABLE AND ON TRACH TO VENT FIO2 40%, RESP 22, PEEP 5. PATIENT TO BE TRANSPORTED BY [facility] ANYTIME AFTER 6PM, [facility] ONLY TAKES ADMISSIONS AFTER 6PM. CHARGE NURSE TO CONTACT [facility] TO SCHEDULE ADDICTION MEDICINE PHYSICIAN.
[2020-03-15] MEDS: SKINTEGRITY HYDROGEL TP SCH (13:00)
--- NOTE | 2020-03-15 13:38 | NUR ---
CALLED [facility], SPOKE WITH KEVAN AND REACTIVATED WILL CALL TRANSPORTATION. PER KEVAN, SHE CANNOT GIVE THE EXACT TIME BUT TO HAVE THE PT READY BY 6PM SWETHA. RN ASSIGNED, MADE AWARE.
[2020-03-15] MEDS ORDERED: POTASSIUM CHLORIDE 20% 40 MEQ/15 ML UDC GT SCH (15:10)
--- NOTE | 2020-03-15 15:22 | NUR ---
ADMINISTERED PRN POTASSIUM FOR POTASSIUM LEVEL 3.0. PATIENT TOLERATED WELL. MEDICATION EDUCATION REINFORCEMENT NEEDED. SAFETY MEASURES IN PLACE. WILL CONT TO MONITOR.
[2020-03-15 16:00] VITALS: BP 154/91
--- NOTE | 2020-03-15 18:46 | NUR ---
CALLED DAUGHTER TEODORO TO ADVISE OF PENDING TRANSFER. STATED SHE WOULD LIKE A CALL ONCE TRANSFER IS DONE.
--- NOTE | 2020-03-15 19:30 | NUR ---
RECEIVED PT EYES CLOSE , TRACH TO VENT AC FI02 40, TIDAL VOLUME 500, RATE OF 22 PEEP OF 5, GT INTACT NO RESIDUAL NOTED, PICCLINE ON RIGHT UPPER ARM INTACT, FLUSHED NORMAL SALINE PICCLINE, PURPLE PORT FLUSHING BUT NO BLOOD RETURN, RED PORT UNABLE TO FLUSH,
--- NOTE | 2020-03-15 19:52 | NUR ---
ENDORSED PATIENT TO NIGHTSHIFT NURSE FOR CONTINUITY OF CARE. PATIENT IS STABLE.
--- NOTE | 2020-03-15 21:47 | NUR ---
REPORT GIVEN TO [facility] , PT EYES CLOSE, BELONGINGS GIVEN TO [facility], WILL CALL DAUGHTER, JAKE 200 OUTPUT, BS 80
--- NOTE | 2020-03-15 21:50 | NUR ---
CALL PLACE TO DAUGHTER GEMINI [phone], AWARE OF THE TRANSFER TO [facility], CALL PLACE ALSO TO TEODORO DAUGHTER BUT NO ANSWER ,LEAVE MESSAGE
== END 2020-03-15 22:07 | DRG 4 ==
LOC: MED 17:20 → MTU 21:45 → MLD 02-12 02:00 → MTU 02-12 02:54 → MIC 02-12 02:57 → MTU 03-13 17:20
PROVIDERS: ADMIT Hospitalist; ATTEND Hospitalist
PROC: XW033E5 Introduction of Remdesivir Anti-infective into Peripheral Vein, Percutaneous Approach, New Technology Group 5 (ICD-10-PCS; 2020-02-09)
PROC: XW13325 Transfusion of Convalescent Plasma (Nonautologous) into Peripheral Vein, Percutaneous Approach, New Technology Group 5 (ICD-10-PCS; 2020-02-10)
PROC: 5A1955Z Respiratory Ventilation, Greater than 96 Consecutive Hours (ICD-10-PCS; principal; 2020-02-12)
PROC: 0BH17EZ Insertion of Endotracheal Airway into Trachea, Via Natural or Artificial Opening (ICD-10-PCS; 2020-02-12)
PROC: 5A09357 Assistance with Respiratory Ventilation, Less than 24 Consecutive Hours, Continuous Positive Airway Pressure (ICD-10-PCS; 2020-02-12)
PROC: 02HV33Z Insertion of Infusion Device into Superior Vena Cava, Percutaneous Approach (ICD-10-PCS; 2020-02-21)
PROC: B548ZZA Ultrasonography of Superior Vena Cava, Guidance (ICD-10-PCS; 2020-02-21)
PROC: 5A1D70Z Performance of Urinary Filtration, Intermittent, Less than 6 Hours Per Day (ICD-10-PCS; 2020-02-21)
PROC: 5A1D70Z Performance of Urinary Filtration, Intermittent, Less than 6 Hours Per Day (ICD-10-PCS; 2020-02-22)
PROC: 5A1D70Z Performance of Urinary Filtration, Intermittent, Less than 6 Hours Per Day (ICD-10-PCS; 2020-02-23)
PROC: 5A1D70Z Performance of Urinary Filtration, Intermittent, Less than 6 Hours Per Day (ICD-10-PCS; 2020-02-24)
PROC: 5A1D70Z Performance of Urinary Filtration, Intermittent, Less than 6 Hours Per Day (ICD-10-PCS; 2020-02-25)
PROC: 5A1D70Z Performance of Urinary Filtration, Intermittent, Less than 6 Hours Per Day (ICD-10-PCS; 2020-02-27)
PROC: 5A1D70Z Performance of Urinary Filtration, Intermittent, Less than 6 Hours Per Day (ICD-10-PCS; 2020-02-28)
PROC: 5A1D70Z Performance of Urinary Filtration, Intermittent, Less than 6 Hours Per Day (ICD-10-PCS; 2020-02-29)
PROC: 5A1D70Z Performance of Urinary Filtration, Intermittent, Less than 6 Hours Per Day (ICD-10-PCS; 2020-03-01)
PROC: 02PYX3Z Removal of Infusion Device from Great Vessel, External Approach (ICD-10-PCS; 2020-03-01)
PROC: 05HM33Z Insertion of Infusion Device into Right Internal Jugular Vein, Percutaneous Approach (ICD-10-PCS; 2020-03-01)
PROC: 5A1D70Z Performance of Urinary Filtration, Intermittent, Less than 6 Hours Per Day (ICD-10-PCS; 2020-03-03)
PROC: 5A1D70Z Performance of Urinary Filtration, Intermittent, Less than 6 Hours Per Day (ICD-10-PCS; 2020-03-04)
PROC: 5A1D70Z Performance of Urinary Filtration, Intermittent, Less than 6 Hours Per Day (ICD-10-PCS; 2020-03-05)
PROC: 5A1D70Z Performance of Urinary Filtration, Intermittent, Less than 6 Hours Per Day (ICD-10-PCS; 2020-03-06)
PROC: 5A1D70Z Performance of Urinary Filtration, Intermittent, Less than 6 Hours Per Day (ICD-10-PCS; 2020-03-08)
PROC: 0B110F4 Bypass Trachea to Cutaneous with Tracheostomy Device, Open Approach (ICD-10-PCS; 2020-03-11)
PROC: 0DH63UZ Insertion of Feeding Device into Stomach, Percutaneous Approach (ICD-10-PCS; 2020-03-11)
PROC: 5A1D70Z Performance of Urinary Filtration, Intermittent, Less than 6 Hours Per Day (ICD-10-PCS; 2020-03-11)
PROC: 5A1D70Z Performance of Urinary Filtration, Intermittent, Less than 6 Hours Per Day (ICD-10-PCS; 2020-03-13)
PROC: 5A1D70Z Performance of Urinary Filtration, Intermittent, Less than 6 Hours Per Day (ICD-10-PCS; 2020-03-14)
DX: A41.89 Other specified sepsis (principal); U07.1 COVID-19; J12.89 Other viral pneumonia; J80 Acute respiratory distress syndrome; N17.0 Acute kidney failure with tubular necrosis; E43 Unspecified severe protein-calorie malnutrition; R65.21 Severe sepsis with septic shock; I61.8 Other nontraumatic intracerebral hemorrhage; E87.0 Hyperosmolality and hypernatremia; E87.1 Hypo-osmolality and hyponatremia; G93.40 Encephalopathy, unspecified; E83.39 Other disorders of phosphorus metabolism; E83.41 Hypermagnesemia; R13.10 Dysphagia, unspecified; J98.2 Interstitial emphysema; E03.9 Hypothyroidism, unspecified; E78.5 Hyperlipidemia, unspecified; R73.9 Hyperglycemia, unspecified; D69.6 Thrombocytopenia, unspecified; N18.31 Chronic kidney disease, stage 3a; I12.9 Hypertensive chronic kidney disease with stage 1 through stage 4 chronic kidney disease, or unspecified chronic kidney disease; E86.0 Dehydration; D63.8 Anemia in other chronic diseases classified elsewhere; E87.6 Hypokalemia; G40.909 Epilepsy, unspecified, not intractable, without status epilepticus; N28.1 Cyst of kidney, acquired; N20.0 Calculus of kidney; N40.0 Benign prostatic hyperplasia without lower urinary tract symptoms; R26.9 Unspecified abnormalities of gait and mobility; E66.9 Obesity, unspecified; G72.89 Other specified myopathies; F12.10 Cannabis abuse, uncomplicated; Z87.442 Personal history of urinary calculi; Z68.22 Body mass index [BMI] 22.0-22.9, adult; I69.344 Monoplegia of lower limb following cerebral infarction affecting left non-dominant side; Z79.899 Other long term (current) drug therapy
CPT/HCPCS: 36415; 36600; 70450; 71045; 72170; 76770; 80048; 80053; 80076; 80305; 81001; 81003; 82150; 82550; 82570; 82803; 82948; 83036; 83605; 83615; 83690; 83735; 83880; 84100; 84300; 84436; 84439; 84443; 84479; 84484; 85025; 85379; 85610; 85651; 85730; 86140; 86704; 86706; 86708; 86709; 86803; 86900; 86901; 87040; 87081; 87086; 87340; 90935; 93005; 94003; 96374; 97110; 97112; 97116; 97161-GP; 97530; 99285; A6248; A9153; C9113; J0360; J0696; J1100; J1200; J1630; J1644; J1650; J1815; J1940; J1953; J2001; J2060; J2250; J2543; J2704; J2765; J2920; J3010; J3480; J3490; J7030; J7060; P9017; P9041; Q9967; U0003